=== PATIENT | female | born 1970 | race Two or more races ===

== ENCOUNTER 2021-01-27 21:24 | Emergency (ER) | payer OTHER, SELFPAY ==
--- NOTE | ~2021-01-27 | CT_ITS ---
EXAMINATION: CT HEAD WITHOUT CONTRAST CLINICAL INFORMATION: Altered mental status. COMPARISON: None. TECHNIQUE: Contiguous helical images of the brain were obtained without IV contrast. Multiplanar reconstructions were performed. DLP: 671 mGy-cm. FINDINGS: There are no pathologic extra-axial fluid collections. The lateral, third, fourth ventricles are nondilated and concordant with the appearance of the sulci. There is no evidence for acute intraparenchymal hemorrhage or infarct. There is neither mass nor mass effect. There is no shift of midline structures. The paranasal sinuses and mastoid air cells are clear. There are no osseous lesions. CT/CT head/brain wo con IMPRESSION: No evidence for acute intracranial injury. Automated exposure control (Care Dose) Adjustment of the mA and/or kv according to patient size (this includes techniques or standardized protocols for targeted exams where dose is matched to indication / reason for exam; i.e. extremities or head).
--- NOTE | ~2021-01-27 | CT_ITS ---
EXAMINATION: CT ABDOMEN AND PELVIS WITHOUT CONTRAST CLINICAL INFORMATION: Abdominal pain. COMPARISON: None. TECHNIQUE: Contiguous axial thin section helical images of the abdomen and pelvis were performed without oral or IV contrast. The data set was reformatted in the coronal and sagittal planes and reviewed on an independent workstation. The examination is limited secondary to extensive patient motion artifact. DLP: 1082 mGy-cm. FINDINGS: The visualized lung bases are clear. The visualized portions of the heart are unremarkable. The liver is of normal size and attenuation without focal lesions nor intrahepatic biliary ductal dilation. The patient is status post cholecystectomy. Surgical clips are identified. The spleen, pancreas, adrenal glands are unremarkable. Both kidneys are of normal size and attenuation without hydronephrosis or nephrolithiasis. There is no abdominal free fluid. There is neither mesenteric nor retroperitoneal lymphadenopathy. There is a fat-containing ventral hernia to the left of midline at the level of the umbilicus. Normal unopacified loops of small and large bowel are identified. There is no pelvic free fluid. The urinary bladder is unremarkable. There is neither pelvic nor inguinal lymphadenopathy. Bone windows: Neither sclerotic nor lytic bone lesions are identified. There is superior and inferior endplate concavity at T12 with mild vertebral body height loss. CT/CT abdomen pelvis wo con IMPRESSION: Limited exam secondary to extensive patient motion artifact. Neither hydronephrosis nor nephrolithiasis. No acute abdominal or pelvic inflammatory or infectious processes. Mild compression fracture at T12 which is age indeterminant. Automated exposure control (Care Dose) Adjustment of the mA and/or kv according to patient size (this includes techniques or standardized protocols for targeted exams where dose is matched to indication / reason for exam; i.e. extremities or head).
[2021-01-27 21:31] VITALS: BP 150/80; PULSE 102; O2SAT 97
[2021-01-27 23:37] VITALS: BP 125/61; PULSE 85; RESP 18; TEMP 36.7; O2SAT 99; BMI 32.6
[2021-01-27 23:49] VITALS: BP 125/61; PULSE 85; RESP 18; TEMP 36.7; O2SAT 99
[2021-01-27 23:49] LABS: Glucose, Whole Blood 378 mg/dL (60-115)
[2021-01-28] MEDS: Sodium Phosphate,Mono-Dibasic 133 ML ENEMA PR (01:05)
--- NOTE | 2021-01-28 01:39 | ECG_ITS ---
Test Reason : DKA Blood Pressure : / mmHG Vent. Rate : 071 BPM Atrial Rate : 071 BPM P-R Int : 158 ms QRS Dur : 108 ms QT Int : 444 ms P-R-T Axes : 055 -06 048 degrees QTc Int : 482 ms Normal sinus rhythm Nonspecific T wave abnormality Prolonged QT Abnormal ECG When compared with ECG of 17-JAN-2020 20:18, Criteria for Septal infarct are no longer Present Nonspecific T wave abnormality, worse in Inferior leads T wave inversion now evident in Lateral leads QT has lengthened Referred By: Ana Ferrari Electronically Signed By:MARLYN CASEY MD
--- NOTE | 2021-01-28 01:40 | ED.ABDPAIN ---
HPI - Abdominal Pain General Chief Complaint: Abdominal Pain Stated Complaint: constipation x 1 week Time Seen by Provider: 01/28/21 00:50 Source: patient History of Present Illness HPI narrative: 50 years old with a long history of psychiatric issues. Patient also has a history of diabetes. Presents today with having no bowel movement for last week. Has a history of having multiple C-sections. Also had a history of tubal ligation. Positive p.o. intake very small amount of gas past. No bowel movement for the last week. No cough and no congestion or upper respiratory symptoms feels weak and tired. Patient also has a history of thyroid problems. Related Data Allergies Allergy/AdvReac Type Severity Reaction Status Date / Time morphine [MORPHINE] Allergy Unknown UNKNOWN, Unverified 07/12/20 18:10 bradycardia Review of Systems Review of Systems Constitutional: No Weight loss, No Fever, No Chills, No Night Sweats, No Fatigue, No Malaise ENT/Mouth: No Hearing loss, No Ear Pain, No Nasal Congestion, No Sinus Pain, No Hoarseness, No sore throat, No Rhinorrhea, No Swallowing Difficulty Eyes: No Eye Pain, No Swelling, No Redness, No Foreign Body, No Discharge, No Vision Changes Cardiovascular: No Chest Pain, No SOB, No Dyspnea on Exertion, No Orthopnea, No Edema, No Palpitations Respiratory: No Cough, No Sputum, No Wheezing, No Smoke Exposure, No Dyspnea Gastrointestinal: Positive decreased p.o. intake positive constipation Genitourinary: no irregular bleeding, No Dysuria, No Urinary Frequency, No Hematuria, No Urinary Incontinence, No Urgency, No Flank Pain, No Urinary Flow Changes, No Hesitancy Musculoskeletal: No joint pain, No Myalgias, No Joint Swelling Skin: No Skin Lesions, No rash Neuro: No Weakness, No Numbness, No Paresthesias, No Loss of Consciousness, No Dizziness, No Headache Psych: No Anxiety/Panic, No Depression, No SI/HI/AH/VH, No Social Issues, Heme/Lymph: No Bruising, No Bleeding,No Lymphadenopathy Endocrine: No Polyuria, No Polydipsia, No Temperature Intolerance Physical Exam Vital Signs: Vital Signs: Last Vital Signs Temp 98.1 F 01/27/21 23:49 Pulse 69 01/28/21 07:31 Resp 20 01/28/21 07:31 BP 112/42 L 01/28/21 07:31 Pulse Ox 99 01/28/21 07:31 Body Mass Index 32.6 Appearance: Alert. Oriented X3. No acute distress. Eyes: Pupils equal, round and reactive to light. ENT: Pharynx normal. Neck: Normal inspection. Neck supple. No lymph nodes noted. No crepitus CVS: Normal heart rate and rhythm. Pulses normal. Normal S1 and S2 Respiratory: No respiratory distress. Breath sounds normal. No Wheezing. No rales Abdomen: Soft and nontender. No rigidity. No distention. good BS x4 Skin: Skin warm and dry. Normal skin color. Normal skin turgor. Extremities: No lower extremity edema. Neurovascular intact to all extremities. No Lacerations. No Rash Neuro: Oriented X 3. No motor deficit. No sensory deficit. Moving all extermities. No slurred speech MDM - Abdominal Pain MDM Narrative Medical decision making narrative: Patient's while in image emergency department had a manual disimpaction for her constipation. Small amount of stool was removed. An enema was given. On the way to the bathroom patient had a syncopal episode. Patient's CT scan of the head was grossly negative. Patient's electrolytes showed a sugar in the 490 range. Has evidence for diabetic he still ketoacidosis is patient had an anion gap of 24. A bicarb of 11. Elevated BUN and creatinine consistent with having acute renal insufficiency. CT scan of the abdomen did not show any acute evidence of obstruction. No large stool burden. No abscess. Patient's EKG did not show any signs of ischemia. Patient's troponin is normal. Patient's coronavirus test was negative. Case was discussed with patient will need an insulin drip. Because [facility] does not have an intensive care unit bed. Case was discussed with [facility]. The transfer Center accepted patient on behalf of Dr. petit risk of transfer discussed with family. Currently in stable condition awaiting transfer. Medical Records Attestation: I reviewed the patient's medical records. Lab Data Attestation: I reviewed the patient's lab results. Result diagrams: 01/28/21 02:38 01/28/21 05:05 Labs: Lab Results 01/27/21 01/28/21 01/28/21 Range/Units 23:43 02:28 02:38 WBC 10.2 (4.8-10.8) X10*3/uL RBC 4.32 (4.20-5.50) X10*6/uL Hgb 12.8 (12.0-16.0) g/dl Hct 36.9 L (37-47) % MCV 85.4 (80-98) fL MCH 29.6 (27.0-33.0) pg MCHC 34.7 (31.0-35.0) g/dl RDW 12.3 (11.0-16.0) % Plt Count 358 (160-400) X10*3/uL MPV 11.7 (9.4-12.3) fL Immature Gran % (Auto) 0.8 H (0.0-0.4) % Neut % (Auto) 79.2 H (45-73) % Lymph % (Auto) 11.4 L (20-40) % [place] % (Auto) 8.1 (2-11) % Eos % (Auto) 0.1 (0-4) % Baso % (Auto) 0.4 (0-2) % Lymph # (Auto) 1.2 (1.2-4.9) X10*3/uL [place] # (Auto) 0.8 (0.1-1.2) X10*3/uL Eos # (Auto) 0.0 (0.0-0.4) X10*3/uL Baso # (Auto) 0.0 (0.0-0.2) X10*3/uL Abs Immat Gran (auto) 0.08 H (0.00-0.03) X10*3/uL Absolute Neuts (auto) 8.1 (2.0-8.3) X10*3/uL Absolute Nucleated RBC 0.000 (0.0-0.012) X10*3/uL Nucleated RBC % (auto) 0.0 (0.0-0.2) /100WBC PT (10.8-13.0) SEC INR (0.9-1.1) VBG pH (7.32-7.43) VBG pCO2 mmHg VBG pO2 mmHg VBG HCO3 (22-26) mmol/L VBG O2 Saturation % VBG Base Excess mmol/L Sodium (135-145) mmol/L Potassium (3.3-5.1) mmol/L Chloride (96-108) mmol/L Carbon Dioxide (22-29) mmol/L Anion Gap (12-20) BUN (9-16) mg/dL Creatinine (0.5-1.4) mg/dL Estim Creat Clear Calc Estimated GFR POC Glucose 378 H* 446 H* (60-115) mg/dL Random Glucose (60-115) mg/dL Calcium (8.4-10.2) mg/dL Total Bilirubin (0.0-1.0) mg/dL Direct Bilirubin (0.0-0.5) mg/dL AST (5-31) U/L ALT (0-31) U/L Alkaline Phosphatase (39-117) U/L Troponin I High Sens (<3.5-17.0) ng/L Total Protein (6.5-8.0) g/dL Albumin (3.5-5.0) g/dL Lipase (8-78) U/L COVID-19 (DESI) (Negative) COVID-19 Clin Com 01/28/21 01/28/21 01/28/21 Range/Units 02:38 02:38 02:38 WBC (4.8-10.8) X10*3/uL RBC (4.20-5.50) X10*6/uL Hgb (12.0-16.0) g/dl Hct (37-47) % MCV (80-98) fL MCH (27.0-33.0) pg MCHC (31.0-35.0) g/dl RDW (11.0-16.0) % Plt Count (160-400) X10*3/uL MPV (9.4-12.3) fL Immature Gran % (Auto) (0.0-0.4) % Neut % (Auto) (45-73) % Lymph % (Auto) (20-40) % [place] % (Auto) (2-11) % Eos % (Auto) (0-4) % Baso % (Auto) (0-2) % Lymph # (Auto) (1.2-4.9) X10*3/uL [place] # (Auto) (0.1-1.2) X10*3/uL Eos # (Auto) (0.0-0.4) X10*3/uL Baso # (Auto) (0.0-0.2) X10*3/uL Abs Immat Gran (auto) (0.00-0.03) X10*3/uL Absolute Neuts (auto) (2.0-8.3) X10*3/uL Absolute Nucleated RBC (0.0-0.012) X10*3/uL Nucleated RBC % (auto) (0.0-0.2) /100WBC PT 11.4 (10.8-13.0) SEC INR 1.0 (0.9-1.1) VBG pH (7.32-7.43) VBG pCO2 mmHg VBG pO2 mmHg VBG HCO3 (22-26) mmol/L VBG O2 Saturation % VBG Base Excess mmol/L Sodium 125 L (135-145) mmol/L Potassium 4.3 (3.3-5.1) mmol/L Chloride 92 L (96-108) mmol/L Carbon Dioxide 13 L (22-29) mmol/L Anion Gap 23 H (12-20) BUN 32 H (9-16) mg/dL Creatinine 2.44 H (0.5-1.4) mg/dL Estim Creat Clear Calc 28.6 Estimated GFR 21 POC Glucose (60-115) mg/dL Random Glucose 490 H* (60-115) mg/dL Calcium 13.7 H* (8.4-10.2) mg/dL Total Bilirubin 1.3 H (0.0-1.0) mg/dL Direct Bilirubin 0.5 (0.0-0.5) mg/dL AST 15 (5-31) U/L ALT 13 (0-31) U/L Alkaline Phosphatase 149 H (39-117) U/L Troponin I High Sens 16.1 (<3.5-17.0) ng/L Total Protein 7.2 (6.5-8.0) g/dL Albumin 3.9 (3.5-5.0) g/dL Lipase 13 (8-78) U/L COVID-19 (DESI) (Negative) COVID-19 Clin Com 01/28/21 01/28/21 01/28/21 Range/Units 04:53 05:05 05:07 WBC (4.8-10.8) X10*3/uL RBC (4.20-5.50) X10*6/uL Hgb (12.0-16.0) g/dl Hct (37-47) % MCV (80-98) fL MCH (27.0-33.0) pg MCHC (31.0-35.0) g/dl RDW (11.0-16.0) % Plt Count (160-400) X10*3/uL MPV (9.4-12.3) fL Immature Gran % (Auto) (0.0-0.4) % Neut % (Auto) (45-73) % Lymph % (Auto) (20-40) % [place] % (Auto) (2-11) % Eos % (Auto) (0-4) % Baso % (Auto) (0-2) % Lymph # (Auto) (1.2-4.9) X10*3/uL [place] # (Auto) (0.1-1.2) X10*3/uL Eos # (Auto) (0.0-0.4) X10*3/uL Baso # (Auto) (0.0-0.2) X10*3/uL Abs Immat Gran (auto) (0.00-0.03) X10*3/uL Absolute Neuts (auto) (2.0-8.3) X10*3/uL Absolute Nucleated RBC (0.0-0.012) X10*3/uL Nucleated RBC % (auto) (0.0-0.2) /100WBC PT (10.8-13.0) SEC INR (0.9-1.1) VBG pH 7.29 L (7.32-7.43) VBG pCO2 23 mmHg VBG pO2 92 mmHg VBG HCO3 11 L (22-26) mmol/L VBG O2 Saturation 96.0 % VBG Base Excess -12.7 mmol/L Sodium 127 L (135-145) mmol/L Potassium 3.6 (3.3-5.1) mmol/L Chloride 97 (96-108) mmol/L Carbon Dioxide 11 L (22-29) mmol/L Anion Gap 23 H (12-20) BUN 31 H (9-16) mg/dL Creatinine 2.27 H (0.5-1.4) mg/dL Estim Creat Clear Calc 30.8 Estimated GFR 23 POC Glucose (60-115) mg/dL Random Glucose 428 H* (60-115) mg/dL Calcium 13.2 H* (8.4-10.2) mg/dL Total Bilirubin (0.0-1.0) mg/dL Direct Bilirubin (0.0-0.5) mg/dL AST (5-31) U/L ALT (0-31) U/L Alkaline Phosphatase (39-117) U/L Troponin I High Sens (<3.5-17.0) ng/L Total Protein (6.5-8.0) g/dL Albumin (3.5-5.0) g/dL Lipase (8-78) U/L COVID-19 (DESI) Negative (Negative) COVID-19 Clin Com See Note 01/28/21 Range/Units 07:14 WBC (4.8-10.8) X10*3/uL RBC (4.20-5.50) X10*6/uL Hgb (12.0-16.0) g/dl Hct (37-47) % MCV (80-98) fL MCH (27.0-33.0) pg MCHC (31.0-35.0) g/dl RDW (11.0-16.0) % Plt Count (160-400) X10*3/uL MPV (9.4-12.3) fL Immature Gran % (Auto) (0.0-0.4) % Neut % (Auto) (45-73) % Lymph % (Auto) (20-40) % [place] % (Auto) (2-11) % Eos % (Auto) (0-4) % Baso % (Auto) (0-2) % Lymph # (Auto) (1.2-4.9) X10*3/uL [place] # (Auto) (0.1-1.2) X10*3/uL Eos # (Auto) (0.0-0.4) X10*3/uL Baso # (Auto) (0.0-0.2) X10*3/uL Abs Immat Gran (auto) (0.00-0.03) X10*3/uL Absolute Neuts (auto) (2.0-8.3) X10*3/uL Absolute Nucleated RBC (0.0-0.012) X10*3/uL Nucleated RBC % (auto) (0.0-0.2) /100WBC PT (10.8-13.0) SEC INR (0.9-1.1) VBG pH (7.32-7.43) VBG pCO2 mmHg VBG pO2 mmHg VBG HCO3 (22-26) mmol/L VBG O2 Saturation % VBG Base Excess mmol/L Sodium (135-145) mmol/L Potassium (3.3-5.1) mmol/L Chloride (96-108) mmol/L Carbon Dioxide (22-29) mmol/L Anion Gap (12-20) BUN (9-16) mg/dL Creatinine (0.5-1.4) mg/dL Estim Creat Clear Calc Estimated GFR POC Glucose 300 H (60-115) mg/dL Random Glucose (60-115) mg/dL Calcium (8.4-10.2) mg/dL Total Bilirubin (0.0-1.0) mg/dL Direct Bilirubin (0.0-0.5) mg/dL AST (5-31) U/L ALT (0-31) U/L Alkaline Phosphatase (39-117) U/L Troponin I High Sens (<3.5-17.0) ng/L Total Protein (6.5-8.0) g/dL Albumin (3.5-5.0) g/dL Lipase (8-78) U/L COVID-19 (DESI) (Negative) COVID-19 Clin Com ECG Data Interpretation: Sinus heart rate of 70 MT QRS QT within normal limits QTC was 480 there is no acute ST segment elevation there is some nonspecific T-wave flattening noted. Critical Care Time Critical Care Time Critical Care Time: Yes Total Critical Care Time: 90 Attestation: I have personally provided 90 minutes of critical care time exclusive of time spent on separately billable procedures. Time includes review of lab data, radiology results, discussion with consultants, and monitoring for potential decompensation. Interventions were performed as documented above Discharge Plan Discharge Clinical Impression: Syncope, Diabetic ketoacidosis [facility] Past Medical History Medical History Depression Diabetes HTN (hypertension) Hypothyroid Surgical History H/O tubal ligation Previous section Social History Social History Smoking Status: Former smoker Use of substances other than those prescribed or required for medical reasons: No Advance Directives: No Advance Directives Information Provided: No
--- NOTE | 2021-01-28 01:57 | PC.NURSE ---
This RN called by copier field service technician, pt found in bathroom on floor. Pt states that she was moving her bowels when she got dizzy and fell to the floor hitting her head. Ferrari at side, pt assisted up and back into room. Pts gait unsteady, requiring a two assist. Primary RN aware.
[2021-01-28 02:43] LABS: MANUAL DIFF FLAG NO
[2021-01-28 02:45] LABS: Basophils Percent Auto 0.4 % (0-2); Eosinophils Percent Auto 0.1 % (0-4); Hematocrit 36.9 % (37-47); Hemoglobin 12.8 g/dl (12.0-16.0); Imm Gran Abs Auto 0.08 X10*3/uL (0.00-0.03); Imm Gran Pct Auto 0.8 % (0.0-0.4); Lymphocytes Absolute Auto 1.2 X10*3/uL (1.2-4.9); Lymphocytes Percent Auto 11.4 % (20-40); Mean Corpuscular HGB Conc 34.7 g/dl (31.0-35.0); Mean Corpuscular Hemoglobin 29.6 pg (27.0-33.0); Mean Corpuscular Volume 85.4 fL (80-98); Mean Platelet Volume 11.7 fL (9.4-12.3); Monocytes Absolute Auto 0.8 X10*3/uL (0.1-1.2); Monocytes Percent Auto 8.1 % (2-11); Neutrophils Absolute Auto 8.1 X10*3/uL (2.0-8.3); Neutrophils Percent Auto 79.2 % (45-73); Platelet Count 358 X10*3/uL (160-400); Red Blood Count 4.32 X10*6/uL (4.20-5.50); Red Cell Distribution Width 12.3 % (11.0-16.0); White Blood Count 10.2 X10*3/uL (4.8-10.8)
[2021-01-28 02:50] LABS: Prothrombin Time 11.4 SEC (10.8-13.0)
[2021-01-28 03:08] LABS: Glucose, Whole Blood 446 mg/dL (60-115)
[2021-01-28 03:25] LABS: Alanine Aminotransferase 13 U/L (0-31); Albumin Level 3.9 g/dL (3.5-5.0); Alkaline Phosphatase 149 U/L (39-117); Anion Gap 23 (12-20); Aspartate Amino Transferase 15 U/L (5-31); Bilirubin Direct 0.5 mg/dL (0.0-0.5); Bilirubin Total 1.3 mg/dL (0.0-1.0); Blood Urea Nitrogen 32 mg/dL (9-16); Calcium 13.7 mg/dL (8.4-10.2); Carbon Dioxide 13 mmol/L (22-29); Chloride 92 mmol/L (96-108); Creatinine Clr Calc Pharmacy 28.6; Estimated Glomerular Filt Rate 21; Glucose Random 490 mg/dL (60-115); Lipase 13 U/L (8-78); Potassium 4.3 mmol/L (3.3-5.1); Sodium 125 mmol/L (135-145); Total Protein 7.2 g/dL (6.5-8.0)
[2021-01-28] MEDS: 0.9 % Sodium Chloride 1,000 ML 999 ML IV ×2 (03:54→06:00)
[2021-01-28] MEDS: ondansetron HCL 4 MG/2 ML VIAL IVPUSH (03:54)
[2021-01-28 05:12] LABS: Venous Blood Gas Refer to POC result
[2021-01-28 05:14] LABS: VBG Base Excess -12.7 mmol/L; VBG HCO3 11 mmol/L (22-26); VBG pCO2 23 mmHg; VBG pH 7.29 (7.32-7.43); VBG pO2 92 mmHg
--- NOTE | 2021-01-28 05:28 | PC.NURSE ---
delay in med administration due to staffing levels and multicle critical patients.
[2021-01-28 05:29] LABS: COVID-19 Test Negative (Negative); IDNOW Serial# 9DD0AD1C
[2021-01-28] MEDS: Insulin Regular, Human 100 UNIT/ML 3 ML VIAL 9 UNIT IVPUSH (05:35)
[2021-01-28 05:37] LABS: Anion Gap 23 (12-20); Blood Urea Nitrogen 31 mg/dL (9-16); Calcium 13.2 mg/dL (8.4-10.2); Carbon Dioxide 11 mmol/L (22-29); Chloride 97 mmol/L (96-108); Creatinine Clr Calc Pharmacy 30.8; Estimated Glomerular Filt Rate 23; Glucose Random 428 mg/dL (60-115); Potassium 3.6 mmol/L (3.3-5.1); Sodium 127 mmol/L (135-145)
--- NOTE | 2021-01-28 05:45 | PC.NURSE ---
@8909 DR BELL ASKS FOR CALL TO BE PLACED TO [facility] [place] LINE FOR THIS PT BERNARD ANSWERS,TAKES PT IN INFO AND ASKS TO SPEAK WITH DR ARABELLA BELL TAKES OVER CALL RIGHT AWAY, PER DR BELL NO BED AVAILABLE @ THIS TIME @2747 DR BELL REQUESTS A CALL PLACED TO [facility] FOR TX OF THE IS PT DR BELL TOLD NO BEDS AVAILABLE @ [facility] @ THAT TIME. @1939 DR BELL REQUESTS CALL OUT TO [facility] FOR TX OF THIS PT JEREMI ANSWERS AND ASKS TO SPEAK WITH DR ARABELLA BELL TAKES OVER CALL RIGHT AWAY @ 2932 JEREMI OF [facility] TX LINE CALLS AND ASKS TO SPEAK WITH DR BELL AND FOR US TO FAX FACE SHEET TO THEM TO [phone]
--- NOTE | 2021-01-28 06:17 | PC.NURSE ---
insulin drip started at 06:10, 5 units an hour. verified by MARYAM Trevino
[2021-01-28 06:19] VITALS: BP 128/44; PULSE 67; RESP 17; O2SAT 99
[2021-01-28 06:25] LABS: Troponin-I High Sensitivity 16.1 ng/L (<3.5-17.0)
[2021-01-28] MEDS: Insulin Regular/NS 100 UNIT/100 ML PLAST..BAG IVCONT (06:31)
--- NOTE | 2021-01-28 06:39 | PC.NURSE ---
PLANS TO TRANSFER PATIENT TO [facility], PATIENT AND AWARE.
--- NOTE | 2021-01-28 06:57 | PC.NURSE ---
received report from celestine frey
[2021-01-28 07:10] VITALS: BP 116/32; PULSE 64; RESP 11; O2SAT 98
[2021-01-28] MEDS: 0.9 % Sodium Chloride 500 ML 999 ML IV (07:11)
[2021-01-28 07:22] LABS: Glucose, Whole Blood 300 mg/dL (60-115)
[2021-01-28 07:31] VITALS: BP 112/42; PULSE 69; RESP 20; O2SAT 99
--- NOTE | 2021-01-28 07:32 | PC.NURSE ---
PT RESTING IN THE STRETCHER, ALERT AND ORIENTED, SKIN PALE AND DRY, PT REPORTS RIGHT LOWER BACK PAIN ABOUT 8/10, PT DENIES ABD PAIN/NAUSEA BUT STATES FEELING VERY WEAK. NS ON THE MONITOR. REPEAT POC 300, ORIGINAL STARTING POC FOR THE INSULIN DRIP WAS 428, DECREASED BY 100, DRIP DROPPED TO 2.5U/H. VS STABLE AT THIS TIME. [place] [facility] [place]
--- NOTE | 2021-01-28 08:04 | PC.NURSE ---
report given to Shelly sprague
[2021-01-28 08:27] LABS: Anion Gap 16 (12-20); Blood Urea Nitrogen 29 mg/dL (9-16); Calcium 12.7 mg/dL (8.4-10.2); Carbon Dioxide 14 mmol/L (22-29); Chloride 102 mmol/L (96-108); Creatinine Clr Calc Pharmacy 35.9; Estimated Glomerular Filt Rate 27; Glucose Random 268 mg/dL (60-115); Magnesium 1.8 mg/dL (1.6-2.6); Potassium 3.4 mmol/L (3.3-5.1); Sodium 129 mmol/L (135-145)
[2021-01-28 08:35] LABS: Glucose, Whole Blood 229 mg/dL (60-115)
[2021-01-28 09:36] LABS: Glucose, Whole Blood 243 mg/dL (60-115)
== END 2021-01-28 10:38 | disposition other institution (70) ==
PROVIDERS: Emergency Provider Emergency Medicine Emergency Medical Services; PCP Student in an Organized Health Care Education/Training Program
DX: R55 Syncope and collapse (principal); E11.10 Type 2 diabetes mellitus with ketoacidosis without coma; K59.00 Constipation, unspecified; I10 Essential (primary) hypertension; E11.9 Type 2 diabetes mellitus without complications; Z20.822 Contact with and (suspected) exposure to COVID-19; Z87.891 Personal history of nicotine dependence; Z79.899 Other long term (current) drug therapy
CPT/HCPCS: 36415; 70450; 74176; 80048; 80076; 82947; 83690; 83735; 84484; 85025; 85610; 87635; 93005; 96365; 96375; 99284; 99291; 99292; J2405

== ENCOUNTER → 2021-02-28 13:11 | Outpatient (BNVA) | payer OTHER, SELFPAY | PROVIDERS: Visit Provider Physician Assistant ==

== ENCOUNTER 2021-05-07 15:00 | Outpatient (RCR) | payer OTHER, SELFPAY | END 2021-05-17 10:23 | disposition home or self-care (01) | LOC: HO.PTCHIC 15:00 | PROVIDERS: PCP Student in an Organized Health Care Education/Training Program; Visit Provider Student in an Organized Health Care Education/Training Program | DX: R26.9 Unspecified abnormalities of gait and mobility (principal) | CPT/HCPCS: 97110; 97112; 97162 ==

== ENCOUNTER 2021-05-29 16:49 | Outpatient (REF) | payer OTHER, SELFPAY ==
--- NOTE | ~2021-05-29 | XR_ITS ---
EXAMINATION: XR HAND WRIST, RIGHT XR HAND WRIST, LEFT CLINICAL INFORMATION: Bilateral pain. History fall onto hands approximately 3 months ago. COMPARISON: None TECHNIQUE: Each hand and wrist are imaged together in 3 large [id number] images. A navicular view is also included on each side for a total of 4 views of each side. FINDINGS: Right: There is no acute or healing fracture, dislocation, or destructive process. The ulnar variance is neutral. There is no periarticular demineralization, focal joint narrowing, or erosive changes. There may be mild generalized osteopenia. Left: There is no acute or healing fracture, dislocation, or destructive process. The ulnar variance is neutral. There is no periarticular demineralization, focal joint narrowing, or erosive changes. There may be mild generalized osteopenia. XR/XR hand wrist RT IMPRESSION: 1. No acute or healing fracture, dislocation, or arthropathy. 2. Question mild generalized osteopenia.
--- NOTE | ~2021-05-29 | XR_ITS ---
EXAMINATION: XR HAND WRIST, RIGHT XR HAND WRIST, LEFT CLINICAL INFORMATION: Bilateral pain. History fall onto hands approximately 3 months ago. COMPARISON: None TECHNIQUE: Each hand and wrist are imaged together in 3 large [id number] images. A navicular view is also included on each side for a total of 4 views of each side. FINDINGS: Right: There is no acute or healing fracture, dislocation, or destructive process. The ulnar variance is neutral. There is no periarticular demineralization, focal joint narrowing, or erosive changes. There may be mild generalized osteopenia. Left: There is no acute or healing fracture, dislocation, or destructive process. The ulnar variance is neutral. There is no periarticular demineralization, focal joint narrowing, or erosive changes. There may be mild generalized osteopenia. XR/XR hand wrist LT IMPRESSION: 1. No acute or healing fracture, dislocation, or arthropathy. 2. Question mild generalized osteopenia.
== END 2021-05-29 16:50 | disposition home or self-care (01) ==
LOC: HO.XRAY 16:49
PROVIDERS: PCP Student in an Organized Health Care Education/Training Program; Visit Provider General Practice
DX: M79.641 Pain in right hand (principal); M79.642 Pain in left hand; Z91.81 History of falling
CPT/HCPCS: 73110; 73130

== ENCOUNTER 2023-05-25 11:19 | Outpatient (REF) | payer OTHER, SELFPAY ==
[2023-05-25 15:22] LABS: Anion Gap 18 (12-20); Blood Urea Nitrogen 38 mg/dL (9-16); Calcium 9.3 mg/dL (8.4-10.2); Carbon Dioxide 18 mmol/L (22-29); Chloride 109 mmol/L (96-108); Estimated Glomerular Filt Rate 34; Glucose Random 98 mg/dL (60-115); Potassium 4.5 mmol/L (3.3-5.1); Sodium 140 mmol/L (135-145)
== END 2023-05-25 11:20 | disposition home or self-care (01) ==
LOC: HO.CHCLDS 11:19
PROVIDERS: Visit Provider Student in an Organized Health Care Education/Training Program
DX: I10 Essential (primary) hypertension (principal)
CPT/HCPCS: 36415; 80048

== ENCOUNTER 2024-01-13 14:41 | Outpatient (REF) | payer OTHER, SELFPAY ==
--- NOTE | ~2024-01-13 | MM_ITS ---
EXAMINATION: MM SCREENING DIGITAL BREAST TOMOSYNTHESIS, BILATERAL CLINICAL INFORMATION: Screening. Asymptomatic. COMPARISON: Mammography: This study is compared with prior exams dating back to 2013. TECHNIQUE: Digital breast tomosynthesis is performed in both the craniocaudal and mediolateral oblique views along with computer-aided detection (CAD). Synthesized 2D images are generated from the tomosynthesis. FINDINGS: There are scattered areas of fibroglandular density (ACR BI-RADS breast composition Category b). There are no significant masses, abnormal calcifications, or other abnormalities. MM/MM tomosynthesis screening BI IMPRESSION: No mammographic evidence of malignancy. ASSESSMENT: BI-RADS BI-RADS 1 - Negative RECOMMENDATION: Routine annual mammography screening. 1 year F/U This examination should not preclude the clinical evaluation of a suspicious palpable abnormality. This patient's information was entered into a reminder system with a target due date for their next mammogram.
== END 2024-01-13 14:42 | disposition home or self-care (01) ==
LOC: HO.MAMMO 14:41
PROVIDERS: PCP Student in an Organized Health Care Education/Training Program; Visit Provider Student in an Organized Health Care Education/Training Program
DX: Z12.31 Encounter for screening mammogram for malignant neoplasm of breast (principal)
CPT/HCPCS: 77063; 77067

== ENCOUNTER → 2024-01-13 14:45 | Outpatient (BNV) | payer OTHER, SELFPAY | PROVIDERS: PCP Student in an Organized Health Care Education/Training Program; Visit Provider Radiology Diagnostic Radiology | DX: Z12.31 Encounter for screening mammogram for malignant neoplasm of breast (principal) | CPT/HCPCS: 77063; 77067 ==

== ENCOUNTER 2024-01-14 10:13 | Outpatient (AMB) | payer OTHER, SELFPAY ==
--- NOTE | 2024-01-14 10:15 | A.OFFVIS_ITS ---
Intake Vital Signs 01/14/24 10:18 Height 5 ft 4 in Weight 253 lb 8.505 oz BMI 43.5 BP 116/60 Blood Pressure Location Rt radial Position Sitting Pulse 82 Pulse Source Pulse Oximeter Temp 97 F Temp Source Skin Pulse Oximetry (%) 97 Oxygen Delivery Method Room Air Intake Visit Reasons: SLE/LVM Intake Note: New patient, externally referred, presents to office today for SLE consult. Referred by [facility], Dr. Hernandez Emergency Veterinary Technician Required: No Accompanied by: Self / Same As Patient Allergies haloperidol [From Haldol] Allergy (Severe, Verified 01/14/24 10:16) Jaw locked pioglitazone [From Actos] Allergy (Severe, Verified 01/14/24 10:16) Throat swells morphine [MORPHINE] Allergy (Unknown, Unverified 01/14/24 10:16) UNKNOWN, bradycardia HPI HPI Comments History of Present Illness Details Ms. Starr 53 year old female refer by her Neprologist for evaluation of +dsDNA in the context of CKD, uncontrolled diabetes mellitus and negative CASPER. She denies signs and symptoms of lupus. She has hypertension, longstanding diabetes and she was 16 years old and state 3 chronic kidney disease. She has not had hair loss more than the dilation, sores in the nose or mouth, sun sensitivity or concerned rashes. She does have joint ache which she thinks is more related to her lower back and knee pain. She walks with a cane. She can planes of a chronic dull pain to the right flank which has been there since she fell and hit that side over a year ago. Imaging has not identified any pathology. She has done physical rehab in the past Patient denies Raynaud's phenomenon, butterfly rash on face or other rashes; denies photosensitivity - getting sick or developing a rash from being out in the sun; denies blood or froth in urine; patient denies hx of SOB, chest pain. Patient denies hx of Carditis or Pleuritis. Patient denies any history of DVT/PE. Patient had no miscarriages. The patient reports never have had to take aspirin or a blood thinner during the successful pregnancies. Denies fevers, excessive fatigue, unexplained weight-loss or weight-gain, thinning hair or hair loss, hx of rashes; dry mouth, mouth sores or ulcers; ringing in the ear. Her daughter has lupus. PFSH Medical History (Updated 01/14/24 @ 13:25 by SOHAIL Galvan) Obesity, morbid, BMI 40.0-49.9 Chronic kidney disease (CKD) Ds DNA antibody positive Depression Diabetes Hypothyroid HTN (hypertension) Depression Surgical History History of parotid gland removal History of cholecystectomy Previous section H/O tubal ligation Family History Daughter Lupus Mother Arthritis Diabetes Maternal Grandmother Arthritis Father Multiple sclerosis Diabetes Social History (Updated 01/14/24 @ 10:22 by KRYSTLE Quinn) Household Members: Spouse and Children Household Members Other:: , 21-year-old daughter Alcohol intake: former Patient Tobacco Use Status: Never used Tobacco Current occupational status: unemployed Review of Systems Const All systems reviewed & are unremarkable except as noted in HPI and below Physical Exam Vital Signs: Last Vital Signs Temp 97 F 01/14/24 10:18 Pulse 82 01/14/24 10:18 BP 116/60 01/14/24 10:18 Pulse Ox 97 01/14/24 10:18 Oxygen Delivery Method Room Air 01/14/24 10:18 BMI result Body Mass Index 43.5 Vital signs reviewed. Constitutional: Non-toxic appearing. No acute distress. Well-developed and well-nourished. HEENT: Normocephalic and atraumatic. External auditory canals without erythema or edema bilaterally. Dry mucous membranes. No pharyngeal erythema or exudates. Skin: Warm and dry. No rashes or lesions noted. Neck: Full and painless range of motion. No cervical lymphadenopathy. Cardio: Regular rate and rhythm. No murmurs, gallops, or rubs. No lower extremity edema. No JVD. Pulmonary: No respiratory distress. No accessory muscle usage. Scattered expiratory wheezing. Gastrointestinal: Soft, nontender, and nondistended in all 4 quadrants. Normoactive bowel sounds in all 4 quadrants. Genitourinary: No CVA tenderness. Musculoskeletal: Normal range of motion in joints throughout the body. No deformity or other signs of injury. Neuro: Alert and oriented x4. Cranial nerves 2-12 grossly intact. No focal deficits appreciated. Results Reviewed Results Reviewed: I have reviewed the labs sent in with the referral documents. Assessment & Plan Assessment & Plan (1) Ds DNA antibody positive: Code(s): R76.8 - Other specified abnormal immunological findings in serum (2) Chronic kidney disease (CKD): Code(s): N18.9 - Chronic kidney disease, unspecified Qualifiers: Chronic kidney disease stage 3 subtype: unspecified whether 3a or 3b Chronic kidney disease stage: stage 3 (moderate) Qualified Code(s): N18.30 - Chronic kidney disease, stage 3 unspecified (3) Obesity, morbid, BMI 40.0-49.9: Code(s): E66.01 - Morbid (severe) obesity due to excess calories (4) Depression: Comment: Depression-has psychotherapist however she does not feel she has a good connection, Code(s): F32.9 - Major depressive disorder, single episode, unspecified Plan #+dsDNA/CKD:It is not standard for patient to have lupus in the setting of negative CASPER and positive double-stranded DNA. Nonetheless I will obtain some confirmatory labs to further evaluate. On PE the patient does not have a clinical presentation for lupus. In reviewing the Nephrology documentation with kidney biopsy result, I suspect her kidney condition may be more related to the uncontrolled diabetes mellitus and hypertension. The biopsy report identifies diffuse and nodular diabetic glomerular sclerosis, moderately advanced with severe arteriosclerosis and arteriolar hyalinosis. There is no evidence of immune complex mediated disease active, active glomerulitis, active interstitial nephritis or paraprotein deposit disease. #Obese/Depression: Patient and I discussed how she can improve her nutrition and increase her activity level to obtain the benefit of weight loss. The patient agrees and she will try to be more engaging of these things. She has depression but she is seeing a therapist and the depression sometimes drives the non beneficial eating habits. Follow-up in 3 weeks. I spent 55 minutes reviewing records and history, evaluating and assessing patient, encouraging patient and counseling, and documenting Orders: Orders DNA Double Stranded-Crithidia Today R76.8 - Other specified abnormal immunological findings in serum Sjogren's Antibodies Today R76.8 - Other specified abnormal immunological findings in serum Cyclic Citrullinated Peptide Today R76.8 - Other specified abnormal immunological findings in serum Rheumatoid Factor Today R76.8 - Other specified abnormal immunological findings in serum Anti DNA DS Antibody Today R76.8 - Other specified abnormal immunological findings in serum Complement C3 Today R76.8 - Other specified abnormal immunological findings in serum Complement C4 Today R76.8 - Other specified abnormal immunological findings in serum CASPER Reflex Titer and Pattern Today R76.8 - Other specified abnormal immunological findings in serum Anti Extractable Nuclear Ag Today R76.8 - Other specified abnormal immunological findings in serum Coding Level of Care Code New Pt Level 5 (84770) Diagnoses Ds DNA antibody positive R76.8 Stage 3 chronic kidney disease, unspecified whether stage 3a or 3b CKD N18.30 Chronic kidney disease stage 3 subtype: unspecified whether 3a or 3b Chronic kidney disease stage: stage 3 (moderate) Obesity, morbid, BMI 40.0-49.9 E66.01 Depression F32.9
[2024-01-14 10:18] VITALS: BP 116/60; PULSE 82; TEMP 36.1; O2SAT 97; BMI 43.5
== END 2024-01-14 11:19 | disposition home or self-care (01) ==
PROVIDERS: PCP Student in an Organized Health Care Education/Training Program; Visit Provider Nurse Practitioner Family
DX: R76.8 Other specified abnormal immunological findings in serum (principal); N18.30 Chronic kidney disease, stage 3 unspecified; E66.01 Morbid (severe) obesity due to excess calories; F32.9 Major depressive disorder, single episode, unspecified
CPT/HCPCS: 99205

== ENCOUNTER → 2024-01-14 10:13 | Outpatient (BNVA) | payer OTHER, SELFPAY | PROVIDERS: PCP Student in an Organized Health Care Education/Training Program; Visit Provider Nurse Practitioner Family | DX: R76.8 Other specified abnormal immunological findings in serum (principal); E11.22 Type 2 diabetes mellitus with diabetic chronic kidney disease; N18.30 Chronic kidney disease, stage 3 unspecified; E66.01 Morbid (severe) obesity due to excess calories; F32.9 Major depressive disorder, single episode, unspecified; Z68.41 Body mass index [BMI] 40.0-44.9, adult | CPT/HCPCS: 99202 ==

== ENCOUNTER 2024-01-14 11:26 | Outpatient (REF) | payer OTHER, SELFPAY ==
[2024-01-14 13:47] LABS: Rheumatoid Factor 70.7 IU/mL (<15.0)
[2024-01-15 13:33] LABS: Anti DNA DS Antibody 96 IU/mL; Antibody to SS-A Antigen <1.0 NEG AI (<1.0 NEG); Antibody to SS-B Antigen <1.0 NEG AI (<1.0 NEG); SM/Ribonucleoprotein Ab <1.0 NEG AI (<1.0 NEG); Smith Protein <1.0 NEG AI (<1.0 NEG)
[2024-01-15 13:52] LABS: Cyclic Citrullinated Peptide <16 UNITS
[2024-01-15 16:19] LABS: Complement C3 158 mg/dL (83-193)
[2024-01-18 14:38] LABS: Anti Nuclear Antibody Screen NEGATIVE (NEGATIVE)
[2024-01-19 15:58] LABS: DNAds, Crithidia Antibody Negative (Negative)
== END 2024-01-14 11:27 | disposition home or self-care (01) ==
LOC: HO.10HDL 11:26
PROVIDERS: Visit Provider Nurse Practitioner Family
DX: R76.8 Other specified abnormal immunological findings in serum (principal)
CPT/HCPCS: 36415; 86038; 86160; 86200; 86225; 86235; 86255; 86431

== ENCOUNTER 2024-02-16 10:25 | Outpatient (AMB) | payer OTHER, SELFPAY ==
--- OUTSIDE RECORDS SUMMARY | 2024-02-16 10:26 | XMS_ITS | Continuity of Care Document ---
Author Organization [facility] Address [address] [place] [address]- Care Team Providers Care Cook Helper Pastry Name Role Phone Nerissa Lopez MD Primary Care Physician Encounter [facility] Date(s): 07/08/23 - 08/07/23 [facility] [address] [place] [id number]- Allergies, Adverse Reactions, Alerts Substance Reaction Severity Status morphine CARDIAC ARREST Moderate Active Haldol 1 Acute dystonic react ion due to drugs 10-JUL-2014 21:15:44<$> EPS Unknown Active Actos Edema Active 1Developed sx consistent with acute dystonic rxn (trismus). Immunizations Given and Recorded Vaccine Date Status Refusal Reason SARS-CoV-2 (COVID-19) mRNA BNT-162b2 vac 02/13/21 Recorded SARS-CoV-2 (COVID-19) mRNA BNT-162b2 vac 01/08/21 Recorded zoster vaccine, inactivated 09/06/19 Recorded zoster vaccine, inactivated 06/29/19 Recorded pneumococcal 23-valent vaccine 04/25/11 Recorded tetanus/diphtheria/pertussis, acel(Tdap) 12/23/10 Recorded Pneumovax 23 (oldterm) 1 02/13/10 Given Tet/Diphth/Acel, Pertussis (oldterm) 2 02/23/08 Gi helder Influenza Virus Vaccine (oldterm) 3 09/10/07 Given Influenza Virus Vaccine (oldterm) 4 09/11/06 Given 1Admin Note: vis 02/01 2Admin Note: vis 3Admin Note: VIS 4Admin Note: VIS GIVEN Medications Abilify 5 mg oral tablet 15 mg, 3, tablet, By Mouth, Daily at bedtime, # 30 tablet, Refills 0, Tot. Refills 0, Maintenance, 01/23/20 13:27:00 EDT, Route to Pharmacy Electronically, [facility], 162.56, cm, 01/23/20 8:59:00 EDT, Height, 107.5, kg, 01/18/20... Start Date: 01/23/20 Status: Ordered acetaminophen 325 mg oral tablet 650 mg, By Mouth, Every 4 hours, PRN, If patient has not received Oxycodone/Acetaminophen (Percocet-5) in PACU, Refills 0, Maintenance, Pain , Mild, 12/31/21 9:27:00 EST, Partial fill upon patient request if the prescription is for a schedule II opioi... Start Date: 12/31/21 Status: Ordered aspirin 81 mg oral tablet 1 tablet = 81 mg, By Mouth, Daily, # 90 tablet, 11 Refills, diabetes - cardiac protection, Tablet Start Date: 10/08/09 Stop Date: 11/07/09 Status: Ordered busPIRone 7.5 mg oral tablet 1 tablet = 7.5 mg, By Mouth, 2 times a day, # 90 tablet, 0 Refills, Maintenance, 07/25/21 20:11:00 EDT, Tablet, Partial fill upon patient request if the prescription is for a schedule II opioid drug. Start Date: 07/25/21 Status: Ordered Dexcom G6 Sensors Dexcom G6 Sensors, See Instructions, # 3 each, Refills 11, Tot. Refills 11, Maintenance, Dx 11.9 IDDM, change every 10 days, 05/18/23 18:22:00 EDT, Compound, 162.56, cm, 05/14/23 10:22:00 EDT, Height, 93.1, kg, 12/31/21 6:58:00 EST, Dry Weight Start Date: 05/18/23 Status: Ordered Dexcom G6 transmitter Dexcom G6 transmitter, See Instructions, # 1 each, Refills 3, Tot. Refills 3, Maintenance, Dx 11.9 IDDM, chnage every 90 days, 05/18/23 18:22:00 EDT, Compound, 162.56, cm, 05/14/23 10:22:00 EDT, Height, 93.1, kg, 12/31/21 6:58:00 EST, Dry Weight Start Date: 05/18/23 Status: Ordered docusate sodium = 100 mg, By Mouth, Daily, PRN as needed for constipation, 0 Refills, Maintenance, 12/23/21 10:16:00 EST, Partial fill upon patient request if the prescription is for a schedule II opioid drug. Start Date: 12/23/21 Status: Ordered Freestyle David Monitor See Instructions, # 1 each, Maintenance, use as directed for Type 2 Diabetes Mellitus, 07/29/21 16:03:00 EDT, Supply, 162, cm, 07/29/21 11:24:00 EDT, Height, 83.1, kg, 07/26/21 0:26:00 EDT, Dry Weight Start Date: 07/29/21 Stop Date: 08/28/21 Status: Ordered Freestyle David Sensor See Instructions, # 1 each, Maintenance, use as directed for Type 2 Diabetes Mellitus, 07/29/21 16:03:00 EDT, Supply, 162, cm, 07/29/21 11:24:00 EDT, Height, 83.1, kg, 07/26/21 0:26:00 EDT, Dry Weight Start Date: 07/29/21 Stop Date: 08/28/21 Status: Ordered Freestyle Lite Test Strips See Instructions, # 200 each, Tot. Refills 5, Maintenance, to test BG 4 times daiily and with symptoms of hypoglycemia, 09/26/15 16:47:08, Compound Start Date: 09/26/15 Stop Date: 10/26/15 Status: Ordered Freestyle Lite Test Strips See Instructions, # 200 each, Refills 6, Tot. Refills 6, Maintenance, use as directed for Type 2 Diabetes Mellitus, 05/14/23 11:01:00 EDT, Supply, 162.56, cm, 05/14/23 10:22:00 EDT, Height, 93.1, kg,12/31/21 6:58:00 EST, Dry Weight Start Date: 05/14/23 Stop Date: 12/10/23 Status: Ordered Gabapentin = 300 mg, By Mouth, 3 times a day, 0 Refills, Maintenance, 12/23/21 10:13:00 EST, Partial fill uponpatient request if the prescription is for a schedule II opioid drug. Start Date: 12/23/21 Status: Ordered glipiZIDE 5 mg oral tablet 5 mg, 1, tablet, By Mouth, 2 times a day, Refills 0, Maintenance, 12/23/21 10:15:00 EST, Partial fill upon patient request if the prescription is for a schedule II opioid drug. Start Date: 12/23/21 Status: Ordered hydrochlorothiazide 25 mg oral tablet 25 mg, 1, tablet, By Mouth, Daily, # 30 tablet, Refills 0, Maintenance, 12/04/21 9:31:00 EST, Partial fill upon patient request if the prescription is for a schedule II opioid drug. Start Date: 12/04/21 Status: Ordered insulin lispro 100 units/mL injectable solution 4-14 units, Subcutaneous Injection, 3 times a day before meals, << Sliding Scale Comments >> 70 - 149 4 units Call if less than 70 150 - 199 6 units 200 - 249 8 units 250 - 299 10 units 300 - 349 12 units 350 - 399 14 units Call... Start Date: 07/29/21 Status: Ordered Lantus Solostar Pen 100 units/mL subcutaneous solution See Instructions, INJECT 55 UNITS SUBCUTANEOUSLY EVERY MORNING, # 15 mL, 2 Refills, [facility], 162.56, cm, 12/31/21 6:58:00 EST, Height, 93.1, kg, 12/31/21 6:58:00 EST, Dry Weight Start Date: 02/27/22 Status: Ordered levothyroxine 150 mcg (0.15 mg) oral tablet 1 tablet = 150 mcg, By Mouth, Daily, # 30 tablet, 0 Refills, Maintenance, 07/25/21 22:18:00 EDT, Tablet, Partial fill upon patient request if the prescription is for a schedule II opioid drug. Start Date: 07/25/21 Status: Ordered lisinopril 20 mg oral tablet 20 mg, 1, tablet, By Mouth, Daily, # 30 tablet, Refills 0, Tot. Refills 0, Maintenance, 02/04/21 12:22:00 EDT, Route to Pharmacy Electronically, [facility], Partial fill upon patient request if the prescription is for a schedule I... Start Date: 02/04/21 Status: Ordered One Touch Delica Lancets See Instructions, # 150 each, Maintenance, test BG 4x daily, E11.9, Please call [facility] [phone] to schedule a follow up appt or call your PCP for refills., 01/26/17 15:16:02, Compound Start Date: 01/26/17 Status: Ordered One Touch Ultra 2 Glucose Meter See Instructions, # 1 each, Refills 0, Tot. Refills 0, Maintenance, To test BG 4 times a day and prn for T2DM Dx E11.9, 05/14/16 19:28:19, Compound Start Date: 05/14/16 Status: Ordered One Touch Ultra Test Strips See Instructions, # 150 each, Refills 9, Tot. Refills 9, Maintenance, Test blood sugar 4x daily andwith symptoms of low blood sugar for dx of E11.9, 08/14/16 15:58:50, Compound Start Date: 08/14/16 Status: Ordered oxyCODONE 5 mg oral tablet 5 mg, 1, tablet, By Mouth, Every 6 hours, PRN, # 12 tablet, Refills 0, Tot. Refills 0, Maintenance,Pain , Mild, 12/31/21 9:27:00 EST, Route to Pharmacy Electronically, [facility], Partial fill upon patient request if the prescrip... Start Date: 12/31/21 Status: Ordered Pen [place], 31 G x 5 mm BD Ultra Fine III See Instructions, # 150 each, Refills 0, Tot. Refills 5, Maintenance, For use 4x daily with insulinpens for dx of E11.9, please keep 05/19/17 appt, 04/24/17 16:03:34, Compound Start Date: 04/24/17 Status: Ordered Pen [place], 31 G x 8 mm BD Ultra Fine III See Instructions, # 150 each, Refills 5, Tot. Refills 5, Maintenance, to inject insulin 5 times a day for T2DM E11.65, 05/18/17 16:56:46, Compound Start Date: 05/18/17 Stop Date: 11/14/17 Status: Ordered pravastatin 20 mg oral tablet 1 tablet = 20 mg, By Mouth, Daily, # 30 tablet, 2 Refills, Maintenance, Tablet Start Date: 02/13/10 Status: Ordered Vitamin D3 1000 intl units oral tablet 1 tablet = 1,000 International_Units, By Mouth, Daily, # 30 tablet, 0 Refills, Maintenance, 03/06/14 13:49:00 EDT, Tablet Start Date: 03/06/14 Status: Ordered Walker Walker, See Instructions, # 1 each, Refills 0, Tot. Refills 0, Maintenance, R26.89, 02/04/21 14:47:00 EDT, Supply Start Date: 02/04/21 Status: Ordered Problem List Condition Confirmation Course Effective Dates Status H ealth Status Informant Allergy Confirmed Active Depression 1 Confirmed Active Diabetes mellitus Confirmed 1985 Active H/O tubal ligation Confirmed Active Herpes genitalis Confirmed Active Hx of cholecystectomy Confirmed Active Hypothyroidism Confirmed Active Obese class II Confirmed Active Severe obesity Confirmed Active 1pt reports hospitalization for severe depression in 1994 Social History Social History Type Response Tobacco Use: Former Smoker, pt states that she quit smoking 05/2013. Sex Patient Care team information Care Team Personnel Name: Nelson Cleary RN Position: [facility] RN Member Role: Primary Care Nurse Name: Radha Kellogg RN Position: [facility] RN Member Role: Primary Care Nurse Name: Partha Dhillon MD Position: [facility] Renal MD Member Role: Lifetime Consulting Physician Address: Address: [address] [place] [address], [address] [facility] [place], [place] [address] Name: Radha Majro RN Position: S RN Member Role: Primary Care Nurse Name: Julee Almendarez RN Position: [facility] RN Member Role: Primary Care Nurse Name: Barbie Rodriguez RN Position: S RN Member Role: Primary Care Nurse Name: David Valadez MD Position: [facility] Renal MD Member Role: Lifetime Consulting Physician Address: Address: [address] [place] [address] [facility] [place] [place] [address] Name: Nerissa Lopez MD Position: [facility] Outreach Member Role: PCP Address: Address: [address] [place] [address]- [place] Name: Eileen Lorenzo RN Position: S RN Member Role: Primary Care Nurse Name: Ashley Adams RN Position: S RN Member Role: Primary Care Nurse Name: Iliana Ho RN Position: [facility] Hospital Cement Side Laster Member Role: Primary Care Nurse Care Team Related Persons Name: LAYLA TALAVERA Address: [address] [address]
--- OUTSIDE RECORDS SUMMARY | 2024-02-16 10:26 | XMS_ITS | Continuity of Care Document ---
Author Organization [facility] Address Unknown Care Team Providers Care Laundromat Manager Name Role Phone Nerissa Lopez MD Primary Care Physician Encounter [facility] Date(s): 08/13/21 - 09/12/21 [facility] Allergies, Adverse Reactions, Alerts Substance Reaction Severity Status morphine CARDIAC ARREST Moderate Active Actos Edema Active Haldol 1 Acute dystonic react ion due to drugs 10-JUL-2014 21:15:44<$> EPS Unknown Active 1Developed sx consistent with acute dystonic [...] 01/23/20 13:27:00 EDT, Route to Pharmacy Electronically, [facility], 162.56, cm, 01/23/20 8:59:00 EDT, Height, 107.5, kg, 01/18/20... Start Date: 01/23/20 Status: Ordered aspirin 81 mg oral tablet [...] opioid drug. Start Date: 07/25/21 Status: Ordered Freestyle David Monitor See Instructions, [...] Date: 09/26/15 Stop Date: 10/26/15 Status: Ordered insulin glargine 100 units/mL subcutaneous solution 0.55 mL = 55 units, Subcutaneous Injection, Daily in AM, # 16.5 mL, 2 Refills, Maintenance, 07/29/21 16:00:00 EDT, Injection, [facility], Partial fill upon patient request if theprescription is for a schedule II opioid drug., 162... Start Date: 07/29/21 Status: Ordered insulin lispro 100 units/mL injectable [...] units Call... Start Date: 07/29/21 Status: Ordered levothyroxine 150 mcg (0.15 mg) [...] 02/04/21 12:22:00 EDT, Route to Pharmacy Electronically, [facility], Partial fill upon patient request if the prescription is for a schedule I... Start Date: 02/04/21 Status: Ordered NovoLOG FlexPen 100 units/mL injectable solution See Instructions, sliding scale 4-14 units: 4U for 70-149, 6U 150-199, 8U for 200-249, 10U for 250-299, 12U for 300-349, etc. PLEASE CONTACT PCP OR ENDO WITH QUESTIONS/REFILLS, # 15 mL, 0 Refills, Maintenance, 07/31/21 9:00:00 EDT, [facility] Start Date: 07/31/21 Status: Ordered One Touch Delica Lancets See Instructions, # 150 each, Maintenance, test BG 4x daily, E11.9, Please call [facility] [phone] to schedule a follow up appt or [...] 15:58:50, Compound Start Date: 08/14/16 Status: Ordered Pen [place], 31 G x 5 mm BD Ultra Fine III See Instructions, # 150 each, Refills 0, Tot. Refills 5, Maintenance, For use 4x daily with insulinpens for dx of E11.9, please keep 05/19/17 appt, 04/24/17 16:03:34, Compound Start Date: 04/24/17 Status: Ordered Pen [place], 31 G x 8 mm BD Ultra [...] EDT, Tablet Start Date: 03/06/14 Status: Ordered Refugio Huff, See Instructions, # 1 each, Refills 0, Tot. Refills 0, Maintenance, R26.89, 02/04/21 14:47:00 EDT, Supply Start Date: 02/04/21 Status: Ordered Problem List Condition Effective Dates Status Health Status Inform ant Allergy(Confirmed) Active Depression(Confirmed) 1 Active Diabetes mellitus(Confirmed) 1985 Active H/O tubal ligation(Confirmed) Active Herpes genitalis(Confirmed) Active Hx of cholecystectomy(Confirmed) Active Hypothyroidism(Confirmed) Active 1pt reports hospitalization for severe depression in 1994 Social History Social History Type Response Tobacco Use: Former Smoker, pt states that she quit smoking 05/2013. Sex
--- OUTSIDE RECORDS SUMMARY | 2024-02-16 10:27 | XMS_ITS | Continuity of Care Document ---
Author Organization [facility] ter Address [address] [place] [address]- Care Team Providers Care Brazing Machine Operator Name Role Phone Nerissa Lopez MD Primary Care Physician Encounter [facility] [place] Date(s): 12/31/21 - 12/31/[address] [address] Discharge Disposition: A-D/C Home Attending Physician: Anna Cabral MD Admitting Physician: Anna Cabral MD Referring Physician: Anna Cabral MD Allergies, Adverse Reactions, Alerts Substance Reaction Severity [...] 01/23/20 13:27:00 EDT, Route to Pharmacy Electronically, [facility], 162.56, cm, 01/23/20 8:59:00 EDT, [...] opioid drug. Start Date: 07/25/21 Status: Ordered docusate sodium = 100 mg, [...] Date: 09/26/15 Stop Date: 10/26/15 Status: Ordered Gabapentin = 300 mg, By [...] See Instructions, INJECT 55 UNITS SUBCUTANEOUSLY EVERY MORNING., # 15 mL, 2 Refills, [facility], 162, cm, 08/29/21 12:48:00 EDT, Height, 83.1, kg, 07/26/21 0:26:00 EDT, Dry Weight Start Date: 10/29/21 Status: Ordered levothyroxine 150 mcg (0.15 mg) [...] 02/04/21 12:22:00 EDT, Route to Pharmacy Electronically, [facility], Partial fill upon patient request if the prescription is for a schedule I... Start Date: 02/04/21 Status: Ordered One Touch Delica Lancets See Instructions, # 150 each, Maintenance, test BG 4x daily, E11.9, Please call [facility] [phone] to schedule a follow up appt or [...] 12/31/21 9:27:00 EST, Route to Pharmacy Electronically, [facility], Partial fill upon patient request if the prescrip... Start Date: 12/31/21 Status: Ordered OxyCODONE IR Tablet 5 mg, Tablet, By Mouth, Every 4 hours, in PACU ONLY, if patient can tolerate PO, PRN for Pain , Mild, Routine, 12/31/21 8:31:00 EST Start Date: 12/31/21 Stop Date: 12/31/21 Status: Discontinued Pen [place], 31 G x 5 mm BD Ultra Fine III See Instructions, # 150 each, Refills 0, Tot. Refills 5, Maintenance, For use 4x daily with insulinpens for dx of E11.9, please keep 05/19/17 appt, 04/24/17 16:03:34, Compound Start Date: 04/24/17 Status: Ordered Pen [place], 31 G x 8 mm BD Ultra [...] Active Hx of cholecystectomy(Confirmed) Active Hypothyroidism(Confirmed) Active Obese class II(Confirmed) Active 1pt reports hospitalization for severe depression in 1994 Procedures Procedure Date Related Diagnosis Body Site Status Parathyroidectomy 12/31/21 Complet ed Vital Signs Most recent to oldest [Reference Range]: 1 2 3 Height 162.56 cm (12/31/21 6:58 AM) 162.56 cm (12/23/21 11:00 AM) Weight 93.1 kg (12/31/21 6:58 AM) 84.09 kg (12/23/21 11:00 AM) Oxygen Saturation [94-100 %] 95 % (12/31/21 10:30 AM) 97 % (12/31/21 10:15 AM) 97 % (12/31/21 10:00 AM) Pulse Rate [55-90 bpm] 69 bpm (12/31/21 6:58 AM) Body Mass Index [18.5-24.99] 35.23 *>HHI* (12/31/21 6:58 AM) 31.82 *>HHI* (12/23/21 11:00 AM) Blood Pressure [90-138/55-84 mm Hg] 179/71mm Hg *H* (12/31/21 10:30 AM) 169/65mm Hg *H* (12/31/21 10:15 AM) 155/94mm Hg *H* (12/31/21 10:00 AM) Respiratory Rate [16-30 br/min] 18 br/min (12/31/21 11:54 AM) 14 br/min *L* (12/31/21 10:30 AM) 17 br/min (12/31/21 10:15 AM) Temperature [96.8-100.4 DegF] 96.5 DegF *L* (12/31/21 10:30 AM) 97.6 DegF (12/31/21 9:00 AM) 97.8 DegF (12/31/21 6:58 AM) Liters per Minute 4 L/min (12/31/21 10:30 AM) 4 L/min (12/31/21 10:15 AM) 4 L/min (12/31/21 10:00 AM) Mode of Delivery (Oxygen) Room air (12/31/21 11:45 AM) Nasal cannula (12/31/21 10:30 AM) Nasal cannula (12/31/21 10:15 AM) Blood pressure sites Arm, right (12/31/21 10:30 AM) Arm, right (12/31/21 10:15 AM) Arm, right (12/31/21 10:00 AM) Temperature Route Temporal (12/31/21 10:30 AM) Temporal (12/31/21 9:00 AM) Temporal (12/31/21 6:58 AM) Dry Weight 93.1 kg (12/31/21 6:58 AM) 84.09 kg (12/23/21 11:00 AM) Weight Obtained Via Standing scale (12/31/21 6:58 AM) Dry Weight Obtained Via Standing scale (12/31/21 6:58 AM) Patient/family stated (12/23/21 11:00 AM) Social History Social History Type Response Tobacco Use: Former Smoker, pt states that she quit smoking 05/2013. Sex
--- OUTSIDE RECORDS SUMMARY | 2024-02-16 10:27 | XMS_ITS | Continuity of Care Document ---
Author Organization [facility] Address [address] [place] [address]- Care Team Providers Care Reinforced Concrete Inspector Name Role Phone Nerissa Lopez MD Primary Care Physician [phone] [place]counter [facility] [place] Date(s): 07/06/23 - 09/17/23 [facility] [address] [place] [address]- Attending Physician: Betzy Jones MD Admitting Physician: Betzy Jones MD Referring Physician: Nerissa Lopez MD Allergies, Adverse Reactions, Alerts Substance Reaction [...] 01/23/20 13:27:00 EDT, Route to Pharmacy Electronically, [facility], 162.56, cm, 01/23/20 8:59:00 EDT, Height, [...] EVERY MORNING, # 15 mL, 2 Refills, [facility], 162.56, cm, 12/31/21 6:58:00 EST, [...] 02/04/21 12:22:00 EDT, Route to Pharmacy Electronically, [facility], Partial fill upon patient request if the prescription is for a schedule I... Start Date: 02/04/21 Status: Ordered One Touch Delica Lancets See Instructions, # 150 each, Maintenance, test BG 4x daily, E11.9, Please call [facility] [phone] to schedule a follow up appt or [...] 12/31/21 9:27:00 EST, Route to Pharmacy Electronically, [facility], Partial fill upon patient request if the prescrip... Start Date: 12/31/21 Status: Ordered Pen [place], 31 G x 5 mm BD Ultra Fine III See Instructions, # 150 each, Refills 0, Tot. Refills 5, Maintenance, For use 4x daily with insulinpens for dx of E11.9, please keep 05/19/17 appt, 04/24/17 16:03:34, Compound Start Date: 04/24/17 Status: Ordered Pen [place], 31 G x 8 mm BD Ultra [...] Team Personnel Name: Nelson Cleary RN Position: [facility] RN Member Role: Primary Care Nurse Name: Radha Kellogg RN Position: [facility] RN Member Role: Primary Care Nurse Name: Partha Dhillon MD Position: [facility] Renal MD Member Role: Lifetime Consulting Physician Address: Address: [address] [place] [address] [address] [place] [address]- [place] Name: Radha Major RN Position: [facility] RN Member Role: Primary Care Nurse Name: Julee Almendarez RN Position: [facility] RN Member Role: Primary Care Nurse Name: Barbie Rodriguez RN Position: [facility] RN Member Role: Primary Care Nurse Name: David Valadez MD Position: [facility] Renal MD Member Role: Lifetime Consulting Physician Address: Address: [address] [place] [address] [facility] [place] [address]- [place] Name: Nerissa Lopez MD Position: [facility] Outreach Member Role: PCP Address: Address: [address] [place] [address]- [place] Name: Eileen Lorenzo RN Position: [facility] RN Member Role: Primary Care Nurse Name: Ashley Adams RN Position: [facility] RN Member Role: Primary Care Nurse Name: Iliana Ho RN Position: [facility] Hospital Divemaster Member Role: Primary Care Nurse Care Team Related Persons Name: LAYLA TALAVERA Address: home [address] [place] [address]
--- OUTSIDE RECORDS SUMMARY | 2024-02-16 10:27 | XMS_ITS | Continuity of Care Document ---
Author Organization [facility] Address [address] [place] [address]- Care Team Providers Care Adult Daycare Coordinator Name Role Phone Nerissa Lopez MD Primary Care Physician [phone] Encounter [facility] Date(s): 12/04/21 - 01/03/22 [facility] [address] [place], [place] [address] Attending Physician: Caleb Hollis Admitting Physician: AdmCaleb owens Referring Physician: AdmtrCaleb Allergies, Adverse Reactions, Alerts Substance Reaction Severity [...] 01/23/20 13:27:00 EDT, Route to Pharmacy Electronically, [facility], 162.56, cm, 01/23/20 8:59:00 EDT, [...] EVERY MORNING., # 15 mL, 2 Refills, [facility], 162, cm, 08/29/21 12:48:00 EDT, [...] 02/04/21 12:22:00 EDT, Route to Pharmacy Electronically, [facility], Partial fill upon patient request if the prescription is for a schedule I... Start Date: 02/04/21 Status: Ordered One Touch Delica Lancets See Instructions, # 150 each, Maintenance, test BG 4x daily, E11.9, Please call [facility] [phone] to schedule a follow up appt or [...] 12/31/21 9:27:00 EST, Route to Pharmacy Electronically, [facility], Partial fill upon patient request if the prescrip... Start Date: 12/31/21 Status: Ordered Pen [place], 31 G x 5 mm BD Ultra Fine III See Instructions, # 150 each, Refills 0, Tot. Refills 5, Maintenance, For use 4x daily with insulinpens for dx of E11.9, please keep 05/19/17 appt, 04/24/17 16:03:34, Compound Start Date: 04/24/17 Status: Ordered Pen [place], 31 G x 8 mm BD Ultra [...]
--- OUTSIDE RECORDS SUMMARY | 2024-02-16 10:27 | XMS_ITS | Continuity of Care Document ---
Author Organization [facility] Address [address] [place] [address]- Care Team Providers Care Cyber Software Engineer Name Role Phone Nerissa Lopez MD Primary Care Physician [phone] Encounter [facility] Date(s): 05/14/23 - 06/13/23 [facility] [address] [place], [place] [address] Attending Physician: Caleb Hollis Admitting Physician: [...] 01/23/20 13:27:00 EDT, Route to Pharmacy Electronically, [facility], 162.56, cm, 01/23/20 8:59:00 [...] EVERY MORNING, # 15 mL, 2 Refills, [facility], 162.56, cm, 12/31/21 6:58:00 EST, [...] 02/04/21 12:22:00 EDT, Route to Pharmacy Electronically, [facility], Partial fill upon patient request if the prescription is for a schedule I... Start Date: 4/12/21 Status: Ordered One Touch Delica Lancets See Instructions, # 150 each, Maintenance, test BG 4x daily, E11.9, Please call [facility] [phone] to schedule a follow up appt or [...] 12/31/21 9:27:00 EST, Route to Pharmacy Electronically, [facility], Partial fill upon patient request if the prescrip... Start Date: 12/31/21 Status: Ordered Pen [place], 31 G x 5 mm BD Ultra Fine III See Instructions, # 150 each, Refills 0, Tot. Refills 5, Maintenance, For use 4x daily with insulinpens for dx of E11.9, please keep 05/19/17 appt, 04/24/17 16:03:34, Compound Start Date: 04/24/17 Status: Ordered Pen [place], 31 G x 8 mm BD Ultra [...] Tablet Start Date: 03/06/14 Status: Ordered Refugio Walker, See Instructions, # 1 each, Refills [...] states that she quit smoking 05/2013. Sex Laboratory * Event Display: Non BH Lab Results Authored Date: * Event Display: Non [facility] Lab Results Authored Date: * Event Display: Non [facility] Lab Results Authored Date: Patient Care team information Care Team Personnel Name: Nelson Cleary RN Position: [facility] RN Member Role: Primary Care Nurse Name: Radha Kellogg RN Position: [facility] RN Member Role: Primary Care Nurse Name: Partha Dhillon MD Position: [facility] Renal MD Member Role: Lifetime Consulting Physician Address: Address: [address] [place] [address], [address] [facility] [place] [address]- Name: Radha Major RN Position: [facility] RN Member Role: Primary Care Nurse Name: Julee Almendarez RN Position: [facility] RN Member Role: Primary Care Nurse Name: Barbie Rodriguez RN Position: [facility] RN Member Role: Primary Care Nurse Name: Nerissa Lopez MD Position: [facility] Outreach Member Role: PCP Address: Address: [address] [place] [address]- Name: Eileen Lorenzo RN Position: [facility] RN Member Role: Primary Care Nurse Name: Ashley Adams RN Position: [facility] RN Member Role: Primary Care Nurse Name: Iliana Ho RN Position: [facility] Hospital Glove Cuffer Member Role: Primary Care Nurse Care Team Related Persons Name: LAYLA TALAVERA Address: home [address] [place] [address] [place] [address]
--- OUTSIDE RECORDS SUMMARY | 2024-02-16 10:27 | XMS_ITS | Continuity of Care Document ---
Author Organization [facility] Address [address] [place] [address]- Care Team Providers Care Advertising Sales Representative Name Role Phone Nerissa Lopez MD Primary Care Physician En[place] [facility] [place] Date(s): 06/19/23 - 07/19/23 [facility] [address] [place] [address]- Allergies, Adverse Reactions, Alerts Substance Reaction Severity [...] 01/23/20 13:27:00 EDT, Route to Pharmacy Electronically, [facility], 162.56, cm, 01/23/20 8:59:00 EDT, Height, [...] EVERY MORNING, # 15 mL, 2 Refills, [facility], 162.56, cm, 12/31/21 6:58:00 EST, Height, [...] 02/04/21 12:22:00 EDT, Route to Pharmacy Electronically, [facility], Partial fill upon patient request if the prescription is for a schedule I... Start Date: 02/04/21 Status: Ordered One Touch Delica Lancets See Instructions, # 150 each, Maintenance, test BG 4x daily, E11.9, Please call [facility] [phone] to schedule a follow up appt or [...] 12/31/21 9:27:00 EST, Route to Pharmacy Electronically, [facility], Partial fill upon patient request if the prescrip... Start Date: 12/31/21 Status: Ordered Pen [place], 31 G x 5 mm BD Ultra Fine III See Instructions, # 150 each, Refills 0, Tot. Refills 5, Maintenance, For use 4x daily with insulinpens for dx of E11.9, please keep 05/19/17 appt, 04/24/17 16:03:34, Compound Start Date: 04/24/17 Status: Ordered Pen [place], 31 G x 8 mm BD Ultra [...] Team Personnel Name: Nelson Cleary RN Position: [facility] RN Member Role: Primary Care Nurse Name: Radha Kellogg RN Position: [facility] RN Member Role: Primary Care Nurse Name: Partha Dhillon MD Position: [facility] Renal MD Member Role: Lifetime Consulting Physician Address: Address: [address] [place] [address], [address] [facility] [place] [address]- Name: Radha Major RN Position: [facility] RN Member Role: Primary Care Nurse Name: Julee Almendarez RN Position: [facility] RN Member Role: Primary Care Nurse Name: Barbie Rodriguez RN Position: [facility] RN Member Role: Primary Care Nurse Name: Nerissa Lopez MD Position: [facility] Outreach Member Role: PCP Address: Address: [address] [place] [address]- Name: Eileen Lorenzo RN Position: [facility] RN Member Role: Primary Care Nurse Name: Ashley Adams RN Position: S RN Member Role: Primary Care Nurse Name: Iliana Ho RN Position: [facility] Hospital Lure Maker Member Role: Primary Care Nurse Care Team Related Persons Name: LAYLA TALAVERA Address: home [address] [address]
--- OUTSIDE RECORDS SUMMARY | 2024-02-16 10:27 | XMS_ITS | Continuity of Care Document ---
Author Organization [facility] ter Address [address] [place] [address]- Care Team Providers Care Seo Associate Name Role Phone Nerissa Lopez MD Primary Care Physician [place] [facility] [place] 07[place]29/[address] [address] Encounter Diagnosis DKA (diabetic ketoacidoses)(Final) - 07/25/21 Hypercalcemia(Final) - 07/25/21 Discharge Disposition: A-D/C Home Attending Physician: Rebecca Jennings MD Admitting Physician: Ranjit Andrade DO Referring Physician: Not on Staff, Referring MD Allergies, Adverse Reactions, Alerts Substance Reaction [...] 01/23/20 13:27:00 EDT, Route to Pharmacy Electronically, [facility], 162.56, cm, 01/23/20 8:59:00 EDT, [...] 2 Refills, Maintenance, 07/29/21 16:00:00 EDT, Injection, [facility], Partial fill upon patient request [...] 02/04/21 12:22:00 EDT, Route to Pharmacy Electronically, [facility], Partial fill upon patient request if the prescription is for a schedule I... Start Date: 02/04/21 Status: Ordered Macrobid macrocrystals-monohydrate 100 mg oral capsule 1 capsule = 100 mg, By Mouth, 2 times a day, for 5 days, # 10 capsule, 0 Refills, Acute 08/03/21 16:06:00 EDT, 07/29/21 16:06:00 EDT, Capsule, [facility], Partial fill upon patient request if the prescription is for a schedule II... Start Date: 07/29/21 Stop Date: 08/03/21 Status: Ordered One Touch Delica Lancets See Instructions, # 150 each, Maintenance, test BG 4x daily, E11.9, Please call [facility] [phone] to schedule a follow up appt or [...] Compound Start Date: 08/14/16 Status: Ordered Pen [place], 31 G x 5 mm BD Ultra Fine III See Instructions, # 150 each, Refills 0, Tot. Refills 5, Maintenance, For use 4x daily with insulinpens for dx of E11.9, please keep 05/19/17 appt, 04/24/17 16:03:34, Compound Start Date: 04/24/17 Status: Ordered Pen [place], 31 G x 8 mm BD Ultra [...] Maintenance, Tablet Start Date: 02/13/10 Status: Ordered Tylenol 325 mg oral tablet 650 mg, Tablet, By Mouth, Every 4 hours, PRN for Pain , Mild, Routine, 07/25/21 23:20:00 EDT Start Date: 07/25/21 Stop Date: 08/24/21 Status: Ordered Vitamin D3 1000 intl units [...] reports hospitalization for severe depression in 1994 Results Orders for Microbiology Reports Name Date Urine Culture (URINE CULTURE) 07/26/21 Blood Culture 07/25/21 Blood Culture #2 07/25/21 Microbiology Reports TEST:Urine Culture STATUS:Auth (Verified) BODY SITE: SOURCE:URINE COLLECTED DATE/TIME:07/26/21 12:36 PM Urine Culture SPECIMEN DESCRIPTION : URINE SPECIAL REQUESTS : NONE CULTURE : >100,000 COL/ML ESCHERICHIA COLI REPORT STATUS : FINAL 07/29/2021 ORGANISM >100,000 COL/ML ESCHERICHIA COLI METHOD MIN. INHIB. CONC. (MCG/ML) AMPICILLIN RESISTANT AMPICILLIN/SULBACTAM SUSCEPTIBLE AMOXICILLIN/CLAVULAN SUSCEPTIBLE CEFAZOLIN SUSCEPTIBLE CEFEPIME SUSCEPTIBLE CEFTRIAXONE SUSCEPTIBLE CIPROFLOXACIN SUSCEPTIBLE ERTAPENEM SUSCEPTIBLE GENTAMICIN SUSCEPTIBLE LEVOFLOXACIN SUSCEPTIBLE MEROPENEM SUSCEPTIBLE NITROFURANTOIN SUSCEPTIBLE PIPERACILLIN/TAZOBAC SUSCEPTIBLE TRIMETH/SULFAMETHOX SUSCEPTIBLE TETRACYCLINE RESISTANT TEST:Blood Culture, Second Order STATUS:Unauthenticated BODY SITE: SOURCE:Blood COLLECTED DATE/TIME:07/25/21 4:36 PM Blood Culture, Second Order SPECIMEN DESCRIPTION : BLOOD L HAND SPECIAL REQUESTS : NONE CULTURE : NO GROWTH 4 DAYS REPORT STATUS : PRELIMINARY REPORT TEST:Blood Culture STATUS:Unauthenticated BODY SITE: SOURCE:Blood COLLECTED DATE/TIME:07/25/21 4:30 PM Blood Culture SPECIMEN DESCRIPTION : BLOOD RAC SPECIAL REQUESTS : NONE CULTURE : NO GROWTH 4 DAYS REPORT STATUS : PRELIMINARY REPORT Radiology Reports * Exam Date Time Procedure Performing Provider Status 07/25/21 6:05 PM Chest 2 Views Frontal and Lat Osvaldo Fitch; Auth (Verified) Notes: (Chest 2 Views Frontal and Lat) Reason For Exam: Shortness of Breath RESULT: Chest 2 Views Frontal and Lat Chest 2 Views Frontal and Lat Hx of Present Illness: pt with diabetes was going to get her pfizer booster when they refused to give it becuase pt was weak and had a high glucose reading.; Reason: Shortness of Breath; Clinical Question(s): CHF COMPARISON: None. FINDINGS: LINES AND TUBES: None. LUNGS AND PLEURA: Clear lungs. Normal pulmonary vascularity. No pleural effusion. No pneumothorax. HEART, MEDIASTINUM AND BERNICE: Heart is normal in size. Normal upper mediastinal and hilar contour. BONES AND SOFT TISSUES: No acute abnormality. IMPRESSION: No acute abnormality. WSN: [id number] Ordering Physician: Kimi Loaiza Dictated By: Marty Mujica MD Dictated Date/Time: 07/25/21 6:11 pm Reviewed By: Marty Mujica MD Signed By: Marty Mujica MD Signed Date/Time: 07/25/21 6:11 pm Transcribed By: LEONOR Transcribed Date/Time: 07/25/21 6:11 pm Vital Signs Most recent to oldest [Reference Range]: 1 2 3 Height 162 cm (07/29/21 11:24 AM) 162 cm (07/29/21 6:35 AM) 162 cm (07/28/21 11:33 PM) Weight 86.7 kg (07/29/21 6:35 AM) 85.8 kg (07/27/21 5:46 AM) 87.0 kg (07/26/21 8:39 PM) Oxygen Saturation [94-100 %] 97 % (07/29/21 11:24 AM) 100 % (07/29/21 6:35 AM) 100 % (07/28/21 11:33 PM) Pulse Rate [55-90 bpm] 70 bpm (07/29/21 11:24 AM) 73 bpm (07/29/21 6:35 AM) 66 bpm (07/28/21 11:33 PM) Body Mass Index [18.5-24.99] 33.04 *>HHI* (07/29/21 6:35 AM) 32.69 *>HHI* (07/27/21 5:46 AM) 33.15 *>HHI* (07/26/21 8:39 PM) Blood Pressure [90-138/55-84 mm Hg] 115/52mm Hg (07/29/21 11:24 AM) 136/50mm Hg (07/29/21 6:35 AM) 117/54mm Hg (07/28/21 11:33 PM) Respiratory Rate [16-30 br/min] 18 br/min (07/29/21 11:24 AM) 18 br/min (07/29/21 6:35 AM) 20 br/min (07/29/21 12:44 AM) Temperature [96.8-100.4 DegF] 98.7 DegF (07/29/21 11:24 AM) 98.6 DegF (07/29/21 6:35 AM) 97.8 DegF (07/28/21 11:33 PM) Mode of Delivery (Oxygen) Room air (07/29/21 11:24 AM) Room air (07/29/21 6:35 AM) Room air (07/28/21 11:33 PM) Blood pressure sites Arm, right (07/29/21 11:24 AM) Arm, right (07/29/21 6:35 AM) Arm, left (07/28/21 11:33 PM) Temperature Route Oral (07/29/21 11:24 AM) Oral (07/29/21 6:35 AM) Oral (07/28/21 11:33 PM) Dry Weight 83.1 kg (07/26/21 12:26 AM) Weight Obtained Via Bed scale (07/27/21 5:46 AM) Bed scale (07/26/21 8:39 PM) Social History Social History Type Response Tobacco Use: Former Smoker, pt states that she quit smoking 05/2013. Sex
--- OUTSIDE RECORDS SUMMARY | 2024-02-16 10:27 | XMS_ITS | Continuity of Care Document ---
Author Organization [facility] Address [address] [place] [address]- Care Team Providers Care Qi Specialist Name Role Phone Nerissa Lopez MD Primary Care Physician [facility] Date[facility]): 08/24/23 - 09/23/23 [facility] [address] [place] [address]- Allergies, Adverse Reactions, Alerts Substance Reaction Severity [...] 01/23/20 13:27:00 EDT, Route to Pharmacy Electronically, [facility], 162.56, cm, 01/23/20 8:59:00 EDT, Height, [...] EVERY MORNING, # 15 mL, 2 Refills, [facility], 162.56, cm, 12/31/21 6:58:00 EST, Height, [...] 02/04/21 12:22:00 EDT, Route to Pharmacy Electronically, [facility], Partial fill upon patient request if the prescription is for a schedule I... Start Date: 02/04/21 Status: Ordered One Touch Delica Lancets See Instructions, # 150 each, Maintenance, test BG 4x daily, E11.9, Please call [facility] [phone] to schedule a follow up appt or [...] 12/31/21 9:27:00 EST, Route to Pharmacy Electronically, [facility], Partial fill upon patient request if the prescrip... Start Date: 12/31/21 Status: Ordered Pen Hume, 31 G x 5 mm BD Ultra Fine III See Instructions, # 150 each, Refills 0, Tot. Refills 5, Maintenance, For use 4x daily with insulinpens for dx of E11.9, please keep 05/19/17 appt, 04/24/17 16:03:34, Compound Start Date: 04/24/17 Status: Ordered Pen Hume, 31 G x 8 mm BD Ultra [...] Team Personnel Name: Nelson Cleary RN Position: [facility] RN Member Role: Primary Care Nurse Name: Radha Kellogg RN Position: [facility] RN Member Role: Primary Care Nurse Name: Partha Dhillon MD Position: [facility] Renal MD Member Role: Lifetime Consulting Physician Address: Address: [address] [place] [address] [address] [place] [address]- [place] Name: Radha Major RN Position: [facility] RN Member Role: Primary Care Nurse Name: Julee Almendarez RN Position: [facility] RN Member Role: Primary Care Nurse Name: Barbie Rodriguez RN Position: [facility] RN Member Role: Primary Care Nurse Name: David Valadez MD Position: [facility] Renal MD Member Role: Lifetime Consulting Physician Address: Address: [address] [place] [address] [facility] [place] [address]- [place] Name: Nerissa Lopez MD Position: [facility] Outreach Member Role: PCP Address: Address: [address] [place] [address]- [place] Name: Eileen Lorenzo RN Position: [facility] RN Member Role: Primary Care Nurse Name: Ashley Adams RN Position: [facility] RN Member Role: Primary Care Nurse Name: Iliana Ho RN Position: [facility] Hospital Front Office Medical Assistant Member Role: Primary Care Nurse Care Team Related Persons Name: LAYLA TALAVERA Address: home [address] [address]
--- OUTSIDE RECORDS SUMMARY | 2024-02-16 10:27 | XMS_ITS | Continuity of Care Document ---
Author Organization [facility] Address [address] [place] [address]- Care Team Providers Care Lean Coach Name Role Phone Nerissa Lpoez MD Primary Care Physician [facility] Date[facility]s): 06/26/23 - 07/26/23 [facility] [address] [place] [address]- Allergies, Adverse Reactions, Alerts Substance Reaction Severity [...] 01/23/20 13:27:00 EDT, Route to Pharmacy Electronically, [facility], 162.56, cm, 01/23/20 8:59:00 EDT, Height, [...] EVERY MORNING, # 15 mL, 2 Refills, [facility], 162.56, cm, 12/31/21 6:58:00 EST, [...] 02/04/21 12:22:00 EDT, Route to Pharmacy Electronically, [facility], Partial fill upon patient request if the prescription is for a schedule I... Start Date: 02/04/21 Status: Ordered One Touch Delica Lancets See Instructions, # 150 each, Maintenance, test BG 4x daily, E11.9, Please call [facility] [phone] to schedule a follow up appt or [...] 12/31/21 9:27:00 EST, Route to Pharmacy Electronically, [facility], Partial fill upon patient request if the prescrip... Start Date: 12/31/21 Status: Ordered Pen [place], 31 G x 5 mm BD Ultra Fine III See Instructions, # 150 each, Refills 0, Tot. Refills 5, Maintenance, For use 4x daily with insulinpens for dx of E11.9, please keep 05/19/17 appt, 04/24/17 16:03:34, Compound Start Date: 04/24/17 Status: Ordered Pen [place], 31 G x 8 mm BD Ultra [...] Team Personnel Name: Nelson Cleary RN Position: [facility] RN Member Role: Primary Care Nurse Name: Radha Kellogg RN Position: [facility] RN Member Role: Primary Care Nurse Name: Partha Dhillon MD Position: [facility] Renal MD Member Role: Lifetime Consulting Physician Address: Address: [address] [place] [address], [address] [facility] [place], [place] [address] Name: Radha Major RN Position: S RN Member Role: Primary Care Nurse Name: Julee Almendarez RN Position: [facility] RN Member Role: Primary Care Nurse Name: Barbie Rodriguez RN Position: S RN Member Role: Primary Care Nurse Name: David Valadez MD Position: [facility] Renal MD Member Role: Lifetime Consulting Physician Address: Address: [address] [place] [address] [facility] [place], [place] [address] Name: Nerissa Lopez MD Position: [facility] Outreach Member Role: PCP Address: Address: [address] [place] [address]- [place] Name: Eileen Lorenzo RN Position: S RN Member Role: Primary Care Nurse Name: Ashley Adams RN Position: S RN Member Role: Primary Care Nurse Name: Iliana Ho RN Position: [facility] Hospital Director Quality Systems Member Role: Primary Care Nurse Care Team Related Persons Name: LAYLA TALAVERA Address: home [address] [address]
--- OUTSIDE RECORDS SUMMARY | 2024-02-16 10:27 | XMS_ITS | Continuity of Care Document ---
Author Organization [facility] Address Unknown Care Team Providers Care Ear Mold Laboratory Technician Name Role Phone Nerissa Lopez MD Primary Care Physician Encounter [facility] [place] Date(s): 01/14/22 - 01/21/22 [facility] Attending Physician: Trevin Lugo Referring Physician: Nerissa Lopez MD Allergies, Adverse [...] 01/23/20 13:27:00 EDT, Route to Pharmacy Electronically, [facility], 162.56, cm, 01/23/20 8:59:00 EDT, [...] EVERY MORNING., # 15 mL, 2 Refills, [facility], 162, cm, 08/29/21 12:48:00 EDT, [...] 02/04/21 12:22:00 EDT, Route to Pharmacy Electronically, [facility], Partial fill upon patient request if the prescription is for a schedule I... Start Date: 02/04/21 Status: Ordered One Touch Delica Lancets See Instructions, # 150 each, Maintenance, test BG 4x daily, E11.9, Please call [facility] [phone] to schedule a follow up appt or [...] 12/31/21 9:27:00 EST, Route to Pharmacy Electronically, [facility], Partial fill upon patient request if the prescrip... Start Date: 12/31/21 Status: Ordered Pen [place], 31 G x 5 mm BD Ultra Fine III See Instructions, # 150 each, Refills 0, Tot. Refills 5, Maintenance, For use 4x daily with insulinpens for dx of E11.9, please keep 05/19/17 appt, 04/24/17 16:03:34, Compound Start Date: 04/24/17 Status: Ordered Pen [place], 31 G x 8 mm BD Ultra [...]
--- OUTSIDE RECORDS SUMMARY | 2024-02-16 10:27 | XMS_ITS | Continuity of Care Document ---
Author Organization [facility] Address [address] [place] [address]- Care Team Providers Care Merchandise Adjustment Clerk Name Role Phone Nerissa Lopez MD Primary Care Physician [place] [facility] [place]17[place] - 01/23/20 [facility] [address] [place] [address]- [facility] Discharge Disposition: A-D/C Home Attending Physician: Isabelle CHRIS, Radha Reyes Admitting Physician: Shauna CHRIS, Christian Burnham Referring Physician: Not on Staff, Referring MD Allergies, Adverse Reactions, Alerts Substance Reaction Severity Status morphine CARDIAC ARREST Moderate Active Haldol 1 Acute dystonic react ion due to drugs 10-JUL-2014 21:15:44<$> EPS Unknown Active Actos Edema Active 1Developed sx consistent with acute dystonic rxn (trismus). Immunizations Given and Recorded Vaccine Date Status Refusal Reason Pneumovax 23 (oldterm) 1 02/13/10 Given Tet/Diphth/Acel, Pertussis (oldterm) 2 02/23/08 Gi helder Influenza Virus Vaccine (oldterm) 3 09/10/07 Given Influenza Virus Vaccine (oldterm) 4 09/11/06 Given 1Admin Note: vis 02/01 2Admin Note: vis 3Admin Note: VIS 4Admin Note: VIS GIVEN Medications Abilify 5 mg oral tablet 5 mg, 1, tablet, By Mouth, Daily at bedtime, # 30 tablet, Refills 0, Tot. Refills 0, Maintenance, 01/23/20 13:27:00 EDT, Route to Pharmacy Electronically, [facility], 162.56, cm,01/23/20 8:59:00 EDT, Height, 107.5, kg, 01/18/20 3... Start Date: 01/23/20 Status: Ordered aspirin 81 mg oral tablet 1 tablet = 81 mg, By Mouth, Daily, # 90 tablet, 11 Refills, diabetes - cardiac protection, Tablet Start Date: 10/08/09 Stop Date: 11/07/09 Status: Ordered Freestyle Lite Test Strips See Instructions, # 200 each, Tot. Refills 5, Maintenance, to test BG 4 times daiily and with symptoms of hypoglycemia, 09/26/15 16:47:08, Compound Start Date: 09/26/15 Stop Date: 10/26/15 Status: Ordered gemfibrozil 600 mg oral tablet 1 tablet = 600 mg, By Mouth, 2 times a day, # 180 tablet, 0 Refills, Maintenance, 03/06/14 13:48:44EDT, Tablet Start Date: 03/06/14 Status: Ordered Humalog Kwik Pen 100 units/mL subcutaneous injection See Instructions, 4-14 units subcu Injection 3x a day with meals per sliding scale, please keep 05/19/17 appt, # 30 mL, 2 Refills, Maintenance, 04/24/17 16:22:00, Solution Start Date: 04/24/17 Status: Ordered hydrochlorothiazide-lisinopril 25 mg-20 mg oral tablet 1 tablet, By Mouth, Daily, # 90 tablet, 0 Refills, Maintenance, 03/06/14 13:47:58 EDT, Tablet Start Date: 03/06/14 Status: Ordered hydrOXYzine hydrochloride 50 mg oral tablet 1 tablet = 50 mg, By Mouth, 4 times a day, PRN for anxiety, # 40 tablet, 0 Refills, Maintenance, 05/07/16 8:48:44 EDT, Tablet Start Date: 05/07/16 Status: Ordered Lantus Solostar Pen 100 units/mL subcutaneous solution = 85 units, Subcutaneous Injection, Daily, please keep 05/19/17 appt, # 30 mL, 2 Refills, Maintenance, 04/24/17 16:22:00, Solution Start Date: 04/24/17 Status: Ordered levothyroxine 175 mcg (0.175 mg) oral tablet By Mouth, Daily, 0 Refills, Maintenance, 06/27/14 16:22:44 EDT, Tablet, 150 Start Date: 9/2/14 Status: Ordered One Touch Delica Lancets See Instructions, # 150 each, Maintenance, test BG 4x daily, E11.9, Please call [facility] [phone] to schedule a follow up appt or [...] Compound Start Date: 08/14/16 Status: Ordered Pen [place], 31 G x 5 mm BD Ultra Fine III See Instructions, # 150 each, Refills 0, Tot. Refills 5, Maintenance, For use 4x daily with insulinpens for dx of E11.9, please keep 05/19/17 appt, 04/24/17 16:03:34, Compound Start Date: 04/24/17 Status: Ordered Pen [place], 31 G x 8 mm BD Ultra [...] Maintenance, Tablet Start Date: 02/13/10 Status: Ordered Toujeo SoloStar 300 units/mL subcutaneous solution = 80 units, Subcutaneous Injection, Daily, # 9 mL, 11 Refills, Maintenance, 05/18/17 17:00:07, Solution Start Date: 05/18/17 Status: Ordered Victoza 18 mg/3 mL subcutaneous solution = 1.8 mg, Subcutaneous Injection, Daily, please keep 05/19/17 appt, # 9 mL, 11 Refills, Maintenance, 05/18/17 16:58:47, Solution Start Date: 05/18/17 Status: Ordered Vitamin D3 1000 intl units oral tablet 1 tablet = 1,000 International_Units, By Mouth, Daily, # 30 tablet, 0 Refills, Maintenance, 03/06/14 13:49:00 EDT, Tablet Start Date: 03/06/14 Status: Ordered Zoloft 25 mg oral tablet 1 tablet = 25 mg, By Mouth, Daily, # 30 tablet, 0 Refills, Maintenance, 01/23/20 13:27:00 EDT, Tablet, [facility], 162.56, cm, 01/23/20 8:59:00 EDT, Height, 107.5, kg, 01/18/20 3:53:00 EDT, Dry Weight Start Date: 01/23/20 Status: Ordered Problem List Condition Effective Dates Status Health Status Inform ant Allergy(Confirmed) Active Depression(Confirmed) 1 Active Diabetes mellitus(Confirmed) 1986 Active H/O tubal ligation(Confirmed) Active Herpes genitalis(Confirmed) Active Hx of cholecystectomy(Confirmed) Active Hypothyroidism(Confirmed) Active 1pt reports hospitalization for severe depression in 1994 Vital Signs Most recent to oldest [Reference Range]: 1 2 3 Height 162.56 cm (01/23/20 4:45 PM) 162.56 cm (01/23/20 8:59 AM) 162.56 cm (01/22/20 9:46 PM) Weight 107.5 kg (01/18/20 3:53 AM) Oxygen Saturation [94-100 %] 100 % (01/23/20 4:45 PM) 100 % (01/23/20 8:59 AM) 97 % (01/22/20 9:46 PM) Pulse Rate [55-90 bpm] 89 bpm (01/23/20 4:45 PM) 75 bpm (01/23/20 8:59 AM) 62 bpm (01/22/20 9:46 PM) Body Mass Index [18.5-24.99] 40.68 *>HHI* (01/18/20 3:53 AM) Blood Pressure [90-138/55-84 mm Hg] 152/67mm Hg *H* (01/23/20 4:45 PM) 145/60mm Hg *H* (01/23/20 8:59 AM) 166/63mm Hg *H* (01/22/20 9:46 PM) Respiratory Rate [16-30 br/min] 20 br/min (01/23/20 4:45 PM) 18 br/min (01/23/20 8:59 AM) 18 br/min (01/23/20 8:59 AM) Temperature [96.8-100.4 DegF] 97.9 DegF (01/23/20 4:45 PM) 98.1 DegF (01/23/20 8:59 AM) 97.9 DegF (01/22/20 9:46 PM) Mode of Delivery (Oxygen) Room air (01/23/20 4:45 PM) Room air (01/23/20 8:59 AM) Room air (01/22/20 9:46 PM) Blood pressure sites Arm, right (01/23/20 4:45 PM) Arm, right (01/23/20 8:59 AM) Arm, right (01/21/20 8:32 AM) Temperature Route Oral (01/23/20 4:45 PM) Oral (01/23/20 8:59 AM) Oral (01/22/20 9:46 PM) Dry Weight 107.5 kg (01/18/20 3:53 AM) Sensory deficits Uncorrected visual impairment (01/18/20 3:53 AM) Mobility assistance Independent (01/18/20 3:53 AM) Social History Social History Type Response Tobacco Use: Former Smoker, pt states that she quit smoking 05/2013. Sex
--- OUTSIDE RECORDS SUMMARY | 2024-02-16 10:27 | XMS_ITS | Continuity of Care Document ---
Author Organization [facility] Address [address] [place] [address]- Care Team Providers Care Beef Splitter Name Role Phone Nerissa Lopez MD Primary Care Physician [phone] Encounter [facility] Date(s): 08/18/23 - 09/17/23 [facility] [address] [place], [place] [address] Attending Physician: Caleb Hollis Admitting [...] 01/23/20 13:27:00 EDT, Route to Pharmacy Electronically, [facility], 162.56, cm, 01/23/20 8:59:00 [...] EVERY MORNING, # 15 mL, 2 Refills, [facility], 162.56, cm, 12/31/21 [...] 02/04/21 12:22:00 EDT, Route to Pharmacy Electronically, [facility], Partial fill upon patient request if the prescription is for a schedule I... Start Date: 4/12/21 Status: Ordered One Touch Delica Lancets See Instructions, # 150 each, Maintenance, test BG 4x daily, E11.9, Please call [facility] [phone] to schedule a follow up appt or [...] 12/31/21 9:27:00 EST, Route to Pharmacy Electronically, [facility], Partial fill upon patient request if the prescrip... Start Date: 12/31/21 Status: Ordered Pen [place], 31 G x 5 mm BD Ultra Fine III See Instructions, # 150 each, Refills 0, Tot. Refills 5, Maintenance, For use 4x daily with insulinpens for dx of E11.9, please keep 05/19/17 appt, 04/24/17 16:03:34, Compound Start Date: 04/24/17 Status: Ordered Pen [place], 31 G x 8 mm BD Ultra [...] Team Personnel Name: Nelson Cleary RN Position: [facility] RN Member Role: Primary Care Nurse Name: Radha Kellogg RN Position: [facility] RN Member Role: Primary Care Nurse Name: Partha Dhillon MD Position: [facility] Renal MD Member Role: Lifetime Consulting Physician Address: Address: [address] [place] [address] [address] [place] [address]- Name: Radha Major RN Position: S RN Member Role: Primary Care Nurse Name: Julee Almendarez RN Position: [facility] RN Member Role: Primary Care Nurse Name: Barbie Rodriguez RN Position: [facility] RN Member Role: Primary Care Nurse Name: David Valadez MD Position: [facility] Renal MD Member Role: Lifetime Consulting Physician Address: Address: [address] [place] [address] [facility] [place] [place] [address]- [place] Name: Nerissa Lopez MD Position: [facility] Outreach Member Role: PCP Address: Address: [address] [place] [address]- [place] Name: Eileen Lorenzo RN Position: [facility] RN Member Role: Primary Care Nurse Name: Ashley Adams RN Position: [facility] RN Member Role: Primary Care Nurse Name: Iliana Ho RN Position: [facility] Event Sales Representative Member Role: Primary Care Nurse Care Team Related Persons Name: LAYLA TALAVERA Address: home [address] [place] [address]
--- OUTSIDE RECORDS SUMMARY | 2024-02-16 10:27 | XMS_ITS | Continuity of Care Document ---
Author Organization [facility] Address Unknown Care Team Providers Care Auditor Appraiser Name Role Phone Nerissa Lopez MD Primary Care Physician [place] [facility] [place]22 [facility] Attending Physician: Caleb Hollis Admitting Physician: Caleb Hollis Referring Physician: Caleb Hollis Allergies, Adverse Reactions, Alerts Substance Reaction Severity [...] 01/23/20 13:27:00 EDT, Route to Pharmacy Electronically, [facility], 162.56, cm, 01/23/20 8:59:00 [...] EVERY MORNING., # 15 mL, 2 Refills, [facility], 162, cm, 08/29/21 12:48:00 EDT, [...] 02/04/21 12:22:00 EDT, Route to Pharmacy Electronically, [facility], Partial fill upon patient request if the prescription is for a schedule I... Start Date: 02/04/21 Status: Ordered One Touch Delica Lancets See Instructions, # 150 each, Maintenance, test BG 4x daily, E11.9, Please call [facility] [phone] to schedule a follow up appt or [...] 12/31/21 9:27:00 EST, Route to Pharmacy Electronically, [facility], Partial fill upon patient request if the prescrip... Start Date: 12/31/21 Status: Ordered Pen [place], 31 G x 5 mm BD Ultra Fine III See Instructions, # 150 each, Refills 0, Tot. Refills 5, Maintenance, For use 4x daily with insulinpens for dx of E11.9, please keep 05/19/17 appt, 04/24/17 16:03:34, Compound Start Date: 04/24/17 Status: Ordered Pen [place], 31 G x 8 mm BD Ultra [...]
--- OUTSIDE RECORDS SUMMARY | 2024-02-16 10:27 | XMS_ITS | Continuity of Care Document ---
Author Organization [facility] Address [address] [place] [address]- Care Team Providers Care Staff Physical Therapist Name Role Phone Nerissa Lopez MD Primary Care Physician Encounter [facility] [place] Date(s): 01/28/21 - 02/04/[address] [address]- Discharge Disposition: A-Transfer VNA/Home Health Attending Physician: Tawana Bean MD Admitting Physician: Jerrod Garcia Sr, MD Referring Physician: Jerrod Garcia Sr, MD Allergies, Adverse Reactions, Alerts Substance Reaction [...] Pharmacy Electronically, [facility], 162.56, cm,01/23/20 8:59:00 EDT, Height, 107.5, [...] 13:48:44EDT, Tablet Start Date: 03/06/14 Status: Ordered hydrOXYzine hydrochloride 50 mg oral tablet 1 tablet = 50 mg, By Mouth, 4 times a day, PRN for anxiety, # 40 tablet, 0 Refills, Maintenance, 05/07/16 8:48:44 EDT, Tablet Start Date: 05/07/16 Status: Ordered insulin glargine 100 u/ml subcutaneous solution = 60 units, Subcutaneous Injection, Daily before dinner, # 9 mL, 3 Refills, Maintenance, 02/04/21 12:21:00 EDT, Injection, [facility], Partial fill upon patient request if the prescription is for a schedule II opioid drug., 162, c... Start Date: 02/04/21 Status: Ordered insulin lispro 100 u/ml subcutaneous injection 8-20 units, Subcutaneous Injection, 3 times a day before meals, << Sliding Scale Comments >> 80 - 129 8 units Call if less than 80 130 - 179 10 units 180 - 229 12 units 230 - 279 14 - 329 16 units 330 - 379 18 units 3... Start Date: 02/04/21 Status: Ordered levothyroxine 175 mcg (0.175 mg) oral tablet By Mouth, Daily, 0 Refills, Maintenance, 06/27/14 16:22:44 EDT, Tablet, 150 Start Date: 06/27/14 Status: Ordered lisinopril 20 mg oral tablet 20 mg, Tablet, By Mouth, 02/04/21 10:37:00 EDT Start Date: 02/04/21 Stop Date: 02/04/21 Status: Completed lisinopril 20 mg oral tablet 20 mg, [...] test BG 4x daily, E11.9, Please call [facility] [phone] to schedule a follow up appt or [...] Compound Start Date: 08/14/16 Status: Ordered Pen [place], 31 G x 5 mm BD Ultra Fine III See Instructions, # 150 each, Refills 0, Tot. Refills 5, Maintenance, For use 4x daily with insulinpens for dx of E11.9, please keep 05/19/17 appt, 04/24/17 16:03:34, Compound Start Date: 04/24/17 Status: Ordered Pen [place], 31 G x 8 mm BD Ultra [...] EDT, Supply Start Date: 02/04/21 Status: Ordered Zoloft 25 mg oral tablet 1 tablet = 25 mg, By Mouth, Daily, # 30 tablet, 0 Refills, Maintenance, 01/23/20 13:27:00 EDT, Tablet, [facility], 162.56, cm, 01/23/20 [...] Range]: 1 2 3 Height 162 cm (01/28/21 12:12 PM) Weight 92.8 kg (01/28/21 12:12 PM) Oxygen Saturation [94-100 %] 100 % (02/04/21 10:00 AM) 99 % (02/04/21 12:00 AM) 98 % (02/03/21 2:00 PM) Pulse Rate [55-90 bpm] 95 bpm *H* (02/04/21 10:00 AM) 75 bpm (02/04/21 12:00 AM) 77 bpm (02/03/21 2:00 PM) Body Mass Index [18.5-24.99] 35.36 *>HHI* (01/28/21 12:12 PM) Blood Pressure [90-138/55-84 mm Hg] 132/58mm Hg (02/04/21 1:45 PM) 121/74mm Hg (02/04/21 10:00 AM) 148/58mm Hg *H* (02/04/21 12:00 AM) Respiratory Rate [16-30 br/min] 18 br/min (02/04/21 12:00 AM) 17 br/min (02/03/21 2:00 PM) 18 br/min (02/03/21 6:00 AM) Temperature [96.8-100.4 DegF] 97.8 DegF (02/04/21 10:00 AM) 99.9 DegF (02/04/21 12:00 AM) 98.8 DegF (02/03/21 2:00 PM) Mode of Delivery (Oxygen) Room air (02/04/21 10:00 AM) Room air (02/04/21 12:00 AM) Room air (02/03/21 2:00 PM) Blood pressure sites Arm, left (02/04/21 10:00 AM) Arm, right (02/03/21 6:00 AM) Arm, right (02/02/21 8:00 PM) Temperature Route Oral (02/04/21 10:00 AM) Oral (02/04/21 12:00 AM) Oral (02/03/21 2:00 PM) Dry Weight 92.8 kg (01/28/21 12:12 PM) Weight Obtained Via Bed scale (01/28/21 12:12 PM) Dry Weight Obtained Via Bed scale (01/28/21 12:12 PM) Social History Social History Type Response Tobacco Use: Former Smoker, pt states that she quit smoking 05/2013. Sex
--- OUTSIDE RECORDS SUMMARY | 2024-02-16 10:27 | XMS_ITS | Continuity of Care Document ---
Author Organization [facility] Address Unknown Care Team Providers Care Circuit Court Clerk Name Role Phone Nerissa Lopez MD Primary Care Physician [phone] Encounter [facility] [place] Date(s): 08/13/21 - 11/30/21 [facility] Attending Physician: Marianna CHRIS, Anna Referring Physician: Zulema Jorgensen MD Allergies, Adverse Reactions, Alerts Substance Reaction [...] 01/23/20 13:27:00 EDT, Route to Pharmacy Electronically, [facility], 162.56, cm, 01/23/20 8:59:00 EDT, Height, [...] 09/26/15 Stop Date: 10/26/15 Status: Ordered insulin lispro 100 units/mL injectable [...] EVERY MORNING., # 15 mL, 2 Refills, [facility], 162, cm, 08/29/21 12:48:00 EDT, Height, [...] 02/04/21 12:22:00 EDT, Route to Pharmacy Electronically, [facility], Partial fill upon patient request if the prescription is for a schedule I... Start Date: 02/04/21 Status: Ordered NovoLOG FlexPen 100 units/mL injectable solution See Instructions, sliding scale 4-14 units: 4U for 70-149, 6U 150-199, 8U for 200-249, 10U for 250-299, 12U for 300-349, etc. PLEASE CONTACT PCP OR ENDO WITH QUESTIONS/REFILLS, # 15 mL, 0 Refills, Maintenance, 07/31/21 9:00:00 EDT, [facility]... Start Date: 07/31/21 Status: Ordered One Touch Delica Lancets See Instructions, # 150 each, Maintenance, test BG 4x daily, E11.9, Please call [facility] [phone] to schedule a follow up appt or [...] Compound Start Date: 08/14/16 Status: Ordered Pen Percy, 31 G x 5 mm BD Ultra Fine III See Instructions, # 150 each, Refills 0, Tot. Refills 5, Maintenance, For use 4x daily with insulinpens for dx of E11.9, please keep 05/19/17 appt, 04/24/17 16:03:34, Compound Start Date: 04/24/17 Status: Ordered Pen Percy, 31 G x 8 mm BD Ultra [...]
--- OUTSIDE RECORDS SUMMARY | 2024-02-16 10:27 | XMS_ITS | Continuity of Care Document ---
Author Organization [facility] ter Address [address] [place] [address]- Care Team Providers Care Rn Resource Nurse Name Role Phone Nerissa Lopez MD Primary Care Physician Encounter [facility] Date(s): 10/05/23 - 11/04/[address] [address] Attending Physician: AdmCaleb owens Admitting Physician: AdmtrCaleb Referring Physician: Admtr, ArYaya Allergies, Adverse Reactions, Alerts Substance Reaction Severity [...] 01/23/20 13:27:00 EDT, Route to Pharmacy Electronically, [facility], 162.56, cm, 01/23/20 8:59:00 EDT, [...] EVERY MORNING, # 15 mL, 2 Refills, [facility], 162.56, cm, 12/31/21 6:58:00 EST, [...] 02/04/21 12:22:00 EDT, Route to Pharmacy Electronically, [facility], Partial fill upon patient request if the prescription is for a schedule I... Start Date: 02/04/21 Status: Ordered One Touch Delica Lancets See Instructions, # 150 each, Maintenance, test BG 4x daily, E11.9, Please call [facility] [phone] to schedule a follow up appt or [...] 12/31/21 9:27:00 EST, Route to Pharmacy Electronically, [facility], Partial fill upon patient request if the prescrip... Start Date: 12/31/21 Status: Ordered Pen Huxford, 31 G x 5 mm BD Ultra Fine III See Instructions, # 150 each, Refills 0, Tot. Refills 5, Maintenance, For use 4x daily with insulinpens for dx of E11.9, please keep 05/19/17 appt, 04/24/17 16:03:34, Compound Start Date: 04/24/17 Status: Ordered Pen Huxford, 31 G x 8 mm BD Ultra [...] Team Personnel Name: Nelson Cleary RN Position: [facility] RN Member Role: Primary Care Nurse Name: Radha Kellogg RN Position: [facility] RN Member Role: Primary Care Nurse Name: Partha Dhillon MD Position: [facility] Renal MD Member Role: Lifetime Consulting Physician Address: Address: [address] [place] [address] [address] [place] [address]- Name: Radha Major RN Position: [facility] RN Member Role: Primary Care Nurse Name: Julee Almendarez RN Position: [facility] RN Member Role: Primary Care Nurse Name: Barbie Rodriguez RN Position: [facility] RN Member Role: Primary Care Nurse Name: David Valadez MD Position: [facility] Renal MD Member Role: Lifetime Consulting Physician Address: Address: [address] [place] [address] [place] [address]- Name: Nerissa Lopez MD Position: [facility] Outreach Member Role: PCP Address: Address: [address] [place] [address]- [place] Name: Eileen Lorenzo RN Position: [facility] RN Member Role: Primary Care Nurse Name: Ashley Adams RN Position: [facility] RN Member Role: Primary Care Nurse Name: Iliana Ho RN Position: [facility] Hospital Pourer Crane Ladle Member Role: Primary Care Nurse Care Team Related Persons Name: LAYLA TALAVERA Address: home [address] [place] [address]
--- OUTSIDE RECORDS SUMMARY | 2024-02-16 10:27 | XMS_ITS | Continuity of Care Document ---
Author Organization [facility] ter Address [address] [place] [address]- Care Team Providers Care Accounts Payables Clerk Name Role Phone Nerissa Lopez MD Primary Care Physician [place] [facility] [place] [address] Attending Physician: Betzy Jones MD Admitting Physician: [...] 01/23/20 13:27:00 EDT, Route to Pharmacy Electronically, [facility], 162.56, cm, 01/23/20 8:59:00 [...] EVERY MORNING, # 15 mL, 2 Refills, [facility], 162.56, cm, 12/31/21 6:58:00 EST, Height, [...] 02/04/21 12:22:00 EDT, Route to Pharmacy Electronically, [facility], Partial fill upon patient request if the prescription is for a schedule I... Start Date: 02/04/21 Status: Ordered One Touch Delica Lancets See Instructions, # 150 each, Maintenance, test BG 4x daily, E11.9, Please call [facility] [phone] to schedule a follow up appt or [...] 12/31/21 9:27:00 EST, Route to Pharmacy Electronically, [facility], Partial fill upon patient request if the prescrip... Start Date: 12/31/21 Status: Ordered Pen Ledger, 31 G x 5 mm BD Ultra Fine III See Instructions, # 150 each, Refills 0, Tot. Refills 5, Maintenance, For use 4x daily with insulinpens for dx of E11.9, please keep 05/19/17 appt, 04/24/17 16:03:34, Compound Start Date: 04/24/17 Status: Ordered Pen Ledger, 31 G x 8 mm BD Ultra [...] Team Personnel Name: Nelson Cleary RN Position: [facility] RN Member Role: Primary Care Nurse Name: Radha Kellogg RN Position: [facility] RN Member Role: Primary Care Nurse Name: Partha Dhillon MD Position: [facility] Renal MD Member Role: Lifetime Consulting Physician Address: Address: [address] [place] [address] [address] [place] [address]- Name: Radha Major RN Position: [facility] RN Member Role: Primary Care Nurse Name: Julee Almendarez RN Position: [facility] RN Member Role: Primary Care Nurse Name: Barbie Rodriguez RN Position: [facility] RN Member Role: Primary Care Nurse Name: David Valadez MD Position: [facility] Renal MD Member Role: Lifetime Consulting Physician Address: Address: [address] [place] [address] [place] [address]- [place] Name: Nerissa Lopez MD Position: [facility] Outreach Member Role: PCP Address: Address: [address] [place] [address]- [place] Name: Eileen Lorenzo RN Position: [facility] RN Member Role: Primary Care Nurse Name: Ashley Adams RN Position: [facility] RN Member Role: Primary Care Nurse Name: Iliana Ho RN Position: [facility] Hospital Crab Backer Member Role: Primary Care Nurse Care Team Related Persons Name: LAYLA TALAVERA Address: home [address] [place] [address]
--- OUTSIDE RECORDS SUMMARY | 2024-02-16 10:27 | XMS_ITS | Continuity of Care Document ---
Author Organization [facility] Address Unknown Care Team Providers Care Leak Gang Supervisor Name Role Phone Nerissa Lopez MD Primary Care Physician [phone] En[place] [facility] [place](s): 08/29/21 - 09/05/21 [facility] Attending Physician: Marianna CHRIS, Anna [...] 01/23/20 13:27:00 EDT, Route to Pharmacy Electronically, [facility], 162.56, cm, 01/23/20 8:59:00 EDT, [...] 2 Refills, Maintenance, 07/29/21 16:00:00 EDT, Injection, [facility], Partial fill upon patient request [...] 02/04/21 12:22:00 EDT, Route to Pharmacy Electronically, [facility], Partial fill upon patient request if the prescription is for a schedule I... Start Date: 02/04/21 Status: Ordered NovoLOG FlexPen 100 units/mL injectable solution See Instructions, sliding scale 4-14 units: 4U for 70-149, 6U 150-199, 8U for 200-249, 10U for 250-299, 12U for 300-349, etc. PLEASE CONTACT PCP OR ENDO WITH QUESTIONS/REFILLS, # 15 mL, 0 Refills, Maintenance, 07/31/21 9:00:00 EDT, [facility] Ce... Start Date: 07/31/21 Status: Ordered One Touch Delica Lancets See Instructions, # 150 each, Maintenance, test BG 4x daily, E11.9, Please call [facility] [phone] to schedule a follow up appt or [...] Compound Start Date: 08/14/16 Status: Ordered Pen Bridgeton, 31 G x 5 mm BD Ultra Fine III See Instructions, # 150 each, Refills 0, Tot. Refills 5, Maintenance, For use 4x daily with insulinpens for dx of E11.9, please keep 05/19/17 appt, 04/24/17 16:03:34, Compound Start Date: 04/24/17 Status: Ordered Pen Bridgeton, 31 G x 8 mm BD Ultra [...] Most recent to oldest [Reference Range]: 1 Height 162 cm (08/29/21 12:48 PM) Weight 90.3 kg (08/29/21 12:48 PM) Body Mass Index [18.5-24.99] 34.41 *>HHI* (08/29/21 12:48 PM) Respiratory Rate [16-30 br/min] 20 br/mi n (08/29/21 12:48 PM) Temperature [96.8-100.4 DegF] 95.5 DegF *L* (08/29/21 12:48 PM) Blood pressure sites Arm, left (08/29/21 12:48 PM) Temperature Route Temporal (08/29/21 12:48 PM) Weight Obtained Via Standing scale (08/29/21 12:48 PM) Social History Social History Type Response Tobacco Use: Former Smoker, pt states that she quit smoking 05/2013. Sex
--- NOTE | 2024-02-16 10:39 | A.OFFVIS_ITS ---
Vital Signs 02/16/24 10:59 Height 5 ft 4 in Weight 258 lb 2.581 oz BMI 44.3 BP 140/72 H Blood Pressure Location Lt brachial Position Sitting Pulse 72 Pulse Source Pulse Oximeter Pulse Oximetry (%) 97 Oxygen Delivery Method Room Air Intake Visit Reasons: +dsDnA Intake Note: Patient last seen 01/14/24, presents today for follow up and test results. Land Acquisition Specialist Required: No Accompanied by: Self / Same As Patient Allergies haloperidol [From Haldol] Allergy (Severe, Verified 02/16/24 10:39) Jaw locked pioglitazone [From Actos] Allergy (Severe, Verified 02/16/24 10:39) Throat swells morphine [MORPHINE] Allergy (Unknown, Unverified 02/16/24 10:39) UNKNOWN, bradycardia HPI Comments Details: Ms. Parr 53 year old female refer by her Neprologist here to review the results of her recent labs. 01/14/2024 initial history: Ms. Parr 53 year old female refer by her Neprologist for evaluation of +dsDNA in the context of CKD, uncontrolled diabetes mellitus and negative CASPER. She denies signs and symptoms of lupus. She has hypertension, longstanding diabetes since she was 16 years old and state 3 chronic kidney disease. She has not had hair loss that is bothersome, sores in the nose or mouth, sun sensitivity or concerned rashes. She does have joint ache which she thinks is more related to her lower back and knee pain. She walks with a cane. She has complains of a chronic dull pain to the right flank which has been there since she fell and hit that side over a year ago. Imaging has not identified any pathology. She has done physical rehab in the past Patient denies Raynaud's phenomenon, butterfly rash on face or other rashes; denies photosensitivity - getting sick or developing a rash from being out in the sun; denies blood or froth in urine; patient denies hx of SOB, chest pain. Patient denies hx of Carditis or Pleuritis. Patient denies any history of DVT/PE. Patient had no miscarriages. The patient reports never have had to take aspirin or a blood thinner during the successful pregnancies. Denies fevers, excessive fatigue, unexplained weight-loss or weight-gain, thinning hair or hair loss, hx of rashes; dry mouth, mouth sores or ulcers; ringing in the ear. Her daughter has lupus. REPLACED BY [facility] Medical History (Updated 03/11/24 @ 02:56 by SOHAIL Galvan) Rheumatoid factor positive Obesity, morbid, BMI 40.0-49.9 Chronic kidney disease (CKD) Ds DNA antibody positive Depression Diabetes Hypothyroid HTN (hypertension) Depression Surgical History History of parotid gland removal History of cholecystectomy Previous section H/O tubal ligation Family History Daughter Lupus Mother Arthritis Diabetes Maternal Grandmother Arthritis Father Multiple sclerosis Diabetes Social History Household Members: Spouse and Children Household Members Other:: , 21-year-old daughter Alcohol intake: former Patient Tobacco Use Status: Never used Tobacco Current occupational status: unemployed Review of Systems Const All systems reviewed & are unremarkable except as noted in HPI and below Physical Exam Vital Signs: Last Vital Signs Pulse 72 02/16/24 10:59 BP 140/72 H 02/16/24 10:59 Pulse Ox 97 02/16/24 10:59 Oxygen Delivery Method Room Air 02/16/24 10:59 BMI result Body Mass Index 44.3 Vital signs reviewed. Constitutional: Non-toxic appearing. No acute distress. Well-developed and well-nourished. HEENT: Normocephalic and atraumatic. External auditory canals without erythema or edema bilaterally. Dry mucous membranes. No pharyngeal erythema or exudates. Skin: Warm and dry. No rashes or lesions noted. Neck: Full and painless range of motion. No cervical lymphadenopathy. Cardio: Regular rate and rhythm. No murmurs, gallops, or rubs. No lower extrem ity edema. No JVD. Pulmonary: No respiratory distress. No accessory muscle usage. Scattered expiratory wheezing. Gastrointestinal: Soft, nontender, and nondistended in all 4 quadrants. Normoactive bowel sounds in all 4 quadrants. Genitourinary: No CVA tenderness. Musculoskeletal: Normal range of motion in joints throughout the body. No deformity or other signs of injury. Neuro: Alert and oriented x4. Cranial nerves 2-12 grossly intact. No focal deficits appreciated. Results Reviewed Results Reviewed: Laboratory Tests 01/14/24 11:30 Rheumatoid Factor 70.7 H Cycl Citrul Peptide IgG <16 CASPER Screen NEGATIVE Double Strand DNA Ab 96 H EXAMINATION: XR HAND WRIST, RIGHT XR HAND WRIST, LEFT CLINICAL INFORMATION: Bilateral pain. History fall onto hands approximately 3 months ago. COMPARISON: None TECHNIQUE: Each hand and wrist are imaged together in 3 large [id number] images. A navicular view is also included on each side for a total of 4 views of each side. FINDINGS: Right: There is no acute or healing fracture, dislocation, or destructive process. The ulnar variance is neutral. There is no periarticular demineralization, focal joint narrowing, or erosive changes. There may be mild generalized osteopenia. Left: There is no acute or healing fracture, dislocation, or destructive process. The ulnar variance is neutral. There is no periarticular demineralization, focal joint narrowing, or erosive changes. There may be mild generalized osteopenia. XR/XR hand wrist RT IMPRESSION: 1. No acute or healing fracture, dislocation, or arthropathy. 2. Question mild generalized osteopenia. Assessment & Plan Assessment & Plan (1) Ds DNA antibody positive: Code(s): R76.8 - Other specified abnormal immunological findings in serum Category: Medical (2) Chronic kidney disease (CKD): Code(s): N18.9 - Chronic kidney disease, unspecified Category: Medical Qualifiers: Chronic kidney disease stage: stage 3 (moderate) Chronic kidney disease stage 3 subtype: unspecified whether 3a or 3b Qualified Code(s): N18.30 - Chronic kidney disease, stage 3 unspecified (3) Rheumatoid factor positive: Code(s): R76.8 - Other specified abnormal immunological findings in serum Category: Medical Plan #+dsDNA/CKD/positive rheumatoid factor: In general, it does meet criteria for lupus if there is negative CASPER and positive double-stranded DNA. On PE the patient does not have a clinical presentation for lupus. In reviewing the Nephrology documentation with kidney biopsy result, I suspect her kidney condition may be more related to the uncontrolled diabetes mellitus and hypertension. The biopsy report identifies diffuse and nodular diabetic glomerular sclerosis, moderately advanced with severe arteriosclerosis and arteriolar hyalinosis. There is no evidence mmune complex mediated disease active, active glomerulitis, active interstitial nephritis or paraprotein deposit disease. Discussed at length with the patient signs and symptoms of SLE she should contact the office should these occur. The labs also revealed positive rheumatoid factor but patient denies joint tenderness to her hands and feet and swelling. I spent 20 minutes reviewing chart, discussing results and disease processes with patient and documenting Follow-up in 6 months I spent 15 minutes reviewing chart , evaluating and assessing patient, and documenting Orders: Orders Comprehensive Met. Panel 02/16/24 R76.8 - Other specified abnormal immunol ogical findings in serum C Reactive Protein 02/16/24 R76.8 - Other specified abnormal immunological findings in serum Immunoglobulins,IgG IgA IgM 02/16/24 R76.8 - Other specified abnormal immunological findings in serum Anti-Centromere B Antibodies 02/16/24 R76.8 - Other specified abnormal immunological findings in serum DNA Double Stranded-Crithidia 02/16/24 R76.8 - Other specified abnormal immunological findings in serum Erythrocyte Sedimentation Rate 02/16/24 R76.8 - Other specified abnormal immunological findings in serum Complete Blood Count Auto Diff 02/16/24 R76.8 - Other specified abnormal immunological findings in serum Immunofixation Pnl, Serum 02/16/24 R76.8 - Other specified abnormal immunological findings in serum Scleroderma 70 Antibody 02/16/24 R76.8 - Other specified abnormal immunological findings in serum Protein Electrophoresis, Serum 02/16/24 R76.8 - Other specified abnormal immunological findings in serum Coding Level of Care Code Est Pt Level 2 (07107) Diagnoses Ds DNA antibody positive R76.8 Stage 3 chronic kidney disease, unspecified whether stage 3a or 3b CKD N18.30 Chronic kidney disease stage: stage 3 (moderate) Chronic kidney disease stage 3 subtype: unspecified whether 3a or 3b Rheumatoid factor positive R76.8
[2024-02-16 10:59] VITALS: BP 140/72; PULSE 72; O2SAT 97; BMI 44.3
== END 2024-02-16 11:20 | disposition home or self-care (01) ==
LOC: HO.RHE 10:25
PROVIDERS: PCP Student in an Organized Health Care Education/Training Program; Visit Provider Nurse Practitioner Family
DX: R76.8 Other specified abnormal immunological findings in serum (principal); N18.30 Chronic kidney disease, stage 3 unspecified
CPT/HCPCS: 99212

== ENCOUNTER → 2024-02-16 10:25 | Outpatient (BNVA) | payer OTHER, SELFPAY | PROVIDERS: PCP Student in an Organized Health Care Education/Training Program; Visit Provider Nurse Practitioner Family | DX: R76.8 Other specified abnormal immunological findings in serum (principal); N18.9 Chronic kidney disease, unspecified | CPT/HCPCS: 99212 ==

== ENCOUNTER 2024-04-06 10:57 | Outpatient (AMB) | payer OTHER, SELFPAY ==
--- NOTE | 2024-04-06 11:01 | A.OFFVIS_ITS ---
Vital Signs 04/06/24 11:05 Height 5 ft 4 in Weight 261 lb 3.964 oz BMI 44.8 BP 126/72 Blood Pressure Location Rt radial Position Sitting Pulse 77 Pulse Source Pulse Oximeter Intake Visit Reasons: Type 2 DM Intake Note: New patient presents today for T2DM, referred by PCP. Last Diabetic Eye exam: Has an appointment in April 2024 Last Podiatry Visit: Has an upcoming appointment for her left 1st toe. Random Glucose: 147 mg/dl HgA1C: 8.0% 03/16/2024 Storage Battery Inspector Required: No Accompanied by: Self / Same As Patient Allergies haloperidol [From Haldol] Allergy (Severe, Verified 04/06/24 11:07) Jaw locked pioglitazone [From Actos] Allergy (Severe, Verified 04/06/24 11:07) Throat swells morphine [MORPHINE] Allergy (Unknown, Verified 04/06/24 11:07) UNKNOWN, bradycardia HPI Comments Details: Ms. Parr 53 year old female with a past medical history of hyperparathyroidism s/p parathyroidectomy, CKD, IDDM presenting for follow up Last A1C 02/2024 8.0% DM Medications: Lantus 60 unit nightly, Novolog 100-149 10 units (+2 for every 50 until 399), Glipizide 5mg twice daily, hasnt started mounjaro 2.5 but has at home. Taken off farxiga by nephrology. On statin. CASTRO was discontinued by nephrology at recent visit Infrequent neuropathic pain b/l feet. Has gabapentin. No issues with sores. She is seeing podiatry next month. Has right lower extremity blister for the past few weeks. Sometimes drains clear fluid. No surround redness, no fevers She is overdue for her eye exam. She has this scheduled. CKD followed by Renal Transplant. Last Cr on file Oct but seen on Mar 31. Previous renal biopsy with+dsDNA. Follows with rheumatology for RA but think kidney disease mostly b/c of uncontrolled diabetes mellitus rather than sequelae of +dsDNA Hypothyroid-continues levothyroxine ROS CONSTITUTIONAL: Denies weight loss, fever and chills. HEENT: Denies changes in vision and hearing. RESPIRATORY: Denies SOB and cough. CV: Denies palpitations and CP GI: Denies abdominal pain, nausea, vomiting and diarrhea. : Denies dysuria and urinary frequency. MSK: Denies new myalgia and joint pain. SKIN: see HPI NEUROLOGICAL: Denies headache PSYCHIATRIC: Denies recent changes in mood. PHYSICAL EXAM: GENERAL: Alert and oriented x 3. NAD. Overweight EYES: EOMI. Anicteric. HENT: Moist mucous membranes. No scleral icterus. No cervical lymphadenopathy. LUNGS: Clear to auscultation bilaterally. CARDIOVASCULAR: Regular rate and rhythm. ABDOMEN: Soft, non-tender +bs EXTREMITIES: Trace b/l edema. Right lower leg with 2cm circular red blister on the yen. No purulence. No surrounding erythema SKIN: No rashes or lesions. Warm. NEUROLOGIC: Right foot with decreased vibratory sense PSYCHIATRIC: Cooperative. Appropriate mood and affect [facility] Medical History (Updated 04/07/24 @ 09:03 by Di Plaza MD) Rheumatoid factor positive Obesity, morbid, BMI 40.0-49.9 Chronic kidney disease (CKD) Ds DNA antibody positive Depression Diabetes Hypothyroid HTN (hypertension) Depression Surgical History History of parotid gland removal History of cholecystectomy Previous section H/O tubal ligation Family History Daughter Lupus Mother Arthritis Diabetes Maternal Grandmother Arthritis Father Multiple sclerosis Diabetes Social History Household Members: Spouse and Children Household Members Other:: , 21-year-old daughter Alcohol intake: former Patient Tobacco Use Status: Never used Tobacco Current occupational status: unemployed Physical Exam Vital Signs: Last Vital Signs Pulse 77 04/06/24 11:05 BP 126/72 04/06/24 11:05 BMI result Body Mass Index 44.8 Results Reviewed Results Reviewed: Laboratory Last Values Glucose (Clinic) 147 mg/dL (60-115) H 04/06/24 11:16 Assessment & Plan Assessment & Plan (1) Diabetes: Code(s): E11.9 - Type 2 diabetes mellitus without complications Category: Medical Qualifiers: Diabetes mellitus type: type 2 Diabetes mellitus emt intermediate insulin use: with long-term use Diabetes mellitus complication status: with kidney complications Diabetes mellitus complication detail: with chronic kidney disease Chronic kidney disease stage: stage 4 (severe) Qualified Code(s): E11.22 - Type 2 diabetes mellitus with diabetic chronic kidney disease; N18.4 - Chronic kidney disease, stage 4 (severe); Z79.4 - terminal gauger (current) use of insulin Plan: 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 Increase Lantus up to 80 units. Add 5 units to sliding scale with evening meal. Start mounjaro 2.5mg Meet with nutrionist Discussed long-term sequelae of uncontrolled diabetes (2) Hypothyroid: Code(s): E03.9 - Hypothyroidism, unspecified Category: Medical Qualifiers: Hypothyroidism type: due to Nancie's thyroiditis Qualified Code(s): E03.8 - Other specified hypothyroidism; E06.3 - Autoimmune thyroiditis Plan: Check TSH prior to next visit (3) Rheumatoid factor positive: Code(s): R76.8 - Other specified abnormal immunological findings in serum Category: Medical Plan: continue f/up rheumatology (4) Chronic kidney disease (CKD): Code(s): N18.9 - Chronic kidney disease, unspecified Category: Medical Qualifiers: Chronic kidney disease stage: stage 3 (moderate) Chronic kidney disease stage 3 subtype: unspecified whether 3a or 3b Qualified Code(s): N18.30 - Chronic kidney disease, stage 3 unspecified Plan: Request notes from nephrology (5) Peripheral neuropathy: Code(s): G62.9 - Polyneuropathy, unspecified Category: Medical Qualifiers: Peripheral neuropathy type: polyneuropathy associated with underlying disease Qualified Code(s): G63 - Polyneuropathy in diseases classified elsewhere Plan: continue gabapentin (6) Depression: Code(s): F32.9 - Major depressive disorder, single episode, unspecified Category: Medical Qualifiers: Depression Type: major depressive disorder Major depression recurrence: recurrent Active/Remission status: in partial remission Qualified Code(s): F33.41 - Major depressive disorder, recurrent, in partial remission Plan: stable on current medications Orders: Orders Hemoglobin A1c 3 Months E03.9 - Hypothyroidism, unspecified, E11.9 - Type 2 diabetes mellitus without complications, N18.30 - Chronic kidney disease, stage 3 unspecified TSH reflex Free T4 3 Months E03.9 - Hypothyroidism, unspecified, E11.9 - Type 2 diabetes mellitus without complications, N18.30 - Chronic kidney disease, stage 3 unspecified Lipid Panel 3 Months E03.9 - Hypothyroidism, unspecified, E11.9 - Type 2 diabetes mellitus without complications, N18.30 - Chronic kidney disease, stage 3 unspecified Comprehensive Met. Panel 3 Months E03.9 - Hypothyroidism, unspecified, E11.9 - Type 2 diabetes mellitus without complications, N18.30 - Chronic kidney disease, stage 3 unspecified Referrals Delivery Room Clerk Nutrition Referral E11.9 - Type 2 diabetes mellitus without complications, E66.01 - Morbid (severe) obesity due to excess calories Medications: New tirzepatide (Mounjaro) 2.5 mg (0.5 mL) subcut QWEEK 2 mL 3RF 4 weeks Changed From insulin glargine (Lantus Solostar U-100 Insulin) 60 units subcut QPM To insulin glargine (Lantus Solostar U-100 Insulin) 80 units (0.8 mL) subcut QPM 45 mL 3RF 90 days Coding Level of Care Code Consult Moderate 12193 Diagnoses Type 2 diabetes mellitus with stage 4 chronic kidney disease, with long-term current use of insulin E11.22; N18.4; Z79.4 Diabetes mellitus type: type 2 Diabetes mellitus emt intermediate insulin use: with emt intermediate use Diabetes mellitus complication status: with kidney complications Diabetes mellitus complication detail: with chronic kidney disease Chronic kidney disease stage: stage 4 (severe) 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 E03.8; E06.3 Hypothyroidism type: due to Nancie's thyroiditis Rheumatoid factor positive R76.8 Stage 3 chronic kidney disease, unspecified whether stage 3a or 3b CKD N18.30 Chronic kidney disease stage: stage 3 (moderate) Chronic kidney disease stage 3 subtype: unspecified whether 3a or 3b Polyneuropathy associated with underlying disease G63 Peripheral neuropathy type: polyneuropathy associated with underlying disease Recurrent major depressive disorder, in partial remission F33.41 Depression Type: major depressive disorder Major depression recurrence: recurrent Active/Remission status: in partial remission
[2024-04-06 11:05] VITALS: BP 126/72; PULSE 77; BMI 44.8
[2024-04-06 11:21] LABS: Glucose, Whole Blood 147 mg/dL (60-115)
== END 2024-04-06 12:07 | disposition home or self-care (01) ==
PROVIDERS: PCP Student in an Organized Health Care Education/Training Program; Visit Provider Internal Medicine
DX: E11.22 Type 2 diabetes mellitus with diabetic chronic kidney disease (principal); N18.4 Chronic kidney disease, stage 4 (severe); Z79.4 Long term (current) use of insulin; E03.8 Other specified hypothyroidism; E06.3 Autoimmune thyroiditis; R76.8 Other specified abnormal immunological findings in serum; N18.30 Chronic kidney disease, stage 3 unspecified; G63 Polyneuropathy in diseases classified elsewhere; F33.41 Major depressive disorder, recurrent, in partial remission
CPT/HCPCS: 99204

== ENCOUNTER → 2024-04-06 10:57 | Outpatient (BNVA) | payer OTHER, SELFPAY | PROVIDERS: PCP Student in an Organized Health Care Education/Training Program; Visit Provider Internal Medicine | DX: E11.22 Type 2 diabetes mellitus with diabetic chronic kidney disease (principal); N18.4 Chronic kidney disease, stage 4 (severe); E03.8 Other specified hypothyroidism; E06.3 Autoimmune thyroiditis; G63 Polyneuropathy in diseases classified elsewhere; R76.8 Other specified abnormal immunological findings in serum; F33.41 Major depressive disorder, recurrent, in partial remission; Z79.4 Long term (current) use of insulin | CPT/HCPCS: 82947; 99202 ==

== ENCOUNTER 2024-04-20 11:39 | Outpatient (AMB) | payer OTHER, SELFPAY ==
--- NOTE | 2024-04-20 11:43 | A.OFFVIS_ITS ---
VS Expanded 04/20/24 11:44 04/26/24 08:53 Height 5 ft 4 in 5 ft 4 in Weight 257 lb 11.526 oz 258 lb BMI 44.2 44.3 Intake Visit Reasons: T2DM/confirmed Allergies haloperidol [From Haldol] Allergy (Severe, Verified 04/06/24 11:07) Jaw locked pioglitazone [From Actos] Allergy (Severe, Verified 04/06/24 11:07) Throat swells morphine [MORPHINE] Allergy (Unknown, Verified 04/06/24 11:07) UNKNOWN, bradycardia Nutrition Presentation Details: Pt presents for MNT for T2DM, obesity. Pt was referred by Dr. Esperanza Plaza from endocrinology BS Monitoring Most Recent Diabetes Results: Creatinine 1.57 mg/dL (0.5-1.4) H 05/25/23 Blood Urea Nitrogen 38 mg/dL (9-16) H 05/25/23 Sodium 140 mmol/L (135-145) 05/25/23 Potassium 4.5 mmol/L (3.3-5.1) 05/25/23 Chloride 109 mmol/L (96-108) H 05/25/23 Carbon Dioxide 18 mmol/L (22-29) L 05/25/23 Calcium 9.3 mg/dL (8.4-10.2) 05/25/23 [id number].Jeor Equation Height: 5 ft 4 in Weight: 258 lb Resting Metabolic Rate: 1753.50 Calculated Activity Level: Sedentary Calories Needed to Maintain Weight: 2104.20 Diagnosis Nutrition problem #1: excessive energy intake As related to (etiology) #1: diagnosis As evidenced by (sign/symptom) #1: elevated HgbA1c (Pt reports grazing throughout the day and often forgetting to take prandial insulin) Monitoring/Goals Nutrition problem monitoring: HgbA1c Nutrition goal/outcome: list 3 CHO foods Outcome progress: verbalized understanding Learning/Education Readiness to learn: fair [facility] Medical History (Updated 04/07/24 @ 09:03 by Di Plaza MD) Rheumatoid factor positive Obesity, morbid, BMI 40.0-49.9 Chronic kidney disease (CKD) Ds DNA antibody positive Depression Diabetes Hypothyroid HTN (hypertension) Depression Surgical History History of parotid gland removal History of cholecystectomy Previous section H/O tubal ligation Family History Daughter Lupus Mother Arthritis Diabetes Maternal Grandmother Arthritis Father Multiple sclerosis Diabetes Social History Household Members: Spouse and Children Household Members Other:: , 21-year-old daughter Alcohol intake: former Patient Tobacco Use Status: Never used Tobacco Current occupational status: unemployed Assessment & Plan Assessment & Plan (1) Diabetes: Code(s): E11.9 - Type 2 diabetes mellitus without complications Category: Medical Qualifiers: Diabetes mellitus type: type 2 Diabetes mellitus jail insulin use: with local intermodal truck driver use Diabetes mellitus complication status: with kidney complications Diabetes mellitus complication detail: with chronic kidney disease Chronic kidney disease stage: stage 4 (severe) Qualified Code(s): E11.22 - Type 2 diabetes mellitus with diabetic chronic kidney disease; N18.4 - Chronic kidney disease, stage 4 (severe); Z79.4 - remote computer terminal operator (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) use of insulin Plan: Wt: 117 Kg ( 04/2024 ) Est kcal needs as per MSJ: 2100 (40% carb, 30% protein/fat) Est fluid needs as per 25-30 ml/d:3000- 3500 Est prot per day as per 1 g/kg bw: 117 Recommend fiber intake : 8-10 g per day and gradually increase to 25-28 g per day for women and 35-38 g for men or as tolerated Recommend sodium intake per day : less than 2000 mg Educated patient on: ( R = reviewed V = verbalizes understanding N/R = needs review N/A = not applicable * Food sources of carbohydrate, adequate serving sizes and its role in various health conditions: R * Differences between complex carbohydrates a simple carbohydrates, role of fiber in diet: R V N/R * Lean protein sources of foods: R * Differences between types of fats and role in diet (mono on saturated fat fatty acids, saturated fatty acids, trans fats): R V N/R * Food sources of sodium in salt and healthy modifications for heart health in kidney health: R V R/V * Vitamins and minerals: R V N/R * Healthy plate method concept: R V N/R * Physical activity: Benefits a precaution: R * Hypoglycemia protocol (rule of 15): R V N/R * Dietary prevention of Hyperglycemia: R Patient Instructions: Practice mindful eating Reduce your total carb at meal to less than 45 g and include a lean protein food Work on reducing snacks to 3 a day consisting of 0-20 g carb, choose nutrient dense carbs see meal ideas and snacks as reference Coding Level of Care Code Nutr Indiv Intake (18816) Diagnoses Type 2 diabetes mellitus with stage 4 chronic kidney disease, with long-term current use of insulin E11.22; N18.4; Z79.4 Diabetes mellitus type: type 2 Diabetes mellitus jail insulin use: with local intermodal truck driver use Diabetes mellitus complication status: with kidney complications Diabetes mellitus complication detail: with chronic kidney disease Chronic kidney disease stage: stage 4 (severe) Time Spent (min) 30
[2024-04-20 11:44] VITALS: BMI 44.2
[2024-04-26 08:53] VITALS: BMI 44.3
== END 2024-04-20 12:20 | disposition home or self-care (01) ==
PROVIDERS: PCP Student in an Organized Health Care Education/Training Program; Visit Provider Dietitian, Registered
DX: E11.22 Type 2 diabetes mellitus with diabetic chronic kidney disease (principal); N18.4 Chronic kidney disease, stage 4 (severe); Z79.4 Long term (current) use of insulin

== ENCOUNTER → 2024-04-20 11:39 | Outpatient (BNVA) | payer OTHER, SELFPAY | PROVIDERS: PCP Student in an Organized Health Care Education/Training Program; Visit Provider Dietitian, Registered | DX: E11.22 Type 2 diabetes mellitus with diabetic chronic kidney disease (principal); N18.4 Chronic kidney disease, stage 4 (severe); Z79.4 Long term (current) use of insulin | CPT/HCPCS: 97802 ==

== ENCOUNTER 2024-05-17 11:33 | Outpatient (AMB) | payer OTHER, SELFPAY ==
[2024-05-17 11:38] VITALS: BMI 44.6
--- NOTE | 2024-05-17 11:38 | A.OFFVIS_ITS ---
VS Expanded 05/17/24 11:38 Height 5 ft 4 in Weight 259 lb 14.8 oz BMI 44.6 Intake Visit Reasons: T2DM/CONFIRMED Allergies haloperidol [From Haldol] Allergy (Severe, Verified 04/06/24 11:07) Jaw locked pioglitazone [From Actos] Allergy (Severe, Verified 04/06/24 11:07) Throat swells morphine [MORPHINE] Allergy (Unknown, Verified 04/06/24 11:07) UNKNOWN, bradycardia Nutrition Presentation Details: Pt presents for MNT for T2DM Pt reports starting to work on meal planning with success 2-3 x/wk BS Monitoring Most Recent Diabetes Results: No Data to Display [facility] Medical History (Updated 04/07/24 @ 09:03 by Di Plaza MD) Rheumatoid factor positive Obesity, morbid, BMI 40.0-49.9 Chronic kidney disease (CKD) Ds DNA antibody positive Depression Diabetes Hypothyroid HTN (hypertension) Depression Surgical History History of parotid gland removal History of cholecystectomy Previous section H/O tubal ligation Family History Daughter Lupus Mother Arthritis Diabetes Maternal Grandmother Arthritis Father Multiple sclerosis Diabetes Social History Household Members: Spouse and Children Household Members Other:: , 21-year-old daughter Alcohol intake: former Patient Tobacco Use Status: Never used Tobacco Current occupational status: unemployed Assessment & Plan Assessment & Plan (1) Diabetes: Code(s): E11.9 - Type 2 diabetes mellitus without complications Category: Medical Qualifiers: Chronic kidney disease stage: stage 4 (severe) Diabetes mellitus complication detail: with chronic kidney disease Diabetes mellitus complication status: with kidney complications Diabetes mellitus halfway insulin use: with exterminator use Diabetes mellitus type: type 2 Qualified Code(s): E11.22 - Type 2 diabetes mellitus with diabetic chronic kidney disease; N18.4 - Chronic kidney disease, stage 4 (severe); Z79.4 - prison (current) use of insulin Plan: Wt: 117 Kg ( 04/2024 ) Est kcal needs as per MSJ: 2100 (40% carb, 30% protein/fat) Est fluid needs as per 25-30 ml/d:3000- 3500 Est prot per day as per 1 g/kg bw: 117 Recommend fiber intake : 8-10 g per day and gradually increase to 25-28 g per day for women and 35-38 g for men or as tolerated Recommend sodium intake per day : less than 2000 mg Educated patient on: ( R = reviewed V = verbalizes understanding N/R = needs review N/A = not applicable * Food sources of carbohydrate, adequate serving sizes and its role in various health conditions: R * Differences between complex carbohydrates a simple carbohydrates, role of fiber in diet: R V N/R * Lean protein sources of foods: R * Differences between types of fats and role in diet (mono on saturated fat fatty acids, saturated fatty acids, trans fats): R V N/R * Food sources of sodium in salt and healthy modifications for heart health in kidney health: R * Vitamins and minerals: R V N/R * Healthy plate method concept: R V N/R * Physical activity: Benefits a precaution: R * Hypoglycemia protocol (rule of 15): R V N/R * Dietary prevention of Hyperglycemia: R Patient Instructions: Choose fruit in place of cookies/pastries, working on reducing salt/caloric intake and increasing fiber Coding Level of Care Code Nutr Indiv Subseq (82231) Diagnoses Type 2 diabetes mellitus with stage 4 chronic kidney disease, with long-term current use of insulin E11.22; N18.4; Z79.4 Chronic kidney disease stage: stage 4 (severe) Diabetes mellitus complication detail: with chronic kidney disease Diabetes mellitus complication status: with kidney complications Diabetes mellitus exterminator insulin use: with halfway use Diabetes mellitus type: type 2 Time Spent (min) 25
== END 2024-05-17 12:28 | disposition home or self-care (01) ==
PROVIDERS: PCP Student in an Organized Health Care Education/Training Program; Visit Provider Dietitian, Registered
DX: E11.22 Type 2 diabetes mellitus with diabetic chronic kidney disease (principal); N18.4 Chronic kidney disease, stage 4 (severe); Z79.4 Long term (current) use of insulin

== ENCOUNTER → 2024-05-17 11:33 | Outpatient (BNVA) | payer OTHER, SELFPAY | PROVIDERS: PCP Student in an Organized Health Care Education/Training Program; Visit Provider Dietitian, Registered | DX: E11.22 Type 2 diabetes mellitus with diabetic chronic kidney disease (principal); N18.4 Chronic kidney disease, stage 4 (severe); Z79.4 Long term (current) use of insulin; Z71.3 Dietary counseling and surveillance | CPT/HCPCS: 97803 ==

== ENCOUNTER 2024-07-07 14:47 | Outpatient (AMB) | payer OTHER, SELFPAY ==
--- NOTE | 2024-07-07 14:51 | A.OFFVIS_ITS ---
Vital Signs 07/07/24 14:57 Height 5 ft 4 in Weight 257 lb 15.053 oz BMI 44.3 BP 118/76 Blood Pressure Location Rt brachial Position Sitting Pulse 72 Pulse Source Pulse Oximeter Intake Visit Reasons: T2DM/CONFIRMED Intake Note: Patient presents today for a follow-up T2DM Last Diabetic Eye exam: April 2024 Last Podiatry Visit: April 2024 Most Recent HgA1C: 8.3%, 07/07/2024 Random Glucose: 101 mg/dL, Today Reconsignment Clerk Required: No Accompanied by: Self / Same As Patient Allergies haloperidol [From Haldol] Allergy (Severe, Verified 07/07/24 14:53) Jaw locked pioglitazone [From Actos] Allergy (Severe, Verified 07/07/24 14:53) Throat swells morphine [MORPHINE] Allergy (Unknown, Verified 07/07/24 14:53) UNKNOWN, bradycardia HPI Comments Details: Ms. Parr 53 year old female with a past medical history of hyperparathyroidism s/p parathyroidectomy, CKD, IDDM presenting for follow up Last A1C 02/2024 8.0%, today A1C 8.3% DM Medications: Lantus 80 units (increased from Lantus 60 unit nightly), Novolog 100-149 10 units (+2 for every 50 until 399) with +5 at dinner, mounjaro 2.5 but has at home. Stopped glipizide when increased lantus last visit. Taken off farxiga by nephrology. On statin. CASTRO was discontinued by nephrology at recent visit Infrequent neuropathic pain b/l feet. Has gabapentin. No issues with sores. She is seeing podiatry next month. Has right lower extremity blister for the past few weeks. Sometimes drains clear fluid. No surround redness, no fevers She is overdue for her eye exam. She has this scheduled. CKD followed by Renal Transplant. Last Cr on file Oct but seen on Mar 31. Previous renal biopsy with+dsDNA. Follows with rheumatology for RA but think kidney disease mostly b/c of uncontrolled diabetes mellitus rather than sequelae of +dsDNA Hypothyroid-continues levothyroxine ROS CONSTITUTIONAL: Denies weight loss, fever and chills. HEENT: Denies changes in vision and hearing. RESPIRATORY: Denies SOB and cough. CV: Denies palpitations and CP GI: Denies abdominal pain, nausea, vomiting and diarrhea. : Denies dysuria and urinary frequency. MSK: Denies new myalgia and joint pain. SKIN: see HPI NEUROLOGICAL: Denies headache PSYCHIATRIC: Denies recent changes in mood. PHYSICAL EXAM: GENERAL: Alert and oriented x 3. NAD. Overweight EYES: EOMI. Anicteric. HENT: Moist mucous membranes. No scleral icterus. No cervical lymphadenopathy. LUNGS: Clear to auscultation bilaterally. CARDIOVASCULAR: Regular rate and rhythm. ABDOMEN: Soft, non-tender +bs EXTREMITIES: Trace b/l edema. Right lower leg with 2cm circular red blister on the yen. No purulence. No surrounding erythema SKIN: No rashes or lesions. Warm. NEUROLOGIC: Right foot with decreased vibratory sense PSYCHIATRIC: Cooperative. Appropriate mood and affect [facility] Medical History (Updated 07/10/24 @ 11:00 by Di Plaza MD) Rheumatoid factor positive Obesity, morbid, BMI 40.0-49.9 Chronic kidney disease (CKD) Ds DNA antibody positive Depression Diabetes Hypothyroid HTN (hypertension) Depression Surgical History History of parotid gland removal History of cholecystectomy Previous section H/O tubal ligation Family History Daughter Lupus Mother Arthritis Diabetes Maternal Grandmother Arthritis Father Multiple sclerosis Diabetes Social History Household Members: Spouse and Children Household Members Other:: , 21-year-old daughter Alcohol intake: former Patient Tobacco Use Status: Never used Tobacco Current occupational status: unemployed Physical Exam Vital Signs: Last Vital Signs Pulse 72 07/07/24 14:57 BP 118/76 07/07/24 14:57 BMI result Body Mass Index 44.3 Results AMB Hemoglobin A1c 2 AMB Hemoglobin A1c 8.3 % Last Edit by KRYSTLE Ricci on 07/07/24 15:21 Results Reviewed Results Reviewed: Laboratory Last Values Glucose (Clinic) 101 mg/dL (60-115) 07/07/24 15:03 Hgb A1c (Clinic) 8.3 % (4.0-6.0) H 07/07/24 14:53 Assessment & Plan Assessment & Plan (1) Diabetes: Code(s): E11.9 - Type 2 diabetes mellitus without complications Category: Medical Qualifiers: Diabetes mellitus type: type 2 Diabetes mellitus correction insulin use: with correction use Diabetes mellitus complication status: with kidney complications Diabetes mellitus complication detail: with chronic kidney disease Chronic kidney disease stage: stage 4 (severe) Qualified Code(s): E11.22 - Type 2 diabetes mellitus with diabetic chronic kidney disease; N18.4 - Chronic kidney disease, stage 4 (severe); Z79.4 - USP (current) use of insulin Plan: Uncontrolled. Increase lantus to 84 units, increase mounjaro to 5 units daily. 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) use of insulin Medications: New Mounjaro (tirzepatide) 5 mg (0.5 mL) subcut QWEEK 12 weeks 6 mL 3RF NS E11.22 - Type 2 diabetes mellitus with diabetic chronic kidney disease, N18.4 - Chronic kidney disease, stage 4 (severe), Z79.4 - terminal gauger supervisor (current) use of insulin Changed From insulin glargine (Lantus Solostar U-100 Insulin) 80 units (0.8 mL) subcut QPM 90 days 45 mL 3RF To insulin glargine (Lantus Solostar U-100 Insulin) 84 units (0.84 mL) subcut QPM 90 days 75.6 mL 3RF Coding Level of Care Code Est Pt Level 4 (28376) Diagnoses Type 2 diabetes mellitus with stage 4 chronic kidney disease, with long-term current use of insulin E11.22; N18.4; Z79.4 Diabetes mellitus type: type 2 Diabetes mellitus ocean transportation intermediary insulin use: with correction use Diabetes mellitus complication status: with kidney complications Diabetes mellitus complication detail: with chronic kidney disease Chronic kidney disease stage: stage 4 (severe) Time Spent (min) 35
[2024-07-07 14:57] VITALS: BP 118/76; PULSE 72; BMI 44.3
[2024-07-07 15:07] LABS: Glucose, Whole Blood 101 mg/dL (60-115)
== END 2024-07-07 15:30 | disposition home or self-care (01) ==
PROVIDERS: PCP Student in an Organized Health Care Education/Training Program; Visit Provider Internal Medicine
DX: E11.22 Type 2 diabetes mellitus with diabetic chronic kidney disease (principal); N18.4 Chronic kidney disease, stage 4 (severe); Z79.4 Long term (current) use of insulin
CPT/HCPCS: 99214

== ENCOUNTER → 2024-07-07 14:47 | Outpatient (BNVA) | payer OTHER, SELFPAY | PROVIDERS: PCP Student in an Organized Health Care Education/Training Program; Visit Provider Internal Medicine | DX: E11.22 Type 2 diabetes mellitus with diabetic chronic kidney disease (principal); N18.4 Chronic kidney disease, stage 4 (severe); Z79.4 Long term (current) use of insulin | CPT/HCPCS: 82947; 83036; 99212 ==

== ENCOUNTER 2024-07-26 11:10 | Outpatient (AMB) | payer OTHER, SELFPAY ==
--- NOTE | 2024-07-26 11:13 | MHC.OFFVIS ---
Vital Signs 07/26/24 11:18 Height 5 ft 4 in Weight 261 lb 14.546 oz BMI 45.0 BP 115/72 Blood Pressure Location Rt brachial Position Sitting Pulse 66 Pulse Source Pulse Oximeter Pulse Oximetry (%) 99 Oxygen Delivery Method Room Air Intake Visit Reasons: +dsDna/+RF Intake Note: Patient presents for +dsDNA/+RF. Allergies haloperidol [From Haldol] Allergy (Severe, Verified 07/26/24 11:17) Jaw locked pioglitazone [From Actos] Allergy (Severe, Verified 07/26/24 11:17) Throat swells morphine [MORPHINE] Allergy (Unknown, Verified 07/26/24 11:17) UNKNOWN, bradycardia Medication List - Last Reconciled 07/26/24 by Gwyn Erazo MD aspirin (Adult Low Dose Aspirin) 81 mg PO DAILY bupropion HCl XL 150 mg PO QAM buspirone 7.5 mg PO BID cholecalciferol (vitamin D3) 25 mcg PO DAILY ferrous sulfate (FeroSul) 325 mg PO Q OTHER DAY furosemide 40 mg PO BID insulin aspart U-100 (Novolog FlexPen U-100 Insulin aspart) BG 100-149 10 units, 150-199 12 units, 200-249 14 units, 250-299 16 units, 300-349 18 units, 350-399 20 units (breakfast and lunch) Add 5 units to sliding scale at dinner meal insulin glargine (Lantus Solostar U-100 Insulin) 84 units (0.84 mL) subcut QPM 90 days levothyroxine (Levo-T) 150 mcg PO DAILY Mounjaro (tirzepatide) 5 mg (0.5 mL) subcut QWEEK 12 weeks NS pravastatin 20 mg PO BEDTIME tirzepatide (Mounjaro) 2.5 mg (0.5 mL) subcut QWEEK 4 weeks HPI Comments Details: This is a 53-year-old female who was referred by her acute care occupational therapist for evaluation of a positive dsDNA. Her serologies were ordered in the context of progressive CKD. She had a kidney biopsy that was not consistent with lupus nephritis. It was rather consistent with diabetic nephropathy. She was evaluated by Germaine Kruse 6 months ago and no evidence of an underlying autoimmune rheumatic disease was found. Patient's daughter has SLE and antiphospholipid antibody syndrome Patient states that she gets intermittent cramping of her hands, she has been taking magnesium with relief. Has not had any significant joint swelling. Denies any skin rashes. Denies any unexplained fevers or unexplained weight loss. Denies any history of DVT/PE. Three at 3 pregnancies and 3 children. No abortions or miscarriages. She states that she is on aspirin for primary prevention but no history of stroke or cardiovascular event. [facility] Medical History Rheumatoid factor positive Obesity, morbid, BMI 40.0-49.9 Chronic kidney disease (CKD) Ds DNA antibody positive Depression Diabetes Hypothyroid HTN (hypertension) Depression Surgical History History of parotid gland removal History of cholecystectomy Previous section H/O tubal ligation Family History Daughter Lupus Mother Arthritis Diabetes Maternal Grandmother Arthritis Father Multiple sclerosis Diabetes Social History Household Members: Spouse and Children Household Members Other:: , 21-year-old daughter Alcohol intake: former Patient Tobacco Use Status: Never used Tobacco Current occupational status: unemployed Review of Systems Const Denies fever(s) and Denies weight loss Musc Reports back pain and Reports muscle cramps Skin/Breast Denies rash Physical Exam Vital Signs: Last Vital Signs Pulse 66 07/26/24 11:18 BP 115/72 07/26/24 11:18 Pulse Ox 99 07/26/24 11:18 Oxygen Delivery Method Room Air 07/26/24 11:18 BMI result Body Mass Index 45.0 Const General: cooperative, healthy appearing and comfortable Nutritional Appearance: obese morbidly obese Orientation/consciousness: patient oriented x3 Limitations: no limitations HEENT Head: Yes normocephalic and Yes atraumatic Mouth: moist mucous membranes Resp Effort & Inspection: normal respiratory effort and able to speak in complete sentences Skin General skin exam: no rashes or lesions noted Neuro General: patient oriented x3 Extrem Other: No active synovitis Normal nailfold capillaroscopy Assessment & Plan Assessment & Plan (1) Ds DNA antibody positive: Code(s): R76.8 - Other specified abnormal immunological findings in serum Category: Medical Plan: This is a 53-year-old female who is referred from her acute care occupational therapist for evaluation of a positive dsDNA. This was in the setting of CKD. Kidney biopsy did not show evidence of lupus nephritis. Was rather consistent with diabetic nephropathy. She also has a positive rheumatoid factor. Serologies otherwise negative with normal complements. Patient's daughter has SLE and antiphospholipid antibody syndrome. Upon evaluation I do not see any signs suggestive of an autoimmune rheumatic disease. At this time patient does not require a DMARD. Discussed with patient that positive antibodies can run in family members patient is with autoimmune diseases such as lupus. However given positive serologies and positive family history. I would like to re-evaluate patient 1 year. Discussed symptoms and signs that are suggestive of an autoimmune rheumatic disease. Follow-up in 1 year or sooner if needed (2) Rheumatoid factor positive: Code(s): R76.8 - Other specified abnormal immunological findings in serum Category: Medical Plan I spent 20_ minutes reviewing patient's chart, evaluating patient, , counseling patient and documenting in the chart Coding Level of Care Code Est Pt Level 3 (54612) Diagnoses Ds DNA antibody positive R76.8 Rheumatoid factor positive R76.8
[2024-07-26 11:18] VITALS: BP 115/72; PULSE 66; O2SAT 99; BMI 45.0
== END 2024-07-26 11:42 | disposition home or self-care (01) ==
PROVIDERS: PCP Student in an Organized Health Care Education/Training Program; Visit Provider Student in an Organized Health Care Education/Training Program
DX: R76.8 Other specified abnormal immunological findings in serum (principal)
CPT/HCPCS: 99213

== ENCOUNTER → 2024-07-26 11:10 | Outpatient (BNVA) | payer OTHER, SELFPAY | PROVIDERS: PCP Student in an Organized Health Care Education/Training Program; Visit Provider Student in an Organized Health Care Education/Training Program | DX: R76.8 Other specified abnormal immunological findings in serum (principal) | CPT/HCPCS: 99212 ==

== ENCOUNTER 2024-07-27 13:15 | Outpatient (REF) | payer OTHER, SELFPAY ==
[2024-07-27 14:52] LABS: Estimated Average Glucose 148 mg/dL; Hemoglobin A1c % 6.8 % (<6.0); Total Hemoglobin (HGBA1C) 2497.1475 umol/L
[2024-07-27 15:26] LABS: Alanine Aminotransferase 15 U/L (0-31); Albumin Level 3.9 g/dL (3.5-5.0); Alkaline Phosphatase 90 U/L (39-117); Anion Gap 14 (12-20); Aspartate Amino Transferase 14 U/L (5-31); Bilirubin Direct 0.1 mg/dL (0.0-0.5); Bilirubin Total 0.4 mg/dL (0.0-1.0); Blood Urea Nitrogen 64 mg/dL (9-16); Calcium 8.3 mg/dL (8.4-10.2); Carbon Dioxide 25 mmol/L (22-29); Chloride 106 mmol/L (96-108); Cholesterol 167 mg/dL (<200); Estimated Glomerular Filt Rate 18; Glucose Random 91 mg/dL (60-115); HDL Cholesterol 37 mg/dL (>40); LDL Cholesterol Calculated 96 mg/dL (<100); Sodium 140 mmol/L (135-145); Total Protein 7.9 g/dL (6.5-8.0); Triglycerides 171 mg/dL (<150)
[2024-07-27 15:33] LABS: TSH reflex Free T4 0.64 uIU/mL (0.32-4.0)
== END 2024-07-27 13:16 | disposition home or self-care (01) ==
LOC: HO.CHCLDS 13:15
PROVIDERS: Visit Provider Student in an Organized Health Care Education/Training Program
DX: E11.22 Type 2 diabetes mellitus with diabetic chronic kidney disease (principal); E03.9 Hypothyroidism, unspecified; I12.9 Hypertensive chronic kidney disease with stage 1 through stage 4 chronic kidney disease, or unspecified chronic kidney disease; N18.30 Chronic kidney disease, stage 3 unspecified; Z79.4 Long term (current) use of insulin
CPT/HCPCS: 36415; 80053; 80061; 80076; 83036; 84443

== ENCOUNTER 2024-08-11 14:12 | Outpatient (AMB) | payer OTHER, SELFPAY ==
--- NOTE | 2024-08-11 14:14 | A.OFFPC_ITS ---
Intake Visit Reasons: DM Intake Note: Patient presents today to re-establish treatment for Type 2 Diabetes Mellitus: Last Diabetic eye exam was on: DUE Last Podiatry exam was on: Does not see a Special Crimes Investigator Most recent HbA1c: DUE Random Glucose- ___ mg/dL, Today Accompanied by: Self / Same As Patient Allergies haloperidol [From Haldol] Allergy (Severe, Verified 07/26/24 11:17) Jaw locked pioglitazone [From Actos] Allergy (Severe, Verified 07/26/24 11:17) Throat swells morphine [MORPHINE] Allergy (Unknown, Verified 07/26/24 11:17) UNKNOWN, bradycardia HPI HPI Comments History of Present Illness Details Ms. Parr 53 year old female with a past medical history of hyperparathyroidism s/p parathyroidectomy, CKD, IDDM presenting for follow up Last A1C 02/2024 8.0%, today A1C 8.3% DM Medications: Lantus 84 units (increased from Lantus 80 unit nightly one month ago), Novolog 100-149 10 units (+2 for every 50 until 399) with +5 at dinner, mounjaro 5 (increased from 2.5 one month ago) but has at home. Stopped glipizide when increased lantus last visit. Taken off farxiga by nephrology. On statin. CASTRO was discontinued by nephrology at recent visit Infrequent neuropathic pain b/l feet. Has gabapentin. No issues with sores. She is seeing podiatry next month. Has right lower extremity blister for the past few weeks. Sometimes drains clear fluid. No surround redness, no fevers She is overdue for her eye exam. She has this scheduled. CKD followed by Renal Transplant. Last Cr on file Oct but seen on Mar 31. Previous renal biopsy with+dsDNA. Follows with rheumatology for RA but think kidney disease mostly b/c of uncontrolled diabetes mellitus rather than sequelae of +dsDNA Hypothyroid-continues levothyroxine ROS CONSTITUTIONAL: Denies weight loss, fever and chills. HEENT: Denies changes in vision and hearing. RESPIRATORY: Denies SOB and cough. CV: Denies palpitations and CP GI: Denies abdominal pain, nausea, vomiting and diarrhea. : Denies dysuria and urinary frequency. MSK: Denies new myalgia and joint pain. SKIN: see HPI NEUROLOGICAL: Denies headache PSYCHIATRIC: Denies recent changes in mood. PHYSICAL EXAM: GENERAL: Alert and oriented x 3. NAD. Overweight EYES: EOMI. Anicteric. HENT: Moist mucous membranes. No scleral icterus. No cervical lymphadenopathy. LUNGS: Clear to auscultation bilaterally. CARDIOVASCULAR: Regular rate and rhythm. ABDOMEN: Soft, non-tender +bs EXTREMITIES: Trace b/l edema. Right lower leg with 2cm circular red blister on the yen. No purulence. No surrounding erythema SKIN: No rashes or lesions. Warm. NEUROLOGIC: Right foot with decreased vibratory sense PSYCHIATRIC: Cooperative. Appropriate mood and affect [facility] Medical History Rheumatoid factor positive Obesity, morbid, BMI 40.0-49.9 Chronic kidney disease (CKD) Ds DNA antibody positive Depression Diabetes Hypothyroid HTN (hypertension) Depression Surgical History History of parotid gland removal History of cholecystectomy Previous section H/O tubal ligation Family History Daughter Lupus Mother Arthritis Diabetes Maternal Grandmother Arthritis Father Multiple sclerosis Diabetes Social History Household Members: Spouse and Children Household Members Other:: , 21-year-old daughter Alcohol intake: former Patient Tobacco Use Status: Never used Tobacco Current occupational status: unemployed Physical exam (Primary Care) Tobacco/Smoking Status: Tobacco use Status Patient Tobacco Use Status Never used Tobacco 08/11/24 14:14 Coding
--- NOTE | 2024-08-11 14:18 | A.OFFVIS_ITS ---
Vital Signs 08/11/24 14:20 Height 5 ft 4 in Weight 255 lb 11.779 oz BMI 43.9 Intake Visit Reasons: DM Intake Note: Patient presents today for a follow-up T2DM Last Diabetic Eye exam: April 2024 Last Podiatry Visit: April 2024 Most Recent HgA1C: 8.3%, 07/07/2024 Random Glucose: 108 mg/dL, Today Rn Anesthesiology Required: No Accompanied by: Self / Same As Patient Allergies haloperidol [From Haldol] Allergy (Severe, Verified 07/26/24 11:17) Jaw locked pioglitazone [From Actos] Allergy (Severe, Verified 07/26/24 11:17) Throat swells morphine [MORPHINE] Allergy (Unknown, Verified 07/26/24 11:17) UNKNOWN, bradycardia HPI Comments Details: Ms. Parr 53 year old female with a past medical history of hyperparathyroidism s/p parathyroidectomy, CKD, IDDM presenting for follow up Last A1C 02/2024 8.0%, Sept A1C 8.3%. She keeps a log of blood glucose readings - her fasting for the last week has been 87-160. Prior to that she was still running high 100s to low 200s. DM Medications: Lantus 84 units (increased from 80 one month ago), Novolog 100- 149 10 units (+2 for every 50 until 399) with +5 at dinner, mounjaro 5 (increased from 2.5 one month ago). Stopped glipizide. Taken off farxiga by nephrology. On statin. CASTRO was discontinued by nephrology at recent visit Infrequent neuropathic pain b/l feet. Has gabapentin. No issues with sores. She is seeing podiatry next month. She is overdue for her eye exam. She has this scheduled. CKD followed by Renal Transplant. Last Cr on file Oct but seen on Mar 31. Previous renal biopsy with+dsDNA. Follows with rheumatology for RA but think kidney disease mostly b/c of uncontrolled diabetes mellitus rather than sequelae of +dsDNA Hypothyroid-continues levothyroxine Does report that yesterday evening she became sweaty, not like when her blood glucose is low and then she started have pain move from her thoracic back to her posterior neck. The patient continues today though some improvement with aleve. Denies chest pressure, pain, jaw pain left arm numbness, pain or tingling. She was in touch with her primary care office who recommended she go to an urgent care for her neck pain ROS see HPI PHYSICAL EXAM: GENERAL: Alert and oriented x 3. NAD. Overweight EYES: EOMI. Anicteric. HENT: Moist mucous membranes. No scleral icterus. No cervical lymphadenopathy. LUNGS: Clear to auscultation bilaterally. CARDIOVASCULAR: Regular rate and rhythm. ABDOMEN: Soft, non-tender +bs EXTREMITIES: Trace b/l edema. SKIN: No rashes or lesions. Warm. NEUROLOGIC: Right foot with decreased vibratory sense PSYCHIATRIC: Cooperative. Appropriate mood and affect [facility] Medical History Rheumatoid factor positive Obesity, morbid, BMI 40.0-49.9 Chronic kidney disease (CKD) Ds DNA antibody positive Depression Diabetes Hypothyroid HTN (hypertension) Depression Surgical History History of parotid gland removal History of cholecystectomy Previous section H/O tubal ligation Family History Daughter Lupus Mother Arthritis Diabetes Maternal Grandmother Arthritis Father Multiple sclerosis Diabetes Social History Household Members: Spouse and Children Household Members Other:: , 21-year-old daughter Alcohol intake: former Patient Tobacco Use Status: Never used Tobacco Current occupational status: unemployed Physical Exam Vital Signs: BMI result Body Mass Index 43.9 Results Reviewed Results Reviewed: Laboratory Last Values Glucose (Clinic) 108 mg/dL (60-115) 08/11/24 14:23 Assessment & Plan Assessment & Plan (1) Diabetes: Code(s): E11.9 - Type 2 diabetes mellitus without complications Category: Medical Qualifiers: Diabetes mellitus type: type 2 Diabetes mellitus custodial insulin use: with vermin exterminator use Diabetes mellitus complication status: with kidney complications Diabetes mellitus complication detail: with chronic kidney disease Chronic kidney disease stage: stage 4 (severe) Qualified Code(s): E11.22 - Type 2 diabetes mellitus with diabetic chronic kidney disease; N18.4 - Chronic kidney disease, stage 4 (severe); Z79.4 - vermin exterminator (current) use of insulin Plan: Improving control Given her numbers for the past two weeks I will not change her medication regimen at this time. she will follow up in 2 months-she is due for A1C at that time. If her numbers worsen in the interim she will call the office to be seen sooner Regarding her neck discomfort-I ordered her cardiac enzymes as she was diaphoretic with normal glucose prior to the onset of the pain and the discomfort continues Orders: Orders CK, Total+Isoenzymes, Serum Today M54.2 - Cervicalgia, R61 - Generalized hyperhidrosis Medications: New ondansetron HCl 4 mg PO Q8H PRN 30 tabs 0RF nausea and vomiting Coding Level of Care Code Est Pt Level 4 (45581) Diagnoses Type 2 diabetes mellitus with stage 4 chronic kidney disease, with long-term current use of insulin E11.22; N18.4; Z79.4 Diabetes mellitus type: type 2 Diabetes mellitus custodial insulin use: with custodial use Diabetes mellitus complication status: with kidney complications Diabetes mellitus complication detail: with chronic kidney disease Chronic kidney disease stage: stage 4 (severe)
[2024-08-11 14:20] VITALS: BMI 43.9
[2024-08-11 14:27] LABS: Glucose, Whole Blood 108 mg/dL (60-115)
== END 2024-08-11 14:42 | disposition home or self-care (01) ==
PROVIDERS: PCP Student in an Organized Health Care Education/Training Program; Visit Provider Internal Medicine
DX: E11.22 Type 2 diabetes mellitus with diabetic chronic kidney disease (principal); N18.4 Chronic kidney disease, stage 4 (severe); Z79.4 Long term (current) use of insulin

== ENCOUNTER → 2024-08-11 14:12 | Outpatient (BNVA) | payer OTHER, SELFPAY | PROVIDERS: PCP Student in an Organized Health Care Education/Training Program; Visit Provider Internal Medicine | DX: E11.22 Type 2 diabetes mellitus with diabetic chronic kidney disease (principal); E21.3 Hyperparathyroidism, unspecified; R61 Generalized hyperhidrosis; N18.4 Chronic kidney disease, stage 4 (severe); M54.2 Cervicalgia; Z79.4 Long term (current) use of insulin | CPT/HCPCS: 82947; 99212 ==

== ENCOUNTER 2024-12-09 13:48 | Outpatient (REF) | payer OTHER, SELFPAY ==
--- NOTE | ~2024-12-09 | XR_ITS ---
EXAMINATION: XR FOOT 3 OR MORE VIEWS RIGHT, XR ANKLE 3 OR MORE VIEWS RIGHT HISTORY: pain COMPARISON: There are no prior studies available for comparison. FINDINGS: Six views of the right foot and ankle are submitted. Osseous mineralization is normal. There is no fracture or dislocation. There is mild intertarsal osteoarthritis. There is a tiny plantar calcaneal spur. There are vascular calcifications. XR/XR foot RT min 3V IMPRESSION: Mild intertarsal osteoarthritis. Otherwise unremarkable examination of the right foot and ankle. Electronically signed by: Carlos Gannon MD 12/09/2024 04:12 PM [facility]
--- NOTE | ~2024-12-09 | XR_ITS ---
EXAMINATION: XR FOOT 3 OR MORE VIEWS RIGHT, XR ANKLE 3 OR MORE VIEWS RIGHT HISTORY: pain COMPARISON: There are no prior studies available for comparison. FINDINGS: Six views of the right foot and ankle are submitted. Osseous mineralization is normal. There is no fracture or dislocation. There is mild intertarsal osteoarthritis. There is a tiny plantar calcaneal spur. There are vascular calcifications. XR/XR ankle RT min 3V IMPRESSION: Mild intertarsal osteoarthritis. Otherwise unremarkable examination of the right foot and ankle. Electronically signed by: Carlos Gannon MD 12/09/2024 04:12 PM [facility]
--- OUTSIDE RECORDS SUMMARY | 2024-12-09 13:52 | XMS_ITS | Clinical Summary ---
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 Morphine Medium 08/05/2012 Other reaction(s): CARDIAC ARREST Other reaction(s): CARDIAC ARREST Pioglitazone Other 11/20/2021 Other reaction(s): Edema Medications acetaminophen (Tylenol) 325 MG tablet take 1 tablet tylenol 325mg and 1 tablet Ibuprofen 600mg by oral route every 6-8 hours as needed Active ARIPiprazole (Abilify) 5 MG tablet take 1 tablet by oral route every day Active busPIRone (Buspar) 7.5 MG tablet take 1 tablet by oral route 2 times every day Active Docusate Sodium (DSS) 100 MG capsule take 1 capsule by oral route 2 times every day at bedtime as needed Active gabapentin (Neurontin) 300 MG capsule take 1 capsule by oral route 3 times every day Active glucose-vitamin C 4-6 GM-MG oral gel Use for BS under 70 as needed Active nystatin (Mycostatin) 932358 UNIT/GM powder apply by topical route 3 times every day to the affected area(s) Active furosemide (Lasix) 20 MG tablet Take 1 tablet (20 mg) by mouth in the morning. 30 tablet 11 023 Active triamcinolone (Kenalog) 0.1 % cream Apply topically if needed in the morning and at bedtime (pain and swelling). 30 g 2 023 Active valACYclovir (Valtrex) 500 MG tablet TAKE ONE TABLET BY MOUTH TWICE DAILY UNTIL FINISHED. 6 tablet 2 Active glucose blood (FREESTYLE LITE) test strip Check BS by skin route 6-8 times every day 300 each Active Aspirin Adult Low Strength 81 MG EC tabletIndications :Primary hypertension TAKE ONE TABLET EVERY MORNING 30 tablet 11 Active Tirzepatide (Mounjaro) 2.5 MG/0.5ML solution pen-injectorIndic ations:Type 2 diabetes mellitus without complication, with long-term current use of insulin ([facility]) Inject 2.5 mg under the skin 1 (one) time per week. 0.5 mL 024 Active Continuous Glucose Junior Technical Writer (FreeStyle David 2 Butler) deviceIndications :Type 2 diabetes mellitus without complication, with long-term current use of insulin ([facility]) Scan sensor every 8 hours 1 each Active Continuous Glucose Sensor (FreeStyle David 2 Sensor) miscIndications:T ype 2 diabetes mellitus without complication, with long-term current use of insulin ([facility]) Apply 1 sensor every 14 days 2 each 3 024 Active Lantus SoloStar 100 UNIT/ML penIndications:Ty pe 2 diabetes mellitus without complication, without long-term current use of insulin ([facility]) INJECT 55 UNITS SUBCUTANEOUSLY EVERY MORNING 15 mL 1 024 Active NovoLOG FLEXPEN 100 UNIT/ML penIndications:Ty pe 2 diabetes mellitus without complication, with long-term current use of insulin ([facility]) INJECT 4 to 12 UNITS SUBCUTANEOUSLY THREE TIMES DAILY BEFORE MEALS DIRECTED PER SLIDING SCALE 60 mL 11 024 Active lisinopril 20 MG tabletIndications :Hypertension, unspecified type TAKE ONE TABLET EVERY MORNING 90 tablet 1 024 Active hydroCHLOROthiazi de (HYDRODiuril) 25 MG tabletIndications :Hypertension, unspecified type TAKE ONE TABLET EVERY MORNING 90 tablet 1 024 Active cholecalciferol (Vitamin D-3) 25 MCG tablet TAKE ONE TABLET EVERY MORNING (VITAMIN) 90 tablet 1 024 Active levothyroxine (Synthroid, Levoxyl) 150 MCG tablet TAKE ONE TABLET EVERY MORNING FOR THYROID 90 tablet 1 024 Active pravastatin (Pravachol) 20 MG tabletIndications :Mixed hyperlipidemia TAKE ONE TABLET EVERY NIGHT AT BEDTIME 90 tablet 1 024 Active glipiZIDE (Glucotrol) 5 MG tabletIndications :Type 2 diabetes mellitus with hyperglycemia, unspecified whether terminologist insulin use ([facility]) TAKE ONE TABLET IN THE MORNING AND EVENING BEFORE MEALS 60 tablet 11 025 Active glipiZIDE (Glucotrol) 5 MG tabletIndications :Type 2 diabetes mellitus with hyperglycemia, unspecified whether retirement insulin use ([facility]) TAKE ONE TABLET BY MOUTH IN THE MORNING AND EVENING BEFORE MEALS 60 tablet 11 024 2024 Discontinued Active Problems Problem Noted Date Diagnosed Date Right foot pain 09/19/2024 Assessment & Plan (09/19/2024 3:07 PM EST): Ordering XR of foot and ankle for further evaluation. Prescribing Prednisone for Sx and Tylenol. Advised to DC Naproxen. Relevant Medications Prednisone (Deltasone) 20 MG Tablet Acetaminophen (Tylenol Extra Strength) 500 MG Tablet Anemia 08/05/2012 DM w/o complication type II 08/05/2012 Hyperlipidemia 08/05/2012 Hypertension 08/05/2012 Hypothyroidism 08/05/2012 Obesity 08/05/2012 Vitamin D deficiency 08/05/2012 Encounters Date Type Department Care Team Description 11/25/2024 Telephone [facility] [address], [place] [phone] Nerissa Lopez MD Nurse Triage 11/24/2024 Refill [facility] [address] [place] [address] Nerissa Lopez MD Type 2 diabetes mellitus with hyperglycemia, unspecified whether terminologist insulin use ([facility]) 10/04/2024 Telephone [facility] [address] [place] [address] Nerissa Lopez MD Nurse Triage 09/19/2024 2:20 PM EST Office Visit [facility] [address] [place] [address] Zulema Jorgensen MD Right foot pain (Primary Dx) 09/19/2024 Travel 09/19/2024 Telephone [facility] [address] [place] [address] Nerissa Lopez MD Nurse Triage from Last 3 Months Immunizations Name Administration Dates Next Due Influenza Whole 09/10/2007,09/11/2006 Influenza injectable quadriv alent IIV4 with preservative 07/15/2016 Influenza injectable quadriv alent preservative free 08/13/2021,07/05/2019 Influenza, IIV3, injectable 07/24/2014 Influenza, Split (incl. percy fied surface antigen) 07/12/2013,08/05/2012 Influenza, seasonal, injecta ble, preservative free 07/21/2024 Pneumococcal Polysaccharide PPSV23 04/25/2011, Tdap 11/13/2023,12/23/2010,02/23/2008 Zoster, Recombinant 09/06/2019,06/29/2019 Social History Tobacco Use Types Packs/Day Years Used Date Smoking Tobacco: Never Smokeless Tobacco: Never Tobacco Cessation:Counseling Given: Not Answered Alcohol Use Standard Drinks/Week Comments Never 0 (1 standard drink = 0.6 oz pur e alcohol) Housing Stability Answer Date Recorded What is your housing situation today? I have steffen barboza 08/17/[address] you li ve. Do you have problems with any of the following? None of the above 08/17/2023 Food Insecurity Answer Date Recorded Within the past 12 months, y ou worried that your food would run out before you got money to buy more: Never True 08/17/2023 Within the past 12 months,th e food you bought just didn't last and you didn't have enough money to get more: Never True Transportation Answer Date Recorded In the past 12 months, has l ack of transportation kept you from medical appts, meetings, work or from getting things needed for daily living? No 08/17/2023 Utilities Answer Date Recorded In the past 12 months, has t he electric, gas, oil or water company threatened to shut off services in your home? No 08/17/2023 Comments No Sex and Gender Information Value Date Recorded Sex Assigned at Female 08/25/2022 10:18 AM EDT Legal Sex Female 10:18 AM EDT Gender Identity Female 08/24/2023 6:30 PM EDT Sexual Orientation Straight 08/24/2023 6: 30 PM EDT Last Filed Vital Signs Vital Sign Reading Time Taken Comments Blood Pressure 124/64 09/19/2024 2:46 PM EST Pulse 84 09/19/2024 2:46 PM EST Temperature 36.3 ??C (97.4 ??F) 09/19/2024 2:46 PM ES T Respiratory Rate 20 09/19/2024 2:46 PM EST Oxygen Saturation 98% 09/19/2024 2:46 PM EST Inhaled Oxygen Concentration - - Weight 117 kg (257 lb 3.2 oz) 09/19/2024 2:46 PM EST Height 157.5 cm (5' 2 ) 09/19/2024 2:46 PM EST Body Mass Index 47.04 09/19/2024 2:46 PM EST Plan of Treatment Health Maintenance Due Date Last Done Comments CT Colonography 1968 Colonoscopy 1968 Depression Screening 1968 FIT 1968 FOBT 1968 HIV Screening 1968 Sigmoidoscopy 1968 Diabetes: Foot Exam 1978 Eye Exam 1978 Alcohol/Substance Use Screening 1980 Hepatitis C Screening 1986 Hepatitis B Vaccines (1 of 3 - 19+ 3-dose series) 1987 Pap Smear 1989 Cervical Cancer Screening 1998 HPV/Cotest 1998 Pneumococcal Vaccine: 50+ Years (2 of 2 - PCV) 04/25/2012 04/25/2011, 02/13/2010 Dental Oral Exam 06/23/2019 12/23/2018 Dental X-Ray: Bitewings 12/24/2019 12/23/2018, 11/25 Dental Prophylaxis 05/05/2020 11/04/2019, 04/26/2019 Dental X-Ray: Full Mouth 12/24/2021 12/23/2018 COVID-19 Vaccine ( season) 2024 02/13/2021, 01/08/2021 Diabetes: Urine Protein Screening 12/03/2024 12/03/2023, 10/27/2023 SDOH Screening 01/19/2025 01/20/2024 Diabetes: Hemoglobin A1C 01/25/2025 024, 07/21/2024, 03/16/2024, Additional history exists Tobacco Screening 07/21/2025 07/21/2024 Lipid Panel 07/27/2025 07/27/2024, 03/30/2023 Mammogram 01/12/2026 01/13/2024 Colorectal Cancer Screening 10/05/2026 FIT DNA/Cologuard 10/05/2026 10/05/2023 DTaP/Tdap/Td Vaccines (4 - Td or Tdap) 11/13/2033 11/13/2023, 12/23/2010, 02/23/2008 RSV Patients and Patients Aged 60 years or older (1 - 1-dose 75+ series) 2043 Zoster Vaccines Completed 09/06/2019, 06/29/2019 Influenza Vaccine Completed 07/21/2024, , 07/05/2019, Additional history exists HIB Vaccines Aged Out No longer eligi ble based on patient's age to complete this topic HPV Vaccines Aged Out No longer eligi ble based on patient's age to complete this topic Hepatitis A Vaccines Aged Out No long er eligible based on patient's age to complete this topic IPV Vaccines Aged Out No longer eligi ble based on patient's age to complete this topic Meningococcal Vaccine Aged Out No chanell gen eligible based on patient's age to complete this topic RSV under 20 months Aged Out No longe r eligible based on patient's age to complete this topic Rotavirus Vaccines Aged Out No longer eligible based on patient's age to complete this topic Procedures Procedure Name Priority Date/Time Associated Diagnosis Comments HEMOGLOBIN A1C Routine 07/27/2024 1:16 PM EDT Type 2 diabetes mellitus without complication, with long-term current use of insulin ([facility]) LIPID PANEL, STANDARD Routine 07/27/2024 1:16 PM EDT Type 2 diabetes mellitus without complication, with long-term current use of insulin ([facility]) Primary hypertension BI MAMMOGRAM SCREENING TOMOSYNTHESIS BILATERAL Routine 01/13/2024 3:00 PM EDT LAB COLOGUARD?? COLON CANCER SCREEN Routine 10/05/2023 1:05 PM EST Encounter for screening for malignant neoplasm of colon PROPHYLAXIS - ADULT Routine 11/04/2019 1 2:00 AM EST INTRAORAL - COMPLETE SERIES OF RADIOGRAPHIC IMAGES Routine 12/23/2018 12:00 AM EST COMPREHENSIVE ORAL EVALUATION - NEW OR ESTABLISHED PATIENT Routine 12/23/2018 12:00 AM EST from Last 3 Months or Most Recently Relevant to Health Maintenance Results * (ABNORMAL) Hemoglobin A1c (07/27/2024 1:16 PM EDT) Hemoglobin A1c 6.8(H) <6.0 % [facility] Comment:Hemoglobin A1C Refer ence Range Adults: 4.8 - 6.0 % Non diabetic: < 6.0 % Goal: < 7.0 %Additional Action Suggested: > 8.0 %Note: Hemoglobin A1c results are invalid for patients with abnormal amounts of HbF. Blood transfusions may impact the HbA1c concentration in the patient sample. Estimated Average Glucose 148 mg/dL [facility] Comment:eAG = Estimated ave rage glucose which is %A1C expressed asaverage glucose, using the formula of the C7L-OgtdkolJlooozt Glucose study (ADAG), Diabetes Care, Vol.31,#8,May. 2007 Blood Venous blood specimen / Unknown 07/27/2024 1:16 PM EDT 07/27/2024 2:36 PM EDT us Nerissa Lopez MD LAB BLOOD ORDERABLES Final Resul t [facility] [address] [place] [address] [phone] * (ABNORMAL) Lipid Panel, Standard (07/27/2024 1:16 PM EDT) Triglycerides 171(H) <150 mg/dL [facility] Comment:Desirable Triglyceri de: less than 150 mg/dLBorderline High Triglyceride 150-199 mg/dLHigh Triglyceride: 200-499 mg/dLVery High Triglyceride: greater than or equal to 5OO mg/dL Cholesterol 167 <200 mg/dL [facility] Comment:Desirable Cholestero l: less than 200 mg/dLBorderline High Cholesterol: 200-239 mg/dLHigh Cholesterol: greater than 239 mg/dL LDL Cholesterol Calculated 96 <100 mg/dL [facility] Comment:Desirable LDL: less than 100 mg/dLNear Optimal/Above Optimal LDL: 110- 129 mg/dLBorderline High LDL: 130-159 mg/dLHigh LDL: 160-189 mg/dLVery High LDL: greater than or equal to 190 mg/dL HDL Cholesterol 37(L) >40 mg/dL [facility] Comment:Desirable HDL: great er than 40 mg/dL Note: This HDL assay may give artificially low results in patients with liver disease. Blood Venous blood specimen / Unknown 07/27/2024 1:16 PM EDT 07/27/2024 2:36 PM EDT us Nerissa Lopez MD LAB BLOOD ORDERABLES Final Resul t [facility] [address] [facility] [place] [address] [phone] * BI Mammogram Screening Tomosynthesis Bilateral (01/13/2024 3:00 PM EDT) Anatomical Region Laterality Modality Breast Bilateral Mammography 01/13/2024 3:00 PM EDT Narrative 02/04/2024 5:12 AM EDT ? [facility] ? [address] ?[place] [address] ? Mammography Report ? Signed ? Patient: Daily,Mekhi ?MR#: [id number] ?? 2 ? : 1970 ?Acct:[id number] ? Age/Sex: 53 / F ?ADM Date: 01/13/24 ? Loc: HO.MAMMO ? Attending Dr: Nerissa Lopez MD ? Ordering Physician: Nerissa Lopez MD ?Results: 1Negati ?? ve ? Date of Service: 01/13/24 ?Follow Up: 1 Year From Orig ?? inal Mammogram ? Procedure(s): MM tomosynthesis screening BI ?? Accession Number(s): [id number] ? cc: Nerissa Lopez MD ? EXAMINATION: ?? MM SCREENING DIGITAL BREAST TOMOSYNTHESIS, BILATERAL ? CLINICAL INFORMATION: ? Screening. Asymptomatic. ? COMPARISON: ?? Mammography: This study is compared with prior exams dating back to ?? 2013. ? TECHNIQUE: ?? Digital breast tomosynthesis is performed in both the craniocaudal and ?? mediolateral oblique views along with computer-aided detection (CAD). ?? Synthesized 2D images are generated from the tomosynthesis. ? FINDINGS: ?? There are scattered areas of fibroglandular density (ACR BI-RADS breast ?? composition Category b). ? There are no significant masses, abnormal calcifications, or other ?? abnormalities. ? MM/MM tomosynthesis screening BI ?? IMPRESSION: ?? No mammographic evidence of malignancy. ? ASSESSMENT: ? BI-RADS BI-RADS 1 - Negative ? RECOMMENDATION: ?? Routine annual mammography screening. ? 1 year F/U ? This examination should not preclude the clinical evaluation of a ?? suspicious palpable abnormality. ? This patient's information was entered into a reminder system with a ?? target due date for their next mammogram. ? Dictated By: ?Arely Pete MD ? Signed By: ?<Electronically signed by Arely Moskos, MD in OV> ? 02/04/24 0508 ? DD/ 1500 ? TD/TT: ? Game Master: ? Procedure Note Karri, Eleuterio - 02/04/2024 [facility] [address] [place] [address] [place] [address] Mammography Report Signed Patient: Steven Daily#: [id number] 2 : 1970Acct:[id number] Age/Sex: 53 / FADM Date: 01/13/24 Loc: [facility].MAMMO Attending Dr: Nerissa Lopez MD Ordering Physician: Nerissa Lopezesults: 1Negati ve Date of Service: 01/13/24Follow Up: 1 Year From Orig inal Mammogram Procedure(s): MM tomosynthesis screening BI Accession Number(s): [id number] cc: Nerissa Lopez MD EXAMINATION: MM SCREENING DIGITAL BREAST TOMOSYNTHESIS, BILATERAL CLINICAL INFORMATION: Screening. Asymptomatic. COMPARISON: Mammography: This study is compared with prior exams dating back to 2013. TECHNIQUE: Digital breast tomosynthesis is performed in both the craniocaudal and mediolateral oblique views along with computer-aided detection (CAD). Synthesized 2D images are generated from the tomosynthesis. FINDINGS: There are scattered areas of fibroglandular density (ACR BI-RADS breast composition Category b). There are no significant masses, abnormal calcifications, or other abnormalities. MM/MM tomosynthesis screening BI IMPRESSION: No mammographic evidence of malignancy. ASSESSMENT: BI-RADS BI-RADS 1 - Negative RECOMMENDATION: Routine annual mammography screening. 1 year F/U This examination should not preclude the clinical evaluation of a suspicious palpable abnormality. This patient's information was entered into a reminder system with a target due date for their next mammogram. Dictated By: Arely Pete MD Signed By: <Electronically signed by Arely Pete MD in OV> 02/04/24 0508 DD/ 1500 TD/TT: Game Master: Nerissa Lopez MD IMG BI PROCEDURES Final Result * Cologuard?? colon cancer screening (10/05/2023 1:05 PM EST) Cologuard Result Negative Negative 10/14/20 1:10 PM EST [employer] (IA #:[id number]) Comment: NEGATIVE TEST RESULT. A negative Cologuard result indicates a low likelihood that a colorectal cancer (CRC) or advanced adenoma (adenomatous polyps with more advanced pre-malignant features) ??is present. The chance that a person with a negative Cologuard test has a colorectal cancer is less than 1 in 1500 (negative predictive value >99.9%) or has an ??advanced adenoma is less than ??5.3% (negative predictive value 94.7%). These data are based on a prospective cross-sectional study of 10,000 individuals at average risk for colorectal cancer who were screened with both Cologuard and colonoscopy. (Nikki Rosenbaum, N Engl J Med 2014;370(14):1286- 1297) The normal value (reference range) for this assay is negative. COLOGUARD RE-SCREENING RECOMMENDATION: Periodic colorectal cancer screening is an important part of preventive healthcare for asymptomatic individuals at average risk for colorectal cancer. ??Following a negative Cologuard result, the [place] [employer] and U.S. Multi-Society Task Force screening guidelines recommend a Cologuard re-screening interval of 3 years. References: [place] [employer] Guideline for Colorectal Cancer Screening: https://www.cancer.org/cancer/pquvv-bxvozf-rdxacf/hvsxqggvt-xdgjbndit-mtdkhbm/ac s-rec ommendations.html.; Sergo DK, Adrian INIGUEZ, Cindy ColonK, Colorectal Cancer Screening: Recommendations for Physicians and Patients from the U.S. Multi-Society Task Force on Colorectal Cancer Screening , Am J Gastroenterology 2017; 112:5994-6440. TEST DESCRIPTION: Composite algorithmic analysis of stool DNA-biomarkers with hemoglobin immunoassay. ?? Quantitative values of individual biomarkers are not reportable and are not associated with individual biomarker result reference ranges. Cologuard is intended for colorectal cancer screening of adults of either sex, 45 years or older, who are at average-risk for colorectal cancer (CRC). Cologuard has been approved for use by the U.S. FDA. The performance of Cologuard was established in a cross sectional study of average-risk adults aged 50-84. Cologuard performance in patients ages 45 to 49 years was estimated by sub-group analysis of near-age groups. Colonoscopies performed for a positive result may find as the most clinically significant lesion: colorectal cancer [4.0%], advanced adenoma (including sessile serrated polyps greater than or equal to 1cm diameter) [20%] or non- advanced adenoma [31%]; or no colorectal neoplasia [45%]. These estimates are derived from a prospective cross-sectional screening study of 10,000 individuals at average risk for colorectal cancer who were screened with both Cologuard and colonoscopy. (Nikki Rosenbaum, N Engl J Med 2014;370(14):2031-3203.) Cologuard may produce a false negative or false positive result (no colorectal cancer or precancerous polyp present at colonoscopy follow up). A negative Cologuard test result does not guarantee the absence of CRC or advanced adenoma (pre-cancer). The current Cologuard screening interval is every 3 years. ([place] [employer] and U.S. Multi-Society Task Force). Cologuard performance data in a 10,000 patient pivotal study using colonoscopy as the reference method can be accessed at the following location: www.[employer]/results. Additional description of the Cologuard test process, warnings and precautions can be found at www.cologuard.com. Stool specimen (specimen) 10/05/2023 1:05 PM EST 10/06/2023 8:14 PM EST us Nerissa Lopez MD LAB MOLECULAR DIAGNOSTICS ORDERA BLES Final Result [employer] (CLIA #:[id number]) [place] [address] 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
--- OUTSIDE RECORDS SUMMARY | 2024-12-09 13:52 | XMS_ITS | Clinical Summary ---
Author Organization [facility] Address [address] [address] Phone Care Team Providers Care Product Demonstrator Name Role Phone Robin Lopez MD Primary Care Provider [phone] Allergies Active Allergy Reactions Criticality Noted Date Comments Haloperidol Other (see comments) 11/20/2021 Developed sx consistent with acute dystonic rxn (trismus). Morphine Medium 11/20/2021 Other reaction(s): CARDIAC ARREST Pioglitazone Other (see comments) 11/20/2021 Medications aspirin (ST MARVIN) 81 MG EC tablet Take 81 mg by mouth 1 (one) time each day Active busPIRone (BUSPAR) 7.5 MG tablet Take 7.5 mg by mouth in the morning and 7.5 mg in the evening. Active cholecalciferol (VITAMIN D-3) 25 MCG (1000 UT) tablet Take 1,000 Units by mouth 1 (one) time each day Active insulin glargine (LANTUS) 100 UNIT/ML injection Inject 60 Units under the skin every night Active insulin lispro (HumaLOG) 100 UNIT/ML injection Inject under the skin 3 (three) times a day before meals Active levothyroxine (SYNTHROID, LEVOTHROID) 150 MCG tablet Take 150 mcg by mouth 1 (one) time each day Active pravastatin (PRAVACHOL) 20 MG tablet Take 20 mg by mouth 1 (one) time each day Active glipiZIDE (GLUCOTROL) 5 MG tablet Take 5 mg by mouth in the morning and 5 mg in the evening. Take before meals. Active gabapentin (NEURONTIN) 400 MG capsule Take 400 mg by mouth in the morning and 400 mg in the evening and 400 mg before bedtime. Active Dapagliflozin Propanediol (Farxiga) 10 MG tablet Take 10 mg by mouth 1 (one) time each day in the morning 90 tablet 3 3 Active Additional Information Patient not taking.Reported on 12/03/2023 buPROPion XL (WELLBUTRIN XL) 150 MG 24 hr tablet Take 150 mg by mouth every morning 4 Active sodium bicarbonate 650 MG tablet Take 1 tablet (650 mg total) by mouth in the morning and 1 tablet (650 mg total) in the evening. 180 tablet 3 4 01/22/20 25 Active furosemide (LASIX) 40 MG tablet Take 1 tablet (40 mg total) by mouth in the morning and 1 tablet (40 mg total) in the evening. 180 tablet 3 4 03/31/20 25 Active Ozempic, 0.25 or 0.5 MG/DOSE, 2 MG/3ML solution pen-injector Inject 0.25 mg under the skin per week for 30 days, THEN 0.5 mg per week. 300 mL 4 05/01/20 25 Active Active Problems Problem Noted Date Diagnosed Date Essential hypertension 07/21/2023 Bilateral lower leg edema 07/21/2023 Hypercalcemia 11/20/2021 Chronic kidney disease 11/20/2021 Resolved Problems Problem Noted Date Diagnosed Date Resolved Date Depressive disorder 11/20/2021 11/20/19 22 Overview (11/20/2021): pt reports hospitalization for severe depression in 1994 Diabetes mellitus 11/20/2021 11/20/2021 Genital herpes simplex 11/20/202111/20 H/O: tubal ligation 11/20/2021 11/20/19 22 History of cholecystectomy 11/20/2021 0 11/20/2021 Hypothyroidism 11/20/2021 11/20/2021 Immunizations Name Administration Dates Next Due Influenza Whole 09/10/2007,09/11/2006 Pfizer SARS-COV-2 02/13/2021,01/08/2021 Pneumococcal Polysaccharide 04/25/2011, 0 Shingrix 09/06/2019,06/29/2019 Tdap 11/13/2023,12/23/2010 Family History Medical History Relation Comments Diabetes Sister Relation Status Comments Sister Social History Tobacco Use Types Packs/Day Years Used Date Smoking Tobacco: Former Smokeless Tobacco: Former Alcohol Use Standard Drinks/Week Comments Yes 0 (1 standard drink = 0.6 oz pur e alcohol) Comments Unknown Sex and Gender Information Value Date Recorded Sex Assigned at Not on file Legal Sex Female 2:19 PM EDT Gender Identity Not on file Sexual Orientation Not on file Last Filed Vital Signs Vital Sign Reading Time Taken Comments Blood Pressure 140/60 03/31/2024 2:15 PM EDT Pulse 67 03/31/2024 2:15 PM EDT Temperature - - Respiratory Rate - - Oxygen Saturation 96% 03/31/2024 2:15 PM EDT Inhaled Oxygen Concentration - - Weight 120 kg (264 lb) 03/31/2024 2:15 PM EDT Height - - Body Mass Index - - Plan of Treatment Health Maintenance Due Date Last Done Comments Breast Cancer Screening 1968 Hepatitis B Vaccine (1 of 3 - 19+ 3-dose series) 1987 Pneumococcal Vaccine: Pediat rics (0 to 5 Years) and At-Risk Patients (6 to 64 Years) (3 of 3 - PCV) 04/25/2012 04/25/2011, 02/13/2010 Colorectal Cancer Screening: Annual FOBT 2017 Colorectal Cancer Screening: Colonoscopy 2017 Colorectal Cancer Screening: Sigmoidoscopy 2017 Diabetes: Ophthalmology Exam 07/21/2023 Diabetes: Pedal Pulse Checked 07/21/2023 Diabetes: Sensory Foot Exam 07/21/2023 Diabetes: Visual Foot Exam 07/21/2023 Diabetes: Hemoglobin A1C 10/27/2024 024, 07/21/2024, 03/16/2024, Additional history exists Influenza Vaccine Completed 07/21/2024, , 09/11/2006 Procedures Procedure Name Priority Date/Time Associated Diagnosis Comments HEMOGLOBIN A1C Routine 12/03/2023 4:25 PM EST Chronic kidney disease, not otherwise specified from Last 3 Months or Most Recently Relevant to Health Maintenance Results * (ABNORMAL) Hemoglobin A1c (12/03/2023 4:25 PM EST) Hemoglobin A1C 8.1(H) (4.0-5.6) % [facility] Comment: MONITORING: In known diabetic patients, hemoglobin A1c targets should be discussed with health care provider. DIAGNOSTIC USE: ??The [place] Diabetes Association (ADA) and the World Health Organization (WHO) recommend the use of HbA1c to diagnose diabetes using a threshold of 6.5%. Patients who have an HbA1c between 5.7% and 6.4% are considered at increased risk for developing diabetes in the future. CAUTION: Falsely low HbA1c results may be observed in patients with hemolytic anemia, homozygous forms of abnormal hemoglobin (e.g. SS, CC, SC), , recent blood loss or hemoglobin F greater than 7%. Fructosamine may be used as an alternate test in these cases. REFERENCE: ADA: Standards of Medical Care in Diabetes 2020, The Journal of Clinical and Applied Research and Education Volume 43, Supplement 1 Testing performed or reported by [facility], a Service of [facility], [address] [place] [address] Cesario Coppola MD, Engagement Specialist [facility]# [id number] Blood (Blood, Venous) 12/03/2023 4:25 PM EST 12/03/2023 4:30 PM EST David Valadez MD LAB BLOOD ORDERABLES Final Result [facility] from Last 3 Months or Most Recently Relevant to Health Maintenance Insurance [facility] MEDICAID [facility] MEDICAID Care Teams Product Demonstrator Relationship Specialty Start Date End Date Robin Lopez MD [address] [place] [address] PCP - General Internal Medicine 07/21/23
--- OUTSIDE RECORDS SUMMARY | 2024-12-09 13:52 | XMS_ITS | Encounter Summary ---
Author Organization [employer] Address [address] [place] [address] Care Team Providers Care Delivery Lead Name Role Phone Nerissa Lopez MD Primary Care Provider [phone] Encounter Details Date Type Department Care Team (Late st Contact Info) Description 02/20/2023 Orders Only [facility] MED & PEDS [address] [place] [address] Nerissa Lopez MD [address] [place] [address] Type 2 diabetes mellitus without complication, without long-term current use of insulin ([facility]); Type 2 diabetes mellitus without complication, with long-term current use of insulin ([facility]) Social History Tobacco Use Types Packs/Day Years Used Date Smoking Tobacco: Never Assessed Comments Unknown Sex and Gender Information Value Date Recorded Sex Assigned at Female 08/25/2022 10:18 AM EDT Legal Sex Female 10:18 AM EDT Gender Identity Female 08/24/2023 6:30 PM EDT Sexual Orientation Straight 08/24/2023 6: 30 PM EDT documented as of this encounter Plan of Treatment Not on file documented as of this encounter Visit Diagnoses Diagnosis Type 2 diabetes mellitus without complication, without long-term current use of insulin (CMS/HCC) Type 2 diabetes mellitus without complication, with long-term current use of insulin (CMS/[facility]) documented in this encounter Care Teams Delivery Lead Relationship Specialty Start Date End Date Nerissa Lopez MD [address] [place] [id number] PCP - General Family Medicine 11/01/13 documented as of this encounter
--- OUTSIDE RECORDS SUMMARY | 2024-12-09 13:52 | XMS_ITS | Encounter Summary ---
Author Organization [employer] Address [address] [place] [address] Care Team Providers Care Soa Architect Name Role Phone Nerissa Lopez MD Primary Care Provider [phone] Reason for Visit * Reason Onset Date Comments Nurse Triage 09/19/2024 Encounter Details Date Type Department Care Team (Late st Contact Info) Description 09/19/2024 Telephone [facility] MED & PEDS [address] [place] [address] Nerissa Lopez MD [address] [place] [address] Nurse Triage Social History Tobacco Use Types Packs/Day Years Used Date Smoking Tobacco: Never Smokeless Tobacco: Never Alcohol Use Standard Drinks/Week Comments Never 0 (1 standard drink = 0.6 oz pur e alcohol) Housing Stability Answer Date Recorded What is your housing situation today? I have steffen jabari 08/17/[address] you li [...] PM EDT documented as of this encounter Miscellaneous Notes * Telephone Encounter - Monica Vasquez RN - 09/19/2024 10:55 AM EST triage call Pt reports right foot pain. Pt has hx of plantar fasciitis but, doesn't believe that this is what the source of this pain is from. Pt reports pain is on the lateral side of foot and top to under toes. Pt reports just ambulating from the living room to kitchen in home was excrutiating. Pt has taken aleeve this morning for pain and is waiting to see if it is helpful. Pt is advised to try ice/heat, which ever one Pt would like to try. Pt agrees with home care advised. ASK apt in [facility] today at 220pm. Unable to check insurance due to computer error. Protocol Used: Foot Pain (Adult) Protocol-Based Disposition: See in Office or Video Visit Today Positive Triage Question: * Severe pain (e.g., excruciating, unable to do any normal activities) * All higher-acuity triage questions were negative Care Advice Discussed: * Reassurance and Education - Foot Pain * Foot Pain - Aggravating Factors * Pain Medicines * Pain Medicines - Extra Notes and Warnings * Reasons To Call Back - Swelling, redness, or fever occur - Severe pain not relieved by pain medicine - Pain lasts over 7 days - You become worse * Telephone Encounter - Neelima Ramirez - 09/19/2024 9:57 AM EST Symptom: Leg Pain - Not From Injury Outcome: Schedule an urgent appointment (within 1 hour) or talk to a nurse or provider soon Reason: Trouble walking The caller accepted this outcome. Contact pt at [phone] documented in this encounter Plan of Treatment Not on file documented as of this encounter Visit Diagnoses Not on filedocumented in this encounter Care Teams Soa Architect Relationship Specialty Start Date End Date Nerissa Lopez MD [address] [place] [id number] PCP - General Family Medicine 11/01/13 documented as of this encounter
--- OUTSIDE RECORDS SUMMARY | 2024-12-09 13:52 | XMS_ITS | Encounter Summary ---
Author Organization [employer] Address [address] 7[address] [place] [address] Care Team Providers Care Book Shelver Name Role Phone Nerissa Lopez MD Primary Care Provider [phone] Encounter Details Date Type Department Care Team (Latest Contact Info) Description 04/26/2019 Abstract [facility] CONVERSIONS Dental, Provider, DDS Social History Tobacco Use Types Packs/Day Years [...] on filedocumented in this encounter Care Teams Book Shelver Relationship Specialty Start Date End Date Nerissa Lopez MD [address] [place] [id number] PCP - General Family Medicine 11/01/13 documented as of this encounter
--- OUTSIDE RECORDS SUMMARY | 2024-12-09 13:52 | XMS_ITS | Encounter Summary ---
Author Organization [employer] Address [address] 7[address] [place] [address] Care Team Providers Care Boilermaker Welder Name Role Phone Nerissa Lopez MD Primary Care Provider [phone] Reason for Visit * Reason Comments Med Refill Encounter Details Date Type Department Care Team ([facility] Contact Info) Description 04/27/2024 Refill [facility] CHC MED & PEDS [address] [place] [address] Zulema Jorgensen MD [address] [place], [place] Social History Tobacco Use Types Packs/Day Years Used Date Smoking Tobacco: Never Smokeless Tobacco: Never Alcohol Use Standard Drinks/Week Comments Never 0 (1 standard drink = 0.6 oz pur e alcohol) Housing Stability Answer Date Recorded What is your housing situation today? I have steffen sing 08/17/[address] you li [...] on filedocumented in this encounter Care Teams Boilermaker Welder Relationship Specialty Start Date End Date Nerissa Lopez MD [address] [place] [id number] PCP - General Family Medicine 11/01/13 documented as of this encounter
--- OUTSIDE RECORDS SUMMARY | 2024-12-09 13:52 | XMS_ITS | Encounter Summary ---
Author Organization [employer] Address [address] [place] [address] Care Team Providers Care Heater Operator Name Role Phone Nerissa Lopez MD Primary Care Provider [phone] Reason for Visit * Reason Onset Date Comments Nurse Triage 11/25/2024 Encounter Details Date Type Department Care Team (Late st Contact Info) Description 11/25/2024 Telephone [facility] [address] [place] [address] Nerissa Lopez MD [address] [place], [place] [phone] Nurse Triage Social History Tobacco Use Types Packs/Day Years Used Date Smoking Tobacco: Never Smokeless Tobacco: Never Alcohol Use Standard Drinks/Week Comments Never 0 (1 standard drink = 0.6 oz pur e alcohol) Housing Stability Answer Date Recorded What is your housing situation today? I have steffensima barboza 08/17/[address] you [...] encounter Miscellaneous Notes * Telephone Encounter - Chyna Hanley LPN - 11/25/2024 12:34 PM EST Triage call returned to patient who reports reoccurrence of foot pain. Woke at 4 am with pain in right foot and unable to bear weight. Seen in August fro same issue and then had some pain in left foot a few weeks after. Patient responded to Prednisone and did not complete full 5 days. Had xray ordered not yet completed. Patient today took one tablet of leftover prednisone and tylenol with some noted improvement. Reviewed use of meds to be completed when ordered. Patient verbalized understanding. No redness or swelling reported no fever. Disposition reviewed and patient in agreement with plan. No PCP or Team appts available today. Advised to get xray as previously ordered and be seen in EDfor concern. [facility] hours for tomorrow provided as needed. Protocol Used: Foot Pain (Adult) Protocol-Based Disposition: See in Office or Video Visit Today Override (Final) Disposition: Go to ED/[facility] Now (or to Office with PCP Approval) Override Reason: End of day or office closed Positive Triage Question: * Severe pain (e.g., excruciating, unable to do any normal activities) * All higher-acuity triage questions were negative Care Advice Discussed: * Pain Medicines * Reasons To Call Back - Swelling, redness, or fever occur - Severe pain not relieved by pain medicine - Pain lasts over 7 days - You become worse * Telephone Encounter - Luis Durand - 11/25/2024 12:15 PM EST Symptom: right Foot or Ankle Pain - Not From Injury Outcome: Schedule an urgent appointment (within 1 hour) or talk to a nurse or provider soon Reason: Severe pain now The caller accepted this outcome. Seen 09/19/24 for same issue. Was prescribed Prednisone and was told to also take tylenol which helped with pain and swelling . Pt states started getting same symptoms this am . documented in this encounter Plan of Treatment Not on file documented as of this encounter Visit Diagnoses Not on filedocumented in this encounter Care Teams Heater Operator Relationship Specialty Start Date End Date Nerissa Lopez MD [address] [place] [id number] PCP - General Family Medicine 11/01/13 documented as of this encounter
--- OUTSIDE RECORDS SUMMARY | 2024-12-09 13:52 | XMS_ITS | Encounter Summary ---
Author Organization [employer] Address [address] [place] [address] Care Team Providers Care Installation Specialist Name Role Phone Nerissa Lopez MD Primary Care Provider [phone] Reason for Visit * Reason Comments Med Refill Encounter Details Date Type Department Care Team ([facility] st Contact Info) Description 11/24/[address] [facility] CHC MED & PEDS [address] [place], [place] [phone] Nerissa Lopez MD [address] [place], [place] Type 2 diabetes mellitus with hyperglycemia, unspecified whether fci insulin use ([facility]) Social History Tobacco Use Types [...] Visit Diagnoses Diagnosis Type 2 diabetes mellitus with hyperglycemia, unspecified whether fci insulin use ([facility]) documented in this encounter Care Teams Installation Specialist Relationship Specialty Start Date End Date Nerissa Lopez MD [address] [place] [id number] PCP - General Family Medicine 11/01/13 documented as of this encounter
--- OUTSIDE RECORDS SUMMARY | 2024-12-09 13:52 | XMS_ITS | Encounter Summary ---
Author Organization [employer] Address [address] [place] [address] Care Team Providers Care Tobacco Packing Machine Operator Name Role Phone Nerissa Lopez MD Primary Care Provider [phone] Reason for Visit * Reason Onset Date Comments Appointment Request 07/22/2023 Encounter Details Date Type Department Care Team (Late st Contact Info) Description 07/22/[address] [facility] CHC MED & PEDS [address] [place] [address] Nerissa Lopez MD [address] [place] [address] Appointment Request Social History Tobacco Use Types Packs/Day Years [...] encounter Miscellaneous Notes * Telephone Encounter - Tova Irwin RN - 07/27/2023 10:41 AM EDT Call to pt. Per pt, seen by Forensic Materials Engineer on 07/21/23. Per pt, advised of high potassium in blood work. States she was advised to follow low potassium diet and repeat labs this week. Pt also states herprovider ordered a renal US. Per pt, followed recommendations. States she is feeling well and denies any symptoms at this time. Noted pt with upcoming visit with tennis director on 07/29/23. Per pt, not aware. Agrees to contact office to confirm the scheduled visit. Will forward to PCP to review. Please see scanned in tennis director office note from 07/21/23. * Telephone Encounter - Ruchi Wright - 07/22/2023 1:56 PM EDT Tc from patient requesting a appt with PCP to discuss lab test results from neurologist. Patient states lab test came back with high potasium levels, patient was just seen 07/21/23. documented in this encounter Plan of Treatment Not on file documented as of this encounter Visit Diagnoses Not on filedocumented in this encounter Care Teams Tobacco Packing Machine Operator Relationship Specialty Start Date End Date Nerissa Lopez MD [address] [place] [phone] PCP - General Family Medicine 11/01/13 documented as of this encounter
--- OUTSIDE RECORDS SUMMARY | 2024-12-09 13:52 | XMS_ITS | Encounter Summary ---
Author Organization [email or web address] Address [address] 7[address] [place] [address] Care Team Providers Care Network Systems Administrator Name Role Phone Nerissa Lopez MD Primary Care Provider [phone] Reason for Visit * Reason Onset Date Comments Nurse Triage 10/04/2024 Encounter Details Date Type Department Care Team (Late st Contact Info) Description 10/04/2024 Telephone [facility] CHC MED & PEDS [address] [place] [address] Nerissa Lopez MD [address] [place] [address] Nurse Triage Social History Tobacco Use Types [...] Telephone Encounter - Monica Vasquez RN - 10/04/2024 3:13 PM EST Triage call Pt reports left foot pain. Pt was seen in [facility] 09/19/24 for right foot pain exactly the same type of pain in same location is occurring in the left foot now. Left foot pain is in the outer aspect of foot with some swelling. Pt reports over the weekend was not able to bear weight on that left foot which started 10/01/24. Pt reveals took 4 tablets of prednisone 20mg from daughter who has dx of lupus and has taken 2 tablets. Pt reports that has helped greatly and is able to bear weight and ambulate. Pt is advised not to take prescription meds from other people and Pt reports doesn't usually do that but, that is the medication ordered for the right foot and it was effective so Pt was desperate for relief and went ahead with this idea. Pt is advised to come to [facility] today, Pt reports will come tomorrow. Hours given open at 830am to 800pm. Pt agrees with disposition. Unable to verify insurance due to computer error. Protocol Used: Foot Pain (Adult) Protocol-Based Disposition: See in Office or Video Visit within 3 Days Video visit not offered Positive Triage Question: * Patient wants to be seen * All higher-acuity triage questions were negative Care Advice Discussed: * Reassurance and Education - Foot Pain * Reassurance and Education - Overuse * Foot Pain - Aggravating Factors * Pain Medicines * Pain Medicines - Extra Notes and Warnings * Reasons To Call Back - Swelling, redness, or fever occur - Severe pain not relieved by pain medicine - Pain lasts over 7 days - You become worse * Telephone Encounter - Neeilma Ramirez - 10/04/2024 2:39 PM EST Symptom: Foot or Ankle Pain - Not From Injury Outcome: Schedule an urgent appointment (within 1 hour) or talk to a nurse or provider soon Reason: Trouble walking The caller accepted this outcome. Pt was triaged and seen on 09/19/24 for right foot pain and swelling. Pt reported she is now experiencing the same thing with the left foot. Contact pt at [phone] documented in this encounter Plan of Treatment Not on file documented as of this encounter Visit Diagnoses Not on filedocumented in this encounter Care Teams Network Systems Administrator Relationship Specialty Start Date End Date Nerissa Lopez MD [address] [place] [phone] PCP - General Family Medicine 11/01/13 documented as of this encounter
== END 2024-12-09 13:49 | disposition home or self-care (01) ==
LOC: HO.XRAY 13:48
PROVIDERS: Visit Provider Family Medicine
DX: M79.671 Pain in right foot (principal)
CPT/HCPCS: 73610; 73630

== ENCOUNTER → 2024-12-09 13:57 | Outpatient (BNV) | payer OTHER, SELFPAY | PROVIDERS: Visit Provider Radiology Diagnostic Radiology | DX: M79.671 Pain in right foot (principal) | CPT/HCPCS: 73610; 73630 ==

== ENCOUNTER 2025-01-12 11:30 | Outpatient (REF) | payer OTHER, SELFPAY ==
--- NOTE | ~2025-01-12 | XR_ITS ---
EXAMINATION: XR FOOT, LEFT CLINICAL INFORMATION: Left foot pain. Patient is diabetic COMPARISON: None available. TECHNIQUE: AP, lateral, and oblique views of the left foot. FINDINGS: There is moderate distal dorsal foot soft tissue swelling. No soft tissue gas visualized. No visible acute fracture, dislocation, bony erosive changes seen. There is a small to moderate size calcaneal heel enthesophyte. The joint spaces are maintained normal. XR/XR foot LT min 3V IMPRESSION: Moderate distal dorsal foot soft tissue swelling. No underlying bony or joint abnormality seen. Electronically signed by: Dhiraj Tai MD 01/12/2025 12:28 PM EDT
[2025-01-12 13:11] LABS: MANUAL DIFF FLAG NO
[2025-01-12 13:27] LABS: Basophils Percent Auto 0.4 % (0-2); Eosinophils Percent Auto 0.1 % (0-4); Hematocrit 27.6 % (37.0-47.0); Hemoglobin 8.6 g/dl (12.0-16.0); Imm Gran Abs Auto 0.06 X10*3/uL (0.00-0.03); Imm Gran Pct Auto 0.5 % (0.0-0.4); Lymphocytes Absolute Auto 1.2 X10*3/uL (1.2-4.9); Lymphocytes Percent Auto 10.5 % (20-40); Mean Corpuscular HGB Conc 31.2 g/dl (31.0-35.0); Mean Corpuscular Hemoglobin 27.9 pg (27.0-33.0); Mean Corpuscular Volume 89.6 fL (80.0-98.0); Mean Platelet Volume 11.6 fL (9.4-12.3); Monocytes Absolute Auto 0.5 X10*3/uL (0.1-1.2); Monocytes Percent Auto 4.8 % (2-11); Neutrophils Absolute Auto 9.5 x10*3/uL (2.0-8.3); Neutrophils Percent Auto 83.7 % (45-73); Platelet Count 335 X10*3/uL (160-400); Red Blood Count 3.08 X10*6/uL (4.20-5.50); Red Cell Distribution Width 13.7 % (11.0-16.0); White Blood Count 11.3 X10*3/uL (4.8-10.8)
[2025-01-12 13:29] LABS: Basophils Absolute Auto 0.1 X10*3/uL (0.0-0.2); Basophils Percent Auto 0.4 % (0-2); Eosinophils Percent Auto 0.2 % (0-4); Hemoglobin 8.5 g/dl (12.0-16.0); Imm Gran Abs Auto 0.07 X10*3/uL (0.00-0.03); Imm Gran Pct Auto 0.6 % (0.0-0.4); Lymphocytes Absolute Auto 1.2 X10*3/uL (1.2-4.9); Lymphocytes Percent Auto 10.2 % (20-40); Mean Corpuscular HGB Conc 31.5 g/dl (31.0-35.0); Mean Corpuscular Hemoglobin 27.8 pg (27.0-33.0); Mean Corpuscular Volume 88.2 fL (80.0-98.0); Mean Platelet Volume 11.3 fL (9.4-12.3); Monocytes Absolute Auto 0.5 X10*3/uL (0.1-1.2); Monocytes Percent Auto 4.4 % (2-11); Neutrophils Absolute Auto 10.1 x10*3/uL (2.0-8.3); Neutrophils Percent Auto 84.2 % (45-73); Platelet Count 353 X10*3/uL (160-400); Red Blood Count 3.06 X10*6/uL (4.20-5.50); Red Cell Distribution Width 13.7 % (11.0-16.0)
[2025-01-12 13:42] LABS: C Reactive Protein 15.13 mg/dL (< or = 0.50); Cholesterol 171 mg/dL (<200); HDL Cholesterol 48 mg/dL (>40); LDL Cholesterol Calculated 100 mg/dL (<100); Triglycerides 115 mg/dL (<150); Uric Acid 13.3 mg/dL (2.4-5.7)
[2025-01-12 13:44] LABS: Estimated Average Glucose 140 mg/dL; Hemoglobin A1C 110.3596 umol/L; Hemoglobin A1c % 6.5 % (<6.0); Total Hemoglobin (HGBA1C) 2312.7876 umol/L
--- OUTSIDE RECORDS SUMMARY | 2025-01-12 13:49 | XMS_ITS | Encounter Summary ---
Author Organization [employer] Address [address] [place] [address] Care Team Providers Care Sole Leveling Machine Operator Name Role Phone Nerissa Lopez MD Primary Care Provider [phone] Encounter Details Date Type Department Care Team (Latest Contact Info) Description 01/05/2025 Travel Social History Tobacco Use Types Packs/Day Years Used Date Smoking Tobacco: Never Smokeless Tobacco: Never Alcohol Use Standard Drinks/Week Comments Never 0 (1 standard drink = 0.6 oz pur e alcohol) Depression Answer Date Recorded Patient Health Questionnaire-9 Score 7 01/05/2025 Patient Health Questionnaire-9 Score 7 01/05/2025 Last PHQ-9: Questionnaire Data Not on file 0 01/05/2025 Housing Stability Answer Date Recorded What is [...] off services in your home? No 08/17/2023 Depression Answer Date Recorded Patient Health Questionnaire-2 Score 3 01/05/2025 Internet Access Answer Date Recorded Internet Access Q1 No 01/05/2025 Internet Access Q2 I do not want or need it 12/24 Comments No Sex and Gender Information Value Date Recorded Sex Assigned at Female 08/25/2022 10:18 AM EDT Legal Sex Female 10:18 AM EDT Gender Identity Female 08/24/2023 6:30 PM EDT Sexual Orientation Straight 08/24/2023 6: 30 PM EDT documented as of this encounter Plan of Treatment Not on file documented as of this encounter Visit Diagnoses Not on filedocumented in this encounter Additional Health Concerns Assessment Noted Time PHQ-9 Depression Total Score: 7 01/06/20 25 10:41 AM EDT documented as of this encounter Care Teams Sole Leveling Machine Operator Relationship Specialty Start Date End Date Nerissa Lopez MD [address] [place] [address] PCP - General Family Medicine 11/01/13 documented as of this encounter
--- OUTSIDE RECORDS SUMMARY | 2025-01-12 13:49 | XMS_ITS | Encounter Summary ---
Author Organization [employer] Address [address] [place] [address] Care Team Providers Care Hydro Operator Name Role Phone Nerissa Lopez MD Primary Care Provider [phone] Reason for Visit * Reason Onset Date Comments Nurse Triage 01/05/2025 Leg swelling Encounter Details Date Type Department Care Team (Late st Contact Info) Description 01/05/2025 Telephone [facility] MED & PEDS [address] [place], [place] [phone] Nerissa Lopez MD [address] [place] [address] Nurse Triage (Leg swelling) Social History Tobacco Use Types Packs/Day Years [...] encounter Miscellaneous Notes * Telephone Encounter - Gloria Linder RN - 01/05/2025 11:12 AM EDT Call re attempted to Patient to offer in-person visit per Dr Lopez's instructions. Patient reports she is currently experiencing right foot swelling that is hot to touch. She reports the last time thisoccurred it was to the left foot and she was diagnosed and treated for cellulitis. Patient is agreeable to [facility]. Advised to come around 1pm though will have about an hour wait- if no urgency or emergencies occur prior, these items may delay provider further. Patient is agreeable to the plan at this time. * Telephone Encounter - Gloria Linder RN - 01/05/2025 11:[address] Lopez, Patient needs in person evaluation this pm for swelling of one leg- [facility] but has not followed through with recommendation. Call was placed to Patient to offer an appt. No answer, Voicemail left requesting a return call. documented in this encounter Plan of Treatment Not on file documented as of this encounter Visit Diagnoses Not on filedocumented in this encounter Additional Health Concerns Assessment Noted Time PHQ-9 Depression Total Score: 7 01/06/20 25 10:41 AM EDT documented as of this encounter Care Teams Hydro Operator Relationship Specialty Start Date End Date Nerissa Lopez MD [address] [place] [address] PCP - General Family Medicine 11/01/13 documented as of this encounter
--- OUTSIDE RECORDS SUMMARY | 2025-01-12 13:49 | XMS_ITS | Encounter Summary ---
Author Organization [employer] Address [address] [place] [address] Care Team Providers Care Marine Firefighter Name Role Phone Nerissa Lopez MD Primary Care Provider [phone] Reason for Visit * Reason Comments Med Refill Encounter Details Date Type Department Care Team ([facility] Contact Info) Description 04/27/2024 Refill [facility] MED & PEDS [address] [place] [address] Zulema Jorgensen MD [address] [place], [place] Social History Tobacco Use Types Packs/Day [...] on filedocumented in this encounter Care Teams Marine Firefighter Relationship Specialty Start Date End Date Nerissa Lopez MD [address] [place] [id number] PCP - General Family Medicine 11/01/13 documented as of this encounter
--- OUTSIDE RECORDS SUMMARY | 2025-01-12 13:49 | XMS_ITS | Encounter Summary ---
Author Organization [employer] Address [address] [place] [address] Care Team Providers Care Fiberline Supervisor Name Role Phone Nerissa Lopez MD Primary Care Provider [phone] Encounter Details Date Type Department Care Team (Latest Contact Info) Description 12/29/2024 Travel Social History Tobacco Use Types Packs/Day [...] on filedocumented in this encounter Care Teams Fiberline Supervisor Relationship Specialty Start Date End Date Nerissa Lopez MD [address] [place] [address] PCP - General Family Medicine 11/01/13 documented as of this encounter
--- OUTSIDE RECORDS SUMMARY | 2025-01-12 13:49 | XMS_ITS | Encounter Summary ---
Author Organization [employer] Address [address] [place] [address] Care Team Providers Care Insulation Machine Operator Name Role Phone Nerissa Lopez MD Primary Care Provider [phone] Reason for Visit * Reason Onset Date Comments R/S APPT 12/28/2024 Encounter Details Date Type Department Care Team (Late st Contact Info) Description 12/28/2024 Telephone [facility] MED & PEDS [address] [place], [place] [phone] Nerissa Lopez MD [address] [place] [address] R/S APPT Social History Tobacco Use Types Packs/Day Years [...] encounter Miscellaneous Notes * Telephone Encounter - Lourdes Avila MA - 12/28/2024 3:55 PM EST Called pt to r/s tomorrow's appt 12/29/24 due to provider being out of the office. Pt didn't answer, lvm to call office back. documented in this encounter Plan of Treatment Not on file documented as of this encounter Visit Diagnoses Not on filedocumented in this encounter Care Teams Insulation Machine Operator Relationship Specialty Start Date End Date Nerissa Lopez MD [address] [place] [address] PCP - General Family Medicine 11/01/13 documented as of this encounter
--- OUTSIDE RECORDS SUMMARY | 2025-01-12 13:49 | XMS_ITS | Encounter Summary ---
Author Organization [employer] Address [address] [place] [address] Care Team Providers Care Hydrotherapist Name Role Phone Nerissa Lopez MD Primary Care Provider [phone] Reason for Visit * Reason Comments Diabetes Encounter Details Date Type Department Care Team (Late st Contact Info) Description 01/05/2025 11:00 AM EDT Telemedicine [facility]S [address] [place], [place] [phone] Nerissa Lopez MD [address] [place] [address] Primary hypertension (Primary Dx); Type 2 diabetes mellitus without complication, with long-term current use of insulin ([facility]); Right foot pain Social History Tobacco Use Types Packs/Day Years [...] PM EDT documented as of this encounter Progress Notes * Nerissa Lopez MD - 01/05/2025 11:00 AM EDT Subjective Patient ID: Karolyn Daily is a 54 y.o. female who presents for Diabetes. Diabetes She presents for her follow-up diabetic visit. She has type 2 diabetes mellitus. Her disease coursehas been improving. Pertinent negatives for hypoglycemia include no confusion, dizziness, headaches, hunger, mood changes, nervousness/anxiousness, pallor, seizures, sleepiness, speech difficulty, sweats or tremors. Pertinent negatives for diabetes include no blurred vision, no chest pain, no fatigue, no foot paresthesias, no foot ulcerations, no polydipsia, no polyphagia, no polyuria, no visual change, no weakness and no weight loss. There are no hypoglycemic complications. Symptoms are improving. Risk factors for coronary artery disease include obesity and sedentary lifestyle. Current diabet ic treatment includes diet and insulin injections. She is compliant with treatment all of the time.An CASTRO inhibitor/angiotensin II receptor ned is being taken. Review of Systems Constitutional: Negative for fatigue and weight loss. Eyes: Negative for blurred vision. Cardiovascular: Negative for chest pain. Endocrine: Negative for polydipsia, polyphagia and polyuria. Skin: Negative for pallor. Neurological: Negative for dizziness, tremors, seizures, speech difficulty, weakness and headaches. Psychiatric/Behavioral: Negative for confusion. The patient is not nervous/anxious. Objective Physical Exam Psychiatric: Mood and Affect: Mood normal. Behavior: Behavior normal. Thought Content: Thought content normal. Judgment: Judgment normal. Assessment/Plan Diagnoses and all orders for this visit: Primary hypertension Comments: Well controlled Cont Same meds for now Type 2 diabetes mellitus without complication, with long-term current use of insulin ([facility]) Comments: Well controlled Advised to keep log of sugars Avoid high carb diet Right foot pain Comments: Pt strongly advised to go to the [facility] for further eval documented in this encounter Plan of Treatment Not on file documented as of this encounter Visit Diagnoses Diagnosis Primary hypertension- Primary Unspecified essential hypertension Type 2 diabetes mellitus without complication, with long-term current use of insulin (CMS/HCC) Right foot pain Pain in soft tissues of limb documented in this encounter Additional Health Concerns Assessment Noted Time PHQ-9 Depression Total Score: 7 01/06/20 25 10:41 AM EDT documented as of this encounter Care Teams Hydrotherapist Relationship Specialty Start Date End Date Nerissa Lopez MD [address] [place] [id number] PCP - General Family Medicine 11/01/13 documented as of this encounter
--- OUTSIDE RECORDS SUMMARY | 2025-01-12 13:49 | XMS_ITS | Encounter Summary ---
Author Organization [employer] Address [address] [place] [address] Care Team Providers Care Tire Design Engineer Name Role Phone Nerissa Lopez MD Primary Care Provider [phone] Encounter Details Date Type Department Care Team (Late st Contact Info) Description 01/12/2025 Orders Only [facility] CHC MED & PEDS [address] [place] [address] Nerissa Lopez MD [address] [place] [address] Social History Tobacco Use Types Packs/Day Years [...] on file documented as of this encounter Procedures Procedure Name Priority Date/Time Associated Diagnosis Comments CBC WITH AUTO DIFFERENTIAL Routine 01/12/2025 12:22 PM EDT HEMOGLOBIN A1C Routine 01/12/2025 12:22 PM EDT LIPID PANEL, STANDARD Routine 01/12/2025 12:22 PM EDT XR FOOT 3+ VIEWS LEFT Routine 01/12/2025 11:33 AM EDT documented in this encounter Results * (ABNORMAL) Hemoglobin A1c (01/12/2025 12:22 PM EDT) Hemoglobin A1c 6.5(H) <6.0 % [facility] Comment:Hemoglobin A1C Refer ence Range Adults: 4.8 - 6.0 % Non diabetic: < 6.0 % Goal: < 7.0 %Additional Action Suggested: > 8.0 %Note: Hemoglobin A1c results are invalid for patients with abnormal amounts of HbF. Blood transfusions may impact the HbA1c concentration in the patient sample. Estimated Average Glucose 140 mg/dL [facility] Comment:eAG = Estimated ave rage glucose which is %A1C expressed asaverage glucose, using the formula of the [id number]-YxhxkgrEejvwxz Glucose study (ADAG), Diabetes Care, Vol.31,#8,May. 2007 01/12/2025 12:2 2 PM EDT 01/12/2025 1:06 PM EDT us Generic External Data Provider LAB BLOOD ORDERAB LES Final Result [facility] [address] [place] [phone] * (ABNORMAL) Lipid Panel, Standard (01/12/2025 12:22 PM EDT) Triglycerides 115 <150 mg/dL [facility] Comment:Desirable Triglyceri de: less than 150 mg/dLBorderline High Triglyceride 150-199 mg/dLHigh Triglyceride: 200-499 mg/dLVery High Triglyceride: greater than or equal to 5OO mg/dL Cholesterol 171 <200 mg/dL [facility] Comment:Desirable Cholestero l: less than 200 mg/dLBorderline High Cholesterol: 200-239 mg/dLHigh Cholesterol: greater than 239 mg/dL LDL Cholesterol Calculated 100(H) <100 mg/dL [facility] Comment:Desirable LDL: less than 100 mg/dLNear Optimal/Above Optimal LDL: 110- 129 mg/dLBorderline High LDL: 130-159 mg/dLHigh LDL: 160-189 mg/dLVery High LDL: greater than or equal to 190 mg/dL HDL Cholesterol 48 >40 mg/dL [facility] Comment:Desirable HDL: great er than 40 mg/dL Note: This HDL assay may give artificially low results in patients with liver disease. 01/12/2025 12:2 2 PM EDT 01/12/2025 1:06 PM EDT us Generic External Data Provider LAB BLOOD ORDERAB LES Final Result [facility] [address] [place] [address] [phone] * (ABNORMAL) CBC auto differential (01/12/2025 12:22 PM EDT) White Blood Count 12.0(H) 4.8 - 10.8 X10*3/uL [facility] Red Blood Count 3.06(L) 4.20 - 5.50 X10*6/uL [facility] Hemoglobin 8.5(L) 12.0 - 16.0 g/dl [facility] Hematocrit 27.0(L) 37.0 - 47.0 % [facility] Mean Corpuscular Volume 88.2 80.0 - 98.0 fL [facility] Mean Corpuscular Hemoglobin 27.8 27.0 - 33.0 pg [facility] Mean Corpuscular HGB Conc 31.5 31.0 - 35.0 g/dl [facility] Red Cell Distribution Width 13.7 11.0 - 16.0 % [facility] Platelet Count 353 160 - 400 X10*3/uL [facility] Mean Platelet Volume 11.3 9.4 - 12.3 fL [facility] Neutrophils Percent Auto 84.2(H) 45 - 73 % [facility] Imm Gran Pct Auto 0.6(H) 0.0 - 0.4 % [facility] Lymphocytes Percent Auto 10.2(L) 20 - 40 % [facility] Monocytes Percent Auto 4.4 2 - 11 % [facility] Eosinophils Percent Auto 0.2 0 - 4 % [facility] Basophils Percent Auto 0.4 0 - 2 % [facility] NRBC Pct Auto 0.0 0.0 - 0.2 /100WBC [facility] Neutrophils Absolute Auto 10.1(H) 2.0 - 8.3 x10*3/uL [facility] Imm Gran Abs Auto 0.07(H) 0.00 - 0.03 X10*3/uL [facility] Lymphocytes Absolute Auto 1.2 1.2 - 4.9 X10*3/uL [facility] Monocytes Absolute Auto 0.5 0.1 - 1.2 X10*3/uL [facility] Eosinophils Absolute Auto 0.0 0.0 - 0.4 X10*3/uL [facility] Basophils Absolute Auto 0.1 0.0 - 0.2 X10*3/uL [facility] NRBC Abs Auto 0.000 0.0 - 0.012 X10*3/uL [facility] 01/12/2025 12:2 2 PM EDT 01/12/2025 1:06 PM EDT us Generic External Data Provider LAB BLOOD ORDERAB LES Final Result Performing Organization Address City/State/[facility] Co de Phone Number [facility] [address] [place] [phone] [phone] * XR Foot 3+ Views Left (01/12/2025 11:33 AM EDT) Anatomical Region Laterality Modality Lower Extremities, Foot Left Radiogra phic Imaging 01/12/2025 11:3 3 AM EDT Narrative 01/12/2025 12:30 PM EDT ?[facility] ?[address] ?[place] [address] ?XRay Report ? Signed ? Patient: Daily,Karolyn ?MR#: [id number] ?? 2 ? : 1970 ?Acct:[id number] ? Age/Sex: 54 / F ?ADM Date: 01/12/25 ? Loc: HO.HHCX ? Attending Dr: Nerissa Lopez MD ? Ordering Physician: Nerissa Lopez MD ?? Date of Service: 01/12/25 ?? Procedure(s): XR foot LT min 3V ?? Accession Number(s): [id number] ? cc: Nerissa Lopez Dewey CHRIS ? EXAMINATION: ?? XR FOOT, LEFT ? CLINICAL INFORMATION: ?? Left foot pain. Patient is diabetic ? COMPARISON: ?? None available. ? TECHNIQUE: ?? AP, lateral, and oblique views of the left foot. ? FINDINGS: ?? There is moderate distal dorsal foot soft tissue swelling. No soft ?? tissue gas visualized. No visible acute fracture, dislocation, bony ?? erosive changes seen. There is a small to moderate size calcaneal heel ?? enthesophyte. The joint spaces are maintained normal. ? XR/XR foot LT min 3V ?? IMPRESSION: ?? Moderate distal dorsal foot soft tissue swelling. No underlying bony or ?? joint abnormality seen. ? Electronically signed by: ??Dhiraj Tai MD ??01/12/2025 12:28 PM EDT RP ? Dictated By: ?Dhiraj Tai MD ? Signed By: ?<Electronically signed by Dhiraj Tai MD in OV> ?01/12/25 1228 ? DD/ 1133 ? TD/TT: 01/12/25 1200 ? Chief Supply Chain Officer: MSM ? Procedure Note Karri, Image - 01/12/2025 [place] [address] XRay Report Signed Patient: Steven Daily#: [id number] 2 : 1970Acct:[id number] Age/Sex: 54 / FADM Date: 01/12/25 Loc: HO.HHCX Attending Dr: Nerissa Lopez MD Ordering Physician: Nerissa Lopez MD Date of Service: 01/12/25 Procedure(s): XR foot LT min 3V Accession Number(s): [id number] cc: Nerissa Lopez MD EXAMINATION: XR FOOT, LEFT CLINICAL INFORMATION: Left foot pain. Patient is diabetic COMPARISON: None available. TECHNIQUE: AP, lateral, and oblique views of the left foot. FINDINGS: There is moderate distal dorsal foot soft tissue swelling. No soft tissue gas visualized. No visible acute fracture, dislocation, bony erosive changes seen. There is a small to moderate size calcaneal heel enthesophyte. The joint spaces are maintained normal. XR/XR foot LT min 3V IMPRESSION: Moderate distal dorsal foot soft tissue swelling. No underlying bony or joint abnormality seen. Electronically signed by: Dhiraj Tai MD 01/12/2025 12:28 PM EDT Dictated By: Dhiraj Tai MD Signed By: <Electronically signed by Dhiraj Tai MD in OV> 01/12/25 1228 DD/ 1133 TD/TT: 01/12/25 1200 Chief Supply Chain Officer: AKANKSHA us Nerissa Lopez MD IMG XR PROCEDURES Final Result documented in this encounter Visit Diagnoses Not on filedocumented in this encounter Additional Health Concerns Assessment Noted Time PHQ-9 Depression Total Score: 7 01/06/20 10:41 AM EDT documented as of this encounter Care Teams Tire Design Engineer Relationship Specialty Start Date End Date Nerissa Lopez MD [address] [place] [phone] PCP - General Family Medicine 11/01/13 documented as of this encounter
--- OUTSIDE RECORDS SUMMARY | 2025-01-12 13:49 | XMS_ITS | Encounter Summary ---
Author Organization [employer] Address [address] [place] [address] Care Team Providers Care X Ray Service Engineer Name Role Phone Nerissa Lopez MD Primary Care Provider [phone] Reason for Referral * Consultation (Routine) - Pending Review Specialty Diagnoses / Procedures Referred By Annia cordova Referred To Contact Vascular Surgery Diagnoses Swelling of both lower extremities Radha Ling DO [address] [place] [address] Phone: tel: fax: Referral ID Status Reason Start Date Expiration Date Visits Requested Visits Authorized [id number] Pending Review Specialty Services Required 01/05/2025 01/05/2026 1 1 Reason for Visit * Reason Comments Foot Pain Encounter Details Date Type Department Care Team (Late st Contact Info) Description 01/05/2025 2:00 PM EDT Office Visit [facility] [address] [place] [address] [phone] Radha Ling DO [address] [place] [address] Swelling of both lower extremities (Primary Dx) Social History Tobacco Use Types Packs/Day Years [...] PM EDT documented as of this encounter Last Filed Vital Signs Vital Sign Reading Time Taken Comments Blood Pressure 134/75 01/05/2025 1:43 PM EDT Pulse 82 01/05/2025 1:43 PM EDT Temperature 36.8 ??C (98.3 ??F) 01/05/2025 1:43 PM ED T Respiratory Rate 18 01/05/2025 1:43 PM EDT Oxygen Saturation 98% 01/05/2025 1:43 PM EDT Inhaled Oxygen Concentration - - Weight 113 kg (250 lb) 01/05/2025 1:43 PM EDT Height - - Body Mass Index 45.73 12/14/2024 2:31 PM EST documented in this encounter Progress Notes * Radha Ling, DO - 01/05/2025 2:00 PM EDT SUBJECTIVE Karolyn Daily is a 54 y.o. female who presents for Sick Visit. She comes to [place] today c/o leg swelling. She was seen by her PCP last mos c/o L foot pain and swelling. Her sx were thought to be mostly cellulitis and she was given keflex, prednisone and lasix BID. She called at the end of last mos c/o b/l foot swelling and was recommended to come to [place] for eval.She says that her pain was too much so she stayed home. She had televisit with her PCP this morning and c/o R foot pain and was encouraged to come to [place] for eval. She c/o R leg swelling today. She says that both legs are swollen but the R one is worse. Her swelling is much better today than last week. She has been using compression socks that her bought her OTC. She says that she takes hydrochlorothiazide daily. She says that her biggest problem is packaged ramen, which she eats frequently. She also likes jimenez soups. History provided by: Patient instantizer operator used: No Edema Severity: Mild Onset quality: Gradual Timing: Constant Progression: Waxing and waning Associated symptoms: no abdominal pain, no chest pain, no cough, no diarrhea, no fever, no headaches, no nausea, no rash, no shortness of breath and no vomiting Review of Systems Constitutional: Negative for activity change, appetite change, chills, fever and unexpected weight change. Respiratory: Negative for cough and shortness of breath. Cardiovascular: Negative for chest pain, palpitations and leg swelling. Gastrointestinal: Negative for abdominal pain, diarrhea, nausea and vomiting. Musculoskeletal: Negative for joint swelling. Skin: Negative for rash. Neurological: Negative for weakness and headaches. Patient Active Problem List Diagnosis Anemia DM w/o complication type II (CMS/HCC) Hyperlipidemia Hypertension Hypothyroidism Obesity Vitamin D deficiency Right foot pain Allergies Allergen Reactions Morphine Other reaction(s): CARDIAC ARREST Other reaction(s): CARDIAC ARREST Haloperidol Other Other Reaction(s): Acute dystonic reaction due to drugs 10-JUL-2014 21:15:44<$>, EPS Developed sx consistent with acute dystonic rxn (trismus). Pioglitazone Other Other reaction(s): Edema OBJECTIVE Visit Vitals BP 134/75 (BP Location: Left arm, Patient Position: Sitting, BP Cuff Size: Adult) Pulse 82 Temp 98.3 ??F (36.8 ??C) (Temporal) Resp 18 Wt 250 lb (113 kg) SpO2 98% BMI 45.73 kg/m?? OB Status Postmenopausal Smoking Status Never BSA 2.22 m?? Physical Exam Constitutional: General: She is not in acute distress. Appearance: Normal appearance. She is obese. Cardiovascular: Rate and Rhythm: Normal rate and regular rhythm. Pulses: Dorsalis pedis pulses are 2+ on the right side and 2+ on the left side. Posterior tibial pulses are 2+ on the right side and 2+ on the left side. Heart sounds: Normal heart sounds. No murmur heard. Pulmonary: Effort: Pulmonary effort is normal. Breath sounds: Normal breath sounds. No wheezing or rhonchi. Musculoskeletal: Right lower le+ Edema present. Left lower le+ Edema present. Neurological: General: No focal deficit present. Mental Status: She is alert and oriented to person, place, and time. Cranial Nerves: No cranial nerve deficit. Motor: No weakness. Gait: Gait normal. Psychiatric: Mood and Affect: Mood normal. Assessment/Plan Diagnoses and all orders for this visit: Swelling of both lower extremities Likely 2/2 venous insufficiency -provided reassurance -cont compression socks -encouraged LE elevation at home -advised pt to decrease salt intake -cont lasix BID as per PCP -referred to vascular for eval -advised rtc or go to ED if increased swelling, redness or pain, she agrees with plans - Referral to Vascular Surgery; Future --Follow-up with PCP as scheduled or sooner prn-- Current Outpatient Medications: acetaminophen (Tylenol) 325 MG tablet, take 1 tablet tylenol 325mg and 1 tablet Ibuprofen 600mg by oral route every 6-8 hours as needed, Disp: , Rfl: ARIPiprazole (Abilify) 5 MG tablet, take 1 tablet by oral route every day, Disp: , Rfl: Aspirin Adult Low Strength 81 MG EC tablet, TAKE ONE TABLET EVERY MORNING, Disp: 30 tablet, Rfl: 11 busPIRone (Buspar) 7.5 MG tablet, take 1 tablet by oral route 2 times every day, Disp: , Rfl: cholecalciferol (Vitamin D-3) 25 MCG tablet, TAKE ONE TABLET EVERY MORNING (VITAMIN), Disp: 90 tablet, Rfl: 1 Continuous Glucose Emergency Department Manager (FreeStyle David 2 [place]) device, Scan sensor every 8 hours, Disp: 1 each, Rfl: 0 Continuous Glucose Sensor (FreeStyle David 2 Sensor) [facility] [place] Apply 1 sensor every 14 days, Disp: 2 each, Rfl: 3 Docusate Sodium (DSS) 100 MG capsule, take 1 capsule by oral route 2 times every day at bedtime as needed, Disp: , Rfl: furosemide (Lasix) 20 MG tablet, Take 1 tablet (20 mg) by mouth 2 times daily., Disp: 60 tablet, Rfl: 11 gabapentin (Neurontin) 300 MG capsule, take 1 capsule by oral route 3 times every day, Disp: , Rfl: glipiZIDE (Glucotrol) 5 MG tablet, TAKE ONE TABLET IN THE MORNING AND EVENING BEFORE MEALS, Disp: 60 tablet, Rfl: 11 glucose blood (FREESTYLE LITE) test strip, Check BS by skin route 6-8 times every day, Disp: 300 each, Rfl: 11 glucose-vitamin C 4-6 GM-MG oral gel, Use for BS under 70 as needed, Disp: , Rfl: hydroCHLOROthiazide (HYDRODiuril) 25 MG tablet, TAKE ONE TABLET EVERY MORNING, Disp: 90 tablet, Rfl: 1 Lantus SoloStar 100 UNIT/ML pen, INJECT 55 UNITS SUBCUTANEOUSLY EVERY MORNING, Disp: 15 mL, Rfl: 1 levothyroxine (Synthroid, Levoxyl) 150 MCG tablet, TAKE ONE TABLET EVERY MORNING FOR THYROID, Disp:90 tablet, Rfl: 1 lisinopril 20 MG tablet, TAKE ONE TABLET EVERY MORNING, Disp: 90 tablet, Rfl: 1 NovoLOG FLEXPEN 100 UNIT/ML pen, INJECT 4 to 12 UNITS SUBCUTANEOUSLY THREE TIMES DAILY BEFORE MEALSAS DIRECTED PER SLIDING SCALE, Disp: 60 mL, Rfl: 11 nystatin (Mycostatin) 305229 UNIT/GM powder, apply by topical route 3 times every day to the affected area(s), Disp: , Rfl: pravastatin (Pravachol) 20 MG tablet, TAKE ONE TABLET EVERY NIGHT AT BEDTIME, Disp: 90 tablet, Rfl:1 Tirzepatide (Mounjaro) 2.5 MG/0.5ML solution pen-injector, Inject 2.5 mg under the skin 1 (one) time per week., Disp: 0.5 mL, Rfl: 11 triamcinolone (Kenalog) 0.1 % cream, Apply topically if needed in the morning and at bedtime (pain and swelling)., Disp: 30 g, Rfl: 2 valACYclovir (Valtrex) 500 MG tablet, TAKE ONE TABLET BY MOUTH TWICE DAILY UNTIL FINISHED., Disp: 6tablet, Rfl: 2 documented in this encounter Plan of Treatment Scheduled Referrals Name Type Priority Associated Diagnoses Orde r Schedule Referral to Vascular Surgery Outpatient Referral Routine Swelling of both lower extremities Expected: 01/05/2025 (Approximate), Expires: 01/05/2026 documented as of this encounter Visit Diagnoses Diagnosis Swelling of both lower extremities- Primary documented in this encounter Additional Health Concerns Assessment Noted Time PHQ-9 Depression Total Score: 7 01/06/20 25 10:41 AM EDT documented as of this encounter Care Teams X Ray Service Engineer Relationship Specialty Start Date End Date Nerissa Lopez MD [address] [place] [address] PCP - General Family Medicine 11/01/13 documented as of this encounter
--- OUTSIDE RECORDS SUMMARY | 2025-01-12 13:49 | XMS_ITS | Encounter Summary ---
Author Organization [employer] Address [address] [facility] [address] [place] [address] Care Team Providers Care Duplicator Punch Operator Name Role Phone Nerissa Lopez MD Primary Care Provider [phone] Reason for Visit * Reason Onset Date Comments Nurse Triage 01/09/2025 Encounter Details Date Type Department Care Team (Late st Contact Info) Description 01/09/2025 Telephone [facility] [address] [place] [address] Nerissa Lopez MD [address] [place] [address] Nurse Triage Social History Tobacco Use Types [...] encounter Miscellaneous Notes * Telephone Encounter - Chiquis Marie RN - 01/09/2025 2:17 PM EDT Called pt. She states that left foot has a pinching feeling last night and this am left foot is swollen. Pt. States that she saw PCP a few weeks ago and was DX. With cellulitis and was put on an antibiotic and Prednisone. Pt then went back to walk in and was supposed to be referred to [facility] vascular surgeons. Referral is still pending in chart. Pt is Diabetic. Advised pt. To come to [facility] walk in for re evaluation of foot as it is still bothering her. Pt. Is concerned that she may have gout. There is no drainage or weeping in foot but very swollen and painful. Pt. Will go back to [facility] walk in for evaluation. Protocol Used: Foot Pain (Adult) Protocol-Based Disposition: See in Office or Video Visit Today- Pt. Will go to walk in at [facility] today. Hours provided including time that providers take their Dinner break. Video visit offer not recorded Positive Triage Questions: * Severe pain (e.g., excruciating, unable to do any normal activities) * Swollen foot (Exceptions: Localized bump from bunions, calluses, insect bite, sting.) * Tingling in feet and new or increased * Patient wants to be seen * All higher-acuity triage questions were negative * Telephone Encounter - Neto Kidd - 01/09/2025 2:12 PM EDT Symptoms: Foot or Ankle Swelling, Foot or Ankle Pain - Not From Injury Outcome: Schedule an urgent appointment (within 1 hour) or talk to a nurse or provider soon Reason: Trouble walking The caller accepted this outcome. Contact pt at [phone] documented in this encounter Plan of Treatment Not on file documented as of this encounter Visit Diagnoses Not on filedocumented in this encounter Additional Health Concerns Assessment Noted Time PHQ-9 Depression Total Score: 7 01/06/20 25 10:41 AM EDT documented as of this encounter Care Teams Duplicator Punch Operator Relationship Specialty Start Date End Date Nerissa Lopez MD [address] [place] [id number] PCP - General Family Medicine 11/01/13 documented as of this encounter
--- OUTSIDE RECORDS SUMMARY | 2025-01-12 13:49 | XMS_ITS | Encounter Summary ---
Author Organization [employer] Address [address] [place] [address] Care Team Providers Care Informatics Specialist Name Role Phone Nerissa Lopez MD Primary Care Provider [phone] Encounter Details Date Type Department Care Team (Late st Contact Info) Description 02/20/2023 Orders Only [facility] [address] [place] [address] Nerissa Lopez MD [address] [place] [address] Type 2 diabetes mellitus without complication, without long-term current use of insulin ([facility]); Type 2 diabetes mellitus without complication, with long-term current use of insulin (CMS/[facility]) Social History Tobacco Use Types Packs/Day Years [...] complication, with long-term current use of insulin (CMS/[facility]) documented in this encounter Care Teams Informatics Specialist Relationship Specialty Start Date End Date Nerissa Lopez MD [address] [place] [id number] PCP - General Family Medicine 11/01/13 documented as of this encounter
--- OUTSIDE RECORDS SUMMARY | 2025-01-12 13:49 | XMS_ITS | Encounter Summary ---
Author Organization [employer] Address [address] [facility] [address] [place] [address] Care Team Providers Care Senior Telecommunications Engineer Name Role Phone Nerissa Lopez MD Primary Care Provider [phone] Encounter Details Date Type Department Care Team (Latest Contact Info) Description 04/26/[address] [facility] CONVERSIONS Dental, Provider, DDS Social History Tobacco [...] on filedocumented in this encounter Care Teams Senior Telecommunications Engineer Relationship Specialty Start Date End Date Nerissa Lopez MD [address] [place] [phone] PCP - General Family Medicine 11/01/13 documented as of this encounter
--- OUTSIDE RECORDS SUMMARY | 2025-01-12 13:50 | XMS_ITS | Encounter Summary ---
Author Organization [employer] Address [address] [facility] [address] [place] [address] Care Team Providers Care Population Health Manager Name Role Phone Nerissa Lopez MD Primary Care Provider [phone] Reason for Visit * Reason Comments Med Refill Encounter Details Date Type Department Care Team ([facility] st Contact Info) Description 12/27/2024 Refill [facility] [address] [place], [place] [phone] Nerissa Lopez MD [address] [place], [place] Primary hypertension Social History Tobacco Use Types Packs/Day Years [...] of this encounter Visit Diagnoses Diagnosis Primary hypertension Unspecified essential hypertension documented in this encounter Care Teams Population Health Manager Relationship Specialty Start Date End Date Nerissa Lopez MD [address] [place] [phone] PCP - General Family Medicine 11/01/13 documented as of this encounter
--- OUTSIDE RECORDS SUMMARY | 2025-01-12 13:50 | XMS_ITS | Clinical Summary ---
Author Organization [facility] Address [address] [address] Phone Care Team Providers Care Interventional Tech Name Role Phone Robin Lopez MD Primary Care Provider [phone] Allergies Active Allergy Reactions Criticality Noted Date [...] Visual Foot Exam 07/21/2023 Diabetes: Hemoglobin A1C 03/13/2025 025, 07/27/2024, 07/21/2024, Additional history exists Influenza Vaccine Completed 07/21/2024, , 07/05/2019, Additional history exists Procedures Procedure Name Priority Date/Time Associated Diagnosis Comments HEMOGLOBIN A1C Routine 12/03/2023 4:25 PM EST Chronic kidney disease, not otherwise specified from Last 3 Months or Most Recently Relevant to Health Maintenance Results * (ABNORMAL) Hemoglobin A1c (12/03/2023 4:25 PM EST) Hemoglobin A1C 8.1(H) (4.0-5.6) % [facility] Comment: MONITORING: In known diabetic patients, hemoglobin A1c targets should be discussed with health care provider. DIAGNOSTIC USE: ??The [place] Diabetes Association (ADA) and the World Health [...] Supplement 1 Testing performed or reported by [facility], a Service of [facility], [address] [place] [address] Cesario Coppola MD, Contract Officer [facility]# [id number] Blood (Blood, Venous) 12/03/2023 4:25 PM EST 12/03/2023 4:30 PM EST David Valadez MD LAB BLOOD ORDERABLES Final Result [facility] from Last 3 Months or Most Recently Relevant to Health Maintenance Insurance [facility] MEDICA[facility] MED[facility] Care Teams Interventional Tech Relationship Specialty Start Date End Date Robin Lopez MD [address] [place] [address] PCP - General Internal Medicine 07/21/23
--- OUTSIDE RECORDS SUMMARY | 2025-01-12 13:50 | XMS_ITS | Encounter Summary ---
Author Organization [employer] Address [address] [facility] [place] [address] Care Team Providers Care Supervisor Tank Storage Name Role Phone Nerissa Lopez MD Primary Care Provider Reason for Visit * Reason Onset Date Comments Nurse Triage 12/13/2024 Encounter Details Date Type Department Care Team (Late st Contact Info) Description 12/13/2024 Telephone [facility] [address] [place] [address] Nerissa Lopez MD [address] [place], [place] [phone] Nurse Triage Social History Tobacco Use Types [...] encounter Miscellaneous Notes * Telephone Encounter - Chqiuis Marie RN - 12/13/2024 3:15 PM EST Called pt. Pt. States that ever since August 2024, she has been having pain in both feet. This past weekend pt. Was unable to bear weight on her left foot. Pt. States when she tries to flex her foot, she has pain. Pt. States that left foot is swollen and warm to touch. Pt. States she is on Gabapentin 300mg three times daily. Pt. Is diabetic but has lumps, blue or black coloration and no open sores or oozing. Pt states Family Hx of Gout. No fever. And blood sugars have been wnl according to pt. Pt. States she can feel pedal pulses in foot. Advised to keep foot elevated and if pain worsens orSOB to go to ED. Otherwise, appt. Made for 12/14/24 at 2pm and uber ride provided for pt. 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 Protocol Used: Foot Pain (Adult) Protocol-Based Disposition: See in Office or Video Visit Today Video visit not offered Positive Triage Questions: * Swollen foot (Exceptions: Localized bump from bunions, calluses, insect bite, sting.) * Moderate pain (e.g., interferes with normal activities, limping) and present > 3 days * Weakness or numbness in foot or toes and present > 2 weeks * All higher-acuity triage questions were negative Care Advice Discussed: * Reassurance and Education - Foot Pain * Foot Pain - Aggravating Factors * Pain Medicines * Telephone Encounter - Devon Khoury - 12/13/2024 3:10 PM EST Symptoms: Foot or Ankle Pain - Not From Injury, Foot or Ankle Swelling Outcome: Talk to a nurse or provider within 15 minutes Reason: Can't walk (unless normally can't walk) The caller accepted this outcome. documented in this encounter Plan of Treatment Not on file documented as of this encounter Visit Diagnoses Not on filedocumented in this encounter Care Teams Supervisor Tank Storage Relationship Specialty Start Date End Date Nerissa Lopez MD [address] [place] [id number] PCP - General Family Medicine 11/01/13 documented as of this encounter
--- OUTSIDE RECORDS SUMMARY | 2025-01-12 13:50 | XMS_ITS | Encounter Summary ---
Author Organization [employer] Address [address] [place] [address] Care Team Providers Care Primer Inserting Machine Operator Name Role Phone Nerissa Lopez MD Primary Care Provider [phone] Reason for Visit * Reason Onset Date Comments Appointment Request 07/22/2023 Encounter Details Date Type Department Care Team (Late st Contact Info) Description 07/22/2023 Telephone [facility] MED & PEDS [address] [place] [address] Nerissa Lopez MD [address] [place] [address] Appointment Request Social History Tobacco Use Types [...] Call to pt. Per pt, seen by Environmental Services Associate on 07/21/23. Per pt, advised of high potassium in blood work. States she was advised to follow low potassium diet and repeat labs this week. Pt also states herprovider ordered a renal US. Per pt, followed recommendations. States she is feeling well and denies any symptoms at this time. Noted pt with upcoming visit with securities counselor on 07/29/23. Per pt, not aware. Agrees to contact office to confirm the scheduled visit. Will forward to PCP to review. Please see scanned in securities counselor office note from 07/21/23. * Telephone Encounter [...] on filedocumented in this encounter Care Teams Primer Inserting Machine Operator Relationship Specialty Start Date End Date Nerissa Lopez MD [address] [place] [phone] PCP - General Family Medicine 11/01/13 documented as of this encounter
--- OUTSIDE RECORDS SUMMARY | 2025-01-12 13:50 | XMS_ITS | Clinical Summary ---
Author Organization [employer] Address [address] [place] [address] Care Team Providers Care Cloth Shearer Name Role Phone Nerissa Lopez MD Primary Care Provider [phone] Allergies Active Allergy Reactions Criticality Noted Date [...] under 70 as needed Active nystatin (Mycostatin) 837743 UNIT/GM powder apply by topical route 3 times every day to the affected area(s) Active triamcinolone (Kenalog) 0.1 % cream Apply topically if needed in the morning and at bedtime (pain and swelling). 30 g 2 023 Active valACYclovir (Valtrex) 500 MG tablet TAKE ONE TABLET BY MOUTH TWICE DAILY UNTIL FINISHED. 6 tablet 2 Active glucose blood (FREESTYLE LITE) test strip Check BS by skin route 6-8 times every day 300 each 11 Active Tirzepatide (Mounjaro) 2.5 MG/0.5ML solution pen-injectorIndi cations:Type 2 diabetes mellitus without complication, with long-term current use of insulin ([facility]) Inject 2.5 mg under the skin 1 (one) time per week. 0.5 mL Active Continuous Glucose Presiding Steward (FreeStyle David 2 [place]) deviceIndication s:Type 2 diabetes mellitus without complication, with long-term current use of insulin (CMS/HCC) Scan sensor every 8 hours 1 each Active Continuous Glucose Sensor (FreeStyle David 2 Sensor) miscIndications: Type 2 diabetes mellitus without complication, with long-term current use of insulin ([facility]) Apply 1 sensor every 14 days 2 each 3 Active Lantus SoloStar 100 UNIT/ML penIndications:T ype 2 diabetes mellitus without complication, without long-term current use of insulin ([facility]) INJECT 55 UNITS SUBCUTANEOUSLY EVERY MORNING 15 mL 1 024 Active NovoLOG FLEXPEN 100 UNIT/ML penIndications:T ype 2 diabetes mellitus without complication, with long-term current use of insulin ([facility]) INJECT 4 to 12 UNITS SUBCUTANEOUSLY THREE TIMES DAILY BEFORE MEALS DIRECTED PER SLIDING SCALE 60 mL 024 Active cholecalciferol (Vitamin D-3) 25 MCG tablet TAKE ONE TABLET EVERY MORNING (VITAMIN) 90 tablet 1 Active levothyroxine (Synthroid, Levoxyl) 150 MCG tablet TAKE ONE TABLET EVERY MORNING FOR THYROID 90 tablet 1 024 Active pravastatin (Pravachol) 20 MG tabletIndication s:Mixed hyperlipidemia TAKE ONE TABLET EVERY NIGHT AT BEDTIME 90 tablet 1 024 Active glipiZIDE (Glucotrol) 5 MG tabletIndication s:Type 2 diabetes mellitus with hyperglycemia, unspecified whether parks recreation coordinator insulin use ([facility]) TAKE ONE TABLET IN THE MORNING AND EVENING BEFORE MEALS 60 tablet 025 Active furosemide (Lasix) 20 MG tablet Take 1 tablet (20 mg) by mouth 2 times daily. 60 tablet 025 2025 Active hydroCHLOROthiaz luz maria (HYDRODiuril) 25 MG tabletIndication s:Hypertension, unspecified type TAKE ONE TABLET EVERY MORNING 90 tablet 025 Active lisinopril 20 MG tabletIndication s:Hypertension, unspecified type TAKE ONE TABLET EVERY MORNING 90 tablet 1 025 Active Aspirin Adult Low Strength 81 MG EC tabletIndication s:Primary hypertension TAKE ONE TABLET EVERY MORNING 30 tablet 025 Active predniSONE (Deltasone) 20 MG tablet Take 1 tablet (20 mg) by mouth Once per day for 5 days. 5 tablet 025 2024 Active furosemide (Lasix) 20 MG tablet Take 1 tablet (20 mg) by mouth in the morning. 30 tablet 023 2024 Discontinued(R eorder (will not trigger notification to Pharmacy)) Aspirin Adult Low Strength 81 MG EC tabletIndication s:Primary hypertension TAKE ONE TABLET EVERY MORNING 30 tablet 11 024 2024 Discontinued lisinopril 20 MG tabletIndication s:Hypertension, unspecified type TAKE ONE TABLET EVERY MORNING 90 tablet 1 024 2024 Discontinued hydroCHLOROthiaz luz maria (HYDRODiuril) 25 MG tabletIndication s:Hypertension, unspecified type TAKE ONE TABLET EVERY MORNING 90 tablet 1 024 2024 Discontinued cephalexin (Keflex) 500 MG capsule Take 1 capsule (500 mg) by mouth 2 times daily for 10 days. 20 capsule 025 2024 predniSONE (Deltasone) 20 MG tablet Take 1 tablet (20 mg) by mouth Once per day for 5 days. 5 tablet 025 2024 Active Problems Problem Noted Date Diagnosed Date [...] Encounters Date Type Department Care Team Description 01/12/2025 Orders Only [facility] [address] [place] [address] Nerissa Lopez MD 01/11/2025 Telephone [facility] [address] [place] [address] Nerissa Lopez MD Novolog 01/09/2025 7:00 PM EDT Office Visit [facility] [address] [place] [address] Brian Solis MD Left foot pain (Primary Dx) 01/09/2025 Telephone [facility] [address] [place] [phone] Nerissa Lopez MD Nurse Triage 01/05/2025 2:00 PM EDT Office Visit [facility] [address] [place] [phone] Sushil RadhaDO Swelling of both lower extremities (Primary Dx) 01/05/2025 11:00 AM EDT Telemedicine [facility] [address] [place] [address] Nerissa Lopez MD Primary hypertension (Primary Dx); Type 2 diabetes mellitus without complication, with long-term current use of insulin (CMS/HCC); Right foot pain 01/05/2025 Telephone [facility] [address] [place] [address] Nerissa Lopez MD Nurse Triage (Leg swelling) 01/05/2025 Travel 12/29/2024 Travel 12/28/2024 Telephone [facility] [address] [place] [address] Nerissa Lopez MD R/S APPT 12/27/2024 Refill [facility] [address] [place] [address] Nerissa Lopez MD Primary hypertension 12/24/2024 Refill [facility] [address] [place] [address] Nerissa Lopez MD Hypertension, unspecified type 12/22/2024 Telephone [facility] [address] [place] [address] Nerissa Lopez MD Nurse Triage 12/14/2024 2:00 PM EST Office Visit [facility] [address] [place] [address] Nerissa Lopez MD Left foot pain (Primary Dx); Type 2 diabetes mellitus without complication, with long-term current use of insulin (CMS/HCC) 12/14/2024 Travel 12/13/2024 Telephone [facility] [address] [place] [phone] Nerissa Lopez MD Nurse Triage 11/25/2024 Telephone [place] [address] [place] [address] Nerissa Lopez MD Nurse Triage 11/24/2024 Refill [facility] [address] [place] [address] Nerissa Lopez MD Type 2 diabetes mellitus with hyperglycemia, unspecified whether parks recreation coordinator insulin use ([facility]) from Last 3 Months Immunizations Name Administration [...] Sign Reading Time Taken Comments Blood Pressure 144/65 01/09/2025 6:54 PM EDT Pulse 100 01/09/2025 6:54 PM EDT Temperature 36.6 ??C (97.8 ??F) 01/09/2025 6:54 PM ED T Respiratory Rate 18 01/09/2025 6:54 PM EDT Oxygen Saturation 97% 01/09/2025 6:54 PM EDT Inhaled Oxygen Concentration - - Weight 103 kg (226 lb) 01/09/2025 6:54 PM EDT Height 157.5 cm (5' 2 ) 12/14/2024 2:31 PM EST Body Mass Index 41.34 12/14/2024 2:31 PM EST Plan of Treatment Health Maintenance Due Date Last Done Comments CT Colonography 1968 Colonoscopy 1968 FIT 1968 FOBT 1968 HIV Screening 1968 Sigmoidoscopy 1968 Eye Exam 1978 Alcohol/Substance Use Screening 1980 [...] Diabetes: Urine Protein Screening 12/03/2024 12/03/2023, 10/27/2023 Diabetes: Hemoglobin A1C 03/13/2025 025, 12/14/2024, 07/27/2024, Additional history exists Lipid Panel 07/27/2025 01/12/2025, 11/2023, 03/30/2023 Diabetes: Foot Exam 12/14/2025 12/14/2024 Depression Screening 01/05/2026 01/05/2025, 01/06/20 SDOH Screening 01/05/2026 01/05/2025 Tobacco Screening 01/05/2026 01/05/2025 Mammogram 01/12/2026 01/13/2024 Colorectal Cancer Screening 10/05/2026 [...] Date/Time Associated Diagnosis Comments HEMOGLOBIN A1C Routine 01/12/2025 12:22 PM EDT LIPID PANEL, STANDARD Routine 01/12/2025 12:22 PM EDT CBC WITH AUTO DIFFERENTIAL Routine 01/12/2025 12:22 PM EDT URIC ACID Routine 01/12/2025 12:22 PM EDT Left foot pain C-REACTIVE PROTEIN Routine 01/12/2025 12 :22 PM EDT Left foot pain CBC WITH AUTO DIFFERENTIAL Routine 01/12/2025 12:22 PM EDT Left foot pain XR FOOT 3+ VIEWS LEFT Routine 01/12/2025 11:33 AM EDT POCT GLYCATED HEMOGLOBIN, TOTAL Routine 12/14/2024 2:33 PM EST Type 2 diabetes mellitus without complication, with long-term current use of insulin ([facility]) POCT GLUCOSE Routine 12/14/2024 2:32 PM EST Type 2 diabetes mellitus without complication, with long-term current use of insulin ([facility]) XR ANKLE 3+ VIEWS RIGHT Routine 12/09/2024 1:57 PM EST Right foot pain XR FOOT 3+ VIEWS RIGHT Routine 1:57 PM EST Right foot pain BI MAMMOGRAM SCREENING TOMOSYNTHESIS BILATERAL Routine 01/13/2024 [...] Relevant to Health Maintenance Results * (ABNORMAL) CBC auto differential (01/12/2025 12:22 PM EDT) Only the most recent of2 resultswithin the time period is included. White Blood Count 12.0(H) 4.8 - 10.8 X10*3/uL [facility] Red Blood Count 3.06(L) 4.20 - 5.50 X10*6/uL [facility] Hemoglobin 8.5(L) 12.0 - 16.0 g/dl [facility] Hematocrit 27.0(L) 37.0 - 47.0 % [facility] Mean Corpuscular Volume 88.2 80.0 - 98.0 fL [facility] Mean Corpuscular Hemoglobin 27.8 27.0 - 33.0 pg [facility] Mean Corpuscular HGB Conc 31.5 31.0 - 35.0 g/dl [facility] Red Cell Distribution Width 13.7 11.0 - 16.0 % [facility] Platelet Count 353 160 - 400 X10*3/uL [facility] Mean Platelet Volume 11.3 9.4 - 12.3 fL [facility] Neutrophils Percent Auto 84.2(H) 45 - 73 % [facility] Imm Gran Pct Auto 0.6(H) 0.0 - 0.4 % [facility] Lymphocytes Percent Auto 10.2(L) 20 - 40 % [facility] Monocytes Percent Auto 4.4 2 - 11 % [facility] Eosinophils Percent Auto 0.2 0 - 4 % [facility] Basophils Percent Auto 0.4 0 - 2 % [facility] NRBC Pct Auto 0.0 0.0 - 0.2 /100WBC [facility] Neutrophils Absolute Auto 10.1(H) 2.0 - 8.3 x10*3/uL [facility] Imm Gran Abs Auto 0.07(H) 0.00 - 0.03 X10*3/uL [facility] Lymphocytes Absolute Auto 1.2 1.2 - 4.9 X10*3/uL [facility] Monocytes Absolute Auto 0.5 0.1 - 1.2 X10*3/uL [facility] Eosinophils Absolute Auto 0.0 0.0 - 0.4 X10*3/uL [facility] Basophils Absolute Auto 0.1 0.0 - 0.2 X10*3/uL [facility] NRBC Abs Auto 0.000 0.0 - 0.012 X10*3/uL [facility] 01/12/2025 12:2 2 PM EDT 01/12/2025 1:06 PM EDT us Generic External Data Provider LAB BLOOD ORDERAB LES Final Result Performing Organization Address City/[facility]/ZIP Co de Phone Number [facility] [address] [place] [phone] * (ABNORMAL) C-reactive Protein (01/12/2025 12:22 PM EDT) C Reactive Protein 15.13(H) < or = 0.50 mg/dL [facility] Blood Venous blood specimen / Unknown 01/12/2025 12:22 PM EDT 01/12/2025 1:06 PM EDT us Brian Valverde MD LAB BLOOD ORDERABL ES Final Result Performing Organization Address City/[facility]/ZIP Co de Phone Number [facility] [address] [place] [phone] * (ABNORMAL) Uric acid (01/12/2025 12:22 PM EDT) Uric Acid 13.3(H) 2.4 - 5.7 mg/dL [facility] Blood Venous blood specimen / Unknown 01/12/2025 12:22 PM EDT 01/12/2025 1:06 PM EDT us Brian Valverde MD LAB BLOOD ORDERABL ES Final Result Performing Organization Address [facility] Co de Phone Number [facility] [address] [place] [phone] * (ABNORMAL) Hemoglobin A1c (01/12/2025 12:22 PM EDT) Hemoglobin A1c 6.5(H) <6.0 % [facility] Comment:Hemoglobin A1C Refer ence Range Adults: 4.8 - 6.0 % Non diabetic: < 6.0 % Goal: < 7.0 %Additional Action Suggested: > 8.0 %Note: Hemoglobin A1c results are invalid for patients with abnormal amounts of HbF. Blood transfusions may impact the HbA1c concentration in the patient sample. Estimated Average Glucose 140 mg/dL [facility] Comment:eAG = Estimated ave rage glucose which is %A1C expressed asaverage glucose, using the formula of the O4E-HthawktRynajsc Glucose study (ADAG), Diabetes Care, Vol.31,#8,May. 2007 01/12/2025 12:2 2 PM EDT 01/12/2025 1:06 PM EDT us Generic External Data Provider LAB BLOOD ORDERAB LES Final Result Performing Organization Address [facility] Co de Phone Number [facility] [address] [place] [phone] * (ABNORMAL) Lipid Panel, Standard (01/12/2025 12:22 PM EDT) Triglycerides 115 <150 mg/dL [facility] Comment:Desirable Triglyceri de: less than 150 mg/dLBorderline High Triglyceride 150-199 mg/dLHigh Triglyceride: 200-499 mg/dLVery High Triglyceride: greater than or equal to 5OO mg/dL Cholesterol 171 <200 mg/dL [facility] Comment:Desirable Cholestero l: less than 200 mg/dLBorderline High Cholesterol: 200-239 mg/dLHigh Cholesterol: greater than 239 mg/dL LDL Cholesterol Calculated 100(H) <100 mg/dL [facility] Comment:Desirable LDL: less than 100 mg/dLNear Optimal/Above Optimal LDL: 110- 129 mg/dLBorderline High LDL: 130-159 mg/dLHigh LDL: 160-189 mg/dLVery High LDL: greater than or equal to 190 mg/dL HDL Cholesterol 48 >40 mg/dL [facility] Comment:Desirable HDL: great er than 40 mg/dL Note: This HDL assay may give artificially low results in patients with liver disease. 01/12/2025 12:2 2 PM EDT 01/12/2025 1:06 PM EDT us Generic External Data Provider LAB BLOOD ORDERAB LES Final Result Performing Organization Address City/State/[facility] Co de Phone Number [facility] [address] [place] [phone] * XR Foot 3+ Views Left (01/12/2025 11:33 AM EDT) Anatomical Region Laterality Modality Lower Extremities, Foot Left Radiogra phic Imaging 01/12/2025 11:3 3 AM EDT Narrative 01/12/2025 12:30 PM EDT ?[facility] ?[address] ?[place] [address] ?XRay Report ? Signed ? Patient: Daily,Mekhi ?MR#: [id number] ?? 2 ? : 1970 ?Acct:[id number] ? Age/Sex: 54 / F ?ADM Date: 03/20/25 ? Loc: HO.HHCX ? Attending Dr: Nerissa Lopez MD ? Ordering Physician: Nerissa Lopez MD ?? Date of Service: 01/12/25 ?? Procedure(s): XR foot LT min 3V ?? Accession Number(s): [id number] ? cc: Nerissa Lopez MD ? EXAMINATION: ?? XR FOOT, LEFT ? [...] DD/ 1133 ? TD/TT: 01/12/25 1200 ? Top Hat Body Maker: MSM ? Procedure Note Donjoe, Image - 01/12/2025 [place] [address] XRay Report Signed Patient: Steven Daily#: [id number] 2 : 1970Acct:[id number] Age/Sex: 54 / FADM Date: 01/12/25 Loc: HO.HHCX Attending Dr: Nerissa Lopez MD Ordering Physician: Nerissa Lopez MD Date of Service: 01/12/25 Procedure(s): XR foot LT min 3V Accession Number(s): [id number] cc: Nerissa Lopez MD EXAMINATION: XR FOOT, [...] Dhiraj Tai MD 01/12/2025 12:28 PM EDT RP Dictated By: Dhiraj Tai MD Signed By: <Electronically signed by Dhiraj Tai MD in OV> 01/12/25 1228 DD/ 1133 TD/TT: 01/12/25 1200 Top Hat Body Maker: AKANKSHA Nerissa Lopez MD IMG XR PROCEDURES Final Result * (ABNORMAL) POCT HGB A1C (12/14/2024 2:33 PM EST) Hemoglobin A1C 7.8(A) 4.0 - 6.0 % QC Media Lot # [id number] Lot# Expiration Date Blood 12/14/2024 2:33 PM EST Nerissa Lopez MD POINT OF CARE TEST ENTER/EDIT OR DERABLES Final Result * POCT Glucose (12/14/2024 2:32 PM EST) Glucose Blood, POC 184 60 - 200 mg/dL QC Media Lot # [id number] Lot# Expiration Date ,082,025 Blood Capillary blood specimen / Unknown 12/14/2024 2:32 PM EST Nerissa Lopez MD POINT OF CARE TEST ENTER/EDIT OR DERABLES Final Result * XR Foot 3+ Views Right (12/09/2024 1:57 PM EST) Anatomical Region Laterality Modality Lower Extremities, Foot Right Radiogra phic Imaging 12/09/2024 1:57 PM EST Narrative 12/09/2024 4:14 PM EST ? [facility] ?[address] ?[place] [address] ?XRay Report ? Signed ? Patient: Daily,Mekhi ?MR#: [id number] ?? 2 ? : 1970 ?Acct:[id number] ? Age/Sex: 54 / F ?ADM Date: /14/25 ? Loc: HO.XRAY ? Attending Dr: Zulema Jorgensen MD ? Ordering Physician: Zulema Jorgensen MD ?? Date of Service: 12/09/24 ?? Procedure(s): XR foot RT min 3V ?? Accession Number(s): [id number] ? cc: Zulema Jorgensen MD ? EXAMINATION: ??XR FOOT 3 OR MORE VIEWS RIGHT, XR ANKLE 3 OR MORE VIEWS ?? RIGHT ? HISTORY: pain ? COMPARISON: There are no prior studies available for comparison. ? FINDINGS: ? Six views of the right foot and ankle are submitted. ??Osseous ?? mineralization is normal. ??There is no fracture or dislocation. ??There ?? is mild intertarsal osteoarthritis. There is a tiny plantar calcaneal ?? spur. ??There are vascular calcifications. ? XR/XR foot RT min 3V ?? IMPRESSION: ? Mild intertarsal osteoarthritis. Otherwise unremarkable examination of ?? the right foot and ankle. ? Electronically signed by: ??Carlos Gannon MD ??12/09/2024 04:12 PM EST ? Dictated By: ?Carlos Gannon MD ? Signed By: ?<Electronically signed by Carlos Gannon MD in OV> ?12/09/24 1612 ? DD/ 1357 ? TD/TT: 12/09/24 1409 ? Top Hat Body Maker: ? Procedure Note Karri, Eleuterio - 12/09/2024 [place] [address] XRay Report Signed Patient: Steven Daily#: [id number] 2 : 1970Acct:[id number] Age/Sex: 54 / FADM Date: 12/09/24 Loc: FAYE Attending Dr: Zulema Jorgensen MD Ordering Physician: Zulema Jorgensen MD Date of Service: 12/09/24 Procedure(s): XR foot RT min 3V Accession Number(s): [id number] cc: Zulema Jorgensen MD EXAMINATION: XR FOOT 3 OR MORE VIEWS RIGHT, XR ANKLE 3 OR MORE VIEWS RIGHT HISTORY: pain COMPARISON: There are no prior studies available for comparison. FINDINGS: Six views of the right foot and ankle are submitted. Osseous mineralization is normal. There is no fracture or dislocation. There is mild intertarsal osteoarthritis. There is a tiny plantar calcaneal spur. There are vascular calcifications. XR/XR foot RT min 3V IMPRESSION: Mild intertarsal osteoarthritis. Otherwise unremarkable examination of the right foot and ankle. Electronically signed by: Carlos Gannon MD 12/09/2024 04:12 PM EST RP Dictated By: Carlos Gannon MD Signed By: <Electronically signed by Carlos Gannon MD in OV> 12/09/24 1612 DD/ 1357 TD/TT: 12/09/24 1409 Top Hat Body Maker: us Zulema Jorgensen MD IMG XR PROCEDURES Edited Resu lt - Final * XR Ankle 3+ Views Right (12/09/2024 1:57 PM EST) Anatomical Region Laterality Modality Lower Extremities, Ankle Right Radiogr aphic Imaging 12/09/2024 1:57 PM EST Narrative 12/09/2024 4:14 PM EST ? [facility] ?[address] ?[place] [address] ?XRay Report ? Signed ? Patient: Mekhi Daily ?MR#: [id number] ?? 2 ? : 1970 ?Acct:[id number] ? Age/Sex: 54 / F ?ADM Date: 12/09/24 ? Loc: HO.XRAY ? Attending Dr: Zulema Jorgensen MD ? Ordering Physician: Zulema Jorgensen MD ?? Date of Service: 12/09/24 ?? Procedure(s): XR ankle RT min 3V ?? Accession Number(s): [id number] ? cc: Zulema Jorgensen MD ? EXAMINATION: ??XR FOOT 3 OR MORE VIEWS RIGHT, XR ANKLE 3 OR MORE VIEWS ?? RIGHT ? HISTORY: pain ? COMPARISON: There are no prior studies available for comparison. ? FINDINGS: ? Six views of the right foot and ankle are submitted. ??Osseous ?? mineralization is normal. ??There is no fracture or dislocation. ??There ?? is mild intertarsal osteoarthritis. There is a tiny plantar calcaneal ?? spur. ??There are vascular calcifications. ? XR/XR ankle RT min 3V ?? IMPRESSION: ? Mild intertarsal osteoarthritis. Otherwise unremarkable examination of ?? the right foot and ankle. ? Electronically signed by: ??Carlos Gannon MD ??12/09/2024 04:12 PM EST ?? RP ? Dictated By: ?Carlos Gannon MD ? Signed By: ?<Electronically signed by Carlos Gannon MD in OV> ?12/09/24 1612 ? DD/ 1357 ? TD/TT: 12/09/24 1409 ? Top Hat Body Maker: ? Procedure Note Karri, Image - 12/09/2024 [place] [address] XRay Report Signed Patient: Steven Daily#: [id number] 2 : 1970Acct:[id number] Age/Sex: 54 / FADM Date: 12/09/24 Loc: FAYE Attending Dr: Zulema Jorgensen MD Ordering Physician: Zulema Jorgensen MD Date of Service: 12/09/24 Procedure(s): XR ankle RT min 3V Accession Number(s): [id number] cc: Zulema Jorgensen MD EXAMINATION: XR FOOT 3 OR MORE VIEWS RIGHT, XR ANKLE 3 OR MORE VIEWS RIGHT HISTORY: pain COMPARISON: There are no prior studies available for comparison. FINDINGS: Six views of the right foot and ankle are submitted. Osseous mineralization is normal. There is no fracture or dislocation. There is mild intertarsal osteoarthritis. There is a tiny plantar calcaneal spur. There are vascular calcifications. XR/XR ankle RT min 3V IMPRESSION: Mild intertarsal osteoarthritis. Otherwise unremarkable examination of the right foot and ankle. Electronically signed by: Carlos Gannon MD 12/09/2024 04:12 PM EST Dictated By: Carlos Gannon MD Signed By: <Electronically signed by Carlos Gannon MD in OV> 12/09/24 1612 DD/ 1357 TD/TT: 12/09/24 1409 Top Hat Body Maker: us Zulema Jorgensen MD IMG XR PROCEDURES Edited Resu lt - Final * BI Mammogram Screening Tomosynthesis Bilateral (01/13/2024 3:00 PM EDT) Anatomical Region Laterality Modality Breast Bilateral Mammography 01/13/2024 3:00 PM EDT Narrative 02/04/2024 5:12 AM EDT ? [facility] ? [address] ?[place] [address] ? Mammography Report ? Signed ? Patient: Daily,Mekhi ?MR#: [id number] ?? 2 ? : 1970 ?Acct:[id number] ? Age/Sex: 53 / F ?ADM Date: 01/13/24 ? Loc: HO.MAMMO ? Attending Dr: Nerissa S John MD ? Ordering Physician: Nerissa Lopez MD ?Results: 1Negati ?? ve ? Date of Service: 01/13/24 ?Follow Up: 1 Year From Orig ?? inal Mammogram ? Procedure(s): MM tomosynthesis screening BI ?? Accession Number(s): [id number] ? cc: Nerisas Lopez MD ? EXAMINATION: ?? MM SCREENING [...] ? Signed By: ?<Electronically signed by Arely Pete MD in OV> ? 02/04/24 0508 ? DD/ 1500 ? TD/TT: ? Top Hat Body Maker: ? Procedure Note Karri, Eleuterio - 02/04/2024 [facility] [address] [place] [address] Mammography Report Signed Patient: Steven Daily#: [id number] 2 : 1970Acct:[id number] Age/Sex: 53 / FADM Date: 01/13/24 Loc: HO.MAMMO Attending Dr: Nerissa Lopez MD Ordering Physician: Nerissa Lopez MDResults: 1Negati ve Date of Service: 01/13/24Follow Up: 1 Year From Orig inal Mammogram Procedure(s): MM tomosynthesis screening BI Accession Number(s): [id number] cc: Nerissa Lopez MD EXAMINATION: MM SCREENING DIGITAL BREAST TOMOSYNTHESIS, BILATERAL CLINICAL INFORMATION: Screening. Asymptomatic. COMPARISON: Mammography: This study is compared with prior exams dating back to 2014. TECHNIQUE: Digital breast tomosynthesis is performed in [...] in OV> 02/04/24 0508 DD/ 1500 TD/TT: Top Hat Body Maker: Nerissa Lopez MD IMG BI PROCEDURES Final Result * Cologuard?? colon cancer screening (10/05/2023 1:05 PM EST) Cologuard Result Negative Negative 10/14/20 1:10 PM EST [facility] (CLIA #:[id number]) Comment: NEGATIVE TEST RESULT. A negative Cologuard [...] cancer. ??Following a negative Cologuard result, the [employer] and U.S. Multi-Society Task Force screening guidelines recommend a Cologuard re-screening interval of 3 years. References: [employer] Guideline for Colorectal Cancer Screening: https://www.cancer.org/cancer/kkjjo-jvdxks-mbaehg/tufpbpcha-xectqqlzg-stkqavw/ac s-rec ommendations.html.; Sergo DK, Adrian INIGUEZ, Cindy ColonK, Colorectal Cancer Screening: Recommendations for Physicians and Patients from the U.S. Multi-Society Task Force on Colorectal Cancer Screening , Am J Gastroenterology 2017; 112:6662-8378. TEST DESCRIPTION: Composite algorithmic analysis of stool [...] screened with both Cologuard and colonoscopy. (Nikki August al, N Engl J Med 2014;370(14):6891-9566.) Cologuard may produce a false negative or false positive result (no colorectal cancer or precancerous polyp present at colonoscopy follow up). A negative Cologuard test result does not guarantee the absence of CRC or advanced adenoma (pre-cancer). The current Cologuard screening interval is every 3 years. ([employer] Society and U.S. Multi-Society Task Force). Cologuard performance data in a 10,000 patient pivotal study using colonoscopy as the reference method can be accessed at the following location: www.[employer] [place]/results. Additional description of the Cologuard test process, warnings and precautions can be found at www.cologuard.com. Stool specimen (specimen) 10/05/2023 1:05 PM EST 10/06/2023 8:14 PM EST us Nerissa Lopez MD LAB MOLECULAR DIAGNOSTICS ORDERA BLES Final Result [employer] (CLIA #:[id number]) [place] [address], from Last 3 Months or Most Recently Relevant to Health Maintenance [place] [address] [facility] Care Teams Cloth Shearer Relationship Specialty Start Date End Date Nerissa Lopez MD [address] [place] [phone] PCP - General Family Medicine 11/01/13
--- OUTSIDE RECORDS SUMMARY | 2025-01-12 13:50 | XMS_ITS | Encounter Summary ---
Author Organization [employer] Address [address] [place] [address] Care Team Providers Care Credit Control Assistant Name Role Phone Nerissa Lopez MD Primary Care Provider [phone] Reason for Visit * Reason Onset Date Comments Nurse Triage 12/22/2024 Encounter Details Date Type Department Care Team (Late st Contact Info) Description 12/22/2024 Telephone [facility] CHC MED & PEDS [address] [place] [address] Nerissa Lopez MD [address] [place] [address] Nurse Triage Social History Tobacco Use Types [...] encounter Miscellaneous Notes * Telephone Encounter - Amada Gonzalez RN - 12/27/2024 11:42 AM EST TC to patient. She states she has finished the antibiotics course and the prednisone. Her left footis still swollen and red, and her Right big toe is also swollen and red. Right big toe is new. Patient offered appointment to be seen, but patient already has appointment scheduled with Dr. Lopez on 12/29/24. Patient will follow up with concerns and questions at this appointment. Patient verbally agrees with plan. * Telephone Encounter - Nerissa Lopez MD - 12/27/2024 11:20 AM EST Need follow up on pt * Telephone Encounter - Rosemarie Hernandez RN - 12/23/2024 1:51 PM EST Call returned to Karolyn Daily to triage below. Reports having left foot pain x 2 weeks. Pt seen inoffice by PCP. Started on abx and prednisone. Pt states now having bilateral foot swelling x 1 day.Per pt having redness around great big toe. No injury to either foot. Pt endorses having chills. Norecorded temp. Pt has one dose of abx left for today. Pt offered appt with team provider. Pt declines. Wishes to just have another prescription of prednisone sent. Pt advised that if onset of new bilateral foot swelling patient needs to be seen for re-evaluation. Pt has not completed ordered x-raysby PCP on 12/14/24. Pt advised of [facility] hours for tomorrow or to seek UC over weekend. Will forward note to PCP and Dr. Benton to review (Dr. Lopez not in this afternoon) and advise [facility] Primary Care team nurses of any other recommendations. Protocol Used: Foot Pain (Adult) Protocol-Based Disposition: See in Office or Video Visit Today Override (Final) Disposition: Discuss with PCP and Callback by Nurse Today Override Reason: Caller declined suggested disposition Video visit offer not recorded Positive Triage Question: * Swollen foot (Exceptions: Localized bump from bunions, calluses, insect bite, sting.) * All higher-acuity triage questions were negative Care Advice Discussed: * Reasons To Call Back - You become worse * Telephone Encounter - Anna Akhtar - 12/23/2024 1:35 PM EST Tc from pt returning phone call. * Telephone Encounter - Neto Kidd - 12/23/2024 1:14 PM EST Tc from pt returning call regarding prior message. Contact pt at [phone] * Telephone Encounter - Sue Richey - 12/22/2024 10:42 AM EST Symptom: Foot or Ankle Swelling Outcome: Schedule an urgent appointment (within 1 hour) or talk to a nurse or provider soon Reason: Trouble walking The caller accepted this outcome. documented in this encounter Plan of Treatment Not on file documented as of this encounter Visit Diagnoses Not on filedocumented in this encounter Care Teams Credit Control Assistant Relationship Specialty Start Date End Date Nerissa Lopez MD [address] [place] [address] PCP - General Family Medicine 11/01/13 documented as of this encounter
--- OUTSIDE RECORDS SUMMARY | 2025-01-12 13:50 | XMS_ITS | Encounter Summary ---
Author Organization [employer] Address [address] [place] [address] Care Team Providers Care Sheet Hanger Name Role Phone Nerissa Lopez MD Primary Care Provider [phone] Reason for Visit * Reason Onset Date Comments Novolog 01/11/2025 Encounter Details Date Type Department Care Team (Late st Contact Info) Description 01/11/2025 Telephone [facility] CHC MED & PEDS [address] [place] [address] Nerissa Lopez MD [address] [place] [address] Novolog Social History Tobacco Use Types Packs/Day Years [...] the past 12 months, has t he [employer], [facility], oil or water [employer] threatened to shut off services in your [...] encounter Miscellaneous Notes * Telephone Encounter - Eleonora Velasquez RN - 01/11/2025 12:31 PM EDT Franci Cazares did the work for us on a [facility] Formulary change that will be effective 01-24-25 regarding rapid acting insulin. Humalog will be the preferred agent and Novolog and its generic will require Prior Authorization. She will be sending an email out to providers and nurses shortly??? Hi all, Beginning January 24, 2025, [facility] (and other [facility] associated plans) will be making changes to their formulary in regard to rapid-acting insulin agents. These plans will no longer be covering insulin aspart (Novolog, Fiasp) vials/pens and continuation of use would require Prior Authorization. [place] requirements include documentation of the following: Appropriate diagnosis and inadequate response, adverse reaction, or contraindication to insulin lispro (Humalog) The preferred agent for these patients will now be insulin lispro (Humalog) vials/pens. When converting patients??? regimens from insulin aspart (Novolog, Fiasp) to insulin lispro (Humalog), the dosewill remain the same, as it is converted as [id number]. Please do not hesitate to reach out with any questions. documented in this encounter Plan of Treatment Not on file documented as of this encounter Visit Diagnoses Not on filedocumented in this encounter Additional Health Concerns Assessment Noted Time PHQ-9 Depression Total Score: 7 01/06/20 25 10:41 AM EDT documented as of this encounter Care Teams Sheet Hanger Relationship Specialty Start Date End Date Nerissa Lopez MD [address] [place] [address] PCP - General Family Medicine 11/01/13 documented as of this encounter
--- OUTSIDE RECORDS SUMMARY | 2025-01-12 13:50 | XMS_ITS | Encounter Summary ---
Author Organization [email or web address] Address [address] [place] [address] Care Team Providers Care Firepot Operator And Tender Name Role Phone Nerissa Lopez MD Primary Care Provider [phone] Reason for Visit * Reason Comments Foot Swelling left Encounter Details Date Type Department Care Team ([facility] st Contact Info) Description 12/14/2024 2:00 PM EST Office Visit [facility] CHC MED & PEDS [address] [place], [place] [phone] Nerissa Lopez MD [address] [place] [address] Left foot pain (Primary Dx); Type 2 diabetes mellitus without complication, with long-term current use of insulin ([facility]) Social History Tobacco Use Types Packs/Day Years [...] Sign Reading Time Taken Comments Blood Pressure 156/72 12/14/2024 2:31 PM EST Pulse 103 12/14/2024 2:31 PM EST Temperature 36.5 ??C (97.7 ??F) 12/14/2024 2:31 PM ES T Respiratory Rate 18 12/14/2024 2:31 PM EST Oxygen Saturation - - Inhaled Oxygen Concentration - - Weight 114 kg (251 lb) 12/14/2024 2:31 PM EST Height 157.5 cm (5' 2 ) 12/14/2024 2:31 PM EST Body Mass Index 45.91 12/14/2024 2:31 PM EST documented in this encounter Progress Notes * Nerissa Lopez MD - 12/14/2024 2:00 PM EST Images from the original note were not included. Subjective Patient ID: Karolyn Daily is a 54 y.o. female who presents for Foot Swelling (left). Leg Pain There was no injury mechanism. The pain is present in the left foot. The quality of the pain is described as aching. The pain is at a severity of 7/10. The pain is severe. The pain has been Constant since onset. Associated symptoms include an inability to bear weight. The symptoms are aggravated bymovement and weight bearing. She has tried elevation and acetaminophen for the symptoms. The treatme nt provided no relief. Review of Systems Constitutional: Negative. Respiratory: Negative. Negative for shortness of breath. Cardiovascular: Negative for chest pain and palpitations. Gastrointestinal: Negative. Genitourinary: Negative. Musculoskeletal: Positive for gait problem and joint swelling. Negative for neck pain. Neurological: Negative for headaches. Objective Physical Exam Constitutional: Appearance: Normal appearance. Cardiovascular: Rate and Rhythm: Normal rate and regular rhythm. Pulses: Normal pulses. Heart sounds: Normal heart sounds. Pulmonary: Effort: Pulmonary effort is normal. Musculoskeletal: Left foot: Decreased range of motion. Swelling and tenderness present. Legs: Neurological: Mental Status: She is alert. Assessment/Plan Diagnoses and all orders for this visit: Left foot pain Comments: Mostly cellulitis Started on Keflex for 10 days and prednisone Advised leg elevation.Xray ordered Orders: - XR Foot 1-2 Views Left; Future Type 2 diabetes mellitus without complication, with long-term current use of insulin ([facility]) - POCT Glucose - POCT HGB A1C Other orders - cephalexin (Keflex) 500 MG capsule; Take 1 capsule (500 mg) by mouth 2 times daily for 10 days. - predniSONE (Deltasone) 20 MG tablet; Take 1 tablet (20 mg) by mouth Once per day for 5 days. - furosemide (Lasix) 20 MG tablet; Take 1 tablet (20 mg) by mouth 2 times daily. documented in this encounter Miscellaneous Notes * Addendum Note - Kimi Da Silva [place] - 12/14/2024 2:00 PM ESTAddended by: KIIM DA SILVA on: 01/12/2025 01:16 PM Modules accepted: Orders documented in this encounter Plan of Treatment Scheduled Orders Name Type Priority Associated Diagnoses Orde r Schedule XR Foot 3+ Views Left Imaging Routine Left foot pain Expected: 01/12/2025, Expires: 01/12/2026 documented as of this encounter Procedures Procedure Name Priority Date/Time Associated Diagnosis Comments POCT GLYCATED HEMOGLOBIN, TOTAL Routine 12/14/2024 2:33 PM EST Type 2 diabetes mellitus without complication, with long-term current use of insulin ([facility]) POCT GLUCOSE Routine 12/14/2024 2:32 PM EST Type 2 diabetes mellitus without complication, with long-term current use of insulin ([facility]) documented in this encounter Results * (ABNORMAL) POCT HGB A1C (12/14/2024 2:33 [...] Media Lot # [id number] Lot# Expiration Date [id number] Blood Capillary blood specimen / Unknown 12/14/2024 2:32 PM EST Nerissa Lopez MD POINT OF CARE TEST ENTER/EDIT OR DERABLES Final Result documented in this encounter Visit Diagnoses Diagnosis Left foot pain- Primary Pain in soft tissues of limb Type 2 diabetes mellitus without complication, with long-term current use of insulin ([facility]) documented in this encounter Care Teams Firepot Operator And Tender Relationship Specialty Start Date End Date Nerissa Lopez MD [address] [place] [address] PCP - General Family Medicine 11/01/13 documented as of this encounter
--- OUTSIDE RECORDS SUMMARY | 2025-01-12 13:50 | XMS_ITS | Encounter Summary ---
Author Organization [employer] Address [address] [place] [address] Care Team Providers Care Community Recreation Coordinator Name Role Phone Nerissa Lopez MD Primary Care Provider [phone] Reason for Visit * Reason Onset Date Comments Nurse Triage 10/04/2024 Encounter Details Date Type Department Care Team (Late st Contact Info) Description 10/04/2024 Telephone [facility] CHC MED & PEDS [address] [place] [address] Nerissa Lopez MD [address] [place] [address] Nurse Triage Social History Tobacco Use Types [...] idea. Pt is advised to come to [facility] today, Pt reports will come [...] * Telephone Encounter - Neelima Ramirez - 10/04/2024 2:39 PM EST Symptom: [...] with the left foot. Contact pt at [phone] documented in this encounter Plan of Treatment Not on file documented as of this encounter Visit Diagnoses Not on filedocumented in this encounter Care Teams Community Recreation Coordinator Relationship Specialty Start Date End Date Nerissa Lopez MD [address] [place] [phone] PCP - General Family Medicine 11/01/13 documented as of this encounter
--- OUTSIDE RECORDS SUMMARY | 2025-01-12 13:50 | XMS_ITS | Encounter Summary ---
Author Organization [employer] Address [address] [place] [address] Care Team Providers Care Classics Teacher Name Role Phone Nerissa Lopez MD Primary Care Provider [phone] Encounter Details Date Type Department Care Team (Latest Contact Info) Description 12/14/2024 Travel Social History Tobacco Use Types Packs/Day [...] on filedocumented in this encounter Care Teams Classics Teacher Relationship Specialty Start Date End Date Nerissa Lopez MD [address] [place] [address] PCP - General Family Medicine 11/01/13 documented as of this encounter
--- OUTSIDE RECORDS SUMMARY | 2025-01-12 13:50 | XMS_ITS | Encounter Summary ---
Author Organization [employer] Address [address] [place] [address] Care Team Providers Care Sas Sql Developer Name Role Phone Nerissa Lopez MD Primary Care Provider [phone] Reason for Visit * Reason Comments Walk-In Left leg pain Encounter Details Date Type Department Care Team (Late st Contact Info) Description 01/09/2025 7:00 PM EDT Office Visit [facility] [address] [place] [address] Brian Solis MD [address] [place] [address] Left foot pain (Primary Dx) Social History Tobacco Use Types [...] (226 lb) 01/09/2025 6:54 PM EDT Height - - Body Mass Index 41.34 12/14/2024 2:31 PM EST documented in this encounter Progress Notes * Brian Valverde MD - 01/09/2025 7:00 PM EDT Subjective Patient ID: Karolyn Daily is a 54 y.o. female who presents for Walk-In (Left leg pain). Pain This is a chronic problem. The pain is present in the left foot. Associated symptoms include joint swelling. Pertinent negatives include no fever or sensory change. Review of Systems Constitutional: Negative for fever. Musculoskeletal: Positive for joint swelling. Neurological: Negative for sensory change. Objective Physical Exam Constitutional: Appearance: Normal appearance. Musculoskeletal: General: Swelling and tenderness present. No signs of injury. Right lower leg: Edema present. Left lower leg: Edema present. Neurological: General: No focal deficit present. Mental Status: She is alert and oriented to person, place, and time. Psychiatric: Mood and Affect: Mood normal. Behavior: Behavior normal. Assessment/Plan Problem List Items Addressed This Visit None Visit Diagnoses Left foot pain - Primary Xray previously ordered not performed, both feet are swollen, no erythema, no fever/chills, there is o sign of active infection, will prescribe prednisone, will also order lab test, oriented to keep extremity elevated while seated, follow up with vascular surgery Relevant Orders CBC auto differential Sed Rate by Modified Marsharen C-reactive Protein Uric acid documented in this encounter Plan of Treatment Scheduled Orders Name Type Priority Associated Diagnoses Orde r Schedule Sed Rate by Modified [facility] Lab Routine Left foot pain Expected: 01/09/2025, Expires: 01/09/2026 documented as of this encounter Procedures Procedure Name Priority Date/Time Associated Diagnosis Comments CBC WITH AUTO DIFFERENTIAL Routine 01/12/2025 12:22 PM EDT Left foot pain C-REACTIVE PROTEIN Routine 01/12/2025 12 :22 PM EDT Left foot pain URIC ACID Routine 01/12/2025 12:22 PM EDT Left foot pain documented in this encounter Results * (ABNORMAL) Uric acid (01/12/2025 12:22 PM EDT) Uric Acid 13.3(H) 2.4 - 5.7 mg/dL [facility] Blood Venous blood specimen / Unknown 01/12/2025 12:22 PM EDT 01/12/2025 1:06 PM EDT us Brian Valverde MD LAB BLOOD ORDERABL ES Final Result Performing Organization Address [facility]/ZIP Co de Phone Number [facility] [address] [place] [phone] * (ABNORMAL) C-reactive Protein (01/12/2025 12:22 PM EDT) [facility] C Reactive Protein 15.13(H) < or = 0.50 mg/dL [facility] Blood Venous blood specimen / Unknown 01/12/2025 12:22 PM EDT 01/12/2025 1:06 PM EDT Brian Valverde MD LAB BLOOD ORDERABL ES Final Result Performing Organization Address [facility]/ZIP Co de Phone Number [facility] [address] [place] [phone] * (ABNORMAL) CBC auto differential (01/12/2025 12:22 PM EDT) [facility] White Blood Count 11.3(H) 4.8 - 10.8 X10*3/uL [facility] Red Blood Count 3.08(L) 4.20 - 5.50 X10*6/uL [facility] Hemoglobin 8.6(L) 12.0 - 16.0 g/dl [facility] Hematocrit 27.6(L) 37.0 - 47.0 % [facility] Mean Corpuscular Volume 89.6 80.0 - 98.0 fL [facility] Mean Corpuscular Hemoglobin 27.9 27.0 - 33.0 pg [facility] Mean Corpuscular HGB Conc 31.2 31.0 - 35.0 g/dl [facility] Red Cell Distribution Width 13.7 11.0 - 16.0 % [facility] Platelet Count 335 160 - 400 X10*3/uL [facility] Mean Platelet Volume 11.6 9.4 - 12.3 fL [facility] Neutrophils Percent Auto 83.7(H) 45 - 73 % [facility] Imm Gran Pct Auto 0.5(H) 0.0 - 0.4 % [facility] Lymphocytes Percent Auto 10.5(L) 20 - 40 % [facility] Monocytes Percent Auto 4.8 2 - 11 % [facility] Eosinophils Percent Auto 0.1 0 - 4 % [facility] Basophils Percent Auto 0.4 0 - 2 % [facility] NRBC Pct Auto 0.0 0.0 - 0.2 /100WBC [facility] Neutrophils Absolute Auto 9.5(H) 2.0 - 8.3 x10*3/uL [facility] Imm Gran Abs Auto 0.06(H) 0.00 - 0.03 X10*3/uL [facility] Lymphocytes Absolute Auto 1.2 1.2 - 4.9 X10*3/uL [facility] Monocytes Absolute Auto 0.5 0.1 - 1.2 X10*3/uL [facility] Eosinophils Absolute Auto 0.0 0.0 - 0.4 X10*3/uL [facility] Basophils Absolute Auto 0.0 0.0 - 0.2 X10*3/uL [facility] NRBC Abs Auto 0.000 0.0 - 0.012 X10*3/uL [facility] Blood Venous blood specimen / Unknown 01/12/2025 12:22 PM EDT 01/12/2025 1:06 PM EDT us Brian Valverde MD LAB BLOOD ORDERABL ES Final Result [facility] [address] [place] [phone] documented in this encounter Visit Diagnoses Diagnosis Left foot pain- Primary Pain in soft tissues of limb documented in this encounter Additional Health Concerns Assessment Noted Time PHQ-9 Depression Total Score: 7 01/06/20 25 10:41 AM EDT documented as of this encounter Care Teams Sas Sql Developer Relationship Specialty Start Date End Date Nerissa Lopez MD [address] [place] [phone] PCP - General Family Medicine 11/01/13 documented as of this encounter
--- OUTSIDE RECORDS SUMMARY | 2025-01-12 13:50 | XMS_ITS | Encounter Summary ---
Author Organization [employer] Address [address] [place] [address] Care Team Providers Care Funds Transfer Clerk Name Role Phone Nerissa Lopez MD Primary Care Provider [phone] Reason for Visit * Reason Onset Date Comments Nurse Triage 09/19/2024 Encounter Details Date Type Department Care Team (Late st Contact Info) Description 09/19/2024 Telephone [facility] CHC MED & PEDS [address] [place] [address] Nerissa Lopez MD [address] [place] [address] Nurse Triage Social History Tobacco Use Types [...] with home care advised. ASK apt [facility] today at 220pm. Unable to check [...] caller accepted this outcome. Contact pt at [phone] documented in this encounter Plan of Treatment Not on file documented as of this encounter Visit Diagnoses Not on filedocumented in this encounter Care Teams Funds Transfer Clerk Relationship Specialty Start Date End Date Nerissa Lopez MD [address] [place] [phone] PCP - General Family Medicine 11/01/13 documented as of this encounter
--- OUTSIDE RECORDS SUMMARY | 2025-01-12 13:50 | XMS_ITS | Encounter Summary ---
Author Organization [employer] Address [address] [place] [address] Care Team Providers Care Rig Hand Name Role Phone Nerissa Lopez MD Primary Care Provider [phone] Reason for Visit * Reason Comments Med Refill Encounter Details Date Type Department Care Team ([facility] st Contact Info) Description 12/24/2024 Refill [facility] CH[facility] MED & PEDS [address] [place], [place] [phone] Nerissa Lopez MD [address] [place], [place] Hypertension, unspecified type Social History Tobacco Use Types Packs/Day Years [...] as of this encounter Visit Diagnoses Diagnosis Hypertension, unspecified type documented in this encounter Care Teams Rig Hand Relationship Specialty Start Date End Date Nerissa Lopez MD [address] [place] [address] PCP - General Family Medicine 11/01/13 documented as of this encounter
[2025-01-12 14:05] LABS: Alanine Aminotransferase 30 U/L (0-31); Albumin Level 3.8 g/dL (3.5-5.0); Alkaline Phosphatase 79 U/L (39-117); Anion Gap 17 (12-20); Aspartate Amino Transferase 22 U/L (5-31); Bilirubin Total 0.4 mg/dL (0.0-1.0); Blood Urea Nitrogen 47 mg/dL (9-16); C Reactive Protein 15.21 mg/dL (< or = 0.50); Calcium 8.3 mg/dL (8.4-10.2); Carbon Dioxide 24 mmol/L (22-29); Chloride 104 mmol/L (96-108); Estimated Glomerular Filt Rate 25; Glucose Random 93 mg/dL (60-115); Potassium 4.2 mmol/L (3.3-5.1); Sodium 141 mmol/L (135-145); Total Protein 8.6 g/dL (6.5-8.0)
[2025-01-12 14:08] LABS: TSH reflex Free T4 0.59 uIU/mL (0.32-4.0)
[2025-01-12 14:22] LABS: Erythrocyte Sedimentation Rate 119 MM/HR (0-20)
[2025-01-13 18:32] LABS: Scleroderma 70 Antibody <1.0 NEG AI (<1.0 NEG)
== END 2025-01-12 11:31 | disposition home or self-care (01) ==
LOC: HO.HHCX 11:30
PROVIDERS: Internal Medicine; Nurse Practitioner Family; Visit Provider Student in an Organized Health Care Education/Training Program
DX: M79.672 Pain in left foot (principal); E11.9 Type 2 diabetes mellitus without complications; N18.30 Chronic kidney disease, stage 3 unspecified; E03.9 Hypothyroidism, unspecified; M54.2 Cervicalgia; R61 Generalized hyperhidrosis; R76.8 Other specified abnormal immunological findings in serum
CPT/HCPCS: 36415; 73630; 80053; 80061; 82552; 82784; 83036; 84165; 84443; 84550; 85025; 85652; 86140; 86235; 86255; 86334

== ENCOUNTER → 2025-01-12 11:33 | Outpatient (BNV) | payer OTHER, SELFPAY | PROVIDERS: Visit Provider Radiology Diagnostic Radiology | DX: M79.672 Pain in left foot (principal) | CPT/HCPCS: 73630 ==

== ENCOUNTER 2025-01-12 11:59 | Outpatient (REF) | payer OTHER, SELFPAY | END 2025-01-12 12:00 | disposition home or self-care (01) | LOC: HO.HHCL 11:59 | PROVIDERS: Visit Provider Internal Medicine | DX: Z13.89 Encounter for screening for other disorder (principal) ==

== ENCOUNTER 2025-02-22 14:01 | Outpatient (AMB) | payer OTHER, SELFPAY ==
--- NOTE | 2025-02-22 14:03 | A.OFFVIS_ITS ---
Vital Signs 02/22/25 14:06 Height 5 ft 4 in Weight 257 lb 15.053 oz BMI 44.3 Blood Pressure Location Rt brachial Position Sitting Pulse Source Pulse Oximeter Intake Visit Reasons: DM Intake Note: Patient presents today for a follow-up on Type 2 Diabetes Mellitus: Last Diabetic Eye exam: April 2024 Last Podiatry Visit: April 2024 Most Recent HgA1C: 6.5%, 01/12/2025 Random Glucose: 119 mg/dL, Today Assembly Room Supervisor Required: No Accompanied by: Self / Same As Patient Allergies haloperidol [From Haldol] Allergy (Severe, Verified 07/26/24 11:17) Jaw locked pioglitazone [From Actos] Allergy (Severe, Verified 07/26/24 11:17) Throat swells morphine [MORPHINE] Allergy (Unknown, Verified 07/26/24 11:17) UNKNOWN, bradycardia HPI Comments Details: Ms. Parr 53 year old female with a past medical history of hyperparathyroidism s/p parathyroidectomy, CKD, IDDM presenting for follow up Last A1C 12/2024 6.5% 02/2024 8.0%, Sept A1C 8.3%. DM Medications: Lantus 84 units (increased from 80 one month ago), Novolog 100- 149 10 units (+2 for every 50 until 399) with +5 at dinner, mounjaro 5 (increased from 2.5 one month ago). Stopped glipizide. Taken off farxiga by nephrology. On statin. CASTRO was discontinued by nephrology at recent visit She has been unable to afford her mounjaro for the last month-its a 40$ copay. She is going to try to purchase it this weekend Infrequent neuropathic pain b/l feet. Has gabapentin. No issues with sores. She is seeing podiatry next month. She is overdue for her eye exam. She has this scheduled. CKD followed by Renal Transplant. Last Cr on file Oct but seen on Mar 31. Previous renal biopsy with+dsDNA. Follows with rheumatology for RA but think kidney disease mostly b/c of uncontrolled diabetes mellitus rather than sequelae of +dsDNA Hypothyroid-continues levothyroxine. Last TSH normal range ROS see HPI PHYSICAL EXAM: GENERAL: Alert and oriented x 3. NAD. Overweight EYES: EOMI. Anicteric. HENT: Moist mucous membranes. No scleral icterus. No cervical lymphadenopathy. LUNGS: Clear to auscultation bilaterally. CARDIOVASCULAR: Regular rate and rhythm. ABDOMEN: Soft, non-tender +bs EXTREMITIES: Trace b/l edema. SKIN: No rashes or lesions. Warm. NEUROLOGIC: Right foot with decreased vibratory sense PSYCHIATRIC: Cooperative. Appropriate mood and affect [facility] Medical History Rheumatoid factor positive Obesity, morbid, BMI 40.0-49.9 Chronic kidney disease (CKD) Ds DNA antibody positive Depression Diabetes Hypothyroid HTN (hypertension) Depression Surgical History History of parotid gland removal History of cholecystectomy Previous section H/O tubal ligation Family History Daughter Lupus Mother Arthritis Diabetes Maternal Grandmother Arthritis Father Multiple sclerosis Diabetes Social History Household Members: Spouse and Children Household Members Other:: , 21-year-old daughter Alcohol intake: former Patient Tobacco Use Status: Never used Tobacco Current occupational status: unemployed Assessment & Plan Assessment & Plan (1) Diabetes: Code(s): E11.9 - Type 2 diabetes mellitus without complications Category: Medical Qualifiers: Diabetes mellitus type: type 2 Diabetes mellitus fdc insulin use: with fdc use Diabetes mellitus complication status: with kidney complications Diabetes mellitus complication detail: with chronic kidney disease Chronic kidney disease stage: stage 4 (severe) Qualified Code(s): E11.22 - Type 2 diabetes mellitus with diabetic chronic kidney disease; N18.4 - Chronic kidney disease, stage 4 (severe); Z79.4 - alf (current) use of insulin (2) Chronic kidney disease (CKD): Code(s): N18.9 - Chronic kidney disease, unspecified Category: Medical Qualifiers: Chronic kidney disease stage: stage 3 (moderate) Chronic kidney disease stage 3 subtype: unspecified whether 3a or 3b Qualified Code(s): N18.30 - Chronic kidney disease, stage 3 unspecified Plan 54 year old with diabetes, last A1C at goal. Unfortunately in the past month, glucose has been higher in setting of not having her mounjaro She will try and purchase this this weekend. If she is unable to get the insulin she will increase her insulin up to 50mg twice daily She will return in 3 months or sooner as needed Medications: Changed From insulin aspart U-100 (Novolog FlexPen U-100 Insulin aspart) BG 100-149 10 units, 150-199 12 units, 200-249 14 units, 250-299 16 units, 300-349 18 units, 350-399 20 units (breakfast and lunch) Add 5 units to sliding scale at dinner meal To Novolog FlexPen U-100 Insulin (insulin aspart U-100) subcutaneously; BG 100- 149 10 units, 150-199 12 units, 200-249 14 units, 250-299 16 units, 300-349 18 units, 350-399 20 units (breakfast and lunch) Add 5 units to sliding scale at dinner meal 30 mL 3RF NS Discontinued tirzepatide (Mounjaro) Discontinued Reason: Doctor's Order 2.5 mg (0.5 mL) subcut QWEEK 4 weeks 2 mL 3RF Coding Level of Care Code Est Pt Level 4 (42259) Diagnoses Type 2 diabetes mellitus with stage 4 chronic kidney disease, with long-term current use of insulin E11.22; N18.4; Z79.4 Diabetes mellitus type: type 2 Diabetes mellitus fdc insulin use: with fdc use Diabetes mellitus complication status: with kidney complications Diabetes mellitus complication detail: with chronic kidney disease Chronic kidney disease stage: stage 4 (severe) Stage 3 chronic kidney disease, unspecified whether stage 3a or 3b CKD N18.30 Chronic kidney disease stage: stage 3 (moderate) Chronic kidney disease stage 3 subtype: unspecified whether 3a or 3b
[2025-02-22 14:06] VITALS: BMI 44.3
[2025-02-22 14:22] LABS: Glucose, Whole Blood 219 mg/dL (60-115)
--- OUTSIDE RECORDS SUMMARY | 2025-02-22 15:14 | XMS_ITS | Encounter Summary ---
Author Organization [employer] Address [address] [place] [address] Care Team Providers Care Mortgage Operations Manager Name Role Phone Nerissa Lopez MD Primary Care Provider [phone] Encounter Details Date Type Department Care Team (Latest Contact Info) Description 04/26/2019 Abstract [facility] CONVERSIONS Dental, Provider, DDS Social History [...] as of this encounter Plan of Treatment Upcoming Encounters Date Type Department Care Team (Late st Contact Info) Description 03/16/2025 11:30 AM EDT Office Visit [facility] MED & PEDS [address] [place] [address] Nerissa Lopez MD [address] [place], [place] [phone] documented as of this encounter Visit Diagnoses Not on filedocumented in this encounter Care Teams Mortgage Operations Manager Relationship Specialty Start Date End Date Nerissa Lopez MD [address] [place] [id number] PCP - General Family Medicine 11/01/13 documented as of this encounter
--- OUTSIDE RECORDS SUMMARY | 2025-02-22 15:14 | XMS_ITS | Encounter Summary ---
Author Organization [employer] Address [address] [place] [address] Care Team Providers Care Subpoena Server Name Role Phone Nerissa Lopez MD Primary Care Provider [phone] Reason for Visit * Reason Onset Date Comments Nurse Triage 09/19/2024 Encounter Details Date Type Department Care Team (Late st Contact Info) Description 09/19/2024 Telephone [facility] MED & PEDS [address] [place] [address] Nerissa Lopez MD [address] [place] [address] Nurse Triage Social History Tobacco Use Types [...] Miscellaneous Notes * Telephone Encounter - Monica Vasqeuz RN - 09/19/2024 10:55 AM EST triage [...] with home care advised. ASK apt in [facility] today at 220pm. Unable to check [...] caller accepted this outcome. Contact pt at [phone] documented in this encounter Plan of Treatment Upcoming Encounters Date Type Department Care Team ([facility] st Contact Info) Description 03/16/2025 11:30 AM EDT Office Visit [facility] MED & PEDS [address] [place] [address] Nerissa Lopez MD [address] [place] [address] documented as of this encounter Visit Diagnoses Not on filedocumented in this encounter Care Teams Subpoena Server Relationship Specialty Start Date End Date Nerissa Lopez MD [address] [place] [phone] PCP - General Family Medicine 11/01/13 documented as of this encounter
--- OUTSIDE RECORDS SUMMARY | 2025-02-22 15:14 | XMS_ITS | Encounter Summary ---
Author Organization [employer] Address [address] [place] [address] Care Team Providers Care Rejected Items Clerk Name Role Phone Nerissa Lopez MD Primary Care Provider [phone] Reason for Visit * Reason Onset Date Comments Nurse Triage 10/04/2024 Encounter Details Date Type Department Care Team (Late st Contact Info) Description 10/04/2024 Telephone [facility] MED & PEDS [address] [place] [address] Nerissa Lopez MD [address] [place] [address] Nurse Triage Social History Tobacco Use Types [...] idea. Pt is advised to come to [facility] today, Pt reports will come tomorrow. Hours [...] become worse * Telephone Encounter - Neelima James - 10/04/2024 2:39 PM EST Symptom: Foot [...] with the left foot. Contact pt at [phone] documented in this encounter Plan of Treatment Upcoming Encounters Date Type Department Care Team (Late st Contact Info) Description 03/16/2025 11:30 AM EDT Office Visit [facility] MED & PEDS [address] [place] [address] Nerissa Lopez MD [address] [place] [address] documented as of this encounter Visit Diagnoses Not on filedocumented in this encounter Care Teams Rejected Items Clerk Relationship Specialty Start Date End Date Nerissa Lopez MD [address] [place] [phone] PCP - General Family Medicine 11/01/13 documented as of this encounter
--- OUTSIDE RECORDS SUMMARY | 2025-02-22 15:14 | XMS_ITS | Encounter Summary ---
Author Organization [employer] Address [address] [place] [address] Care Team Providers Care Child Development Consultant Name Role Phone Nerissa Lopez MD Primary Care Provider [phone] Reason for Visit * Reason Comments Med Refill Encounter Details Date Type Department Care Team ([facility] Contact Info) Description 04/27/2024 Refill [facility] MED & PEDS [address] [place] [address] Zulema Jorgensen MD [address] [place] [address] Social History Tobacco Use Types Packs/Day Years [...] Description 03/16/2025 11:30 AM EDT Office Visit [facility] MED & PEDS [address] [place] [address] Nerissa Lopez MD [address] [place] [address] documented as of this encounter Visit Diagnoses Not on filedocumented in this encounter Care Teams Child Development Consultant Relationship Specialty Start Date End Date Nerissa Lopez MD [address] [place] [id number] PCP - General Family Medicine 11/01/13 documented as of this encounter
--- OUTSIDE RECORDS SUMMARY | 2025-02-22 15:14 | XMS_ITS | Clinical Summary ---
Author Organization [employer] Address [address] [place] [address] Care Team Providers Care Manager Data Warehouse Name Role Phone Nerissa Lopez MD Primary Care Provider Allergies Active Allergy Reactions Criticality Noted Date [...] under 70 as needed Active nystatin (Mycostatin) 679651 UNIT/GM powder apply by topical route 3 times every day to the affected area(s) Active triamcinolone (Kenalog) 0.1 % cream Apply topically if needed in the morning and at bedtime (pain and swelling). 30 g 2 023 Active valACYclovir (Valtrex) 500 MG tablet TAKE ONE TABLET BY MOUTH TWICE DAILY UNTIL FINISHED. 6 tablet 2 Active Tirzepatide (Mounjaro) 2.5 MG/0.5ML solution pen-injectorIndic ations:Type 2 diabetes mellitus without complication, with long-term current use of insulin ([facility]) Inject 2.5 mg under the skin 1 (one) time per week. 0.5 mL 11 Active Continuous Glucose Senior Medical Writer (FreeStyle David 2 [place]) deviceIndications :Type 2 diabetes mellitus without complication, with long-term current use of insulin ([facility]) Scan sensor every 8 hours 1 each Active Continuous Glucose Sensor (FreeStyle David 2 Sensor) miscIndications:T ype 2 diabetes mellitus without complication, with long-term current use of insulin (CMS/[facility]) Apply 1 sensor every 14 days 2 each 3 Active Lantus SoloStar 100 UNIT/ML penIndications:Ty pe 2 diabetes mellitus without complication, without long-term current use of insulin ([facility]) INJECT 55 UNITS SUBCUTANEOUSLY EVERY MORNING 15 mL Active NovoLOG FLEXPEN 100 UNIT/ML penIndications:Ty pe 2 diabetes mellitus without complication, with long-term current use of insulin ([facility]) INJECT 4 to 12 UNITS SUBCUTANEOUSLY THREE TIMES DAILY BEFORE MEALS DIRECTED PER SLIDING SCALE 60 mL Active pravastatin (Pravachol) 20 MG tabletIndications :Mixed hyperlipidemia TAKE ONE TABLET EVERY NIGHT AT BEDTIME 90 tablet Active glipiZIDE (Glucotrol) 5 MG tabletIndications :Type 2 diabetes mellitus with hyperglycemia, unspecified whether alf insulin use ([facility]) TAKE ONE TABLET IN THE MORNING AND EVENING BEFORE MEALS 60 tablet Active furosemide (Lasix) 20 MG tablet Take 1 tablet (20 mg) by mouth 2 times daily. 60 tablet 2025 Active hydroCHLOROthiazi de (HYDRODiuril) 25 MG tabletIndications :Hypertension, unspecified type TAKE ONE TABLET EVERY MORNING 90 tablet Active lisinopril 20 MG tabletIndications :Hypertension, unspecified type TAKE ONE TABLET EVERY MORNING 90 tablet Active Aspirin Adult Low Strength 81 MG EC tabletIndications :Primary hypertension TAKE ONE TABLET EVERY MORNING 30 tablet Active allopurinol (Zyloprim) 100 MG tablet Take 1 tablet (100 mg) by mouth Once per day. 30 tablet 2025 Active ferrous gluconate (Fergon) 324 (38 Fe) MG tablet Take 1 tablet (324 mg) by mouth with breakfast. 30 tablet 025 2025 Active glucose blood (FREESTYLE LITE) test strip TEST BLOOD SUGAR SIX TO EIGHT TIMES DAILY 300 strip Active levothyroxine (Synthroid, Levoxyl) 150 MCG tablet TAKE ONE TABLET EVERY MORNING FOR THYROID 90 tablet Active cholecalciferol (Vitamin D-3) 25 MCG tablet TAKE ONE TABLET EVERY MORNING (vitamin) 90 tablet 1 04/08/2 025 Active glucose blood (FREESTYLE LITE) test strip Check BS by skin route 6-8 times every day 300 each 11 024 2024 Discontinued cholecalciferol (Vitamin D-3) 25 MCG tablet TAKE ONE TABLET EVERY MORNING (VITAMIN) 90 tablet 1 024 2024 Discontinued levothyroxine (Synthroid, Levoxyl) 150 MCG tablet TAKE ONE TABLET EVERY MORNING FOR THYROID 90 tablet 1 024 2024 Discontinued predniSONE (Deltasone) 20 MG tablet Take 1 [...] Encounters Date Type Department Care Team Description 02/08/2025 11:15 AM EDT Office Visit [facility] [address] [place] [address] Nerissa Lopez MD Acute gout involving toe of right foot, unspecified cause (Primary Dx); Type 2 diabetes mellitus without complication, with long-term current use of insulin ([facility]); Primary hypertension 02/08/2025 Travel 02/07/2025 Telephone [facility] [address] [place] [address] Nerissa Lopez MD Chart Prep 01/28/2025 Refill [facility] [address] [place] [address] Nerissa Lopez MD 01/26/2025 Refill [facility] [address] [place] [address] Nerissa Lopez MD 01/18/2025 2:00 PM EDT Telemedicine [facility] [address] [place] [address] Brian Solis MD Acute gout involving toe of right foot, unspecified cause (Primary Dx) 01/18/2025 Travel 01/17/2025 Telephone [facility] [address] [place] [address] Nerisas Lopez MD Nurse Triage 01/16/[address] [address] Nerissa Lopez MD Nurse Triage 01/13/2025 Telephone [facility] [address] [place] [address] Nerissa Lopez MD Results (X-ray results) 01/13/2025 Telephone [facility] [address] [place] [address] Brian Solis MD 01/13/2025 Orders Only [facility] [address] [place] [address] Brian Solis MD Iron deficiency anemia, unspecified iron deficiency anemia type (Primary Dx) 01/12/2025 Orders Only [facility] [address] [place] [address] Nerissa Lopez MD 01/11/2025 Telephone [facility] [address] [place] [address] Nerissa Lopez MD Novolog 01/09/2025 7:00 PM EDT Office Visit [facility] [address] [place] [phone] Brian Solis MD Left foot pain (Primary Dx) 01/09/[address] [address] Nerissa Lopez MD Nurse Triage 01/05/2025 2:00 PM EDT Office Visit [facility] [address] [place] [address] Radha Ling DO Swelling of both lower extremities (Primary Dx) 01/05/2025 11:00 AM EDT Telemedicine [facility] [address] [place] [address] Nerissa Lopez MD Primary hypertension (Primary Dx); Type 2 diabetes mellitus without complication, with long-term current use of insulin (CMS/HCC); Right foot pain 01/05/2025 Telephone [facility] [address] [place] [address] Nerissa Lopez MD Nurse Triage (Leg swelling) 01/05/2025 Travel 12/29/2024 Travel 12/28/2024 Telephone [facility] [address] [place] [address] Nerissa Lopez MD R/S APPT 12/27/2024 Refill [facility] [address] [place] [address] Nerissa Lopez MD Primary hypertension 12/24/2024 Refill [facility] [address] [place] [address] Nerissa Lopez MD Hypertension, unspecified type 12/22/2024 Telephone [facility] [address] [place] [address] Nerissa Lopez MD Nurse Triage 12/14/2024 2:00 PM EST Office Visit [facility] [address] [place] [address] Nerissa Lopez MD Left foot pain (Primary Dx); Type 2 diabetes mellitus without complication, with long-term current use of insulin (CMS/HCC) 12/14/2024 Travel 12/13/2024 Telephone [facility] [address] [place] [address] Nerissa Lopez MD Nurse Triage 11/25/2024 Telephone [facility] [address] [place] [address] Nerissa Lopez MD Nurse Triage 11/24/2024 Refill [facility] [address] [place] [address] Nerissa Lopez MD Type 2 diabetes mellitus with hyperglycemia, unspecified whether intermediate designer insulin use ([facility]) from Last 3 Months Immunizations Name Administration [...] Sign Reading Time Taken Comments Blood Pressure 138/76 02/08/2025 11:36 AM EDT Pulse 84 02/08/2025 11:36 AM EDT Temperature 37.1 ??C (98.7 ??F) 02/08/2025 11:36 AM E DT Respiratory Rate 20 02/08/2025 11:36 AM EDT Oxygen Saturation 97% 01/09/2025 6:54 PM EDT Inhaled Oxygen Concentration - - Weight 103 kg (226 lb) 02/08/2025 11:36 AM EDT Height 157.5 cm (5' 2 ) 02/08/2025 11:36 AM EDT Body Mass Index 41.34 02/08/2025 11:36 AM EDT Plan of Treatment Upcoming Encounters Date Type Department Care Team (Late st Contact Info) Description 03/16/2025 11:30 AM EDT Office Visit [facility] [address] [place] [address] Nerissa Lopez MD [address] [place] [address] Health Maintenance Due Date Last Done Comments [...] Screening 12/03/2024 12/03/2023, 10/27/2023 Diabetes: Hemoglobin A1C 07/15/2025 025, 12/14/2024, 07/27/2024, Additional history exists Diabetes: Foot Exam 12/14/2025 12/14/2024 Depression Screening 01/05/2026 01/05/2025, 01/06/20 SDOH Screening 01/05/2026 01/05/2025 Tobacco Screening 01/05/2026 01/05/2025 Lipid Panel 01/12/2026 01/12/2025, 1011/2023, 03/30/2023 Mammogram 01/12/2026 01/13/2024 Colorectal Cancer Screening [...] Name Priority Date/Time Associated Diagnosis Comments POCT GLUCOSE Routine 02/08/2025 11:38 AM EDT Type 2 diabetes mellitus without complication, with long-term current use of insulin ([facility]) CREATINE KINASE ISOENZYMES (CK ISOENZYMES) WITH TOTAL CK Routine 01/12/2025 12:22 PM EDT PROTEIN, TOTAL AND PROTEIN ELECTROPHORESIS Routine 01/12/2025 12:22 PM EDT IMMUNOFIXATION, SERUM Routine 01/12/2025 12:22 PM EDT IMMUNOGLOBULINS, QUANTITATIVE, IGA, IGG, IGM Routine 01/12/2025 12:22 PM EDT DNA (DS) ANTIBODY, CRITHIDIA IFA WITH REFLEX TO TITER Routine 01/12/2025 12:22 PM EDT CENTROMERE B ANTIBODY Routine 01/12/2025 12:22 PM EDT SCL-70 ANTIBODY Routine 01/12/2025 12:22 PM EDT TSH W/REFLEX TO FT4 Routine 01/12/2025 1 2:22 PM EDT C-REACTIVE PROTEIN Routine 01/12/2025 12 :22 PM EDT COMPREHENSIVE METABOLIC PANEL Routine 01/12/2025 12:22 PM EDT HEMOGLOBIN A1C Routine 01/12/2025 12:22 PM EDT LIPID PANEL, STANDARD Routine 01/12/2025 12:22 PM EDT CBC WITH AUTO DIFFERENTIAL Routine 01/12/2025 12:22 PM EDT URIC ACID Routine 01/12/2025 12:22 PM EDT Left foot pain C-REACTIVE PROTEIN Routine 01/12/2025 12 :22 PM EDT Left foot pain SED RATE BY MODIFIED WESTERGREN Routine 01/12/2025 12:22 PM EDT Left foot pain CBC WITH AUTO DIFFERENTIAL Routine 01/12/2025 12:22 PM EDT Left foot pain XR FOOT 3+ VIEWS LEFT Routine 01/12/2025 11:33 AM EDT POCT GLYCATED HEMOGLOBIN, TOTAL Routine 12/14/2024 2:33 PM EST Type 2 diabetes mellitus without complication, with long-term current use of insulin ([facility]) POCT GLUCOSE Routine 12/14/2024 2:32 PM EST Type 2 diabetes mellitus without complication, with long-term current use of insulin ([facility]) XR ANKLE 3+ VIEWS RIGHT Routine 12/09/19 25 1:57 PM EST Right foot pain XR FOOT 3+ VIEWS RIGHT Routine 5 1:57 PM EST Right foot pain BI [...] Relevant to Health Maintenance Results * (ABNORMAL) POCT Glucose (02/08/2025 11:38 AM EDT) Only the most recent of2 resultswithin the time period is included. Glucose Blood, POC 278(A) 60 - 200 mg/dL Comment:fasting QC Media Lot # [id number] Lot# Expiration Date Blood Capillary blood specimen / Unknown 02/08/2025 11:38 AM EDT Nerissa Lopez MD POINT OF CARE TEST ENTER/EDIT OR DERABLES Final Result * DNA (ds) Antibody, Crithidia IFA with Reflex to Titer (01/12/2025 12:22 PM EDT) Pathologist [facility] DNA AB(DS) Crithidia, IFA Negative Negative [facility] Comment:THIS TEST WAS PERFOR MED AT:[id number] [place] [address]CSVETYSJOE MOHAMUD MD,PHD DNA AB (DS) CRITHIDIA, ADDITIONAL TESTING [facility] DNA (DS) Antibody Crithidia [facility] 01/12/2025 12:2 2 PM EDT 01/12/2025 1:06 PM EDT us Generic External Data Provider LAB BLOOD ORDERAB LES Final Result [facility] [address], [place] [phone] * Centromere B Antibody (01/12/2025 12:22 PM EDT) Pathologist [facility] Centromere B Antibody <1.0 NEG <1.0 NEG AI [facility] Comment:THIS TEST WAS PERFOR MED AT:[facility] [address] [id number] REILLY MD 01/12/2025 12:2 2 PM EDT 01/12/2025 1:06 PM EDT us Generic External Data Provider LAB BLOOD ORDERAB LES Final Result Performing Organization Address City/[facility]/ZIP Co de Phone Number [facility] [address] [place] [address] [phone] * TSH with Reflex to Free T4 (01/12/2025 12:22 PM EDT) [facility] TSH reflex Free T4 0.59 0.32 - 4.0 uIU/mL [facility] 01/12/2025 12:2 2 PM EDT 01/12/2025 1:06 PM EDT Generic External Data Provider LAB BLOOD ORDERAB LES Final Result Performing Organization Address [facility] Co de Phone Number [facility] [address] [place] [phone] * (ABNORMAL) CBC auto differential (01/12/2025 12:22 PM EDT) Only the most recent of2 resultswithin the time period is included. [facility] White Blood Count 12.0(H) 4.8 - 10.8 X10*3/uL [facility] Red Blood Count 3.06(L) 4.20 - 5.50 X10*6/uL [facility] Hemoglobin 8.5(L) 12.0 - 16.0 g/dl [facility] Hematocrit 27.0(L) 37.0 - 47.0 % [facility] Mean Corpuscular Volume 88.2 80.0 - 98.0 fL [facility] Mean Corpuscular Hemoglobin 27.8 27.0 - 33.0 pg [facility] Mean Corpuscular HGB Conc 31.5 31.0 - 35.0 g/dl [facility] Red Cell Distribution Width 13.7 11.0 - 16.0 % [facility] Platelet Count 353 160 - 400 X10*3/uL [facility] Mean Platelet Volume 11.3 9.4 - 12.3 fL [facility] Neutrophils Percent Auto 84.2(H) 45 - 73 % [facility] Imm Gran Pct Auto 0.6(H) 0.0 - 0.4 % [facility] Lymphocytes Percent Auto 10.2(L) 20 - 40 % [facility] Monocytes Percent Auto 4.4 2 - 11 % [facility] Eosinophils Percent Auto 0.2 0 - 4 % [facility] Basophils Percent Auto 0.4 0 - 2 % [facility] NRBC Pct Auto 0.0 0.0 - 0.2 /100WBC [facility] Neutrophils Absolute Auto 10.1(H) 2.0 - 8.3 x10*3/uL [facility] Imm Gran Abs Auto 0.07(H) 0.00 - 0.03 X10*3/uL [facility] Lymphocytes Absolute Auto 1.2 1.2 - 4.9 X10*3/uL [facility] Monocytes Absolute Auto 0.5 0.1 - 1.2 X10*3/uL [facility] Eosinophils Absolute Auto 0.0 0.0 - 0.4 X10*3/uL [facility] Basophils Absolute Auto 0.1 0.0 - 0.2 X10*3/uL [facility] NRBC Abs Auto 0.000 0.0 - 0.012 X10*3/uL [facility] 01/12/2025 12:2 2 PM EDT 01/12/2025 1:06 PM EDT us Generic External Data Provider LAB BLOOD ORDERAB LES Final Result [facility] [address] [place] [address] [phone] * SCL-70 Antibody (01/12/2025 12:22 PM EDT) SCL-70 Antibody <1.0 NEG <1.0 NEG AI [facility] Comment:THIS TEST WAS PERFOR MED AT:[employer] [place] [id number] REILLY MD 01/12/2025 12:2 2 PM EDT 01/12/2025 1:06 PM EDT Generic External Data Provider LAB BLOOD ORDERAB LES Final Result Performing Organization Address [facility] Co de Phone Number [facility] [address] [place] [phone] * (ABNORMAL) Sed Rate by Modified Westergren (01/12/2025 12:22 PM EDT) Erythrocyte Sedimentation Rate 119(H) 0 - 20 MM/HR [facility] Comment:Patients with polycy themia and many hemoglobin abnormalitiesmay have depressed sed rates whereas patients with anemiamay have elevated sed rates. Blood Venous blood specimen / Unknown 01/12/2025 12:22 PM EDT 01/12/2025 1:06 PM EDT us Brian Valverde MD LAB BLOOD ORDERABL ES Final Result Performing Organization Address [facility] Co de Phone Number [facility] [address] [place] [phone] * Immunofixation, Serum (01/12/2025 12:22 PM EDT) Pathologist [facility] Immunofixation Result SEE NOTE [facility] Comment:No monoclonal protei ns detected. 01/12/2025 12:2 2 PM EDT 01/12/2025 1:06 PM EDT Generic External Data Provider LAB BLOOD ORDERAB LES Final Result Performing Organization Address [facility] de Phone Number [facility] [address] [place] [phone] * (ABNORMAL) Immunoglobulins, Quantitative, IgA, IgG, IgM (01/12/2025 12:22 PM EDT) IMMUNOGLOBULIN G 1713(A) 600 - 1640 mg/dL [facility] IMMUNOGLOBULIN A 201 47 - 310 mg/dL [facility] Immunoglobulin M 110 50 - 300 mg/dL [facility] Comment:THIS TEST WAS PERFOR MED AT:[employer] [place] [id number] REILLY MD 01/12/2025 12:2 2 PM EDT 01/12/2025 1:06 PM EDT us Generic External Data Provider LAB BLOOD ORDERAB LES Final Result Performing Organization Address [facility]/ZIP Co de Phone Number [facility] [address] [place] [phone] * (ABNORMAL) C-reactive Protein (01/12/2025 12:22 PM EDT) Only the most recent of2 resultswithin the time period is included. C Reactive Protein 15.21(H) < or = 0.50 mg/dL [facility] 01/12/2025 12:2 2 PM EDT 01/12/2025 1:06 PM EDT us Generic External Data Provider LAB BLOOD ORDERAB LES Final Result Performing Organization Address [facility] Co de Phone Number [facility] [address] [place] [phone] * (ABNORMAL) Uric acid (01/12/2025 12:22 PM EDT) Uric Acid 13.3(H) 2.4 - 5.7 mg/dL [facility] Blood Venous blood specimen / Unknown 01/12/2025 12:22 PM EDT 01/12/2025 1:06 PM EDT us Brian Valverde MD LAB BLOOD ORDERABL ES Final Result Performing Organization Address [facility]/ZIP Co de Phone Number [facility] [address] [place] [phone] * (ABNORMAL) Protein, Total and Protein??Electrophoresis (01/12/2025 12:22 PM EDT) Prot Elec - Total Protein 7.7 6.1 - 8.1 g/dL [facility] Prot Elec - Albumin 3.5(A) 3.8 - 4.8 g/dL [facility] Prot Elec - Alpha1 0.5(A) 0.2 - 0.3 g/dL [facility] Prot Elec - Alpha2 1.4(A) 0.5 - 0.9 g/dL [facility] Prot Elec - Beta 1 0.5 0.4 - 0.6 g/dL [facility] Prot Elec - Beta 2 0.4 0.2 - 0.5 g/dL [facility] Prot Elec - Gamma 1.4 0.8 - 1.7 g/dL [facility] PES - Abn Protein Band 1 TNP [facility] PES-Abn Protein Band 2 TNP [facility] PES-Abn Protein Band 3 [facility] Prot Elec - Interpretation SEE NOTE [facility] Comment:Evaluation is consis tent with an acute inflammatorypattern.THIS TEST WAS PERFORMED AT:[employer] [place] [phone] REILLY MD 01/12/2025 12:2 2 PM EDT 01/12/2025 1:06 PM EDT us Generic External Data Provider LAB BLOOD ORDERAB LES Final Result [facility] [address] [place] [phone] * (ABNORMAL) Hemoglobin A1c (01/12/2025 12:22 PM EDT) Hemoglobin A1c 6.5(H) <6.0 % [facility] Comment:Hemoglobin A1C Refer ence Range Adults: 4.8 - 6.0 % Non diabetic: < 6.0 % Goal: < 7.0 %Additional Action Suggested: > 8.0 %Note: Hemoglobin A1c results are invalid for patients with abnormal amounts of HbF. Blood transfusions may impact the HbA1c concentration in the patient sample. Estimated Average Glucose 140 mg/dL [facility] Comment:eAG = Estimated ave rage glucose which is %A1C expressed asaverage glucose, using the formula of the U8T-DrgcikuRxzfmta Glucose study (ADAG), Diabetes Care, Vol.31,#8,2007 01/12/2025 12:2 2 PM EDT 01/12/2025 1:06 PM EDT us Generic External Data Provider LAB BLOOD ORDERAB LES Final Result Performing Organization Address [facility] Co de Phone Number [facility] [address] [place] [phone] * (ABNORMAL) Creatine Kinase Isoenzymes (CK Isoenzymes) w/ Total CK (01/12/2025 12:22 PM EDT) Creatine Kinase, Total 93 21 - 240 U/L [facility] CK-MM 95 95 - 100 % [facility] Ck-Mb 0 <5 % [facility] CK-BB 5(A) None Detected % [facility] Creatine Kinase Isoenzyme Interpretation BB BAND PRESENT.( A) [facility] Comment:This isoenzyme is no t present in normal serum. BB hasbeen observed in association with a variety ofcarcinomas (lung, gut, bladder, prostate) plus hearttrauma, shock, open heart surgery, and connectivetissue disorders.THIS TEST WAS PERFORMED AT:[id number] [place] [address]VEEYJULJOE MOHAMUD MD,PHD 01/12/2025 12:2 2 PM EDT 01/12/2025 1:06 PM EDT us Generic External Data Provider LAB BLOOD ORDERAB LES Final Result Performing Organization Address City/[facility]/ZIP Co de Phone Number [facility] [address] [place] [phone] * (ABNORMAL) Lipid Panel, Standard (01/12/2025 12:22 PM EDT) Triglycerides 115 <150 mg/dL [facility] Comment:Desirable Triglyceri de: less than 150 mg/dLBorderline High Triglyceride 150-199 mg/dLHigh Triglyceride: 200-499 mg/dLVery High Triglyceride: greater than or equal to 5OO mg/dL Cholesterol 171 <200 mg/dL [facility] Comment:Desirable Cholestero l: less than 200 mg/dLBorderline High Cholesterol: 200-239 mg/dLHigh Cholesterol: greater than 239 mg/dL LDL Cholesterol Calculated 100(H) <100 mg/dL [facility] Comment:Desirable LDL: less than 100 mg/dLNear Optimal/Above Optimal LDL: 110- 129 mg/dLBorderline High LDL: 130-159 mg/dLHigh LDL: 160-189 mg/dLVery High LDL: greater than or equal to 190 mg/dL HDL Cholesterol 48 >40 mg/dL [facility] Comment:Desirable HDL: great er than 40 mg/dL Note: This HDL assay may give artificially low results in patients with liver disease. 01/12/2025 12:2 2 PM EDT 01/12/2025 1:06 PM EDT us Generic External Data Provider LAB BLOOD ORDERAB LES Final Result [facility] [address] [place] [phone] * (ABNORMAL) Comprehensive Metabolic Panel (01/12/2025 12:22 PM EDT) Pathologist [facility] Sodium 141 135 - 145 mmol/L [facility] Potassium 4.2 3.3 - 5.1 mmol/L [facility] Chloride 104 96 - 108 mmol/L [facility] Carbon Dioxide 24 22 - 29 mmol/L [facility] Anion Gap 17 12 - 20 [facility] Urea Nitrogen (BUN) 47(H) 9 - 16 mg/dL [facility] Creatinine, Serum 2.02(H) 0.5 - 1.4 mg/dL [facility] Estimated Glomerular Filt Rate 25 [facility] Comment:Chronic Kidney Disea se: Estimated GFR < 60 mL/min/[id number] Kidney Disease: Estimated GFR < 15 mL/min/1.73m2 Glucose 93 60 - 115 mg/dL [facility] Calcium 8.3(L) 8.4 - 10.2 mg/dL [facility] Bilirubin, Total 0.4 0.0 - 1.0 mg/dL [facility] Aspartate Amino Transferase 22 5 - 31 U/L [facility] Alanine Aminotransferase 30 0 - 31 U/L [facility] Total Protein 8.6(H) 6.5 - 8.0 g/dL [facility] Albumin Level 3.8 3.5 - 5.0 g/dL [facility] Alkaline Phosphatase 79 39 - 117 U/L [facility] 01/12/2025 12:2 2 PM EDT 01/12/2025 1:06 PM EDT us Generic External Data Provider LAB BLOOD ORDERAB LES Final Result Performing Organization Address City/State/[facility] Co de Phone Number [facility] [address] [place] [address] [phone] * XR Foot 3+ Views Left (01/12/2025 11:33 AM EDT) Anatomical Region Laterality Modality Lower Extremities, Foot Left Radiogra phic Imaging 01/12/2025 11:3 3 AM EDT Narrative 01/12/2025 12:30 PM EDT ?[facility] ?[address] ?[place] [address] ?XRay Report ? Signed ? Patient: Talavera,Mekhi ?MR#: [id number] ?? 2 ? : 1970 ?Acct:[id number] ? Age/Sex: 54 / F ?ADM Date: 03/20/25 ? Loc: HO.HHCX ? Attending Dr: Nerissa Lopez MD ? Ordering Physician: Nerissa Lopez MD ?? Date of Service: 01/12/25 ?? Procedure(s): XR foot LT min 3V ?? Accession Number(s): [id number] ? cc: Nerissa Lopez MD ? EXAMINATION: [...] DD/ 1133 ? TD/TT: 01/12/25 1200 ? Emission Technician: MSM ? Procedure Note Ezequielyuriyguillermoced, Image - 01/12/[address] [address] XRay Report Signed Patient: Steven Talavera#: [id number] 2 : 1970Acct:[id number] Age/Sex: 54 / FADM Date: 01/12/25 Loc: HO.HHCX Attending Dr: Nerissa Lopez MD Ordering Physician: Nerissa Lopez MD Date of Service: 01/12/25 Procedure(s): XR foot LT min 3V Accession Number(s): [id number] cc: Nerissa Lopez MD EXAMINATION: XR FOOT, [...] 01/12/25 1228 DD/ 1133 TD/TT: 01/12/25 1200 Emission Technician: [facility] Nerissa Lopez MD IMG XR PROCEDURES Final Result * (ABNORMAL) POCT HGB A1C (12/14/2024 2:33 PM EST) Hemoglobin A1C 7.8(A) 4.0 - 6.0 % QC Media Lot # [id number] Lot# Expiration Date 570 Blood 12/14/2024 2:33 PM EST Nerissa Lopez MD POINT OF CARE TEST ENTER/EDIT OR DERABLES Final Result * XR Foot 3+ Views Right (12/09/2024 1:57 PM EST) Anatomical Region Laterality Modality Lower Extremities, Foot Right Radiogra phic Imaging 12/09/2024 1:57 PM EST Narrative 12/09/2024 4:14 PM EST ? [facility] ?[address] ?[place] [address] ?XRay Report ? Signed ? Patient: Talavera,Mekhi ?MR#: [id number] ?? 2 ? : 1970 ?Acct:[id number] ? Age/Sex: 54 / F ?ADM Date: 02/14/25 ? Loc: HO.XRAY ? Attending Dr: Zulema Jorgensen MD ? Ordering Physician: Zulema Jorgensen MD ?? Date of Service: 12/09/24 ?? Procedure(s): XR foot RT min 3V ?? Accession Number(s): [id number] ? cc: Zulema Jorgensen MD ? EXAMINATION: [...] DD/ 1357 ? TD/TT: 12/09/24 1409 ? Emission Technician: ? Procedure Note Eleuterio Zeng - 12/09/2024 [place] [address] XRay Report Signed Patient: Steven Talavera#: [id number] 2 : 1970Acct:[id number] Age/Sex: 54 / FADM Date: 12/09/24 Loc: HOARTIE Attending Dr: Zulema Jorgensen MD Ordering Physician: Zulema Jorgensen MD Date of Service: 12/09/24 Procedure(s): XR foot RT min 3V Accession Number(s): [id number] cc: Zulema Jorgensen MD EXAMINATION: XR FOOT [...] 12/09/24 1612 DD/ 1357 TD/TT: 12/09/24 1409 Emission Technician: us Zulema Jorgensen MD IMG XR PROCEDURES Edited Resu lt - Final * XR Ankle 3+ Views Right (12/09/2024 1:57 PM EST) Anatomical Region Laterality Modality Lower Extremities, Ankle Right Radiogr aphic Imaging 12/09/2024 1:57 PM EST Narrative 12/09/2024 4:14 PM EST ? [facility] ?[address] ?[place] [address] ?XRay Report ? Signed ? Patient: Mekhi Talavera ?MR#: [id number] ?? 2 ? : 1970 ?Acct:[id number] ? Age/Sex: 54 / F ?ADM Date: 12/09/24 ? Loc: HO.XRAY ? Attending Dr: Zulema Jorgensen MD ? Ordering Physician: Zulema Jorgensen MD ?? Date of Service: 12/09/24 ?? Procedure(s): XR ankle RT min 3V ?? Accession Number(s): [id number] ? cc: Zulema Jorgensen MD ? EXAMINATION: [...] PM EST ?? RP ? Dictated By: ?aCrlos Gannon MD ? Signed By: ?<Electronically signed by Carlos Gannon MD in OV> ?12/09/24 1612 ? DD/ 1357 ? TD/TT: 12/09/24 1409 ? Emission Technician: ? Procedure Note Donadeolainterpreter, Image - 12/09/2024 [place] [address] XRay Report Signed Patient: Steven Talavera#: [id number] 2 : 1970Acct:[id number] Age/Sex: 54 / FADM Date: 12/09/24 Loc: FAYE Attending Dr: Zulema Jorgensen MD Ordering Physician: Zulema Jorgensen MD Date of Service: 12/09/24 Procedure(s): XR ankle RT min 3V Accession Number(s): [id number] cc: Zulema Jorgensen MD EXAMINATION: XR FOOT [...] 12/09/24 1612 DD/ 1357 TD/TT: 12/09/24 1409 Emission Technician: us Zulema Jorgensen MD IMG XR PROCEDURES Edited Resu lt - Final * BI Mammogram Screening Tomosynthesis Bilateral (01/13/2024 3:00 PM EDT) Anatomical Region Laterality Modality Breast Bilateral Mammography 01/13/2024 3:00 PM EDT Narrative 02/04/2024 5:12 AM EDT ? [facility] ? [address] ?[place] [address] ? Mammography Report ? Signed ? Patient: Talavera,Mekhi ?MR#: [id number] ?? 2 ? : 1970 ?Acct:[id number] ? Age/Sex: 53 / F ?ADM Date: 01/13/24 ? Loc: HO.MAMMO ? Attending Dr: Nerissa S John MD ? Ordering Physician: John,Nerissa S MD ?Results: 1Negati ?? ve ? Date of Service: 01/13/24 ?Follow Up: 1 Year From Orig ?? inal Mammogram ? Procedure(s): MM tomosynthesis screening BI ?? Accession Number(s): [id number] ? cc: Nerissa Lopez MD ? EXAMINATION: [...] 0508 ? DD/ 1500 ? TD/TT: ? Emission Technician: ? Procedure Note Eleuterio Zeng - 02/04/2024 [facility] [address] [place] [address] Mammography Report Signed Patient: Steven Talavera#: [id number] 2 : 1970Acct:[id number] Age/Sex: 53 / FADM Date: 01/13/24 Loc: HO.MAMMO Attending Dr: Nerissa Lopez MD Ordering Physician: Nerissa Lopez MDResults: 1Negati ve Date of Service: 01/13/24Follow Up: 1 Year From Orig inal Mammogram Procedure(s): MM tomosynthesis screening BI Accession Number(s): [id number] cc: Nerissa Loepz MD EXAMINATION: MM SCREENING DIGITAL BREAST TOMOSYNTHESIS, [...] in OV> 02/04/24 0508 DD/ 1500 TD/TT: Emission Technician: Nerissa Lopez MD IMG BI PROCEDURES Final Result * Cologuard?? colon cancer screening (10/05/2023 1:05 PM EST) Cologuard Result Negative Negative 10/14/20 1:10 PM EST [employer] (CLIA #:[id number]) Comment: NEGATIVE TEST RESULT. A negative Cologuard [...] (Nikki August al, N Engl J Med 2014;370(14):1286- 1297) The normal value (reference range) for this assay is negative. COLOGUARD RE-SCREENING RECOMMENDATION: Periodic colorectal cancer screening is an important part of preventive healthcare for asymptomatic individuals at average risk for colorectal cancer. ??Following a negative Cologuard result, the [place] Cancer Society and U.S. Multi-Society Task Force screening guidelines recommend a Cologuard re-screening interval of 3 years. References: [place] Cancer Society Guideline for Colorectal Cancer Screening: https://www.cancer.org/cancer/nyoku-aqbkov-gkpplq/wvewkqrtj-llxqoqzxi-vyuqbek/ac s-rec ommendations.html.; Sergo DK, Adrian CR, Cindy ColonK, Colorectal Cancer Screening: Recommendations for Physicians and Patients from the U.S. Multi-Society Task Force on Colorectal Cancer Screening , Am J Gastroenterology 2017; 112:4141-4027. TEST DESCRIPTION: Composite algorithmic analysis of stool [...] (Nikki August al, N Engl J Med 2014;370(14):7218-9791.) Cologuard may produce a false negative or false positive result (no colorectal cancer or precancerous polyp present at colonoscopy follow up). A negative Cologuard test result does not guarantee the absence of CRC or advanced adenoma (pre-cancer). The current Cologuard screening interval is every 3 years. ([place] Cancer Society and U.S. Multi-Society Task Force). Cologuard performance data in a 10,000 patient pivotal study using colonoscopy as the reference method can be accessed at the following location: www.U-NOTE.PIE Software/results. Additional description of the Cologuard test process, warnings and precautions can be found at www.cologuard.com. Stool specimen (specimen) 10/05/2023 1:05 PM EST 10/06/2023 8:14 PM EST us Nerissa Lopez MD LAB MOLECULAR DIAGNOSTICS ORDERBuster SADLER Final Result [employer] (CLIA #:[id number]) [place] [address] [place] [address], from Last 3 Months or Most Recently Relevant to Health Maintenance Insurance [facility] Care Teams Manager Data Warehouse Relationship Specialty Start Date End Date Nerissa Lopez MD [address] [place] [address] PCP - General Family Medicine 11/01/13
--- OUTSIDE RECORDS SUMMARY | 2025-02-22 15:14 | XMS_ITS | Encounter Summary ---
Author Organization [employer] Address [address] 7 [place] [address] Care Team Providers Care Blanking Machine Operator Name Role Phone Nerissa Lopez MD Primary Care Provider [phone] Encounter Details Date Type Department Care Team (Late Contact Info) Description 02/20/2023 Orders Only [facility] MED & PEDS [address] [place] [address] Nerissa Lopez MD [address] [place] [address] Type 2 diabetes mellitus without complication, without long-term current use of insulin ([facility]); Type 2 diabetes mellitus without complication, with long-term current use of insulin ([facility]) Social History Tobacco Use Types Packs/Day Years [...] Encounters Date Type Department Care Team (Late Contact Info) Description 03/16/2025 11:30 AM EDT Office Visit [facility] [address] [place] [address] Nerissa Lopez MD [address] [place] [address] documented as of this encounter Visit Diagnoses Diagnosis Type 2 diabetes mellitus without complication, without long-term current use of insulin (CMS/HCC) Type 2 diabetes mellitus without complication, with long-term current use of insulin (CMS/HCC) documented in this encounter Care Teams Blanking Machine Operator Relationship Specialty Start Date End Date Nerissa Lopez MD [address] [place] [address] PCP - General Family Medicine 11/01/13 documented as of this encounter
--- OUTSIDE RECORDS SUMMARY | 2025-02-22 15:14 | XMS_ITS | Encounter Summary ---
Author Organization [employer] Address [address] [place] [address] Care Team Providers Care Drapery Maker Name Role Phone Nerissa Lopez MD Primary Care Provider [phone] Reason for Visit * Reason Onset Date Comments Appointment Request 07/22/2023 Encounter Details Date Type Department Care Team (Late st Contact Info) Description 07/22/2023 Telephone [facility] MED & PEDS [address] [place] [address] Nerissa Lopez MD [address] [place] [address] Appointment Request Social History Tobacco Use Types [...] Call to pt. Per pt, seen by Driver Guide on 07/21/23. Per pt, advised of high potassium in blood work. States she was advised to follow low potassium diet and repeat labs this week. Pt also states herprovider ordered a renal US. Per pt, followed recommendations. States she is feeling well and denies any symptoms at this time. Noted pt with upcoming visit with vocational instructor on 07/29/23. Per pt, not aware. Agrees to contact office to confirm the scheduled visit. Will forward to PCP to review. Please see scanned in vocational instructor office note from 07/21/23. * Telephone Encounter [...] Description 03/16/2025 11:30 AM EDT Office Visit [facility] [address] [place] [address] Nerissa Lopez MD [address] [place] [address] documented as of this encounter Visit Diagnoses Not on filedocumented in this encounter Care Teams Drapery Maker Relationship Specialty Start Date End Date Nerissa Lopez MD [address] [place] [address] PCP - General Family Medicine 11/01/13 documented as of this encounter
--- OUTSIDE RECORDS SUMMARY | 2025-02-22 15:14 | XMS_ITS | Clinical Summary ---
Author Organization [facility] Address [address] [address] Phone Care Team Providers Care Tooling Supervisor Name Role Phone Robin Lopez MD Primary Care Provider [phone] Allergies Active Allergy Reactions Criticality Noted Date [...] mg by mouth every morning 4 Active furosemide (LASIX) 40 MG tablet Take [...] 11/20/2021 0 11/20/2021 Hypothyroidism 11/20/2021 11/20/2021 Immunizations Immunization Administration Dates Next Due Influenza Whole 09/10/2007,09/11/2006 [...] - 19+ 3-dose series) 1987 Pneumococcal Vaccine: 50+ Ye ars (3 of 3 - PCV) 04/25/2012 04/25/2011, 02/13/2010 Colorectal Cancer Screening: Annual FOBT 2017 Colorectal Cancer Screening: Colonoscopy 2017 Colorectal Cancer Screening: Sigmoidoscopy 2017 Diabetes: Ophthalmology Exam 07/21/2023 Diabetes: Pedal Pulse Checked 07/21/2023 Diabetes: Sensory Foot Exam 07/21/2023 Diabetes: Visual Foot Exam 07/21/2023 Diabetes: Hemoglobin A1C 03/13/2025 025, 07/27/2024, 07/21/2024, Additional history exists Pneumococcal Vaccine: Peds ( 0 to 5 Years) and At-Risk Patients (6 to 49 Years) Discontinued 04/25/2011, 02/13/2010 Influenza Vaccine Completed 07/21/2024, , 07/05/2019, Additional history exists Procedures Procedure Name Priority Date/Time Associated Diagnosis Comments HEMOGLOBIN A1C Routine 12/03/2023 4:25 PM EST Chronic kidney disease, not otherwise specified from Last 3 Months or Most Recently Relevant to Health Maintenance Results * (ABNORMAL) Hemoglobin A1c (12/03/2023 4:25 PM EST) Hemoglobin A1C 8.1(H) (4.0-5.6) % [facility] Comment: MONITORING: In known diabetic patients, hemoglobin A1c targets should be discussed with health care provider. DIAGNOSTIC USE: ??The [place] Diabetes Association (ADA) and the World Health [...] Supplement 1 Testing performed or reported by [facility] [employer], a Service of [facility], [address] [place] [address] Cesario Coppola MD, Real Estate Attorney [facility]# [id number] Blood (Blood, Venous) 12/03/2023 4:25 PM EST 12/03/2023 4:30 PM EST David Valadez MD LAB BLOOD ORDERABLES Final Result [facility] from Last 3 Months or Most Recently Relevant to Health Maintenance Insurance Medicaid [facility] Medicaid Care Teams Tooling Supervisor Relationship Specialty Start Date End Date Robin Lopez MD [address] [place] [address] PCP - General Internal Medicine 07/21/23
== END 2025-02-22 14:30 | disposition home or self-care (01) ==
LOC: HO.ENCR 14:02
PROVIDERS: Visit Provider Internal Medicine
DX: E11.22 Type 2 diabetes mellitus with diabetic chronic kidney disease (principal); N18.4 Chronic kidney disease, stage 4 (severe); Z79.4 Long term (current) use of insulin; N18.30 Chronic kidney disease, stage 3 unspecified

== ENCOUNTER → 2025-02-22 14:01 | Outpatient (BNVA) | payer OTHER, SELFPAY | PROVIDERS: Visit Provider Internal Medicine | DX: E11.22 Type 2 diabetes mellitus with diabetic chronic kidney disease (principal); N18.4 Chronic kidney disease, stage 4 (severe); Z79.4 Long term (current) use of insulin | CPT/HCPCS: 82947; 99212 ==

== ENCOUNTER 2025-05-12 11:38 | Outpatient (REF) | payer OTHER, SELFPAY ==
--- OUTSIDE RECORDS SUMMARY | 2025-05-12 12:00 | XMS_ITS | Clinical Summary ---
Author Organization [facility] Address [address] [address] Phone Care Team Providers Care Story Reader Name Role Phone Robin Lopez MD Primary Care Provider [phone] Allergies Active Allergy Reactions Criticality Noted [...] in the evening. 180 tablet 3 4 Active Ozempic, 0.25 or 0.5 MG/DOSE, 2 MG/3ML solution pen-injector Inject 0.25 mg under the skin per week for 30 days, THEN 0.5 mg per week. 300 mL 4 05/01/20 25 Active Problems Problem Noted Date Diagnosed Date [...] cholecystectomy 11/20/2021 0 11/20/2021 Hypothyroidism 11/20/2021 11/20/2021 Encounters Date Type Department Care Team Description 03/01/2025 Refill [facility] [address] [address] Katherine Verdugo from Last 3 Months Immunizations Immunization Administration Dates Next Due Influenza [...] Visual Foot Exam 07/21/2023 Diabetes: Hemoglobin A1C 04/14/202501/12/ 025, 12/14/2024, 07/27/2024, Additional history exists Influenza Vaccine (#1) 2025 4, 08/13/2021, 07/05/2019, Additional history exists Pneumococcal Vaccine: Peds ( 0 to 5 Years) and At-Risk Patients (6 to 49 Years) Discontinued 04/25/2011, 02/13/2010 Procedures Procedure Name Priority Date/Time Associated Diagnosis Comments HEMOGLOBIN A1C Routine 12/03/2023 4:25 PM EST Chronic kidney disease, not otherwise specified from Last 3 Months or Most Recently Relevant to Health Maintenance Results * (ABNORMAL) Hemoglobin A1c (12/03/2023 4:25 PM EST) Hemoglobin A1C 8.1(H) (4.0-5.6) % [facility] Comment: MONITORING: In known diabetic patients, hemoglobin A1c targets should be discussed with health care provider. DIAGNOSTIC USE: The [place] Diabetes Association (ADA) and the World Health [...] Supplement 1 Testing performed or reported by [facility], a Service of [facility], [address] [place] [address] Cesario Coppola MD, [facility]# [id number] Blood specimen (specimen) Venous blood / Unknown 12/03/2023 4:25 PM EST 12/03/2023 4:30 PM EST David Valadez MD LAB BLOOD ORDERABLES Final Result [facility] from Last 3 Months or Most Recently Relevant to Health Maintenance [place] [address] Medicaid [facility] Medicaid Care Teams Story Reader Relationship Specialty Start Date End Date Robin Lopez MD [address] [place] [address] PCP - General Internal Medicine 07/21/23
--- OUTSIDE RECORDS SUMMARY | 2025-05-12 12:00 | XMS_ITS | Encounter Summary ---
Author Organization [employer] Address [address] [facility] 7 [place] [address] Care Team Providers Care Facilities Maintenance Supervisor Name Role Phone Nerissa Lopez MD Primary Care Provider Reason for Visit * Reason Comments Med Refill Encounter Details Date Type Department Care Team ([facility] st Contact Info) Description 04/27/2024 Refill [facility] PEDS [address] [place] [address] Zulema Jorgensen MD [address] [place] [address] Social History Tobacco Use Types Packs/Day Years [...] on filedocumented in this encounter Care Teams Facilities Maintenance Supervisor Relationship Specialty Start Date End Date Nerissa Lopez MD [address] [place] [address] PCP - General Family Medicine 11/01/13 documented as of this encounter
[2025-05-12 14:18] LABS: Uric Acid 8.3 mg/dL (2.4-5.7)
[2025-05-12 14:27] LABS: Iron 65 mcg/dL (30-160); Percent Iron Saturation 27 % (15-50); Total Iron Binding Capacity 240 mcg/dL (228-428); Unsaturated Iron Binding 175 ug/dL
[2025-05-12 14:46] LABS: Folate 9.3 ng/mL (> or = 4.0); Vitamin B12 650 pg/mL (200-900)
== END 2025-05-12 11:39 | disposition home or self-care (01) ==
LOC: HO.CHCLDS 11:38
PROVIDERS: PCP Student in an Organized Health Care Education/Training Program; Referring Provider Internal Medicine; Visit Provider Student in an Organized Health Care Education/Training Program
DX: D50.9 Iron deficiency anemia, unspecified (principal); M10.9 Gout, unspecified
CPT/HCPCS: 36415; 82607; 82746; 83540; 84550

== ENCOUNTER 2025-05-24 14:06 | Outpatient (AMB) | payer OTHER, SELFPAY ==
[2025-05-24 14:10] VITALS: BP 114/76; PULSE 86; O2SAT 99; BMI 42.4
--- NOTE | 2025-05-24 14:10 | A.OFFVIS_ITS ---
Vital Signs 05/24/25 14:10 Height 5 ft 4 in Weight 246 lb 14.684 oz BMI 42.4 BP 114/76 Blood Pressure Location Rt brachial Position Sitting Pulse 86 Pulse Source Pulse Oximeter Pulse Oximetry (%) 99 Oxygen Delivery Method Room Air Intake Visit Reasons: DM Intake Note: Patient presents today for a follow-up on Type 2 Diabetes Mellitus: Last Diabetic Eye exam: Pt stated Nov 2024 Last Podiatry Visit: April 2024, needs to make an appt Most Recent HgA1C: 8.3%, 05/24/2025 Random Glucose: 172 mg/dL, Today Pourer Off Required: No Accompanied by: Self / Same As Patient Allergies haloperidol (From Haldol) Allergy (Severe, Verified 05/24/25 14:16) Jaw locked pioglitazone (From Actos) Allergy (Severe, Verified 05/24/25 14:16) Throat swells morphine (MORPHINE) Allergy (Unknown, Verified 05/24/25 14:16) UNKNOWN, bradycardia Medication List - Last Reviewed 05/24/25 by KRYSTLE Ricci aspirin (Adult Low Dose Aspirin) 81 mg PO DAILY blood sugar diagnostic (FreeStyle Lite Strips) As directed bupropion HCl XL 150 mg PO QAM buspirone 7.5 mg PO BID cholecalciferol (vitamin D3) 25 mcg PO DAILY ferrous sulfate (FeroSul) 325 mg PO Q OTHER DAY furosemide 40 mg PO BID insulin glargine (Lantus Solostar U-100 Insulin) 84 units (0.84 mL) subcut QPM 90 days lancets (FreeStyle Lancets) As directed levothyroxine (Levo-T) 150 mcg PO DAILY Mounjaro (tirzepatide) 10 mg (0.5 mL) subcut QWEEK NS Novolog FlexPen U-100 Insulin (insulin aspart U-100) subcutaneously; BG 100-149 10 units, 150-199 12 units, 200-249 14 units, 250-299 16 units, 300-349 18 units, 350-399 20 units (breakfast and lunch) Add 5 units to sliding scale at dinner meal NS ondansetron HCl 4 mg PO Q8H PRN pravastatin 20 mg PO BEDTIME HPI Comments Details: Ms. Parr 53 year old female with a past medical history of hyperparathyroidism s/p parathyroidectomy, CKD, IDDM presenting for follow up Last A1C 12/2024 8.3% from 6.5% from 02/2024 8.0%, Sept A1C 8.3%. DM Medications: Lantus 84 units (increased from 80 one month ago) Novolog 100-149 10 units (+2 for every 50 until 399) with +5 at dinner mounjaro 5 (increased from 2.5 one month ago)-increased to 10 units today. Off glipizide. Taken off farxiga by nephrology. On statin. CASTRO was discontinued by nephrology at recent visit She has been unable to afford her mounjaro for the last month-its a 40$ copay. She is going to try to purchase it this weekend Infrequent neuropathic pain b/l feet. Has gabapentin. No issues with sores. She is seeing podiatry next month. She is overdue for her eye exam. She has this scheduled. CKD followed by Renal Transplant. Last Cr on file Oct but seen on Mar 31. Previous renal biopsy with+dsDNA. Follows with rheumatology for RA but think kidney disease mostly b/c of uncontrolled diabetes mellitus rather than sequelae of +dsDNA Hypothyroid-continues levothyroxine. Last TSH normal range ROS see HPI PHYSICAL EXAM: GENERAL: Alert and oriented x 3. NAD. Overweight EYES: EOMI. Anicteric. HENT: Moist mucous membranes. No scleral icterus. No cervical lymphadenopathy. LUNGS: Clear to auscultation bilaterally. CARDIOVASCULAR: Regular rate and rhythm. ABDOMEN: Soft, non-tender +bs EXTREMITIES: Trace b/l edema. SKIN: No rashes or lesions. Warm. NEUROLOGIC: Right foot with decreased vibratory sense PSYCHIATRIC: Cooperative. Appropriate mood and affect [facility] Medical History Rheumatoid factor positive Obesity, morbid, BMI 40.0-49.9 Chronic kidney disease (CKD) Ds DNA antibody positive Depression Diabetes Hypothyroid HTN (hypertension) Depression Surgical History History of parotid gland removal History of cholecystectomy Previous section H/O tubal ligation Family History Daughter Lupus Mother Arthritis Diabetes Maternal Grandmother Arthritis Father Multiple sclerosis Diabetes Social History Household Members: Spouse and Children Household Members Other:: , 21-year-old daughter Alcohol intake: former Patient Tobacco Use Status: Never used Tobacco Current occupational status: unemployed Physical Exam Vital Signs: BMI result Body Mass Index 42.4 Results AMB Hemoglobin A1c AMB Hemoglobin A1c 8.3 % Last Edit by KRYSTLE Ricci on 05/24/25 14:24 Results Reviewed Results Reviewed: Laboratory Last Values Glucose (Clinic) 172 mg/dL (60-115) H 05/24/25 14:13 Assessment & Plan Assessment & Plan (1) Diabetes: Code(s): E11.9 - Type 2 diabetes mellitus without complications Category: Medical Qualifiers: Diabetes mellitus type: type 2 Diabetes mellitus predatory animal exterminator insulin use: with senior living use Diabetes mellitus complication status: with kidney com plications Diabetes mellitus complication detail: with chronic kidney disease Chronic kidney disease stage: stage 4 (severe) Qualified Code(s): E11.22 - Type 2 diabetes mellitus with diabetic chronic kidney disease; N18.4 - Chronic kidney disease, stage 4 (severe); Z79.4 - jail (current) use of insulin Orders: Orders AMB Hemoglobin A1c Today E11.22 - Type 2 diabetes mellitus with diabetic chronic kidney disease, N18.4 - Chronic kidney disease, stage 4 (severe), Z79.4 - jail (current) use of insulin Medications: New Mounjaro (tirzepatide) please run with music manager coupon 10 mg (0.5 mL) subcut QWEEK 6 mL 3RF NS E11.22 - Type 2 diabetes mellitus with diabetic chronic kidney disease, N18.4 - Chronic kidney disease, stage 4 (severe), Z79.4 - jail (current) use of insulin Discontinued Mounjaro (tirzepatide) Discontinued Reason: Doctor's Order 5 mg (0.5 mL) subcut QWEEK 12 weeks 6 mL 3RF NS E11.22 - Type 2 diabetes mellitus with diabetic chronic kidney disease, N18.4 - Chronic kidney disease, stage 4 (severe), Z79.4 - jail (current) use of insulin Coding Diagnoses Type 2 diabetes mellitus with stage 4 chronic kidney disease, with long-term current use of insulin E11.22; N18.4; Z79.4 Diabetes mellitus type: type 2 Diabetes mellitus senior living insulin use: with senior living use Diabetes mellitus complication status: with kidney complications Diabetes mellitus complication detail: with chronic kidney disease Chronic kidney disease stage: stage 4 (severe)
[2025-05-24 14:15] LABS: Glucose, Whole Blood 172 mg/dL (60-115)
--- OUTSIDE RECORDS SUMMARY | 2025-05-24 14:47 | XMS_ITS | Encounter Summary ---
Author Organization [employer] Address [address] [place] [address] Care Team Providers Care Solar Designer Name Role Phone Nerissa Lopez MD Primary Care Provider [phone] Reason for Visit * Reason Comments Med Refill Encounter Details Date Type Department Care Team ([facility] st Contact Info) Description 04/27/2024 Refill [facility] [address] [place] [address] Zulema Jorgensen MD [address] [place] [address] Social History Tobacco Use Types Packs/Day Years [...] on filedocumented in this encounter Care Teams Solar Designer Relationship Specialty Start Date End Date Nerissa Lopez MD [address] [place] [id number] PCP - General Family Medicine 11/01/13 documented as of this encounter
--- OUTSIDE RECORDS SUMMARY | 2025-05-24 14:47 | XMS_ITS | Clinical Summary ---
Author Organization [facility] Address [address] [address] Phone Care Team Providers Care Assembly Machine Tender Name Role Phone Robin Lopez MD Primary Care Provider [phone] Allergies Active Allergy Reactions Criticality Noted Date [...] Refill [facility] [address] [address] Katherine Verdugo from Last 3 [...] PM EST) Hemoglobin A1C 8.1(H) (4.0-5.6) % [facility] Comment: MONITORING: In known diabetic patients, hemoglobin A1c targets should be discussed with health care provider. DIAGNOSTIC USE: The [place] Diabetes Association (ADA) and the World Health [...] Supplement 1 Testing performed or reported by [facility], a Service of [facility], [address] [place] [address] Cesario Coppola MD, Sausage Stringer [facility]# [id number] Blood specimen (specimen) Venous blood / Unknown 12/03/2023 4:25 PM EST 12/03/2023 4:30 PM EST David Valadez MD LAB BLOOD ORDERABLES Final Result [facility] from Last 3 Months or Most Recently Relevant to Health Maintenance Insurance [address] [address] Medicaid [facility] Medicaid Care Teams Assembly Machine Tender Relationship Specialty Start Date End Date Robin Lopez MD [address] [place] [address] PCP - General Internal Medicine 07/21/23
== END 2025-05-24 14:37 | disposition home or self-care (01) ==
LOC: HO.ENCR 14:07
PROVIDERS: Visit Provider Internal Medicine
DX: E11.22 Type 2 diabetes mellitus with diabetic chronic kidney disease (principal); N18.4 Chronic kidney disease, stage 4 (severe); Z79.4 Long term (current) use of insulin

== ENCOUNTER → 2025-05-24 14:06 | Outpatient (BNVA) | payer OTHER, SELFPAY | PROVIDERS: Visit Provider Internal Medicine | DX: E11.22 Type 2 diabetes mellitus with diabetic chronic kidney disease (principal); N18.4 Chronic kidney disease, stage 4 (severe); Z79.4 Long term (current) use of insulin | CPT/HCPCS: 82947; 83036; 99212 ==

== ENCOUNTER 2025-07-26 13:10 | Outpatient (REF) | payer OTHER, SELFPAY ==
[2025-07-26 18:10] LABS: MANUAL DIFF FLAG NO
[2025-07-26 18:14] LABS: Hematocrit 30.8 % (37.0-47.0); Hemoglobin 9.8 g/dl (12.0-16.0); Imm Gran Abs Auto 0.03 X10*3/uL (0.00-0.03); Imm Gran Pct Auto 0.3 % (0.0-0.4); Lymphocytes Absolute Auto 2.6 X10*3/uL (1.2-4.9); Mean Corpuscular HGB Conc 31.8 g/dl (31.0-35.0); Mean Corpuscular Hemoglobin 29.3 pg (27.0-33.0); Mean Corpuscular Volume 91.9 fL (80.0-98.0); NRBC Abs Auto 0.000 X10*3/uL (0.0-0.012); NRBC Pct Auto 0.0 /100WBC (0.0-0.2); Platelet Count 293 X10*3/uL (160-400); Red Blood Count 3.35 X10*6/uL (4.20-5.50); White Blood Count 10.3 X10*3/uL (4.8-10.8)
[2025-07-26 18:25] LABS: Alanine Aminotransferase 14 U/L (0-31); Albumin Level 4.3 g/dL (3.5-5.0); Alkaline Phosphatase 105 U/L (39-117); Anion Gap 17 (12-20); Aspartate Amino Transferase 22 U/L (5-31); Blood Urea Nitrogen 77 mg/dL (9-16); Calcium 8.6 mg/dL (8.4-10.2); Carbon Dioxide 22 mmol/L (22-29); Chloride 104 mmol/L (96-108); Estimated Glomerular Filt Rate 15; Potassium 4.6 mmol/L (3.3-5.1); Sodium 138 mmol/L (135-145); Total Protein 7.8 g/dL (6.5-8.0); Uric Acid 9.3 mg/dL (2.4-5.7)
== END 2025-07-26 13:11 | disposition home or self-care (01) ==
LOC: HO.HKASLDS 13:10
PROVIDERS: PCP Internal Medicine; Visit Provider Student in an Organized Health Care Education/Training Program
DX: M1A.39X0 Chronic gout due to renal impairment, multiple sites, without tophus (tophi) (principal); R76.89 Other specified abnormal immunological findings in serum; Z79.899 Other long term (current) drug therapy
CPT/HCPCS: 36415; 80053; 84550; 85025; 85652; 86140; 99212

== ENCOUNTER 2025-07-26 13:10 | Outpatient (AMB) | payer OTHER, SELFPAY ==
--- NOTE | 2025-07-26 13:22 | MHC.OFFVIS ---
Vital Signs 07/26/25 13:31 Height 5 ft 4 in Weight 236 lb 5.369 oz BMI 40.6 BP 115/72 Blood Pressure Location Lt radial Position Sitting Pulse 98 Pulse Source Pulse Oximeter Pulse Oximetry (%) 99 Oxygen Delivery Method Room Air Intake Visit Reasons: ++DsDNA Intake Note: Patient presents for ++DsDNA fallow up. Allergies haloperidol (From Haldol) Allergy (Severe, Verified 07/26/25 13:28) Jaw locked pioglitazone (From Actos) Allergy (Severe, Verified 07/26/25 13:28) Throat swells morphine (MORPHINE) Allergy (Unknown, Verified 07/26/25 13:28) UNKNOWN, bradycardia Medication List - Last Reconciled 07/26/25 by Chanelle Haro MD allopurinol 100 mg PO QAM aspirin (Adult Low Dose Aspirin) 81 mg PO DAILY blood sugar diagnostic (FreeStyle Lite Strips) As directed bupropion HCl XL 150 mg PO QAM buspirone 7.5 mg PO BID cholecalciferol (vitamin D3) 25 mcg PO DAILY ferrous sulfate (FeroSul) 325 mg PO Q OTHER DAY furosemide 40 mg PO BID gabapentin 400 mg PO TID lancets (FreeStyle Lancets) As directed Lantus Solostar U-100 Insulin (insulin glargine) 84 units (0.84 mL) subcut QPM NS levothyroxine (Levo-T) 150 mcg PO DAILY Mounjaro (tirzepatide) 10 mg (0.5 mL) subcut QWEEK NS Novolog FlexPen U-100 Insulin (insulin aspart U-100) subcutaneously; BG 100-149 10 units, 150-199 12 units, 200-249 14 units, 250-299 16 units, 300-349 18 units, 350-399 20 units (breakfast and lunch) Add 5 units to sliding scale at dinner meal NS ondansetron HCl 4 mg PO Q8H PRN pravastatin 20 mg PO BEDTIME sodium bicarbonate 650 mg PO HPI Comments Details: Patient is a 54-year-old female with diabetes complicated by peripheral neuropathy and CKD, hypertension, hyperlipidemia, hypothyroidism, and depression Here today for follow up Interval History: Patient last seen 07/26/[address] Erazo - not on any DMARDs - following up for evaluation of positive double-stranded DNA in the setting of workup for CKD - kidney biopsy showed diabetic nephropathy and no evidence of lupus nephritis - no evidence of active synovitis Today, - not on any DMARDs - diagnosed with gout after recurrent great toe pain and swelling - started on allopurinol Rheumatologic History: No evidence of underlying autoimmune or connective tissue disease on examination Initial history: Ms. Starr 53 year old female refer by her Neprologist for evaluation of +dsDNA in the context of CKD, uncontrolled diabetes mellitus and negative CASPER. She denies signs and symptoms of lupus. She has hypertension, longstanding diabetes and she was 16 years old and state 3 chronic kidney disease. She has not had hair loss more than the dilation, sores in the nose or mouth, sun sensitivity or concerned rashes. She does have joint ache which she thinks is more related to her lower back and knee pain. She walks with a cane. She can planes of a chronic dull pain to the right flank which has been there since she fell and hit that side over a year ago. Imaging has not identified any pathology. She has done physical rehab in the past Patient denies Raynaud's phenomenon, butterfly rash on face or other rashes; denies photosensitivity - getting sick or developing a rash from being out in the sun; denies blood or froth in urine; patient denies hx of SOB, chest pain. Patient denies hx of Carditis or Pleuritis. Patient denies any history of DVT/PE. Patient had no miscarriages. The patient reports never have had to take aspirin or a blood thinner during the successful pregnancies. Denies fevers, excessive fatigue, unexplained weight-loss or weight-gain, thinning hair or hair loss, hx of rashes; dry mouth, mouth sores or ulcers; ringing in the ear. Her daughter has lupus. Current Rheumatology Medication(s): [facility] Medical History Rheumatoid factor positive Obesity, morbid, BMI 40.0-49.9 Chronic kidney disease (CKD) Ds DNA antibody positive Depression Diabetes Hypothyroid HTN (hypertension) Depression Surgical History History of parotid gland removal History of cholecystectomy Previous section H/O tubal ligation Family History Daughter Lupus Mother Arthritis Diabetes Maternal Grandmother Arthritis Father Multiple sclerosis Diabetes Social History Household Members: Spouse and Children Household Members Other:: , 21-year-old daughter Alcohol intake: former Patient Tobacco Use Status: Never used Tobacco Current occupational status: unemployed Review of Systems Const Details: Review of Systems Constitutional: Denies fever, chills, weight loss ENT: Denies vision changes, eye pain or eye redness, dental caries, dry mouth GI: Denies nausea, vomiting, diarrhea, abdominal pain, change in BM Pulm: Denies SOB, [place]IS[place], hemoptysis, wheezing Cards: Denies chest pain, palpitations Skin: Denies Raynaud's, rash, nail changes, photosensitivity, 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 Well appearing and in no apparent painful distress MSK Hands Right Hand: Able to make a fist. No swelling or tenderness to palpation of the MCPs, PIPs or DIPs. No deformities noted. Left Hand: Able to make a fist. No swelling or tenderness to palpation of the MCPs, PIPs or DIPs. No deformities noted. Wrists Right Wrist: Full ROM to flexion and extension. No swelling or TTP Left Wrist: Full ROM to flexion and extension. No swelling or TTP Elbows Right Elbow: Full ROM. No swelling or TTP. No TTP of the medial epicondyle. No TTP of the lateral epicondyle Left Elbow: Full ROM. No swelling or TTP. No TTP of the medial epicondyle. No TTP of the lateral epicondyle Shoulders Right shoulder: Full ROM. No swelling noted. No TTP of the AC joint. No TTP of the subacromial bursa. No TTP of the posterior shoulder Left shoulder: Full ROM. No swelling noted. No TTP of the AC joint. No TTP of the subacromial bursa. No TTP of the posterior shoulder Hips Right hip: Good ROM. No pain elicited with hip flexion/internal rotation/external rotation Left hip: Good ROM. No pain elicited with hip flexion/internal rotation/external rotation Hip bursa: No tenderness to palpation bilaterally Knees Right knee: Full ROM. No swelling noted. No TTP of the knee joint line. No TTP of pes anserine bursa Left knee: Full ROM. No swelling noted. No TTP of the knee joint line. No TTP of pes anserine bursa. Ankles Right ankle: Good ankle dorsiflexion and plantar flexion. No swelling. No TTP of the ankle joint Left ankle: Good ankle dorsiflexion and plantar flexion. No swelling. No TTP of the ankle joint Feet Right foot: Negative squeeze test Left foot: Negative squeeze test Tender points? No tenderness to palpation of the bilateral trapezius, supraspinatus, anterior costochondral junctions, bilateral suboccipital muscle insertions SKIN No rashes Results Reviewed Results Reviewed: Laboratory Tests 01/12/25 05/12/25 12:22 11:40 WBC 12.0 H RBC 3.06 L Hgb 8.5 L Hct 27.0 L Plt Count 353 ESR 119 H Sodium 141 Potassium 4.2 Chloride 104 Carbon Dioxide 24 BUN 47 H Creatinine 2.02 H Estimated GFR 25 Uric Acid 13.3 H 8.3 H AST 22 ALT 30 C-Reactive Protein 15.21 H Assessment & Plan Assessment & Plan (1) Rheumatoid factor positive: Code(s): R76.8 - Other specified abnormal immunological findings in serum Category: Medical Plan: #Positive RF/Positve dsDNA Patient is a 54-year-old female with stage IV CKD secondary to diabetes here today for follow up of positive RF and positive double-stranded DNA. She has a strong family history of autoimmune disease which is likely the reason why she is generating these antibodies. Thankfully at this time she does not show any evidence of any inflammatory arthritis or autoimmune connective tissue disease. Kidney biopsy showed her CKD is related to her diabetes No need for further rheumatology follow up at this time Plan - No need for further rheum follow up - Labs today: CBC, CMP, ESR, CRP, uric acid (2) Gout: Comment: Dx 12/2024 Allopurinol by PCP Code(s): M10.9 - Gout, unspecified Category: Medical Qualifiers: Gout site: multiple sites Gout etiology: due to renal impairment Chronicity: chronic Presence of tophus: without tophus Qualified Code(s): M1A.39X0 - Chronic gout due to renal impairment, multiple sites, without tophus (tophi) Plan: #Non crystal proven gout Patient recently diagnosed with gout and started on allopurinol by PCP. Uric acid currently 8, not at goal. [employer] recommends that uric acid be less than 6 to adequately reduce the risk of flares. Recommended increasing dose to 300mg for a goal uric acid of less than 6 Patient will follow up with PCP since they gave her the first prescription Plan - Recommend allopurinol 300mg - If PCP does not want to manage gout, she can follow up with rheum Plan I spent 30 minutes reviewing the record and labs, taking a history, examining the patient, discussing the treatment plan, ordering diagnostic work up and documenting in the medical record Orders: Orders Complete Blood Count Auto Diff Today M10.9 - Gout, unspecified, Z79.899 - Other superintendent marine oil terminal (current) drug therapy Comprehensive Met. 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
[2025-07-26 13:31] VITALS: BP 115/72; PULSE 98; O2SAT 99; BMI 40.6
--- OUTSIDE RECORDS SUMMARY | 2025-07-26 14:25 | XMS_ITS | Clinical Summary ---
Author Organization [employer] Address [address] [facility] 7[address] [place] [address] Care Team Providers Care Rfp Writer Name Role Phone Nerissa Lopez MD Primary Care Provider [phone] Allergies Active Allergy Reactions Criticality Noted Date [...] oral route every 6-8 hours as needed 020 Active ARIPiprazole (Abilify) 5 MG tablet take [...] Use for BS under 70 as needed 021 Active nystatin (Mycostatin) 720319 UNIT/GM powder apply by topical route 3 times every day to the affected area(s) Active triamcinolone (Kenalog) 0.1 % cream Apply topically if needed in the morning and at bedtime (pain and swelling). 30 g 2 023 Active Tirzepatide (Mounjaro) 2.5 MG/0.5ML solution pen-injectorIndic ations:Type 2 diabetes mellitus without complication, with long-term current use of insulin ([facility]) Inject 2.5 mg under the skin 1 (one) time per week. 0.5 mL 11 024 Active Continuous Glucose Certified Surgical Tech/First Assistant (FreeStyle David 2 [place]) deviceIndications :Type 2 diabetes mellitus without complication, with long-term current use of insulin ([facility]) Scan sensor every 8 hours 1 each 024 Active Continuous Glucose Sensor (FreeStyle David 2 Sensor) miscIndications:T ype 2 diabetes mellitus without complication, with long-term current use of insulin ([facility]) Apply 1 sensor every 14 days 2 each 3 024 Active Lantus SoloStar 100 UNIT/ML penIndications:Ty pe 2 diabetes mellitus without complication, without long-term current use of insulin ([facility]) INJECT 55 UNITS SUBCUTANEOUSLY EVERY MORNING 15 mL 1 024 Active NovoLOG FLEXPEN 100 UNIT/ML penIndications:Ty pe 2 diabetes mellitus without complication, with long-term current use of insulin ([facility]) INJECT 4 to 12 UNITS SUBCUTANEOUSLY THREE TIMES DAILY BEFORE MEALS DIRECTED PER SLIDING SCALE 60 mL 024 Active glipiZIDE (Glucotrol) 5 MG tabletIndications :Type 2 diabetes mellitus with hyperglycemia, unspecified whether termite control service representative insulin use ([facility]) TAKE ONE TABLET IN THE MORNING AND EVENING BEFORE MEALS 60 tablet 025 Active Aspirin Adult Low Strength 81 MG EC tabletIndications :Primary hypertension TAKE ONE TABLET EVERY MORNING 30 tablet 025 Active allopurinol (Zyloprim) 100 MG tablet Take 1 tablet (100 mg) by mouth Once per day. 30 tablet 025 2025 Active ferrous gluconate (Fergon) 324 (38 Fe) MG tablet Take 1 tablet (324 mg) by mouth with breakfast. 30 tablet 11 025 2025 Active glucose blood (FREESTYLE LITE) test strip TEST BLOOD SUGAR SIX TO EIGHT TIMES DAILY 300 strip 11 025 Active levothyroxine (Synthroid, Levoxyl) 150 MCG tablet TAKE ONE TABLET EVERY MORNING FOR THYROID 90 tablet 1 025 Active cholecalciferol (Vitamin D-3) 25 MCG tablet TAKE ONE TABLET EVERY MORNING (vitamin) 90 tablet 1 025 Active pravastatin (Pravachol) 20 MG tabletIndications :Mixed hyperlipidemia TAKE ONE TABLET EVERY NIGHT AT BEDTIME 90 tablet 1 025 Active furosemide (Lasix) 20 MG tablet Take 2 tablets (40 mg) by mouth 2 times daily. 120 tablet 11 025 2025 Active valACYclovir (Valtrex) 500 MG tablet TAKE ONE TABLET BY MOUTH TWICE DAILY UNTIL FINISHED. 6 tablet 2 025 Active hydroCHLOROthiazi de (HYDRODiuril) 25 MG tabletIndications :Hypertension, unspecified type TAKE ONE TABLET EVERY MORNING 90 tablet 1 025 Active lisinopril 20 MG tabletIndications :Hypertension, unspecified type TAKE ONE TABLET EVERY MORNING 90 tablet 1 025 Active hydroCHLOROthiazi de (HYDRODiuril) 25 MG tabletIndications :Hypertension, unspecified type TAKE ONE TABLET EVERY MORNING 90 tablet 1 025 2024 Discontinued lisinopril 20 MG tabletIndications :Hypertension, unspecified type TAKE ONE TABLET EVERY MORNING 90 tablet 1 025 2024 Discontinued Active Problems Problem Noted Date [...] Encounters Date Type Department Care Team Description 07/26/2025 Telephone [facility] MED & PEDS [address] [place] [place] [address] Nerissa Lopez MD Chart Prep 06/24/2025 Refill [facility] MED & PEDS [address] [place] [place] [address] Nerissa Lopez MD Hypertension, unspecified type 05/12/2025 Refill [facility] MED & PEDS [address] [place] [place] [address] Nerissa Lopez MD from Last 3 Months Immunizations Immunization Administration [...] Sign Reading Time Taken Comments Blood Pressure 137/66 03/16/2025 11:42 AM EDT Pulse 96 03/16/2025 11:42 AM EDT Temperature 36.7 C (98.1 F) 03/16/2025 11:42 AM EDT Respiratory Rate 20 03/16/2025 11:42 AM EDT Oxygen Saturation 97% 01/09/2025 6:54 PM EDT Inhaled Oxygen Concentration - - Weight 107 kg (236 lb) 03/16/2025 11:42 AM EDT Height 157.5 cm (5' 2 ) 03/16/2025 11:42 AM EDT Body Mass Index 43.16 03/16/2025 11:42 AM EDT Plan of Treatment Upcoming Encounters Date Type Department Care Team (Late st Contact Info) Description 07/27/2025 11:00 AM EDT Office Visit [facility] MED & PEDS [address] [place] [address] Nerissa Lopez MD [address] [place] [address] Health Maintenance Due Date Last Done Comments CT Colonography 1968 Colonoscopy 1968 FIT 1968 HIV Screening 1970 Sigmoidoscopy 1968 Disability Screening 1968 Eye Exam 1978 Alcohol/Substance Use Screening [...] 04/26/2019 Dental X-Ray: Full Mouth 12/24/2021 12/23/2018 FOBT 10/05/2024 10/05/2023 Diabetes: Urine Protein Screening 12/03/2024 12/03/2023, 10/27/2023 COVID-19 Vaccine ( season) 2025 02/13/2021, 01/08/2021 Influenza Vaccine (#1) 2025 , 08/13/2021, 07/05/2019, Additional history exists Diabetes: Hemoglobin A1C 07/15/2025 025, 12/14/2024, 07/27/2024, Additional history exists Diabetes: Foot Exam 12/14/2025 12/14/2024 Depression Screening 01/05/2026 01/05/2025, 01/06/20 25 SDOH Screening 01/05/2026 01/05/2025 Lipid Panel 01/12/2026 01/12/2025, 10/11/2023, 03/30/2023 Mammogram 01/12/2026 01/13/2024 Tobacco Screening 03/16/2026 03/16/2025 Colorectal Cancer Screening 10/05/2026 FIT DNA/Cologuard 10/05/2026 10/05/2023 DTaP/Tdap/Td Vaccines (4 - Td or Tdap) 11/13/2033 11/13/2023, 12/23/2010, 02/23/2008 RSV Patients and Patients Aged 60 years or older (1 - 1-dose 75+ series) 2043 Zoster Vaccines Completed 09/06/2019, 06/29/2019 HIB Vaccines Aged Out No longer eligi [...] patient's age to complete this topic Meningococcal B Vaccine Aged Out No l onger eligible based on patient's age to complete [...] Procedure Name Priority Date/Time Associated Diagnosis Comments URIC ACID Routine 05/12/2025 11:40 AM EDT Acute gout involving toe of right foot, unspecified cause VITAMIN B12/FOLATE, SERUM PANEL Routine 05/12/2025 11:40 AM EDT Iron deficiency anemia, unspecified iron deficiency anemia type IRON AND TOTAL IRON BINDING CAPACITY Routine 05/12/2025 11:40 AM EDT Iron deficiency anemia, unspecified iron deficiency anemia type HEMOGLOBIN A1C Routine 01/12/2025 12:22 PM EDT LIPID PANEL, STANDARD Routine 01/12/2025 12:22 PM EDT BI MAMMOGRAM SCREENING TOMOSYNTHESIS BILATERAL Routine 01/13/2024 3:00 PM EDT LAB COLOGUARD COLON CANCER SCREEN Routine 10/05/2023 1:05 PM EST Encounter for screening for malignant neoplasm of colon PROPHYLAXIS - ADULT Routine 11/04/2019 1 2:00 AM EST INTRAORAL - COMPLETE SERIES OF RADIOGRAPHIC IMAGES Routine 12/23/2018 12:00 AM EST COMPREHENSIVE ORAL EVALUATION - NEW OR ESTABLISHED PATIENT Routine 12/23/2018 12:00 AM EST from Last 3 Months or Most Recently Relevant to Health Maintenance Results * Vitamin B12 (Cobalamin) and Folate Panel, Serum (05/12/2025 11:40 AM EDT) Vitamin B12 650 200 - 900 pg/mL [facility] Comment:NORMAL 200-900 PG/ML INDETERMINATE 160-199 PG/ML DEFICIENT < 160 PG/ML Folate 9.3 > or = 4.0 ng/mL [facility] Comment:Reference Values:> o r = 4.0 ng/mL< 4.0 ng/mL suggests folate deficiency Methotrexate, aminopterin and folinic acid(leucovorin) are chemotherapeutic agents whose molecularstructures are similar to folate; therefore, the Architectfolate assay cannot be used for patients using these drugs. Blood Venous blood specimen / Unknown 05/12/2025 11:40 AM EDT 05/12/2025 1:44 PM EDT Brian Valverde MD LAB BLOOD ORDERABL ES Final Result Performing Organization Address City/[facility]/ZIP Co de Phone Number [facility] [address] [place] [phone] * Iron And Total Iron Binding Capacity (05/12/2025 11:40 AM EDT) Iron 65 30 - 160 mcg/dL [facility] Total Iron Binding Capacity 240 228 - 428 mcg/dL [facility] Percent Iron Saturation 27 15 - 50 % [facility] Unsaturated Iron Binding 175 ug/dL [facility] Blood Venous blood specimen / Unknown 05/12/2025 11:40 AM EDT 05/12/2025 1:44 PM EDT Brian Valverde MD LAB BLOOD ORDERABL ES Final Result Performing Organization Address City/[facility]/ZIP Co de Phone Number [facility] [address] [place] [phone] * (ABNORMAL) Uric acid (05/12/2025 11:40 AM EDT) Uric Acid 8.3(H) 2.4 - 5.7 mg/dL [facility] Blood Venous blood specimen / Unknown 05/12/2025 11:40 AM EDT 05/12/2025 1:44 PM EDT us Nerissa Lopez MD LAB BLOOD ORDERABLES Final Resul t Performing Organization Address City/[facility]/ZIP Co de Phone Number [facility] [address] [place] [phone] * (ABNORMAL) Hemoglobin A1c (01/12/2025 12:22 PM EDT) Hemoglobin A1c 6.5(H) <6.0 % [facility] Comment:Hemoglobin A1C Refer ence Range Adults: 4.8 - 6.0 % Non diabetic: < 6.0 % Goal: < 7.0 %Additional Action Suggested: > 8.0 %Note: Hemoglobin A1c results are invalid for patients with abnormal amounts of HbF. Blood transfusions may impact the HbA1c concentration in the patient sample. Estimated Average Glucose 140 mg/dL [facility] Comment:eAG = Estimated ave rage glucose which is %A1C expressed asaverage glucose, using the formula of the U4Y-WbhjxjaBgxliyj Glucose study (ADAG), Diabetes Care, Vol.31,#8,May. 2007 01/12/2025 12:2 2 PM EDT 01/12/2025 1:06 PM EDT us Generic External Data Provider LAB BLOOD ORDERAB LES Final Result Performing Organization Address City/[facility]/ZIP Co de Phone Number [facility] [address] [place] [phone] * (ABNORMAL) Lipid Panel, Standard (01/12/2025 12:22 PM EDT) Triglycerides 115 <150 mg/dL [facility] Comment:Desirable Triglyceri de: less than 150 mg/dLBorderline High Triglyceride 150-199 mg/dLHigh Triglyceride: 200-499 mg/dLVery High Triglyceride: greater than or equal to 5OO mg/dL Cholesterol 171 <200 mg/dL [facility] Comment:Desirable Cholestero l: less than 200 mg/dLBorderline High Cholesterol: 200-239 mg/dLHigh Cholesterol: greater than 239 mg/dL LDL Cholesterol Calculated 100(H) <100 mg/dL [facility] Comment:Desirable LDL: less than 100 mg/dLNear Optimal/Above Optimal LDL: 110- 129 mg/dLBorderline High LDL: 130-159 mg/dLHigh LDL: 160-189 mg/dLVery High LDL: greater than or equal to 190 mg/dL HDL Cholesterol 48 >40 mg/dL [facility] Comment:Desirable HDL: great er than 40 mg/dL Note: This HDL assay may give artificially low results in patients with liver disease. 01/12/2025 12:2 2 PM EDT 01/12/2025 1:06 PM EDT us Generic External Data Provider LAB BLOOD ORDERAB LES Final Result [facility] [address] [place] [address] [phone] * BI Mammogram Screening Tomosynthesis Bilateral (01/13/2024 3:00 PM EDT) Anatomical Region Laterality Modality Breast Bilateral Mammography 01/13/2024 3:00 PM EDT Narrative 02/04/2024 5:12 AM EDT [facility] [address] [place] [address] [place] [address] Mammography Report Signed Patient: Mekhi Daily MR#: [id number] 2 : 1970 Acct:[id number] Age/Sex: 53 / F ADM Date: 01/13/24 Loc: HO.MAMMO Attending Dr: Nerissa Lopez MD Ordering Physician: Nerissa Lopez MD Results: 1Negati ve Date of Service: 01/13/24 Follow Up: 1 Year From Orig inal Mammogram Procedure(s): MM tomosynthesis screening BI Accession Number(s): [id number] cc: Nerissa Lopez MD EXAMINATION: MM SCREENING [...] in OV> 02/04/24 0508 DD/ 1500 TD/TT: Voice Data Communications Engineer: Procedure Note Donotuseinterpreter, Image - 02/04/2024 [facility] [address] [place], [place] [address] Mammography Report Signed Patient: Steven Daily#: [id number] 2 : 1970Acct:[id number] Age/Sex: 53 / FADM Date: 01/13/24 Loc: MAMMO Attending Dr: Nerissa Lopze MD Ordering Physician: Nerissa Lopez MDResults: 1Negati ve Date of Service: 01/13/24Follow Up: 1 Year From Orig inal Mammogram Procedure(s): MM tomosynthesis screening BI Accession Number(s): [id number] cc: Nerissa Lopez MD EXAMINATION: MM SCREENING [...] in OV> 02/04/24 0508 DD/ 1500 TD/TT: Voice Data Communications Engineer: Nerissa Lopez MD IMG BI PROCEDURES Final Result * Cologuard?? colon cancer screening (10/05/2023 1:05 PM EST) Cologuard Result Negative Negative 10/14/20 1:10 PM EST [employer] (CLIA #:[id number]) Comment: NEGATIVE TEST RESULT. A negative Cologuard result indicates a low likelihood that a colorectal cancer (CRC) or advanced adenoma (adenomatous polyps with more advanced pre-malignant features) is present. The chance that a person with a negative Cologuard test has a colorectal cancer is less than 1 in 1500 (negative predictive value >99.9%) or has an advanced adenoma is less than 5.3% (negative predictive value 94.7%). These data are based on a prospective cross-sectional study of 10,000 individuals at average risk for colorectal cancer who were screened with both Cologuard and colonoscopy. (Nikki August al, N Engl J Med 2014;370(14):5038-3848) The normal value (reference range) for this assay is negative. COLOGUARD RE-SCREENING RECOMMENDATION: Periodic colorectal cancer screening is an important part of preventive healthcare for asymptomatic individuals at average risk for colorectal cancer. Following a negative Cologuard result, the [place] Cancer Society and U.S. Multi-Society Task Force screening guidelines recommend a Cologuard re-screening interval of 3 years. References: [place] [employer] Guideline for Colorectal Cancer Screening: https://www.cancer.org/cancer/wfeig-kmzvov-kqfrlm/bxaplljea-techbbsjx-asrrnxa/ac s-rec ommendations.html.; Sergo DK, Adrian CR, Cindy ColonK, Colorectal Cancer Screening: Recommendations for Physicians and Patients from the U.S. Multi-Society Task Force on Colorectal Cancer Screening , Am J Gastroenterology 2017; 112:8646-3236. TEST DESCRIPTION: Composite algorithmic analysis of stool DNA-biomarkers with hemoglobin immunoassay. Quantitative values of individual biomarkers are not [...] (Nikki August al, N Engl J Med 2014;370(14):3471-5559.) Cologuard may produce a false negative or false positive result (no colorectal cancer or precancerous polyp present at colonoscopy follow up). A negative Cologuard test result does not guarantee the absence of CRC or advanced adenoma (pre-cancer). The current Cologuard screening interval is every 3 years. ([place] [employer] Society and U.S. Multi-Society Task Force). Cologuard performance data in a 10,000 patient pivotal study using colonoscopy as the reference method can be accessed at the following location: www.[employer]/results. Additional description of the Cologuard test process, warnings and precautions can be found at www.cologEffector Therapeuticsrd.com. Stool specimen (specimen) 10/05/2023 1:05 PM EST 10/06/2023 8:14 PM EST us Nerissa Lopez MD LAB MOLECULAR DIAGNOSTICS ORDERBuster SADLER Final Result [employer] [facility] (CLIA #:[id number]) [place] [address] [place] [address], from Last 3 Months or Most Recently Relevant to Health Maintenance Insurance [facility] MEDICARE [facility] 2 Care Teams Rfp Writer Relationship Specialty Start Date End Date Nerissa Lopez MD [address] [place] [address] PCP - General Family Medicine 11/01/13
--- OUTSIDE RECORDS SUMMARY | 2025-07-26 14:25 | XMS_ITS | Encounter Summary ---
Author Organization [employer] Address [address] [facility] [place], [place] [address] Care Team Providers Care Metal Rivet Machine Operator Name Role Phone Nerissa Lopez MD Primary Care Provider Encounter Details Date Type Department Care Team (Late Contact Info) Description 02/20/2023 Orders Only [facility] MED & PEDS [address] [place] [address] Nerissa Lopez MD [address] [place] [address] Type 2 diabetes mellitus without complication, without long-term current use of insulin ([facility]/HCC); Type 2 diabetes mellitus without complication, with long-term current use of insulin ([facility]) Social History Tobacco Use Types Packs/Day [...] Upcoming Encounters Date Type Department Care Team ([facility] Contact Info) Description 07/27/2025 11:00 AM EDT Office Visit [facility] MED & PEDS [address] [place] [address] Nerissa Lopez MD [address] [place] [phone] documented as of this encounter Visit Diagnoses Diagnosis Type 2 diabetes mellitus without complication, without long-term current use of insulin (HCC) Type 2 diabetes mellitus without complication, with long-term current use of insulin (HCC) documented in this encounter Care Teams Metal Rivet Machine Operator Relationship Specialty Start Date End Date Nerissa Lopez MD [address] [place] [phone] PCP - General Family Medicine 11/01/13 documented as of this encounter
--- OUTSIDE RECORDS SUMMARY | 2025-07-26 14:25 | XMS_ITS | Encounter Summary ---
Author Organization [employer] Address [address] [address] Care Team Providers Care Heel Pricker Name Role Phone Nerissa Lopez MD Primary Care Provider [phone] Reason for Visit * Reason Onset Date Comments Appointment Request 07/22/2023 Encounter Details Date Type Department Care Team ([facility] st Contact Info) Description 07/22/2023 Telephone [facility] MED & PEDS [address] [place] [address] Nerissa Lopez MD [address] [place] [address] Appointment Request Social History Tobacco Use Types [...] Call to pt. Per pt, seen by Wall Worker on 07/21/23. Per pt, advised of high potassium in blood work. States she was advised to follow low potassium diet and repeat labs this week. Pt also states herprovider ordered a renal US. Per pt, followed recommendations. States she is feeling well and denies any symptoms at this time. Noted pt with upcoming visit with franchise specialist on 07/29/23. Per pt, not aware. Agrees to contact office to confirm the scheduled visit. Will forward to PCP to review. Please see scanned in franchise specialist office note from 07/21/23. * Telephone Encounter [...] Description 07/27/2025 11:00 AM EDT Office Visit [facility] CHC MED & PEDS [address] [place] [address] Nerissa Lopez MD [address] [place] [address] documented as of this encounter Visit Diagnoses Not on filedocumented in this encounter Care Teams Heel Pricker Relationship Specialty Start Date End Date Nerisas Lopez MD [address] [place] [phone] PCP - General Family Medicine 11/01/13 documented as of this encounter
--- OUTSIDE RECORDS SUMMARY | 2025-07-26 14:25 | XMS_ITS | Encounter Summary ---
Author Organization [employer] Address [address] [facility] [address] [place] [address] Care Team Providers Care Department Of Mathematics Chair Name Role Phone Nerissa Lopez MD Primary Care Provider [phone] Encounter Details Date Type Department Care Team (Latest Contact Info) Description 04/26/2019 Abstract [facility] CONVERSIONS Dental, Provider, DDS Social History [...] Description 07/27/2025 11:00 AM EDT Office Visit [facility] CHC MED & PEDS [address] [place] [address] Nerissa Lopez MD [address] [place] [address] documented as of this encounter Visit Diagnoses Not on filedocumented in this encounter Care Teams Department Of Mathematics Chair Relationship Specialty Start Date End Date Nerissa Lopez MD [address] [place] [phone] PCP - General Family Medicine 11/01/13 documented as of this encounter
--- OUTSIDE RECORDS SUMMARY | 2025-07-26 14:25 | XMS_ITS | Clinical Summary ---
Author Organization [facility] Address [address] [phone] Phone Care Team Providers Care Analytical Manager Name Role Phone Robin Lopez MD Primary Care Provider [phone] Allergies Active Allergy Reactions Criticality Noted Date [...] the evening. 180 tablet 3 4 Active Active Problems Problem Noted Date Diagnosed [...] Visual Foot Exam 07/21/2023 Diabetes: Hemoglobin A1C 04/14/2025 025, 12/14/2024, 07/27/2024, Additional history exists Influenza [...] PM EST) Hemoglobin A1C 8.1(H) (4.0-5.6) % [facility] Comment: MONITORING: In known diabetic patients, hemoglobin A1c targets should be discussed with health care provider. DIAGNOSTIC USE: The [place] Diabetes Association (ADA) and the World Health [...] Supplement 1 Testing performed or reported by [facility], a Service of [facility], [address] [place] [phone] Cesario Coppola MD, Concrete Mixing Plant Superintendent [facility]# [id number] Blood specimen (specimen) Venous blood / Unknown 12/03/2023 4:25 PM EST 12/03/2023 4:30 PM EST David Valadez MD LAB BLOOD ORDERABLES Final Result Performing Organization Address City/State/[facility] Co de Phone Number [facility] from Last 3 Months or Most Recently Relevant to Health Maintenance Insurance Medicaid Medicaid Care Teams Analytical Manager Relationship Specialty Start Date End Date Robin Lopez MD [address] [place] [address] PCP - General Internal Medicine 07/21/23
--- OUTSIDE RECORDS SUMMARY | 2025-07-26 14:25 | XMS_ITS | Encounter Summary ---
Author Organization [employer] Address [address] [facility] [address] [place] [address] Care Team Providers Care Integrity Analyst Name Role Phone Nerissa Lopez MD Primary Care Provider [phone] Reason for Visit * Reason Onset Date Comments Chart Prep 07/26/2025 Encounter Details Date Type Department Care Team ([facility] st Contact Info) Description 07/26/2025 Telephone [facility] MED [facility] PEDS [address] [place] [address] Nerissa Lopez MD 505 [place] [address] Chart Prep Social History Tobacco Use Types Packs/Day Years [...] encounter Miscellaneous Notes * Telephone Encounter - Juana Camacho [place] - 07/26/2025 10:10 AM EDT Chart Prep Labs: done Images: done Referrals: complete Vaccines due: Covid, Flu, PCV20, and Hep B Screenings: pap smear, eye exam, STI screening, and LMP Overdue care gaps: A1c, Glucose, SBIRT, Oral health screening, Disability screen, and Tobacco documented in this encounter Plan of Treatment Upcoming Encounters Date Type Department Care Team (Late st Contact Info) Description 07/27/2025 11:00 AM EDT Office Visit [facility] [address] [facility] [place] [address] Nerissa Lopez MD [address] [place] [address] documented as of this encounter Visit Diagnoses Not on filedocumented in this encounter Additional Health Concerns Assessment Noted Time PHQ-9 Depression Total Score: 7 01/06/20 25 10:41 AM EDT documented as of this encounter Care Teams Integrity Analyst Relationship Specialty Start Date End Date Nerissa Lopez MD [address] [place] [address] PCP - General Family Medicine 11/01/13 documented as of this encounter
--- OUTSIDE RECORDS SUMMARY | 2025-07-26 14:25 | XMS_ITS | Encounter Summary ---
Author Organization [employer] Address 75 [facility] 7 [place] [address] Care Team Providers Care Fleet Assistant Name Role Phone Nerissa Lopez MD Primary Care Provider Reason for Visit * Reason Comments Med Refill Encounter Details Date Type Department Care Team ([facility] st Contact Info) Description 04/27/2024 Refill [facility] MED & PEDS [address] [place] [address] Zulema Jorgensen MD [address] [place] [address] Social History Tobacco Use Types Packs/Day Years [...] Description 07/27/2025 11:00 AM EDT Office Visit [facility] MED & PEDS [address] [place] [address] Nerissa Lopez MD 505 [place] [address] documented as of this encounter Visit Diagnoses Not on filedocumented in this encounter Care Teams Fleet Assistant Relationship Specialty Start Date End Date Nerissa Lopez MD [address] [place] [address] PCP - General Family Medicine 11/01/13 documented as of this encounter
== END 2025-07-26 13:58 | disposition home or self-care (01) ==
LOC: HO.RHES 13:10
PROVIDERS: PCP Internal Medicine; Visit Provider Student in an Organized Health Care Education/Training Program
DX: M05.79 Rheumatoid arthritis with rheumatoid factor of multiple sites without organ or systems involvement (principal); M1A.39X0 Chronic gout due to renal impairment, multiple sites, without tophus (tophi)
CPT/HCPCS: 99214

== ENCOUNTER 2025-08-29 14:14 | Outpatient (AMB) | payer OTHER, SELFPAY ==
--- NOTE | 2025-08-29 14:15 | HO.NEPHOV_ITS ---
Vital Signs 08/29/25 14:16 Height 5 ft 4 in Weight 239 lb BMI 41.0 BP 132/60 Blood Pressure Location Lt radial Position Sitting Pulse 85 Pulse Source Pulse Oximeter Pulse Oximetry (%) 98 Oxygen Delivery Method Room Air Intake Visit Reasons: Chronic Kidney Dz Clinical Social Worker Required: No Accompanied by: Self / Same As Patient Allergies haloperidol (From Haldol) Allergy (Severe, Verified 08/29/25 14:19) Jaw locked pioglitazone (From Actos) Allergy (Severe, Verified 08/29/25 14:19) Throat swells morphine (MORPHINE) Allergy (Unknown, Verified 08/29/25 14:19) UNKNOWN, bradycardia Medication List - Last Reconciled 08/29/25 by Martin Mckinley MD allopurinol 100 mg PO QAM aspirin (Adult Low Dose Aspirin) 81 mg PO DAILY blood sugar diagnostic (FreeStyle Lite Strips) As directed bupropion HCl XL 150 mg PO QAM buspirone 7.5 mg PO BID cholecalciferol (vitamin D3) 25 mcg PO DAILY ferrous sulfate (FeroSul) 325 mg PO Q OTHER DAY furosemide 40 mg PO DAILY gabapentin 400 mg PO TID lancets (FreeStyle Lancets) As directed Lantus Solostar U-100 Insulin (insulin glargine) 84 units (0.84 mL) subcut QPM NS levothyroxine (Levo-T) 150 mcg PO DAILY Mounjaro (tirzepatide) 10 mg (0.5 mL) subcut QWEEK NS Novolog FlexPen U-100 Insulin (insulin aspart U-100) subcutaneously; BG 100-149 10 units, 150-199 12 units, 200-249 14 units, 250-299 16 units, 300-349 18 units, 350-399 20 units (breakfast and lunch) Add 5 units to sliding scale at dinner meal NS ondansetron HCl 4 mg PO Q8H PRN pravastatin 20 mg PO BEDTIME HPI Comments Details: The patient is a 54-year-old female presenting with chronic kidney disease and DM She has a long-standing history of diabetes mellitus, diagnosed at the age of 16, which has led to complications including diabetic nephropathy confirmed by kidney biopsy. The patient's diabetes management includes dietary modifications, such as reducing carbohydrate intake, and she has been on Mounjaro for two years, resulting in weight loss from 261 to 239 pounds. The patient reports experiencing neuropathy, particularly in her toes, which she associates with her diabetes. She also experiences back pain upon walking, which necessitates rest to alleviate the discomfort. The patient's kidney function is significantly compromised, with a reported function of 15%. She has been advised to reduce her diuretic intake to once daily and discontinue sodium bicarbonate as her acid levels are stable. The patient has a family history of diabetes, with both parents and several relatives affected by the condition. She does not smoke and avoids salt in her diet, using alternatives like Mrs. Snell. [facility] Medical History (Updated 07/26/25 @ 13:54 by Chanelle Haro MD) Gout Rheumatoid factor positive Obesity, morbid, BMI 40.0-49.9 Chronic kidney disease (CKD) Ds DNA antibody positive Depression Diabetes Hypothyroid HTN (hypertension) Depression Surgical History History of parotid gland removal History of cholecystectomy Previous section H/O tubal ligation Family History Daughter Lupus Mother Arthritis Diabetes Maternal Grandmother Arthritis Father Multiple sclerosis Diabetes Social History Household Members: Spouse and Children Household Members Other:: , 21-year-old daughter Alcohol intake: former Patient Tobacco Use Status: Never used Tobacco Current occupational status: unemployed Review of Systems Const Denies fever(s) and Denies weight loss Card Denies chest pain Resp Denies cough and Denies hemoptysis GI Denies abdominal pain, Denies diarrhea and Denies nausea Musc Denies back pain Neuro Denies focal weakness Physical Exam Vital Signs: Last Vital Signs Pulse 85 08/29/25 14:16 BP 132/60 08/29/25 14:16 Pulse Ox 98 08/29/25 14:16 Oxygen Delivery Method Room Air 08/29/25 14:16 BMI result Body Mass Index 41.0 Comfortable Neck supple no JVD. Lungs entry equal no rales. Heart S1-S2 heard no gallop or rub. Abdomen soft nontender. Neuro alert awake oriented. No asterixis. Extremities no edema. Results Reviewed Nephrology Results: Hgb, (12.0-16.0) 9.8 g/dl L 10/01/25 WBC, (4.8-10.8) 10.3 X10*3/uL 07/26/25 Plt Count, (160-400) 293 X10*3/uL 07/26/25 Sodium, (135-145) 138 mmol/L 07/26/25 Potassium, (3.3-5.1) 4.6 mmol/L 07/26/25 Chloride, (96-108) 104 mmol/L 07/26/25 Carbon Dioxide, (22-29) 22 mmol/L 07/26/25 BUN, (9-16) 77 mg/dL H 07/26/25 Creatinine, (0.5-1.4) 3.24 mg/dL H 07/26/25 Calcium, (8.4-10.2) 8.6 mg/dL 07/26/25 Assessment & Plan Assessment & Plan (1) Chronic kidney disease (CKD): Code(s): N18.9 - Chronic kidney disease, unspecified Category: Medical Qualifiers: Chronic kidney disease stage: stage 3 (moderate) Chronic kidney disease stage 3 subtype: unspecified whether 3a or 3b Qualified Code(s): N18.30 - Chronic kidney disease, stage 3 unspecified (2) Gout: Comment: Dx 12/2024 Allopurinol by PCP Code(s): M10.9 - Gout, unspecified Category: Medical Qualifiers: Gout site: multiple sites Gout etiology: due to renal impairment Chronicity: chronic Presence of tophus: without tophus Qualified Code(s): M1A.39X0 - Chronic gout due to renal impairment, multiple sites, without tophus (tophi) (3) Diabetes: Code(s): E11.9 - Type 2 diabetes mellitus without complications Category: Medical Qualifiers: Diabetes mellitus type: type 2 Diabetes mellitus intermediate insulin use: with intermediate teacher use Diabetes mellitus complication status: with kidney complications Diabetes mellitus complication detail: with chronic kidney disease Chronic kidney disease stage: stage 4 (severe) Qualified Code(s): E11.22 - Type 2 diabetes mellitus with diabetic chronic kidney disease; N18.4 - Chronic kidney disease, stage 4 (severe); Z79.4 - terminal operator (current) use of insulin Plan 1. Diabetes Mellitus - Continue monitoring blood glucose levels and adjust diet to manage carbohydrate intake. - Consider starting medications like Jardiance or Farxiga i to aid kidney function. 2. Chronic Kidney Disease (Ckd) stage III Most likely due to underlying diabetic mellitus She could have a component of DENIA due to hypoperfusion. - Reduce Lasix 40 mg Q morning only, discontinue evening dose. - Discontinue sodium bicarbonate as total CO2 is normal Goal is to slow the progression of renal disease Continue to avoid nephrotoxic agents - Schedule follow-up blood work in three to four weeks to monitor kidney function. Orders: Orders IRON PROFILE 3 Weeks N18.30 - Chronic kidney disease, stage 3 unspecified Ferritin 3 Weeks N18.30 - Chronic kidney disease, stage 3 unspecified Basic Metabolic Panel 3 Weeks N18.30 - Chronic kidney disease, stage 3 unspecified Complete Blood Count no Diff 3 Weeks N18.30 - Chronic kidney disease, stage 3 unspecified Parathyroid Hormone Intact 3 Weeks N18.30 - Chronic kidney disease, stage 3 unspecified Total Protein Urine Random 3 Weeks N18.30 - Chronic kidney disease, stage 3 unspecified Creatinine Urine 3 Weeks N18.30 - Chronic kidney disease, stage 3 unspecified Coding Level of Care Code New Pt Level 4 (01873) Diagnoses Stage 3 chronic kidney disease, unspecified whether stage 3a or 3b CKD N18.30 Chronic kidney disease stage: stage 3 (moderate) Chronic kidney disease stage 3 subtype: unspecified whether 3a or 3b Chronic gout due to renal impairment of multiple sites without tophus M1A.39X0 Gout site: multiple sites Gout etiology: due to renal impairment Chronicity: chronic 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
[2025-08-29 14:16] VITALS: BP 132/60; PULSE 85; O2SAT 98; BMI 41.0
--- OUTSIDE RECORDS SUMMARY | 2025-08-29 17:15 | XMS_ITS | Encounter Summary ---
Author Organization [employer] Address [address] [place] [address] Care Team Providers Care Unit Assembler Name Role Phone Nerissa Lopez MD Primary Care Provider [phone] Zulema Jorgensen MD Primary Care Provider [phone] Reason for Visit * Reason Onset Date Comments Appointment Request 07/22/2023 Encounter Details Date Type Department Care Team (Late st Contact Info) Description 07/22/2023 Telephone [facility] CHC MED & PEDS [address] [place], [place] [phone] Nerissa Lopez MD [address] [place], [place] [phone] Appointment Request Social History Tobacco Use Types [...] Call to pt. Per pt, seen by Iridologist on 07/21/23. Per pt, advised of high potassium in blood work. States she was advised to follow low potassium diet and repeat labs this week. Pt also states herprovider ordered a renal US. Per pt, followed recommendations. States she is feeling well and denies any symptoms at this time. Noted pt with upcoming visit with soft water mechanic on 07/29/23. Per pt, not aware. Agrees to contact office to confirm the scheduled visit. Will forward to PCP to review. Please see scanned in soft water mechanic office note from 07/21/23. * Telephone Encounter [...] on filedocumented in this encounter Care Teams Unit Assembler Relationship Specialty Start Date End Date Nerissa Lopez MD [address] [place] [address] PCP - General Family Medicine 11/01/13 08/22/25 Zulema Jorgensen MD [address] [place] [address] PCP - General Family Medicine 08/23/25 documented as of this encounter
--- OUTSIDE RECORDS SUMMARY | 2025-08-29 17:15 | XMS_ITS | Encounter Summary ---
Author Organization [employer] Address [address] [place] [address] Care Team Providers Care Farmworker Cranberry Name Role Phone Nerissa Lopez MD Primary Care Provider Zulema Jorgensen MD Primary Care Provider [phone] Encounter Details Date Type Department Care Team (Late st Contact Info) Description 02/20/2023 Orders Only [facility] CHC MED & PEDS [address] [place], [place] [phone] Nerissa Lopez MD [address] [place] [address] Type 2 diabetes mellitus without complication, without long-term current use of insulin ([facility]); Type 2 diabetes mellitus without complication, with long-term current use of insulin ([facility]) Social History Tobacco Use Types [...] (HCC) documented in this encounter Care Teams Farmworker Cranberry Relationship Specialty Start Date End Date Nerissa Lopez MD [address] [place] [address] PCP - General Family Medicine 11/01/13 08/22/25 Zulema Jorgensen MD [address] [place] [address] PCP - General Family Medicine 08/23/25 documented as of this encounter
--- OUTSIDE RECORDS SUMMARY | 2025-08-29 17:15 | XMS_ITS | Encounter Summary ---
Author Organization [employer] Address 75 [facility] 7 [place] [address] Care Team Providers Care Steep Tender Name Role Phone Zulema Jorgensen MD Primary Care Provider [phone] Reason for Visit * Reason Comments Med Refill Encounter Details Date Type Department Care Team ([facility] st Contact Info) Description 08/25/2025 Refill [facility] CHC MED & PEDS [address] [place] [address] Nerissa Lopez MD [address] [place] [address] Mixed hyperlipidemia Social History Tobacco Use Types Packs/Day Years Used Date Smoking Tobacco: Never Smokeless Tobacco: Never Alcohol Use Standard Drinks/Week Comments Never 0 (1 standard drink = 0.6 oz pur e alcohol) Depression Answer Date Recorded Patient Health Questionnaire-9 Score 8 07/27/2025 Patient Health Questionnaire-9 Score 8 07/27/2025 Last PHQ-9: Questionnaire Data Not on file 1 Housing Stability Answer Date Recorded What is [...] Date Recorded Patient Health Questionnaire-2 Score 3 07/27/2025 Internet Access Answer Date Recorded Internet Access [...] as of this encounter Visit Diagnoses Diagnosis Mixed hyperlipidemia documented in this encounter Additional Health Concerns Assessment Noted Time PHQ-9 Depression Total Score: 8 07/27/20 25 11:22 AM EDT documented as of this encounter Care Teams Steep Tender Relationship Specialty Start Date End Date Zulema Jorgensen MD [address] [place] [address] PCP - General Family Medicine 08/23/25 documented as of this encounter
--- OUTSIDE RECORDS SUMMARY | 2025-08-29 17:15 | XMS_ITS | Clinical Summary ---
Author Organization [facility] Address [address] [address] Phone Care Team Providers Care Six Pack Packer Name Role Phone Robin Lopez MD Primary Care Provider [phone] Allergies Active Allergy Reactions Criticality Noted Date [...] PM EST) Hemoglobin A1C 8.1(H) (4.0-5.6) % [facility] Comment: MONITORING: In known diabetic patients, hemoglobin A1c targets should be discussed with health care provider. DIAGNOSTIC USE: The [place] Diabetes Association (ADA) and the World Health [...] Supplement 1 Testing performed or reported by [facility], a Service of [facility], [address] [place] [id number] Cesario Coppola MD, Community Relations Director [facility]# [id number] Blood specimen (specimen) Venous blood / Unknown 12/03/2023 4:25 PM EST 12/03/2023 4:30 PM EST David Valadez MD LAB BLOOD ORDERABLES Final Result Performing Organization Address City/State/[facility] Co de Phone Number [facility] from Last 3 Months or Most Recently Relevant to Health Maintenance Insurance Medicaid Medicaid Care Teams Six Pack Packer Relationship Specialty Start Date End Date Robin Lopez MD [address] [place] [address] PCP - General Internal Medicine 07/21/23
--- OUTSIDE RECORDS SUMMARY | 2025-08-29 17:15 | XMS_ITS | Encounter Summary ---
Author Organization [employer] Address 75 [facility] [place] [address] Care Team Providers Care Sorting Livestock Worker Name Role Phone Nerissa Lopez MD Primary Care Provider [phone] Zulema Jorgensen MD Primary Care Provider [phone] Encounter Details Date Type Department Care Team (Latest Contact Info) Description 04/26/2019 Abstract [facility] CONVERSIONS Dental, Provider, DDS Social [...] on filedocumented in this encounter Care Teams Sorting Livestock Worker Relationship Specialty Start Date End Date Nerissa Lopez MD [address] [place] [address] PCP - General Family Medicine 11/01/13 08/22/25 Zulema Jorgensen MD [address] [place] [address] PCP - General Family Medicine 08/23/25 documented as of this encounter
--- OUTSIDE RECORDS SUMMARY | 2025-08-29 17:15 | XMS_ITS | Encounter Summary ---
Author Organization [email or web address] Address 75 [facility] [place] [address] Care Team Providers Care Patient Services Clerk Name Role Phone Nerissa Lopez MD Primary Care Provider [phone] Zulema Jorgensen MD Primary Care Provider [phone] Reason for Visit * Reason Comments Med Refill Encounter Details Date Type Department Care Team ([facility] st Contact Info) Description 04/27/[address] [facility] CHC MED & PEDS [address] [place], [place] [phone] Zulema Jorgensen MD [address] [place], [place] Social History Tobacco Use Types Packs/Day [...] on filedocumented in this encounter Care Teams Patient Services Clerk Relationship Specialty Start Date End Date Nerissa Lopez MD [address] [place] [address] PCP - General Family Medicine 11/01/13 08/22/25 Zulema Jorgensen MD [address] [place] [address] PCP - General Family Medicine 08/23/25 documented as of this encounter
--- OUTSIDE RECORDS SUMMARY | 2025-08-29 17:15 | XMS_ITS | Clinical Summary ---
Author Organization [employer] Address [address] [facility] 7 [place] [address] Care Team Providers [employer] Solutions Market Consultant Name Role Phone Zulema Jorgensen MD Primary Care Provider [phone] Allergies Active Allergy Reactions Criticality Noted Date [...] Use for BS under 70 as needed 04/20/2 021 Active nystatin (Mycostatin) 549652 UNIT/GM powder apply by topical route 3 times every day to the affected area(s) 020 Active triamcinolone (Kenalog) 0.1 % cream Apply topically if needed in the morning and at bedtime (pain and swelling). 30 g 2 023 Active Tirzepatide (Mounjaro) 2.5 MG/0.5ML solution pen-injectorIndic ations:Type 2 diabetes mellitus without complication, with long-term current use of insulin ([facility]) Inject 2.5 mg under the skin 1 (one) time per week. 0.5 mL 024 Active Continuous Glucose Furniture Upholsterer (FreeStyle David 2 [place]) deviceIndications :Type 2 diabetes mellitus without complication, with long-term current use of insulin ([facility]) Scan sensor every 8 hours 1 each 024 Active Continuous Glucose Sensor (FreeStyle David 2 Sensor) miscIndications:T ype 2 diabetes mellitus without complication, with long-term current use of insulin ([facility]) Apply 1 sensor every 14 days 2 each 3 024 Active Lantus SoloStar 100 UNIT/ML penIndications:Ty pe 2 diabetes mellitus without complication, without long-term current use of insulin ([facility]) INJECT 55 UNITS SUBCUTANEOUSLY EVERY MORNING 15 mL 1 024 Active NovoLOG FLEXPEN 100 UNIT/ML penIndications:Ty pe 2 diabetes mellitus without complication, with long-term current use of insulin ([facility]) INJECT 4 to 12 UNITS SUBCUTANEOUSLY THREE TIMES DAILY BEFORE MEALS DIRECTED PER SLIDING SCALE 60 mL 024 Active glipiZIDE (Glucotrol) 5 MG tabletIndications :Type 2 diabetes mellitus with hyperglycemia, unspecified whether group home insulin use ([facility]) TAKE ONE TABLET IN THE MORNING AND EVENING BEFORE MEALS 60 tablet 025 Active Aspirin Adult Low Strength 81 MG EC tabletIndications :Primary hypertension TAKE ONE TABLET EVERY MORNING 30 tablet 025 Active ferrous gluconate (Fergon) 324 (38 Fe) MG tablet Take 1 tablet (324 mg) by mouth with breakfast. 30 tablet 025 2025 Active glucose blood (FREESTYLE LITE) test strip TEST BLOOD SUGAR SIX TO EIGHT TIMES DAILY 300 strip 025 Active furosemide (Lasix) 20 MG tablet [...] EVERY MORNING 90 tablet 1 025 Active levothyroxine (Synthroid, Levoxyl) 150 MCG tablet TAKE ONE TABLET EVERY MORNING FOR thyroid 90 tablet 1 025 Active cholecalciferol (Vitamin D-3) 25 MCG tablet TAKE ONE TABLET EVERY MORNING (vitamin) 90 tablet 1 Active allopurinol (Zyloprim) 100 MG tablet Take 2 tablets (200 mg) by mouth Once per day. 60 tablet 11 025 2025 Active pravastatin (Pravachol) 20 MG tabletIndications :Mixed hyperlipidemia TAKE ONE TABLET EVERY NIGHT AT BEDTIME 90 tablet 1 025 Active pravastatin (Pravachol) 20 MG tabletIndications :Mixed hyperlipidemia TAKE ONE TABLET EVERY NIGHT AT BEDTIME 90 tablet 1 025 2024 Discontinued Active [...] Encounters Date Type Department Care Team Description 08/25/2025 Refill [facility] [address] [place], [place] [phone] Nerissa Lopez MD Mixed hyperlipidemia 08/02/2025 Telephone [facility] [address] [place] [address] Nallely Martinez, PharmD 07/27/2025 11:00 AM EDT Office Visit [facility] [address] [place] [address] Nerissa Lopez MD Type 2 diabetes mellitus without complication, with long-term current use of insulin (HCC) (Primary Dx); Encounter for immunization; Chronic kidney disease, unspecified CKD stage; Acute gout involving toe of right foot, unspecified cause 07/27/2025 Travel 07/27/2025 Refill [facility] [address] [facility] [place] [address] Nerissa Lopez MD 07/26/2025 Orders Only GENERIC EXTERNAL DATA DEPARTMENT Provider, Generic External Data 07/26/2025 Telephone [facility] [address] [place] [address] Nerissa Lopez MD Chart Prep 06/24/2025 Refill [facility] [address] [place] [address] Nerissa Lopez MD Hypertension, unspecified type from Last 3 Months Immunizations Immunization Administration Dates Next Due Influenza Whole 09/10/2007,09/11/2006 Influenza injectable quadriv alent IIV4 with preservative 07/15/2016 Influenza injectable quadriv alent preservative free 08/13/2021,07/05/2019 Influenza, IIV3, injectable 07/24/2014 Influenza, Split (incl. percy fied surface antigen) 07/12/2013,08/05/2012 Influenza, seasonal, injecta ble, preservative free 07/27/2025,07/21/2024 Pneumococcal Polysaccharide PPSV23 04/25/2011, Tdap 11/13/2023,12/23/2010,02/23/2008 Zoster, [...] Sign Reading Time Taken Comments Blood Pressure 132/68 07/27/2025 11:20 AM EDT Pulse 85 07/27/2025 11:20 AM EDT Temperature 36.2 C (97.1 F) 07/27/2025 11:20 AM EDT Respiratory Rate 18 07/27/2025 11:20 AM EDT Oxygen Saturation 97% 01/09/2025 6:54 PM EDT Inhaled Oxygen Concentration - - Weight 106 kg (234 lb) 07/27/2025 11:20 AM EDT Height 157.5 cm (5' 2 ) 07/27/2025 11:20 AM EDT Body Mass Index 42.8 07/27/2025 11:20 AM EDT Plan of Treatment Health Maintenance Due Date Last Done Comments CT Colonography 1970 Colonoscopy 1970 FIT 1970 HIV Screening 1970 Sigmoidoscopy 1970 Eye Exam 1978 Hepatitis C Screening 1986 Hepatitis B Vaccines [...] COVID-19 Vaccine ( season) 2025 02/13/2021, 01/08/2021 Diabetes: Foot Exam 12/14/2025 12/14/2024 SDOH Screening 01/05/2026 01/05/2025 Lipid Panel 01/12/2026 01/12/2025, 1011/2023, 03/30/2023 Mammogram 01/12/2026 01/13/2024 Diabetes: Hemoglobin A1C 01/25/2026 025, 01/12/2025, 12/14/2024, Additional history exists Alcohol/Substance Use Screening 07/27/2026 07/27/2025 Depression Screening 07/27/2026 07/27/2025, 07/27/20 25 Disability Screening 07/27/2026 07/27/2025 Tobacco Screening 07/27/2026 07/27/2025 Colorectal Cancer Screening 10/05/2026 FIT DNA/Cologuard 10/05/2026 10/05/2023 DTaP/Tdap/Td Vaccines (4 - Td or Tdap) 11/13/2033 11/13/2023, 12/23/2010, 02/23/2008 RSV Patients and Patients Aged 60 years or older (1 - 1-dose 75+ series) 2043 Zoster Vaccines Completed 09/06/2019, 06/29/2019 Influenza Vaccine Completed 07/27/2025, , 08/13/2021, Additional history exists HIB Vaccines Aged Out [...] Diagnosis Comments POCT GLYCATED HEMOGLOBIN, TOTAL Routine 07/27/2025 11:25 AM EDT Encounter for immunization POCT GLUCOSE Routine 07/27/2025 11:24 AM EDT Encounter for immunization SED RATE BY MODIFIED WESTERGREN Routine 07/26/2025 2:09 PM EDT C-REACTIVE PROTEIN Routine 07/26/2025 2: 09 PM EDT URIC ACID Routine 07/26/2025 2:09 PM EDT COMPREHENSIVE METABOLIC PANEL Routine 07/26/2025 2:09 PM EDT CBC WITH AUTO DIFFERENTIAL Routine 07/26/2025 2:09 PM EDT LIPID PANEL, STANDARD Routine 01/12/2025 [...] to Health Maintenance Results * (ABNORMAL) POCT Hgb A1c (07/27/2025 11:25 AM EDT) Pathologist [facility] [place] Hemoglobin A1C 6.9(A) 4.0 - 5.7 % QC Media Lot # [id number] Lot# Expiration Date 426, Blood 07/27/2025 11:2 5 AM EDT us Nerissa Lopez MD POINT OF CARE TEST ENTER/EDIT OR DERABLES Final Result * POCT Glucose (07/27/2025 11:24 AM EDT) Pathologist [facility] Glucose Blood, POC 127 60 - 200 mg/dL QC Media Lot # [id number] Lot# Expiration Date Blood Capillary blood specimen / Unknown 07/27/2025 11:24 AM EDT us Nerissa Lopez MD POINT OF CARE TEST ENTER/EDIT OR DERABLES Edited Result - Final * (ABNORMAL) CBC auto differential (07/26/2025 2:09 PM EDT) White Blood Count 10.3 4.8 - 10.8 X10*3/uL [facility] Red Blood Count 3.35(L) 4.20 - 5.50 X10*6/uL [facility] Hemoglobin 9.8(L) 12.0 - 16.0 g/dl [facility] Hematocrit 30.8(L) 37.0 - 47.0 % [facility] Mean Corpuscular Volume 91.9 80.0 - 98.0 fL [facility] Mean Corpuscular Hemoglobin 29.3 27.0 - 33.0 pg [facility] Mean Corpuscular HGB Conc 31.8 31.0 - 35.0 g/dl [facility] Red Cell Distribution Width 13.2 11.0 - 16.0 % [facility] Platelet Count 293 160 - 400 X10*3/uL [facility] Mean Platelet Volume 12.7(H) 9.4 - 12.3 fL [facility] Neutrophils Percent Auto 62.5 45 - 73 % [facility] Imm Gran Pct Auto 0.3 0.0 - 0.4 % [facility] Lymphocytes Percent Auto 25.4 20 - 40 % [facility] Monocytes Percent Auto 6.6 2 - 11 % [facility] Eosinophils Percent Auto 4.6(H) 0 - 4 % [facility] Basophils Percent Auto 0.6 0 - 2 % [facility] NRBC Pct Auto 0.0 0.0 - 0.2 /100WBC [facility] Neutrophils Absolute Auto 6.4 2.0 - 8.3 x10*3/uL [facility] Imm Gran Abs Auto 0.03 0.00 - 0.03 X10*3/uL [facility] Lymphocytes Absolute Auto 2.6 1.2 - 4.9 X10*3/uL [facility] Monocytes Absolute Auto 0.7 0.1 - 1.2 X10*3/uL [facility] Eosinophils Absolute Auto 0.5(H) 0.0 - 0.4 X10*3/uL [facility] Basophils Absolute Auto 0.1 0.0 - 0.2 X10*3/uL [facility] NRBC Abs Auto 0.000 0.0 - 0.012 X10*3/uL [facility] 07/26/2025 2:09 PM EDT 07/26/2025 6:04 PM EDT Generic External Data Provider LAB BLOOD ORDERAB LES Final Result Performing Organization Address [facility] Co de Phone Number [facility] [address] [place] [phone] * (ABNORMAL) Sed Rate by Modified Westergren (07/26/2025 2:09 PM EDT) Erythrocyte Sedimentation Rate 97(H) 0 - 20 MM/HR [facility] Comment:Patients with polycy themia and many hemoglobin abnormalitiesmay have depressed sed rates whereas patients with anemiamay have elevated sed rates. 07/26/2025 2:09 PM EDT 07/26/2025 6:04 PM EDT Generic External Data Provider LAB BLOOD ORDERAB LES Final Result Performing Organization Address [facility] Co de Phone Number [facility] [address] [place] [phone] * (ABNORMAL) C-reactive Protein (07/26/2025 2:09 PM EDT) C Reactive Protein 4.68(H) < or = 0.50 mg/dL [facility] 07/26/2025 2:09 PM EDT 07/26/2025 6:04 PM EDT Generic External Data Provider LAB BLOOD ORDERAB LES Final Result Performing Organization Address [facility] Co de Phone Number [facility] [address] [place] [phone] * (ABNORMAL) Uric acid (07/26/2025 2:09 PM EDT) Uric Acid 9.3(H) 2.4 - 5.7 mg/dL [facility] 07/26/2025 2:09 PM EDT 07/26/2025 6:04 PM EDT us Generic External Data Provider LAB BLOOD ORDERAB LES Final Result [facility] [address] [place] [address] [phone] * (ABNORMAL) Comprehensive Metabolic Panel (07/26/2025 2:09 PM EDT) Sodium 138 135 - 145 mmol/L [facility] Potassium 4.6 3.3 - 5.1 mmol/L [facility] Chloride 104 96 - 108 mmol/L [facility] Carbon Dioxide 22 22 - 29 mmol/L [facility] Anion Gap 17 12 - 20 [facility] Urea Nitrogen (BUN) 77(H) 9 - 16 mg/dL [facility] Creatinine, Serum 3.24(H) 0.5 - 1.4 mg/dL [facility] Estimated Glomerular Filt Rate 15 [facility] Comment:Chronic Kidney Disea se: Estimated GFR < 60 mL/min/1.16r6Lmyvhz Kidney Disease: Estimated GFR < 15 mL/min/1.73m2 Glucose 176(H) 60 - 115 mg/dL [facility] Calcium 8.6 8.4 - 10.2 mg/dL [facility] Bilirubin, Total 0.5 0.0 - 1.0 mg/dL [facility] Aspartate Amino Transferase 22 5 - 31 U/L [facility] Alanine Aminotransferase 14 0 - 31 U/L [facility] Total Protein 7.8 6.5 - 8.0 g/dL [facility] Albumin Level 4.3 3.5 - 5.0 g/dL [facility] Alkaline Phosphatase 105 39 - 117 U/L [facility] 07/26/2025 2:09 PM EDT 07/26/2025 6:04 PM EDT us Generic External Data Provider LAB BLOOD ORDERAB LES Final Result Performing Organization Address City/State/[facility] Co de Phone Number [facility] [address] [place] [address] [phone] * (ABNORMAL) Lipid Panel, Standard (01/12/2025 12:22 PM EDT) Triglycerides 115 <150 mg/dL [facility] Comment:Desirable Triglyceri de: less than 150 mg/dLBorderline High Triglyceride 150-199 mg/dLHigh Triglyceride: 200-499 mg/dLVery High Triglyceride: greater than or equal to 5OO mg/dL Cholesterol 171 <200 mg/dL [facility] Comment:Desirable Cholestero l: less than 200 mg/dLBorderline High Cholesterol: 200-239 mg/dLHigh Cholesterol: greater than 239 mg/dL LDL Cholesterol Calculated 100(H) <100 mg/dL [facility] Comment:Desirable LDL: less than 100 mg/dLNear Optimal/Above Optimal LDL: 110- 129 mg/dLBorderline High LDL: 130-159 mg/dLHigh LDL: 160-189 mg/dLVery High LDL: greater than or equal to 190 mg/dL HDL Cholesterol 48 >40 mg/dL [facility] Comment:Desirable HDL: great er than 40 mg/dL Note: This HDL assay may give artificially low results in patients with liver disease. 01/12/2025 12:2 2 PM EDT 01/12/2025 1:06 PM EDT Generic External Data Provider LAB BLOOD ORDERAB LES Final Result Performing Organization Address [facility] Co de Phone Number [facility] [address] [place] [address] [phone] * BI Mammogram Screening Tomosynthesis Bilateral (01/13/2024 3:00 PM EDT) Anatomical Region Laterality Modality Breast Bilateral Mammography 01/13/2024 3:00 PM EDT Narrative 02/04/2024 5:12 AM EDT [facility] [address] [place] [address] Mammography Report Signed Patient: Mekhi Daily MR#: [id number] 2 : 1970 Acct:[id number] Age/Sex: 53 / F ADM Date: 01/13/24 Loc: [facility] Attending Dr: Nerissa Lopez MD Ordering Physician: Nerissa Lopez MD Results: 1Negati ve Date of Service: 01/13/24 Follow Up: 1 Year From Orig ina Mammogram Procedure(s): MM tomosynthesis screening BI Accession Number(s): [id number] cc: Nerissa Lopez MD EXAMINATION: MM SCREENING [...] in OV> 02/04/24 0508 DD/ 1500 TD/TT: Observatory Director: Procedure Note Donotuseinterpreter, Image - 02/04/2024 [facility] [address] [place], [place] [address] Mammography Report Signed Patient: Steven Daily#: [id number] 2 : 1970Acct:[id number] Age/Sex: 53 / FADM Date: 01/13/24 Loc: [facility] Attending Dr: Nerissa Lopez MD Ordering Physician: Nerissa Lopez MDResults: 1Negati ve Date of Service: 01/13/24Follow Up: 1 Year From Orig inal Mammogram Procedure(s): MM tomosynthesis screening BI Accession Number(s): [id number] cc: Nerissa Lopez MD EXAMINATION: MM SCREENING [...] in OV> 02/04/24 0508 DD/ 1500 TD/TT: Observatory Director: Nerissa Lopez MD IMG BI PROCEDURES Final Result * Cologuard?? colon cancer screening (10/05/2023 1:05 PM EST) Cologuard Result Negative Negative 10/14/20 1:10 PM EST [employer] (CLIA #:[id number]) Comment: NEGATIVE TEST RESULT. A negative Cologuard [...] (Nikki August al, N Engl J Med 2014;370(14):4559-1383) The normal value (reference range) for this assay is negative. COLOGUARD RE-SCREENING RECOMMENDATION: Periodic colorectal cancer screening is an important part of preventive healthcare for asymptomatic individuals at average risk for colorectal cancer. Following a negative Cologuard result, the [place] [employer] Society and U.S. Multi-Society Task Force screening guidelines recommend a Cologuard re-screening interval of 3 years. References: [place] [employer] Guideline for Colorectal Cancer Screening: https://www.cancer.org/cancer/ztssc-assfsc-fjtvqa/onxjllxne-rwvfctpgg-axodvig/ac s-rec ommendations.html.; Sergo DK, Adrian INIGUEZ, Cindy ColonK, Colorectal Cancer Screening: Recommendations for Physicians and Patients from the U.S. Multi-Society Task Force on Colorectal Cancer Screening , Am J Gastroenterology 2017; 112:3577-7753. TEST DESCRIPTION: Composite algorithmic analysis of stool [...] colonoscopy. (Nikki Rosenbaum, N Engl J Med 2014;370(14):9525-7411.) Cologuard may produce a false negative or false positive result (no colorectal cancer or precancerous polyp present at colonoscopy follow up). A negative Cologuard test result does not guarantee the absence of CRC or advanced adenoma (pre-cancer). The current Cologuard screening interval is every 3 years. ([place] [employer] Society and U.S. Multi-Society Task Force). Cologuard performance data in a 10,000 patient pivotal study using colonoscopy as the reference method can be accessed at the following location: www.[employer]/results. Additional description of the Cologuard test process, warnings and precautions can be found at www.cologuard.com. Stool specimen (specimen) 10/05/2023 1:05 PM EST 10/06/2023 8:14 PM EST us Nerissa Lopez MD LAB MOLECULAR DIAGNOSTICS ORDERA BLES Final Result Performing Organization Address City/State/[facility] Co de Phone Number [employer] (CLIA #:[id number]) [place] [address], from Last 3 Months or Most Recently Relevant to Health Maintenance [place] [address] [address] [place] [address] Care Teams Solutions Market Consultant Relationship Specialty Start Date End Date Zulema Jorgensen MD [address] [place] [phone] PCP - General Family Medicine 08/23/25
== END 2025-08-29 14:41 | disposition home or self-care (01) ==
PROVIDERS: PCP Internal Medicine; Visit Provider Internal Medicine Hypertension Specialist
DX: E11.22 Type 2 diabetes mellitus with diabetic chronic kidney disease (principal); N18.4 Chronic kidney disease, stage 4 (severe); M1A.39X0 Chronic gout due to renal impairment, multiple sites, without tophus (tophi); Z79.4 Long term (current) use of insulin
CPT/HCPCS: 99204

== ENCOUNTER → 2025-08-29 14:14 | Outpatient (BNVA) | payer OTHER, SELFPAY | PROVIDERS: PCP Internal Medicine; Visit Provider Internal Medicine Hypertension Specialist | DX: N18.30 Chronic kidney disease, stage 3 unspecified (principal) | CPT/HCPCS: 99202 ==

== ENCOUNTER 2025-09-27 11:22 | Outpatient (REF) | payer OTHER, SELFPAY ==
--- OUTSIDE RECORDS SUMMARY | 2025-09-27 13:42 | XMS_ITS | Encounter Summary ---
Author Organization [employer] Address [address] [place] [address] Care Team Providers Care Pit Clerk Name Role Phone Nerissa Lopez MD Primary Care Provider [phone] Zulema Jorgensen MD Primary Care Provider [phone] Encounter Details Date Type Department Care Team (Late Contact Info) Description 02/20/2023 Orders Only [facility] [address] [place] [address] Nerissa Lopez MD [address] [place] [address] Type 2 diabetes mellitus without complication, without long-term current use of insulin ([facility]); Type 2 diabetes mellitus without complication, with long-term current use of insulin ([facility]) Social History Tobacco Use Types [...] Department Care Team (Late Contact Info) Description 11/16/2025 10:45 AM EST Office Visit [facility] [address] [place] [address] Zulema Jorgensen MD [address] [place] [address] documented as of this encounter Visit Diagnoses Diagnosis Type 2 diabetes mellitus without complication, without long-term current use of insulin (HCC) Type 2 diabetes mellitus without complication, with long-term current use of insulin (HCC) documented in this encounter Care Teams Pit Clerk Relationship Specialty Start Date End Date Nerissa Lopez MD [address] [place] [phone] PCP - General Family Medicine 11/01/13 08/22/25 Zulema Jorgensen MD [address] [place] [address] PCP - General Family Medicine 08/23/25 documented as of this encounter
--- OUTSIDE RECORDS SUMMARY | 2025-09-27 13:42 | XMS_ITS | Encounter Summary ---
Author Organization [employer] Address [address] [facility] [address] [place] [address] Care Team Providers Care Manager Infusion Name Role Phone Nerissa Lopez MD Primary Care Provider [phone] Zulema Jorgensen MD Primary Care Provider [phone] Encounter Details Date Type Department Care Team (Latest Contact Info) Description 04/26/2019 Abstract [facility] CONVERSIONS Dental, Provider, DDS Social History [...] Care Team (Late st Contact Info) Description 11/16/2025 10:45 AM EST Office Visit [facility] [address] [place], [place] [phone] Zulema Jorgensen MD [address] [place] [address] documented as of this encounter Visit Diagnoses Not on filedocumented in this encounter Care Teams Manager Infusion Relationship Specialty Start Date End Date Nerissa Lopez MD [address] [place] [address] PCP - General Family Medicine 11/01/13 08/22/25 Zulema Jorgensen MD [address] [place] [address] PCP - General Family Medicine 08/23/25 documented as of this encounter
--- OUTSIDE RECORDS SUMMARY | 2025-09-27 13:42 | XMS_ITS | Encounter Summary ---
Author Organization [employer] Address [address] [place] [address] Care Team Providers Care Payable Manager Name Role Phone Nerissa Lopez MD Primary Care Provider [phone] Zulema Jorgensen MD Primary Care Provider [phone] Reason for Visit * Reason Onset Date Comments Appointment Request 07/22/2023 Encounter Details Date Type Department Care Team (Late st Contact Info) Description 07/22/2023 Telephone [facility] [address] [place], [place] [phone] Nerissa Lopez MD [address] [place], [place] [phone] Appointment Request Social History Tobacco Use Types [...] Call to pt. Per pt, seen by Table Maker on 07/21/23. Per pt, advised of high potassium in blood work. States she was advised to follow low potassium diet and repeat labs this week. Pt also states herprovider ordered a renal US. Per pt, followed recommendations. States she is feeling well and denies any symptoms at this time. Noted pt with upcoming visit with heading up machine operator on 07/29/23. Per pt, not aware. Agrees to contact office to confirm the scheduled visit. Will forward to PCP to review. Please see scanned in heading up machine operator office note from 07/21/23. * Telephone Encounter [...] Description 11/16/2025 10:45 AM EST Office Visit [facility] [address] [place] [address] Zulema Jorgensen MD [address] [place] [address] documented as of this encounter Visit Diagnoses Not on filedocumented in this encounter Care Teams Payable Manager Relationship Specialty Start Date End Date Nerissa Lopez MD [address] [place] [phone] PCP - General Family Medicine 11/01/13 08/22/25 Zulema Jorgensen MD [address] [place] [address] PCP - General Family Medicine 08/23/25 documented as of this encounter
--- OUTSIDE RECORDS SUMMARY | 2025-09-27 13:42 | XMS_ITS | Encounter Summary ---
Author Organization [employer] Address [address] [facility] [address] [place] [address] Care Team Providers Care Sales Market Leader Name Role Phone Nerissa Lopez MD Primary Care Provider [phone] Zulema Jorgensen MD Primary Care Provider [phone] Reason for Visit * Reason Comments Med Refill Encounter Details Date Type Department Care Team ([facility] st Contact Info) Description 04/27/2024 Refill [facility]S [address] [place], [place] [phone] Zulema Jorgensen MD [address] [place], [place] Social History Tobacco Use Types Packs/Day [...] Description 11/16/2025 10:45 AM EST Office Visit [facility] MED & PEDS [address] [place] [address] Zulema Jorgensen MD [address] [place] [address] documented as of this encounter Visit Diagnoses Not on filedocumented in this encounter Care Teams Sales Market Leader Relationship Specialty Start Date End Date Nerissa Lopez MD [address] [place] [phone] PCP - General Family Medicine 11/01/13 08/22/25 Zulema Jorgensen MD [address] [place] [address] PCP - General Family Medicine 08/23/25 documented as of this encounter
--- OUTSIDE RECORDS SUMMARY | 2025-09-27 13:42 | XMS_ITS | Clinical Summary ---
Author Organization [employer] Address [address] 7 [place] [address] Care Team Providers Care Business Office Manager Name Role Phone Zulema Jorgensen MD Primary Care Provider [phone] Allergies Active Allergy Reactions Criticality Noted Date [...] oral route every 6-8 hours as needed 03/07/20 20 Active ARIPiprazole (Abilify) 5 MG tablet take 1 tablet by oral route every day Active busPIRone (Buspar) 7.5 MG tablet take 1 tablet by oral route 2 times every day Active Docusate Sodium (DSS) 100 MG capsule take 1 capsule by oral route 2 times every day at bedtime as needed 07/05/20 21 Active gabapentin (Neurontin) 300 MG capsule take 1 capsule by oral route 3 times every day 07/23/20 21 Active glucose-vitamin C 4-6 GM-MG oral gel Use for BS under 70 as needed 02/13/20 21 Active nystatin (Mycostatin) 141765 UNIT/GM powder apply by topical route 3 times every day to the affected area(s) 02/01/20 20 Active triamcinolone (Kenalog) 0.1 % cream Apply topically if needed in the morning and at bedtime (pain and swelling). 30 g 2 06/17/20 23 Active Tirzepatide (Mounjaro) 2.5 MG/0.5ML solution pen-injectorIndica tions:Type 2 diabetes mellitus without complication, with long-term current use of insulin ([facility]) Inject 2.5 mg under the skin 1 (one) time per week. 0.5 mL 11 03/16/20 24 Active Continuous Glucose Senior Technical Architect (FreeStyle David 2 [place]) deviceIndications: Type 2 diabetes mellitus without complication, with long-term current use of insulin ([facility]) Scan sensor every 8 hours 1 each 03/16/20 24 Active Continuous Glucose Sensor (FreeStyle David 2 Sensor) miscIndications:Ty pe 2 diabetes mellitus without complication, with long-term current use of insulin ([facility]) Apply 1 sensor every 14 days 2 each 3 03/16/20 24 Active Lantus SoloStar 100 UNIT/ML penIndications:Typ e 2 diabetes mellitus without complication, without long-term current use of insulin ([facility]) INJECT 55 UNITS SUBCUTANEOUSLY EVERY MORNING 15 mL 1 04/01/20 24 Active NovoLOG FLEXPEN 100 UNIT/ML penIndications:Typ e 2 diabetes mellitus without complication, with long-term current use of insulin ([facility]) INJECT 4 to 12 UNITS SUBCUTANEOUSLY THREE TIMES DAILY BEFORE MEALS DIRECTED PER SLIDING SCALE 60 mL 11 04/29/20 24 Active glipiZIDE (Glucotrol) 5 MG tabletIndications: Type 2 diabetes mellitus with hyperglycemia, unspecified whether penitentiary insulin use ([facility]) TAKE ONE TABLET IN THE MORNING AND EVENING BEFORE MEALS 60 tablet 11 5 3:53 PM EST 11/25/19 25 Active Aspirin Adult Low Strength 81 MG EC tabletIndications: Primary hypertension TAKE ONE TABLET EVERY MORNING 30 tablet 11 12/28/19 25 Active ferrous gluconate (Fergon) 324 (38 Fe) MG tablet Take 1 tablet (324 mg) by mouth with breakfast. 30 tablet 01/14/20 25 026 Active glucose blood (FREESTYLE LITE) test strip TEST BLOOD SUGAR SIX TO EIGHT TIMES DAILY 300 strip 11 5 3:53 PM EST 01/28/20 25 Active furosemide (Lasix) 20 MG tablet Take 2 tablets (40 mg) by mouth 2 times daily. 120 tablet 11 04/03/20 25 026 Active valACYclovir (Valtrex) 500 MG tablet TAKE ONE TABLET BY MOUTH TWICE DAILY UNTIL FINISHED. 6 tablet 2 05/12/20 25 Active hydroCHLOROthiazid e (HYDRODiuril) 25 MG tabletIndications: Hypertension, unspecified type TAKE ONE TABLET EVERY MORNING 90 tablet 1 06/28/20 25 Active lisinopril 20 MG tabletIndications: Hypertension, unspecified type TAKE ONE TABLET EVERY MORNING 90 tablet 1 06/28/20 25 Active levothyroxine (Synthroid, Levoxyl) 150 MCG tablet TAKE ONE TABLET EVERY MORNING FOR thyroid 90 tablet 1 07/27/20 25 Active cholecalciferol (Vitamin D-3) 25 MCG tablet TAKE ONE TABLET EVERY MORNING (vitamin) 90 tablet 1 07/27/20 25 Active allopurinol (Zyloprim) 100 MG tablet Take 2 tablets (200 mg) by mouth Once per day. 60 tablet 11 07/27/20 25 026 Active pravastatin (Pravachol) 20 MG tabletIndications: Mixed hyperlipidemia TAKE ONE TABLET EVERY NIGHT AT BEDTIME 90 tablet 1 08/25/20 25 Active Active Problems Problem Noted Date [...] Encounters Date Type Department Care Team Description 09/27/2025 Orders Only [facility] & P[facility]S [address] [facility] [place] [address] Provider, MD Kristi 08/25/2025 Refill [facility] [address] [place] [address] Nerissa Lopez MD Mixed hyperlipidemia 08/02/2025 Telephone [facility] MED & PEDS [address] [place] [address] Nallely Martinez, PharmD 07/27/2025 11:00 AM EDT Office Visit [facility] MED & PEDS [address] [place] [address] Nerissa Lopez MD Type 2 diabetes mellitus without complication, with long-term current use of insulin (HCC) (Primary Dx); Encounter for immunization; Chronic kidney disease, unspecified CKD stage; Acute gout involving toe of right foot, unspecified cause 07/27/2025 Travel 07/27/2025 Refill [facility] MED & PEDS [address] [place] [address] Nerissa Lopez MD 07/26/2025 Orders Only GENERIC EXTERNAL DATA DEPARTMENT Provider, Generic External Data 07/26/2025 Telephone [facility] MED & PEDS [address] [place] [address] Nerissa Lopez MD Chart Prep from Last 3 Months Immunizations Immunization Administration [...] 07/27/2025 11:20 AM EDT Plan of Treatment Upcoming Encounters Date Type Department Care Team (Late st Contact Info) Description 11/16/2025 10:45 AM EST Office Visit [facility] PEDS [address] [place] [address] Zulema Jorgensen MD [address] [place] [address] Health Maintenance Due Date Last Done Comments CT Colonography 1968 Colonoscopy 1968 FIT 1968 HIV Screening 1968 Sigmoidoscopy 1968 Eye Exam 1978 09/25/2025 Hepatitis C Screening 1986 Hepatitis B Vaccines (1 of 3 - 19+ 3-dose series) 1987 Pap Smear 1989 Cervical Cancer Screening 1998 HPV/Cotest 1998 Pneumococcal Vaccine: 50+ Years (2 of 2 - PCV) 04/25/2012 04/25/2011, 02/13/2010 RSV Patients and Patients Aged 60 years or older (1 - Risk 50-74 years 1-dose series) 2018 Dental Oral Exam 06/23/2019 12/23/2018 Dental X-Ray: Bitewings 12/24/2019 12/23/2018, 11/25 Dental Prophylaxis 05/05/2020 11/04/2019, 04/26/2019 Dental X-Ray: Full Mouth 12/24/2021 12/23/2018 FOBT 10/05/2024 10/05/2023 Diabetes: Urine Protein Screening 12/03/2024 12/03/2023, 10/27/2023 COVID-19 Vaccine ( season) 2025 02/13/2021, 01/08/2021 Diabetes: Foot Exam 12/14/2025 12/14/2024 SDOH Screening 01/05/2026 01/05/2025 Lipid Panel 01/12/2026 01/12/2025, 10/0 11/2023, 03/30/2023 Mammogram 01/12/2026 01/13/2024 Diabetes: Hemoglobin A1C 01/25/2026 025, 01/12/2025, 12/14/2024, Additional history exists Alcohol/Substance Use Screening 07/27/2026 07/27/2025 Depression Screening 07/27/2026 07/27/2025, 07/27/20 25 Disability Screening 07/27/2026 07/27/2025 Tobacco Screening 07/27/2026 07/27/2025 Colorectal Cancer Screening 10/05/2026 FIT DNA/Cologuard 10/05/2026 10/05/2023 DTaP/Tdap/Td Vaccines (4 - Td or Tdap) 11/13/2033 11/13/2023, 12/23/2010, 02/23/2008 Zoster Vaccines Completed 09/06/2019, 06/29/2019 Influenza Vaccine [...] Procedure Name Priority Date/Time Associated Diagnosis Comments HM DIABETES EYE EXAM Routine 09/25/2025 POCT GLYCATED HEMOGLOBIN, TOTAL Routine 07/27/2025 11:25 [...] Recently Relevant to Health Maintenance Results * Diabetes Eye Exam (09/25/2025) [facility] Provider HEALTH MAINTENANCE Final Result * (ABNORMAL) POCT Hgb A1c (07/27/2025 11:25 AM EDT) Hemoglobin A1C 6.9(A) 4.0 - 5.7 % QC Media Lot # [id number] Lot# Expiration Date , Blood 07/27/2025 11:2 5 AM EDT Nerissa Lopez MD POINT OF CARE TEST ENTER/EDIT OR DERABLES Final Result * POCT Glucose (07/27/2025 11:24 AM EDT) Glucose Blood, POC 127 60 - 200 mg/dL QC Media Lot # [id number] Lot# Expiration Date [id number] Blood Capillary blood specimen / Unknown 07/27/2025 11:24 AM EDT Nerissa Lopez MD POINT OF CARE TEST ENTER/EDIT OR DERABLES Edited Result - Final * (ABNORMAL) CBC auto differential (07/26/2025 2:09 PM EDT) White Blood Count 10.3 4.8 - 10.8 X10*3/uL [facility] Red Blood Count 3.35(L) 4.20 - 5.50 X10*6/uL [facility] Hemoglobin 9.8(L) 12.0 - 16.0 g/dl [facility] Hematocrit 30.8(L) 37.0 - 47.0 % [facility] Mean Corpuscular Volume 91.9 80.0 - 98.0 fL [facility] Mean Corpuscular Hemoglobin 29.3 27.0 - 33.0 pg [facility] Mean Corpuscular HGB Conc 31.8 31.0 - 35.0 g/dl [facility] Red Cell Distribution Width 13.2 11.0 - 16.0 % [facility] Platelet Count 293 160 - 400 X10*3/uL [facility] Mean Platelet Volume 12.7(H) 9.4 - 12.3 fL [facility] Neutrophils Percent Auto 62.5 45 - 73 % [facility] Imm Gran Pct Auto 0.3 0.0 - 0.4 % [facility] Lymphocytes Percent Auto 25.4 20 - 40 % [facility] Monocytes Percent Auto 6.6 2 - 11 % [facility] Eosinophils Percent Auto 4.6(H) 0 - 4 % [facility] Basophils Percent Auto 0.6 0 - 2 % [facility] NRBC Pct Auto 0.0 0.0 - 0.2 /100WBC [facility] Neutrophils Absolute Auto 6.4 2.0 - 8.3 x10*3/uL [facility] Imm Gran Abs Auto 0.03 0.00 - 0.03 X10*3/uL [facility] Lymphocytes Absolute Auto 2.6 1.2 - 4.9 X10*3/uL [facility] Monocytes Absolute Auto 0.7 0.1 - 1.2 X10*3/uL [facility] Eosinophils Absolute Auto 0.5(H) 0.0 - 0.4 X10*3/uL [facility] Basophils Absolute Auto 0.1 0.0 - 0.2 X10*3/uL [facility] NRBC Abs Auto 0.000 0.0 - 0.012 X10*3/uL [facility] 07/26/2025 2:09 PM EDT 07/26/2025 6:04 PM EDT us Generic External Data Provider LAB BLOOD ORDERAB LES Final Result Performing Organization Address [facility] [address]/[facility] Co de Phone Number [facility] [address] [place] [phone] * (ABNORMAL) Sed Rate by Modified Marsharen (07/26/2025 2:09 PM EDT) Erythrocyte Sedimentation Rate 97(H) 0 - 20 MM/HR [facility] Comment:Patients with polycy themia and many hemoglobin abnormalitiesmay have depressed sed rates whereas patients with anemiamay have elevated sed rates. 07/26/2025 2:09 PM EDT 07/26/2025 6:04 PM EDT us Generic External Data Provider LAB BLOOD ORDERAB LES Final Result Performing Organization Address City/[facility] [address]/ZIP Co de Phone Number [facility] [address] [place] [address] [phone] * (ABNORMAL) C-reactive Protein (07/26/2025 2:09 PM EDT) C Reactive Protein 4.68(H) < or = 0.50 mg/dL [facility] 07/26/2025 2:09 PM EDT 07/26/2025 6:04 PM EDT us Generic External Data Provider LAB BLOOD ORDERAB LES Final Result Performing Organization Address [facility] [address]/ZIP Co de Phone Number [facility] [address] [place] [address] [phone] * (ABNORMAL) Uric acid (07/26/2025 2:09 PM EDT) Uric Acid 9.3(H) 2.4 - 5.7 mg/dL [facility] 07/26/2025 2:09 PM EDT 07/26/2025 6:04 PM EDT Generic External Data Provider LAB BLOOD ORDERAB LES Final Result Performing Organization Address [facility] [address]/[facility] Co de Phone Number [facility] [address] [place] [address] [phone] * (ABNORMAL) Comprehensive Metabolic Panel (07/26/2025 2:09 PM EDT) Pathologist [facility] Sodium 138 135 - 145 mmol/L [facility] Potassium 4.6 3.3 - 5.1 mmol/L [facility] Chloride 104 96 - 108 mmol/L [facility] Carbon Dioxide 22 22 - 29 mmol/L [facility] Anion Gap 17 12 - 20 [facility] Urea Nitrogen (BUN) 77(H) 9 - 16 mg/dL [facility] Creatinine, Serum 3.24(H) 0.5 - 1.4 mg/dL [facility] Estimated Glomerular Filt Rate 15 [facility] Comment:Chronic Kidney Disea se: Estimated GFR < 60 mL/min/1.30n1Qyvcru Kidney Disease: Estimated GFR < 15 mL/min/1.73m2 Glucose 176(H) 60 - 115 mg/dL [facility] Calcium 8.6 8.4 - 10.2 mg/dL [facility] Bilirubin, Total 0.5 0.0 - 1.0 mg/dL [facility] Aspartate Amino Transferase 22 5 - 31 U/L [facility] Alanine Aminotransferase 14 0 - 31 U/L [facility] Total Protein 7.8 6.5 - 8.0 g/dL [facility] Albumin Level 4.3 3.5 - 5.0 g/dL [facility] Alkaline Phosphatase 105 39 - 117 U/L [facility] 07/26/2025 2:09 PM EDT 07/26/2025 6:04 PM EDT us Generic External Data Provider LAB BLOOD ORDERAB LES Final Result Performing Organization Address City/[facility] [address]/ZIP Co de Phone Number [facility] [address] [place] [phone] * (ABNORMAL) Lipid Panel, Standard (01/12/2025 12:22 PM EDT) Triglycerides 115 <150 mg/dL [facility] Comment:Desirable Triglyceri de: less than 150 mg/dLBorderline High Triglyceride 150-199 mg/dLHigh Triglyceride: 200-499 mg/dLVery High Triglyceride: greater than or equal to 5OO mg/dL Cholesterol 171 <200 mg/dL [facility] Comment:Desirable Cholestero l: less than 200 mg/dLBorderline High Cholesterol: 200-239 mg/dLHigh Cholesterol: greater than 239 mg/dL LDL Cholesterol Calculated 100(H) <100 mg/dL [facility] Comment:Desirable LDL: less than 100 mg/dLNear Optimal/Above Optimal LDL: 110- 129 mg/dLBorderline High LDL: 130-159 mg/dLHigh LDL: 160-189 mg/dLVery High LDL: greater than or equal to 190 mg/dL HDL Cholesterol 48 >40 mg/dL [facility] Comment:Desirable HDL: great er than 40 mg/dL Note: This HDL assay may give artificially low results in patients with liver disease. 01/12/2025 12:2 2 PM EDT 01/12/2025 1:06 PM EDT us Generic External Data Provider LAB BLOOD ORDERAB LES Final Result [facility] [address] [place] [phone] * BI Mammogram Screening Tomosynthesis Bilateral (01/13/2024 3:00 PM EDT) Anatomical Region Laterality Modality Breast Bilateral Mammography 01/13/2024 3:00 PM EDT Narrative 02/04/2024 5:12 AM EDT [facility] [address] [place] [address] Mammography Report Signed Patient: Mekhi Daily MR#: [id number] 2 : 1970 Acct:[id number] Age/Sex: 53 / F ADM Date: 01/13/24 Loc: HO.MAMMO Attending Dr: Nerissa Lopez MD Ordering Physician: Nerissa Lopez MD Results: 1Negati ve Date of Service: 01/13/24 Follow Up: 1 Year From Orig inal Mammogram Procedure(s): MM tomosynthesis screening BI Accession Number(s): [id number] cc: Nerissa Lopez MD EXAMINATION: MM SCREENING [...] in OV> 02/04/24 0508 DD/ 1500 TD/TT: Packaging Line Attendant: Procedure Note Donotuseinterpreter, Image - 02/04/2024 [facility] [address] [place], [place] [address] Mammography Report Signed Patient: Steven Daily#: [id number] 2 : 1970Acct:[id number] Age/Sex: 53 / FADM Date: 01/13/24 Loc: HO.MAMMO Attending Dr: Nerissa Lopez MD Ordering Physician: Nerissa Lopez MDResults: 1Negati ve Date of Service: 01/13/24Follow Up: 1 Year From Orig inal Mammogram Procedure(s): MM tomosynthesis screening BI Accession Number(s): [id number] cc: Nerissa Lopez MD EXAMINATION: MM SCREENING [...] in OV> 02/04/24 0508 DD/ 1500 TD/TT: Packaging Line Attendant: Nerissa Lopez MD IMG BI PROCEDURES Final Result * Cologuard?? colon cancer screening (10/05/2023 1:05 PM EST) Cologuard Result Negative Negative 10/14/20 1:10 PM [facility] (CLIA #:[id number]) Comment: NEGATIVE TEST RESULT. A negative Cologuard [...] screened with both Cologuard and colonoscopy. (Nikki Robertson et al, N Engl J Med 2014;370(14):9718-2166) The normal value (reference range) for this assay is negative. COLOGUARD RE-SCREENING RECOMMENDATION: Periodic colorectal cancer screening is an important part of preventive healthcare for asymptomatic individuals at average risk for colorectal cancer. Following a negative Cologuard result, the [place] [employer] and U.S. Multi-Society Task Force screening guidelines recommend a Cologuard re-screening interval of 3 years. References: [place] [employer] Guideline for Colorectal Cancer Screening: https://www.cancer.org/cancer/dgqyu-odwvub-vtxrfb/ohcpjotrb-rwyzsyiur-uisshxu/ac s-rec ommendations.html.; Sergo CAMPO, Adrian INIGUEZ, Cindy ColonK, Colorectal Cancer Screening: Recommendations for Physicians and Patients from the U.S. Multi-Society Task Force on Colorectal Cancer Screening , Am J Gastroenterology 2017; 112:8855-2604. TEST DESCRIPTION: Composite algorithmic analysis of stool [...] (Nikki August al, N Engl J Med 2014;370(14):2312-9180.) Cologuard may produce a false negative or false positive result (no colorectal cancer or precancerous polyp present at colonoscopy follow up). A negative Cologuard test result does not guarantee the absence of CRC or advanced adenoma (pre-cancer). The current Cologuard screening interval is every 3 years. ([place] [employer] and U.S. Multi-Society Task Force). Cologuard performance data in a 10,000 patient pivotal study using colonoscopy as the reference method can be accessed at the following location: www.[employer]/results. Additional description of the Cologuard test process, warnings and precautions can be found at [email or web address]. Stool specimen (specimen) 10/05/2023 1:05 PM EST 10/06/2023 8:14 PM EST us Nerissa Lopez MD LAB MOLECULAR DIAGNOSTICS ORDERA BLES Final Result [facility] (CLIA #:[id number]) [place] [address], from Last 3 Months or Most Recently Relevant to Health Maintenance Insurance [place] [id number] Care Teams Business Office Manager Relationship Specialty Start Date End Date Zulema Jorgensen MD [address] [place] [phone] PCP - General Family Medicine 08/23/25
--- OUTSIDE RECORDS SUMMARY | 2025-09-27 13:42 | XMS_ITS | Encounter Summary ---
Author Organization [employer] Address [address] [place] [address] Care Team Providers Care Manager Summer Name Role Phone Zulema Jorgensen MD Primary Care Provider [phone] Encounter Details Date Type Department Care Team ([facility] st Contact Info) Description 09/27/2025 Orders Only [facility] MED & PEDS [address] [place] [address] Provider, MD Kristi Social History Tobacco Use Types Packs/Day Years [...] Description 11/16/2025 10:45 AM EST Office Visit [facility] MED & PEDS [address] [place] [address] Zulema Jorgensen MD [address] [place] [address] documented as of this encounter Procedures Procedure Name Priority Date/Time Associated Diagnosis Comments DIABETES EYE EXAM Routine 09/25/2025 documented in this encounter Results * Diabetes Eye Exam (09/25/2025) Historical Provider HEALTH MAINTENANCE Final Result documented in this encounter Visit Diagnoses Not on filedocumented in this encounter Additional Health Concerns Assessment Noted Time PHQ-9 Depression Total Score: 8 07/27/20 11:22 AM EDT documented as of this encounter Care Teams Manager Summer Relationship Specialty Start Date End Date Zulema Jorgensen MD [address] [place] [address] PCP - General Family Medicine 08/23/25 documented as of this encounter
[2025-09-27 14:06] LABS: Hematocrit 31.3 % (37.0-47.0); Hemoglobin 9.8 g/dl (12.0-16.0); Mean Corpuscular HGB Conc 31.3 g/dl (31.0-35.0); Mean Corpuscular Hemoglobin 29.2 pg (27.0-33.0); Mean Corpuscular Volume 93.2 fL (80.0-98.0); NRBC Abs Auto 0.000 X10*3/uL (0.0-0.012); NRBC Pct Auto 0.0 /100WBC (0.0-0.2); Platelet Count 308 X10*3/uL (160-400); Red Blood Count 3.36 X10*6/uL (4.20-5.50); White Blood Count 10.5 X10*3/uL (4.8-10.8)
[2025-09-27 14:33] LABS: Anion Gap 17 (12-20); Blood Urea Nitrogen 75 mg/dL (9-16); Calcium 9.0 mg/dL (8.4-10.2); Carbon Dioxide 17 mmol/L (22-29); Chloride 109 mmol/L (96-108); Estimated Glomerular Filt Rate 18; Iron 39 mcg/dL (30-160); Percent Iron Saturation 15 % (15-50); Potassium 4.5 mmol/L (3.3-5.1); Sodium 138 mmol/L (135-145); Total Iron Binding Capacity 257 mcg/dL (228-428); Unsaturated Iron Binding 218 ug/dL
[2025-09-27 14:41] LABS: Total Protein Urine Random < 7 mg/dL (<12)
[2025-09-27 14:43] LABS: Ferritin 257 ng/mL (10-250)
[2025-09-27 14:46] LABS: Parathyroid Hormone Intact 405.5 pg/mL (8.7-77.1)
== END 2025-09-27 11:23 | disposition home or self-care (01) ==
LOC: HO.HMGCLDS 11:22
PROVIDERS: PCP Family Medicine; Visit Provider Internal Medicine Hypertension Specialist
DX: N18.30 Chronic kidney disease, stage 3 unspecified (principal)
CPT/HCPCS: 36415; 80048; 82570; 82728; 83540; 83970; 84156; 85027